=== PATIENT | female | born 1960 | race Caucasian/White ===

== ENCOUNTER 2018-02-01 13:56 | Inpatient (IN) ==
--- OUTSIDE RECORDS SUMMARY | 2018-02-01 16:37 | External Medical Summary ---
:1960 Author Name FUAD BRICE MD Address [address] Unavailable [place], [place] [id number] Care Team Providers Name Role Phone LEV SEAMAN Unavailable Unavailable FUAD BRICE MD Unavailable Unavailable LOWELL EVERETT Unavailable Unavailable DR. KATHY LOWE Unavailable Unavailable KYLE QUINN APRN Unavailable Unavailable LY RODRIGUEZ Unavailable Unavailable DR. ROVERTO LINK Unavailable Unavailable AUSTEN TORRES Unavailable Unavailable Huma HELTON Unavailable Unavailable Allergies and Adverse Reactions Date Identified Substance Type Reaction Severity codeine Medication Unknown Headache CODIENE Medication Unknown Headache Assessments Fuad Brice MD made the following assessments 1. [1444S] Pelvic and perineal pain 2. [8112S] Localized swelling, mass and lump, right lower limb 3. [54905X] Hypo-osmolality and hyponatremia 4. [33259Z] Urge incontinence 5. [ 667858K] Other retention of urine Chief Complaint Appt: Pain in right groin Encounters Encounter Reason Provider(s) Location(s) Diagnosis Date OFFICE/OUTPATIENT FUAD BRICE MD [facility] OTHER RETENTION OF URINE 09/24/2017 VISIT, [facility] LOCALIZED SWELLING, MASS AND LUMP, RIGHT LOWER LIMB 9:46 AM PELVIC AND PERINEAL PAIN HYPO-OSMOLALITY AND HYPONATREMIA URGE INCONTINENCE History of Present Illness Constanza Gomez is a 57 year old female. [2062S] Source of patient information was patient.[[id number]] Pt c.o cyst on groin getting bigger and more painful, hurts to walk and could barely walk out of work . Pt notes steroid injections for back helped once she was on the otezla and is done with those at this time. Pt is getting otezla through Dr Everett Pt with no bowel sx no dysuria but some urinary urgency and then doesnt go a lot that has been happening for a while. [[id number]] LMP not documented: Hysterectomy. Immunizations Vaccine Date Status Fluvirin Private 07/30/2015 Completed Medications Medication Strength Directions Start End Status Fill Date Date Instructions multivitamin 12/18/2014 Active 1 tab per day folic acid 1 mg Active 1 Tablet 1 [address] Everett Qvar 80 04/21/2017 Active ug/actuatio inhale 1 puff n (80 mcg) by inhalation route 2 times per day methotrexate 25 mg/mL 06/03/20 Active sodium inject 0.4 17 milliliter (10 mg) by intramuscular route once weekly atorvastatin 80 mg 06/30/20 Active Medication take 1 tablet 17 updated from by Oral route 1 ERx info from time per day pharmacy. cyanocobalamin 2,500 mcg Active (vitamin B-12) 1 Tablet 1 7 time per day Otezla 09/24/2017 Active 1 Tablet 2 times per day diclofenac sodium 75 mg Active Medication TAKE 1 TABLET 8 updated from BY ORAL ROUTE 2 ERx info from TIMES PER DAY pharmacy. WITH FOOD metoprolol 100 mg Active Medication tartrate TAKE 1 TABLET 8 updated from BY ORAL ROUTE 2 ERx info from TIMES PER DAY pharmacy. gabapentin 100 mg Active 2-3 Tablet 1 8 time per day 2 tabs am, 3 tabs hs amLODIPine 5 mg Active Replaces take 1 tablet 8 Losartan due (5 mg) by oral to sodium route once daily level diclofenac sodium 75 mg Active Medication TAKE 1 TABLET 8 updated from BY ORAL ROUTE 2 ERx info from TIMES PER DAY pharmacy. WITH FOOD traMADol 50 mg Active 1 Tablet 3 8 times per day PRN diclofenac sodium 75 mg 11/19/2017 Active Medication TAKE 1 TABLET updated from BY ORAL ROUTE 2 ERx info from TIMES PER DAY pharmacy. WITH FOOD calcium plus 1200 mg/500 12/18/2014 03/26/20 Completed vitamin D 1u 1 tab per 17 day atorvastatin 40 mg 05/21/20 Completed take 1 tablet 5 15 (40 mg) by oral route once daily at bedtime metoprolol 100 mg 01/16/2015 05/21/20 Completed tartrate take 1 Tablet 15 by Oral route 2 times per day atorvastatin 40 mg Completed Medication TAKE 1 TABLET 5 015 updated from (40 MG) BY ORAL ERx info from ROUTE ONCE DAILY pharmacy. AT BEDTIME metoprolol 100 mg Completed Medication tartrate TAKE 1 TABLET 5 015 updated from BY ORAL ROUTE 2 ERx info from TIMES PER DAY pharmacy. metoprolol 100 mg Completed Medication tartrate TAKE 1 TABLET 5 015 updated from BY ORAL ROUTE 2 ERx info from TIMES PER DAY pharmacy. atorvastatin 40 mg Completed Medication TAKE 1 TABLET 5 015 updated from (40 MG) BY ORAL ERx info from ROUTE ONCE DAILY pharmacy. AT BEDTIME metoprolol 100 mg 08/21/2015 10/14/19 Completed tartrate take 1 Tablet 17 by Oral route 2 times per day Medrol (Gabriele) 4 mg 02/21/2016 03/02/20 Completed take as 16 directed by Oral route 1 time per day azithromycin 250 mg 02/21/2016 03/01/20 Completed take 2 16 tablets by Oral route 1 time per day then 1 tablet (250 mg) once daily for 4 days enalapril maleate 20 mg 02/22/2016 03/02/20 Completed take 2 17 tablets (40 mg) by oral route once daily enalapril maleate 20 mg 03/21/2016 04/30/20 Completed take 1 17 tablets by Oral route 1 time per day metoprolol 100 mg 03/24/2016 Completed Medication tartrate TAKE 1 TABLET 7 updated from BY ORAL ROUTE 2 ERx info from TIMES PER DAY pharmacy. atorvastatin 80 mg 04/02/20 Completed take 1 tablet 7 17 by Oral route at bedtime 1 time per day azithromycin 250 mg Completed take 2 7 7 tablets by Oral route 1 time per day then 1 tablet (250 mg) once daily for 4 days meloxicam 15 mg 03/26/20 Completed take 1 tablet 7 17 (15 mg) by oral route once daily predniSONE 10 mg 12/25/19 Completed take 1 tablet 7 17 (10 mg) by oral route 2 times per day methotrexate 2.5 mg 04/30/20 Completed sodium 6 Tablet 1 7 [address] Everett acetaminophen 650 mg 04/30/20 Completed 2 tabs am 7 17 and 3 tabs noon metoprolol 100 mg 10/05/19 Completed Medication tartrate take 1 Tablet 7 18 updated from by Oral route 2 ERx info from times per day pharmacy. enalapril maleate 20 mg Completed Medication take 1 7 017 updated from tablets by Oral ERx info from route 2 times pharmacy. 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 17 18 next week by Oral route 3 times per day Medrol (Gabriele) 4 mg 08/13/20 Completed as directed 17 8 diclofenac sodium 75 mg 08/13/20 Completed will piclk up take 1 tablet 17 8 next week when by Oral route 2 out of current times per day with food enalapril maleate 20 mg 10/13/19 Suspended take 1 tablet 5 15 (20 mg) by oral route once daily enalapril maleate 20 mg 10/13/19 Suspended take 1 tablet 5 15 (20 mg) by oral route once daily enalapril maleate 20 mg 10/13/19 Suspended take 2 tablet 5 15 by Oral route 1 time per day enalapril maleate 20 mg Suspended take 2 tablet 5 5 by Oral route 1 time per day metoprolol 100 mg 11/15/2014 Suspended tartrate take 1 tablet 5 (100 mg) by oral route 2 times per day enalapril maleate 20 mg 11/15/2014 Suspended take 2 tablet 5 by Oral route 1 time per day metoprolol 100 mg 11/15/2014 Suspended tartrate take 1 tablet 5 (100 mg) by oral route 2 times per day enalapril maleate 20 mg 11/15/2014 01/11/20 Suspended take 2 tablet 15 by Oral route 1 time per day metoprolol 100 mg 11/15/2014 Suspended tartrate take 1 Tablet 5 by Oral route 2 times per day enalapril maleate 20 mg Suspended take 2 tablet 5 6 by Oral route 1 time per day metoprolol 100 mg Suspended tartrate take 1 Tablet 5 6 by Oral route 2 times per day atorvastatin 40 mg Suspended take 1 tablet 5 015 (40 mg) by oral route once daily at bedtime acetaminophen 650 mg 07/30/20 03/27/20 Suspended 3 tabs am 15 17 and 2 tabs pm atorvastatin 80 mg 08/06/20 02/11/20 Suspended take 1 tablet 15 16 by Oral route at bedtime 1 time per day enalapril maleate 20 mg 01/22/2016 Suspended take 2 tablet 6 by Oral route 1 time per day enalapril maleate 20 mg 01/23/2016 Suspended take 2 tablet 6 by Oral route 1 time per day atorvastatin 80 mg 10/13/19 Suspended take 1 tablet 6 17 by Oral route at bedtime 1 time per day Qvar 80 03/21/2016 10/06/19 Suspended ug/actuatio inhale 1 puff 17 n (80 mcg) by inhalation route 2 times per day Qvar 80 Suspended ug/actuatio inhale 1 puff 7 7 n (80 mcg) by inhalation route 2 times per day metoprolol 100 mg 04/03/20 Suspended Medication tartrate TAKE 1 TABLET 7 17 updated from BY ORAL ROUTE 2 ERx info from TIMES PER DAY pharmacy. gabapentin 100 mg 03/27/20 Suspended take 1-3 7 17 capsules by Oral route 1 time per day in hte pm predniSONE 10 mg 12/27/19 Suspended take 3 tablet 7 17 by Oral route 1 time per day for 3 days 2 tabs QD x5 days then 1 QD x 5 days enalapril maleate 20 mg 05/06/20 Suspended Medication TAKE 2 7 17 updated from TABLETS (40 MG) ERx info from BY ORAL ROUTE pharmacy. ONCE DAILY celecoxib 200 mg 05/06/20 Suspended take 1 7 17 capsule by Oral route 1 time per day as needed gabapentin 100 mg 05/12/20 Suspended take 3 Tablet 7 17 by Oral route 1 time per day in pm atorvastatin 80 mg Suspended Medication TAKE 1 TABLET 7 017 updated from BY ORAL ROUTE AT ERx info from BEDTIME 1 TIME pharmacy. PER DAY gabapentin 100 mg 05/12/20 Suspended take 3 Tablet 7 17 by Oral route 1 time per day in pm gabapentin 100 mg 07/17/20 Suspended take 1-3 7 17 Tablet by Oral route 1 time per day in pm gabapentin 100 mg 07/20/20 Suspended take 3 Tablet 7 17 by Oral route 1 time per day in pm gabapentin 100 mg 10/09/19 Suspended take 3 Tablet 7 18 by Oral route 1 time per day in pm Otezla Suspended 12-8-17 Pt. 7 8 states on titration per Dr. Everett amLODIPine 5 mg 08/13/20 10/27/19 Suspended Replaces take 1 tablet 17 18 Losartan due (5 mg) by oral to sodium route once daily level diclofenac sodium 75 mg 08/13/20 Suspended take 1 tablet 17 017 by Oral route 2 times per day with food cyclobenzaprine 10 mg 08/13/20 Suspended take 1 tablet 17 017 by Oral route 3 times per day Bactrim DS 800-160 mg 09/24/2017 09/30/19 Suspended take 1 tablet 18 by oral route every 12 hours for 7 days traMADol 50 mg 10/30/19 Suspended 1 Tablet 3 8 18 times per day PRN Payers Plan Name [facility] Physical Examination Vital Signs:Vital Signs/Measurements Date[00477J] Tympanic membrane temperature - 90 to 107 09/24/2017 09: 46AM 96.9 F[6021S] RR 16 bpm 8 to 140 09/24/2017 09:46AM[6034S] MD 82 bpm 30 to 18009/24/2017 09:46AM[6046S] Blood pressure 143/81 mmHg 50-400/10-300 09/24/2017 09:48AM[6063S] Weight 155.8 lbs 1 to 600 09/24/2017 09:46AM[9300S] Body mass index - 09/24/2017 09:46AM 26.7 kg/m2 BMI Percentile : Off Chart[6071S] Height 64in 10 to 96 09/24/2017 09:46AMGeneral Appearance: [98954T] Alert, [05965N] well developed, and [ 77683K] in no acute distress.Eyes: Extraocular Movements: [6527S] Theextraocular movements were normal. Pupils: [6498S] The pupils were normal. External: [6461S] The conjunctiva exhibited no abnormalities.Lungs: [7010S] Lungs: normal, [6026P] respiration rhythmand depth was normal, [7041P ] the lungs were clear to auscultation, [7047P] no wheezing was heard, and [ 7049P] no rhonchi were heard.Cardiovascular: Heart Rate And Rhythm: [073409G ] Heart rate and rhythm normal. Heart Sounds: [7144S] Heart sounds normal, [ 7165P] no S3 was heard, and [7168P] no S4 was heard. Murmurs: [7180S] No murmurs were heard. Arterial Pulses: [7293S] Arterial pulses were equal bilaterally and normal. Edema: [7268S] Edema not present. Veins: [7277S] Veins unremarkable.Back: [7405S] No costovertebral angle tenderness.Abdomen: Auscultation: [82488Z] Abdominal auscultation revealed abnormalities no right femoral bruit. [7377S] The bowel sounds were normal and [7384P] a bruit was not heard in the abdomen. Palpation: [7406S] Direct suprapubic tendernessher bladder perc above the eustachion no oter mass there. [9253S] No abdominal guarding and [7407S] no rebound tenderness in the abdomen. Liver : [7427S] The liver was normal to palpation. Spleen: [7433S] The spleen was normal to palpation. Hernia: [7436S] No hernia was discovered.Urinary System : Bladder: [302078Z] The bladder was full and [973785U] was tender.Genitalia : External: [7524S] The external genitalia showed no abnormalities.Pelvic: [8791054K] Bimanual Exam. Vagina:[7552S] The vagina was normal. Cervix: [7583S] Cervix abnormal absent. [246196W] Pap smear sample not taken. Uterine Adnexae: [7603S] The uterine adnexae were abnormal tender with palp on the right fullness there no firm mass notedvery tender with palp over the bladder and [7604P] [30276O] the uterine adnexa was tender [91555V] on the right.Musculoskeletal System: General/bilateral: [7716S]Heberden's nodes were seen.Neurological: [06855M] No disorientation was observed.Skin: [ 12067Y] No cyanosis. [6142S] Skin: below right inguinal line there is a pa sized freely mobile subcutaneous mass no cystic opening to it and it is firmer than a lipomano LAD is noted. [83283R] The skin general appearance was normal.Nails: [6346S] No clubbing of the fingernails.Orthopedic Disorder: [625379Y] No synovitis.Standard Measurements:Standard Measurements:[19337R] Body surface area 1.8 09/24/2017 09:46AMLaboratory Studies :Pulmonary Function Tests:[230569I] 96% percent oxygen - 93 to 100 09/24/2017 09:46AM saturation Treatment plan Planned Care Start Date 1. HTn improved control cpm~2. Hyponatremia off losartan 09/24/2017 check today ctn water restriction~3. Suprapubic pain check UA and it with nitrates only her pain is out of proportion and she has some urge issure will get post void residual ? urinary retention and pelvic sono eval right adnexa culture urine and start bactrim ds bid 4. Right inguinal lump no growth noted refer to Dr Torres pt notes pain in her back when this is palpated 1.Urine culture~2. US of bladder ~3. 09/24/2017 Labs, Tests, or Studies Reviewed In house. 09/24/2017 8 wk 12/21/2017 Problems Name Type Status Onset Resolution Priority Author HYPO-OSMOLALITY Diagnosis Active 05/06/2017 Normal AND HYPONATREMIA PELVIC AND Diagnosis Active 09/24/2017 Normal PERINEAL PAIN LOCALIZED Diagnosis Active 09/24/2017 Normal SWELLING, MASS AND LUMP, RIGHT LOWER LIMB URGE INCONTINENCE Diagnosis Active 09/24/2017 Normal OTHER RETENTION Diagnosis Active 09/24/2017 Normal OF URINE Procedures Procedure Date US EXAM BLADDER POST-VOID 09/24/2017 TRANSVAGINAL US, NON-OB 09/24/2017 Results CMP (IN HOUSE) Result Type Result Value Relevant Interpretation Date Reference Range Chloride 93 mmol/L 98-108 L 09/24/2017 Sodium 135 128-145 N 09/24/2017 mmol/24hours Potassium 3.7 mmol/L 3.6-5.1 N 09/24/2017 Carbon dioxide 26 mmol/L 18-33 N 09/24/2017 Glucose 98 mg/dL 73-118 N 09/24/2017 Calcium 9.7 mg/dL 8-10.3 N 09/24/2017 Urea nitrogen 10 mg/dL 7-22 N 09/24/2017 Creatinine .6 mg/dL .6-1.2 N 09/24/2017 Alkaline phosphatase 95 IU/L 42-141 N 09/24/2017 Alanine aminotransferase 26 IU/L 10-47 N 09/24/2017 B 12 Result Type Result Value Relevant Interpretation Date Performing Lab Reference Range call pt her 09/24/2017 (0) virmain B12 was normla on her currnet supplemetn renetta (0) [facility]; ; ; tel:+1-(( ) ) - - URINALYSIS DIP STICK (IN HOUSE) Result Type Result Value Relevant Reference Interpretation Date Range positive nitrates 09/24/2017 disc at appt renetta URINE CULTURE/COLONY COUNT Result Type Result Value Relevant Interpretation Date Performing Lab Reference Range call pt how is 09/24/2017 (0) she doing her urine infected rec she finish her abx abd then start a probiotic daily for 1 month, She should call if ctn uriniary urgency after that there are meds for that renetta (0) [facility]; ; ; tel:+1-(( ) ) - - US EXAM BLADDER POST-VOID Result Type Result Value Relevant Reference Interpretation Date Range Per [facility] 09/24/2017 radiology pre-void 474mL Post void 24.3mLnormal see u/s renetta TRANSVAGINAL US, NON-OB Result Type Result Value Relevant Reference Interpretation Date Range call pt ehr u/s 09/24/2017 noraml and her bladder empties How is her pain? Review of Systems Systemic: [1878S] No systemic symptoms, [5S] no fever, and [7S] no chills.Gastrointestinal: [475S] Abdominal pain. [453S] No melena. [435S] No diarrhea, [911P] no fecal incontinence, and [444P] no constipation.Genitourinary : [539S] No hematuria and [546P] no changes in urinary habits. [548S] Increased urinary frequency [647397Q] frequent, small amounts. [528S] No polyuria. [897833P] Sudden urinary urgency, [547P] incomplete emptying of bladder, and [908P] [544723O] urinary loss of control [697425Z] preceded by a sudden urge. [526S] No dysuria, [581S] no vaginal itching or burning, and [ 041660M] normal menses. [610S] No vaginal discharge.Musculoskeletal: [917S] Back pain and [980P] back stiffness. [954S] No arthralgias.Psychological: [ 1891S] No psychological symptoms. Social History History Item Description Date Sex Female Unknown Unknown Unknown Unknown Current Smoking Status Unknown Since 11/19/2017 Tobacco Use Unknown Since 10/27/2017 Tobacco Use Current every day smoker 10/26/2017 - 10/27/2017 Tobacco Use Unknown 10/02/2017 - 10/26/2017 Tobacco Use Current every day smoker 08/13/2017 - 10/02/2017 Tobacco Use Unknown 07/20/2017 - 08/13/2017 Tobacco Use Current every day smoker 07/17/2017 - 07/20/2017 Tobacco Use Unknown 06/12/2017 - 07/17/2017 Tobacco Use Current every day smoker 06/03/2017 - 06/12/2017 Tobacco Use Unknown 05/11/2017 - 06/03/2017 Tobacco Use Current every day smoker 05/06/2017 - 05/11/2017 Tobacco Use Unknown 04/02/2017 - 05/06/2017 Tobacco Use Current every day smoker 03/27/2017 - 04/02/2017 Tobacco Use Unknown 01/02/2017 - 03/27/2017 Tobacco Use Current every day smoker 12/24/2016 - 01/02/2017 Tobacco Use Unknown 10/14/2016 - 12/24/2016 Tobacco Use Current Smoker 10/13/2016 - 10/14/2016 Tobacco Use Unknown 03/24/2016 - 10/13/2016 Tobacco Use Current every day smoker 03/06/2016 - 03/24/2016 Tobacco Use Unknown 02/22/2016 - 03/06/2016 Tobacco Use Current every day smoker 02/21/2016 - 02/22/2016 Tobacco Use Unknown 08/06/2015 - 02/21/2016 Tobacco Use Current every day smoker 07/30/2015 - 08/06/2015 Tobacco Use Unknown 12/25/2014 - 07/30/2015 Tobacco Use Current every day smoker 12/18/2014 - 12/25/2014 Tobacco Use Unknown 10/12/2014 - 12/18/2014 Vital Signs Date / Time: 09/24/2017 3:55 PM Body temperature 96.9 F Heart rate 82 /min Respiratory rate 16 /min Pulse oximetry site 96 % Systolic blood pressure 143 mm[Hg] Diastolic blood pressure 81 mm[Hg] Body height 64 [in_i] Body weight 70.7 kg \ 155.8 [lb_av] Body mass index (BMI) [Ratio] 26.7 kg/m2
--- OUTSIDE RECORDS SUMMARY | 2018-02-01 16:38 | External Medical Summary ---
:1960 Author Name EMILY MATOS MD Address [address] Unavailable [place], [place] [id number] Care Team Providers Name Role Phone LEV SEAMAN Unavailable Unavailable EMILY MATOS MD Unavailable Unavailable LOWELL EVERETT Unavailable Unavailable DR. KATHY LOWE Unavailable Unavailable KYLE QUINN APRN Unavailable Unavailable LY RODRIGUEZ Unavailable Unavailable DR. ROVERTO LINK Unavailable Unavailable AUSTEN TORRES Unavailable Unavailable Huma HELTON Unavailable Unavailable Allergies and Adverse Reactions Date Identified Substance Type Reaction Severity codeine Medication Unknown Headache CODIENE Medication Unknown Headache Chief Complaint Medications Encounters Provider(s) Location(s) Date EMILY MATOS MD [facility] 12/18/2017 1:58 PM CARE Immunizations Vaccine Date Status Fluvirin Private 07/30/2015 [...] from TIMES PER DAY pharmacy. WITH FOOD diclofenac sodium 75 mg 12/18/2017 Active Medication TAKE 1 TABLET updated from [...] by Oral route 2 times per day metoprolol 100 mg Completed Medication tartrate TAKE 1 TABLET 5 015 updated from BY ORAL ROUTE 2 ERx info from TIMES PER DAY pharmacy. atorvastatin 40 mg Completed Medication TAKE 1 TABLET 5 015 updated from (40 MG) BY ORAL ERx info from ROUTE ONCE DAILY pharmacy. AT BEDTIME atorvastatin 40 mg Completed Medication TAKE 1 TABLET 5 015 updated from (40 MG) BY ORAL ERx info from ROUTE ONCE DAILY pharmacy. AT BEDTIME metoprolol 100 mg Completed Medication tartrate TAKE 1 TABLET 5 015 updated from BY ORAL ROUTE 2 ERx info from TIMES PER DAY pharmacy. metoprolol 100 mg 08/21/2015 10/14/19 Completed tartrate take 1 Tablet 17 by Oral route 2 times per day azithromycin 250 mg 02/21/2016 03/01/20 Completed take 2 16 tablets by Oral route 1 time per day then 1 tablet (250 mg) once daily for 4 days Medrol (Gabriele) 4 mg 02/21/2016 03/02/20 Completed take as 16 directed by Oral route 1 time per day enalapril maleate 20 mg 02/22/2016 03/02/20 Completed [...] by oral route 2 times per day acetaminophen 650 mg 04/30/20 Completed 2 tabs am 7 17 and 3 tabs noon methotrexate 2.5 mg 04/30/20 Completed sodium 6 Tablet 1 7 [address] 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 week by Oral route 3 times per day enalapril maleate 20 mg 10/13/19 Suspended take 1 tablet 5 15 (20 mg) by oral route once daily enalapril maleate 20 mg Suspended take 2 tablet 5 5 by Oral route 1 time per day enalapril maleate 20 mg 10/13/19 Suspended take 2 tablet 5 15 by Oral route 1 time per day enalapril maleate 20 mg 10/13/19 Suspended take 1 tablet 5 15 (20 mg) by oral route once daily metoprolol 100 mg 11/15/2014 Suspended tartrate take 1 tablet 5 (100 mg) by oral route 2 times per day enalapril maleate 20 mg 11/15/2014 01/11/20 Suspended take 2 tablet 15 by Oral route 1 time per day metoprolol 100 mg 11/15/2014 Suspended tartrate take 1 tablet 5 (100 mg) by oral route 2 times per day metoprolol 100 mg 11/15/2014 Suspended tartrate take 1 Tablet 5 by Oral route 2 times per day enalapril maleate 20 mg 11/15/2014 Suspended take 2 tablet 5 by Oral route 1 time per day enalapril maleate 20 mg Suspended take 2 tablet 5 6 by Oral route 1 time per day atorvastatin 40 mg Suspended take 1 tablet 5 015 (40 mg) by oral route once daily at bedtime metoprolol 100 mg Suspended tartrate take 1 Tablet 5 6 by Oral route 2 times per day acetaminophen 650 mg 07/30/20 03/27/20 Suspended 3 [...] time per day in pm Otezla Suspended 07-24-17 Pt. 7 8 states on titration per Dr. Everett amLODIPine 5 mg 08/13/20 10/27/19 Suspended Replaces take 1 tablet 17 18 Losartan due (5 mg) by oral to sodium route once daily level cyclobenzaprine 10 mg 08/13/20 Suspended take 1 tablet 17 017 by Oral route 3 times per day diclofenac sodium 75 mg 08/13/20 Suspended take 1 tablet 17 017 by Oral route 2 times per day with food Bactrim DS 800-160 mg 09/24/2017 09/30/19 Suspended take 1 tablet 18 by oral route every 12 hours for 7 days traMADol 50 mg 10/30/19 Suspended 1 Tablet 3 8 18 times per day PRN Payers Plan Name [facility] Treatment plan Planned Care Start Date 8 wk 12/21/2017 Social History History Item Description Date Sex Female Current Smoking Status Unknown Since 12/18/2017 Tobacco Use Unknown Since 10/27/2017 Tobacco Use [...]
--- OUTSIDE RECORDS SUMMARY | 2018-02-01 16:38 | External Medical Summary | Continuity of Care Document ---
:1960 Author Organization [facility] Care Team Providers Name Role Phone EMILY MATOS Admitting Physician EMILY MATOS Attending Physician Hospital Admission Diagnosis Code Admission Diagnosis Date [id number] Low back pain Social History Element Code Description Smoking Start Date End Date Description Status Code System Smoking Status [id number] Current some day SNOMED-CT smoker Problems Code Code System Problem Name Start Date End Date Status [id number] SNOMED-CT Diffuse myofascial unknown Active pain syndrome 65357364 SNOMED-CT Hypertensive unknown Active disorder Medications RxNorm Medication Dose Route Instructions Indications Start End Status Date Date 19831119 Acetaminophen 650 oral orally every fever or Active 650 MG Oral milligram 4 to 6 hours pain Tablet as needed. 599715 atorvastatin 80 80 oral orally HS Active MG Oral Tablet milligram 1347 Beclomethasone 1 puff Inhalation inhaled 2 Active times per day 315166 Enalapril 20 oral orally 2 Active Maleate 20 MG milligram times per day Oral Tablet 867532 Folic Acid 1 MG 1 oral orally every Active Oral Tablet milligram day 27825 gabapentin 300 oral orally every Active milligram day at bedtime 337145 Methotrexate 10 10 oral orally every Active MG Oral Tablet milligram week 292279 Metoprolol 100 oral orally 2 Active Tartrate 100 MG milligram times per day Oral Tablet Multivitamins 1 tablet oral orally every Active day 7350809 Acetaminophen 1to 2 oral orally every pain No 325 MG / tablets 4 hours as Longer Oxycodone needed. Active Hydrochloride 10 MG Oral Tablet 21191018 Aspirin 325 MG 325 oral orally every No Oral Tablet milligram day Longer Active Allergies Code Code Allergy Type Reaction Severity Start End Status System Substance Date Date 2669 RXNorm Codeine Drug Unknown 06/25/20 Active allergy 17 Results Laboratory Results Order: Creatinine PhosphokinaseLegend: D= Delta, H=High, L=Low, HH=Critical High, LL=Critical Low, AA=Critical Alpha- Numeric, C=Corrected, A=Abnormal LOINC Test Result Flag Range Units Date 2157-6 180 30-223 IU/L 07/13/2017 1CK 08:00 [facility]forming [id number] [address] [place] [address], [place] [address] - [facility] Radiology Results Order: NBNJNWB NM Bone And/Or Joint Whole BodyExam Completion Date:07/13/2017 11:00ORIGINAL INDICATION: M54.5-low back pain; L40.52-Psoriatic arthritis COMPARISON: MRI 06/29/2017NM Bone And/Or Joint Whole Body: Evidence of arthritis in shoulders, wrists,right foot. Minor degenerative findings in the L-spine. SI joints appearnormal. The suspected cyst coccyx fracture is obscured by the bladder. Nofindings to suggest a tumor.IMPRESSION: Arthritis.Released By JAYLON AGUIRRE, PATate: 07/13/2017 13:34 ADDENDUMReason for Addendum: Wording CorrectionThe suspected coccyx fracture is obscured by the bladder.Released By JAYLON AGUIRRE, MDDate: 07/16/2017 09:31 Vital Signs No data in the system Plan of Care No data in the system Procedures No data in the system Encounters Date Code Diagnosis Status (ICD10) - M545 LOW BACK PAIN Active Immunizations No data in the system Functional Status No data in the system Hospital Discharge Instructions No data in the system
--- OUTSIDE RECORDS SUMMARY | 2018-02-01 16:38 | External Medical Summary | Continuity of Care Document ---
:1960 Author Organization [facility] Care Team Providers Name Role Phone ROVERTO CHAPPELL Admitting Physician ROVERTO CHAPPELL Attending Physician EMILY MATOS Primary Care Physician Hospital Admission Diagnosis Code Admission Diagnosis Date [id number] Low back pain Social History Element Code Description Smoking Start Date End Date Description Status Code System Smoking Status [id number] Unknown if ever SNOMED-CT smoked Problems Code Code System Problem Name Start Date End Date Status 05603087 SNOMED-CT Diffuse myofascial unknown Active pain syndrome 21806934 SNOMED-CT Hypertensive unknown Active disorder Medications RxNorm Medication Dose Route Instructions Indications Start End Status Date Date 19831119 Acetaminophen 650 oral orally every fever or Active 650 MG Oral milligram 4 to 6 hours pain Tablet as needed. 152159 atorvastatin 80 80 oral orally HS Active MG Oral Tablet milligram 1347 Beclomethasone 1 puff Inhalation inhaled 2 Active times per day 549028 Enalapril 20 oral orally 2 Active Maleate 20 MG milligram times per day Oral Tablet 824098 Folic Acid 1 MG 1 oral orally every Active Oral Tablet milligram day 14485 gabapentin 300 oral orally every Active milligram day at bedtime 936019 Methotrexate 10 10 oral orally every Active MG Oral Tablet milligram week 429981 Metoprolol 100 oral orally 2 Active Tartrate 100 MG milligram times per day Oral Tablet Multivitamins 1 tablet oral orally every Active day 9511619 Acetaminophen 1to 2 oral orally every pain No 325 MG / tablets 4 hours as Longer Oxycodone needed. Active Hydrochloride 10 MG Oral Tablet 21191018 Aspirin 325 MG 325 oral orally every No Oral Tablet milligram day Longer Active Allergies Code Code Allergy Type Reaction Severity Start End Status System Substance Date Date 2669 RXNorm Codeine Drug Unknown 06/25/20 Active allergy 17 Results No data in the system Vital Signs Vitals Value Date Respiratory Rate 16 06/22/2017 O2% BldC Oximetry 99 06/22/2017 BP Systolic 176 mmHg 06/22/2017 BP Diastolic 99 mmHg 06/22/2017 Plan of Care No data in the system Procedures No data in the system Encounters Date Code Diagnosis Status (ICD10) - M545 LOW BACK PAIN Active Immunizations No data in the system Functional Status No data in the system Hospital Discharge Instructions No data in the system
--- OUTSIDE RECORDS SUMMARY | 2018-02-01 16:38 | External Medical Summary | Continuity of Care Document ---
:1960 Author Organization [facility] Care Team Providers Name Role Phone ROVERTO CHAPPELL Admitting Physician ROVERTO CHAPPELL Attending Physician EMILY MATOS Primary Care Physician Hospital Admission Diagnosis No data in the System Social History Element Code Description Smoking Start Date End Date Description Status Code System Smoking Status [id number] Unknown if ever SNOMED-CT smoked Problems Code Code System Problem Name Start Date End Date Status 89025110 SNOMED-CT Diffuse myofascial unknown Active pain syndrome 76826509 SNOMED-CT Hypertensive unknown Active disorder Medications RxNorm Medication Dose Route Instructions Indications Start End Status Date Date 19831119 Acetaminophen 650 oral orally every fever or Active 650 MG Oral milligram 4 to 6 hours pain Tablet as needed. 001591 atorvastatin 80 80 oral orally HS Active MG Oral Tablet milligram 1347 Beclomethasone 1 puff Inhalation inhaled 2 Active times per day 686491 Enalapril 20 oral orally 2 Active Maleate 20 MG milligram times per day Oral Tablet 999352 Folic Acid 1 MG 1 oral orally every Active Oral Tablet milligram day 25058 gabapentin 300 oral orally every Active milligram day at bedtime 216492 Methotrexate 10 10 oral orally every Active MG Oral Tablet milligram week 643185 Metoprolol 100 oral orally 2 Active Tartrate 100 MG milligram times per day Oral Tablet Multivitamins 1 tablet oral orally every Active day 7943075 Acetaminophen 1to 2 oral orally every pain [...] Signs Vitals Value Date Respiratory Rate 16 06/29/2017 O2% BldC Oximetry 99 06/29/2017 BP Systolic 131 mmHg 06/29/2017 BP Diastolic 85 mmHg 06/29/2017 Plan of Care No data in the system Procedures No data in the system Encounters No data in the system Immunizations No data in the system Functional Status No data in the system Hospital Discharge Instructions No data in the system
--- OUTSIDE RECORDS SUMMARY | 2018-02-01 16:38 | External Medical Summary ---
:1960 Author Name FUAD BRICE MD Address [address] Unavailable [place], [place] [id number] Care Team Providers Name Role Phone LEV SEAMAN Unavailable Unavailable FUAD BRICE MD Unavailable Unavailable LOWELL EVERETT Unavailable Unavailable DR. KATHY LOWE Unavailable Unavailable KYLE QUINN APRN Unavailable Unavailable LY RODRIGUEZ Unavailable Unavailable DR. ROVERTO LINK Unavailable Unavailable Allergies and Adverse Reactions Date Identified Substance Type Reaction Severity codeine Medication Unknown Headache CODIENE Medication Unknown Headache Assessments Fuad Brice MD made the following assessments 1. [928S] Lower back pain 2. [118215F] Psoriatic arthritis mutilans Chief Complaint order for WBBS Encounters Provider(s) Location(s) Diagnosis Date FUAD BRICE MD [facility] PSORIATIC ARTHRITIS MUTILANS 07/03/2017 1:28 [facility]ARE LOW BACK PAIN PM Immunizations Vaccine Date Status Fluvirin Private 07/30/2015 Completed Medications Medication Strength Directions Start End Status Fill Date Date Instructions multivitamin 12/18/2014 Active 1 tab per day folic acid 1 mg Active 1 Tablet 1 [address] Everett metoprolol 100 mg Active Medication tartrate take 1 Tablet 7 updated from by Oral route 2 ERx info from times per day pharmacy. Qvar 80 04/21/2017 Active ug/actuatio inhale 1 puff n (80 mcg) by inhalation route 2 times per day celecoxib 200 mg Active take 1 7 capsule by Oral route 1 time per day as needed gabapentin 100 mg Active take 1-3 7 Tablet by Oral route 1 time per day in pm methotrexate 25 mg/mL 06/03/20 Active sodium inject 0.4 17 milliliter (10 mg) by intramuscular route once weekly losartan 100 mg 06/03/20 Active REPLACES take 1 tablet 17 ENALAPRIL (100 mg) by oral route once daily atorvastatin 80 mg 06/30/20 Active Medication take 1 tablet 17 updated from by Oral route 1 ERx info from time per day pharmacy. calcium plus 1200 mg/500 12/18/2014 03/26/20 Completed vitamin D 1u 1 tab per day atorvastatin 40 mg 05/21/20 Completed take [...] Oral route 1 time per day enalapril 20 mg 02/22/2016 03/02/20 Completed maleate take 2 17 tablets (40 mg) by oral route once daily enalapril 20 mg 03/21/2016 04/30/20 Completed maleate take 1 17 tablets by Oral route [...] (250 mg) once daily for 4 days predniSONE 10 mg 12/25/19 Completed take 1 tablet 7 17 (10 mg) by oral route 2 times per day meloxicam 15 mg 03/26/20 Completed take 1 tablet 7 17 (15 mg) by oral route once daily acetaminophen 650 mg 04/30/20 Completed 2 tabs am 7 17 and 3 tabs noon methotrexate 2.5 mg 04/30/20 Completed sodium 6 Tablet 1 7 [address] Everett enalapril 20 mg Completed Medication maleate take 1 7 017 updated from tablets by Oral ERx info from route 2 times pharmacy. per day enalapril 20 mg 10/13/19 Suspended maleate take 1 tablet 5 15 (20 mg) by oral route once daily enalapril 20 mg Suspended maleate take 2 tablet 5 5 by Oral route 1 time per day enalapril 20 mg 10/13/19 Suspended maleate take 2 tablet 5 15 by Oral route 1 time per day enalapril 20 mg 10/13/19 Suspended maleate take 1 tablet 5 15 (20 mg) by oral route once daily metoprolol 100 mg 11/15/2014 Suspended tartrate take 1 tablet 5 (100 mg) by oral route 2 times per day enalapril 20 mg 11/15/2014 01/11/20 Suspended maleate take 2 tablet 15 by Oral route 1 time per day metoprolol 100 mg 11/15/2014 Suspended tartrate take 1 tablet 5 (100 mg) by oral route 2 times per day enalapril 20 mg 11/15/2014 Suspended maleate take 2 tablet 5 by Oral route 1 time per day metoprolol 100 mg 11/15/2014 Suspended tartrate take 1 Tablet 5 by Oral route 2 times per day enalapril 20 mg Suspended maleate take 2 tablet 5 6 by Oral route 1 time per day metoprolol 100 mg 10/5/201 1/5/201 Suspended tartrate take 1 Tablet 5 6 [...] at bedtime 1 time per day enalapril 20 mg 01/22/2016 Suspended maleate take 2 tablet 6 by Oral route 1 time per day enalapril 20 mg 01/23/2016 Suspended maleate take 2 tablet 6 by Oral route [...] then 1 QD x 5 days enalapril 20 mg 05/06/20 Suspended Medication maleate TAKE 2 7 17 updated from TABLETS [...] route 1 time per day in pm Payers Plan Name [facility] Treatment plan Planned Care Start Date f/u bone scan-start new med- draw MMA 07/17/2017 Problems Name Type Status Onset Resolution Priority Author Diagnosis Active 12/24/2016 Normal Diagnosis Active 03/27/2017 Normal Procedures Procedure Date BONE IMAGING, WHOLE BODY 07/03/2017 Results BONE IMAGING, WHOLE BODY Result Type Result Value Relevant Reference Interpretation Date Range call pt her bone 07/03/2017 scan shows arhtritis no evidence for a tumor I rec we start the otezla and she fup ford Everett on that med within 6-8 weeks renetta CPK Result Type Result Value Relevant Reference Interpretation Date Range Results within 07/03/2017 Expected Range renetta Social History History Item Description Date Sex Female Current Smoking Status Unknown Since 07/03/2017 Tobacco Use Unknown Since 06/12/2017 Tobacco Use Current every day smoker 06/03/2017 [...]
--- OUTSIDE RECORDS SUMMARY | 2018-02-01 16:38 | External Medical Summary ---
:1960 Author Name FUAD BRICE MD Address [address] Unavailable [place], [place] [id number] Care Team Providers Name Role Phone LEV SEAMAN Unavailable Unavailable FUAD RBICE MD Unavailable Unavailable LOWELL EVERETT Unavailable Unavailable DR. KATHY LOWE Unavailable Unavailable KYLE QUINN APRN Unavailable Unavailable LY RODRIGUEZ Unavailable Unavailable DR. ROVERTO LINK Unavailable Unavailable AUSTEN TORRES Unavailable Unavailable Huma HELTON Unavailable Unavailable Allergies and Adverse Reactions Date Identified Substance Type Reaction Severity codeine Medication Unknown Headache CODIENE Medication Unknown Headache Assessments Fuad Brice MD made the following assessments 1. [72234F] Sciatic neuritis 2. [135305M] Abnormal blood chemistry 3. [06188U] Pseudohyponatremia 4. [928S] Lower back pain 5. [05515G] Essential hypertension Chief Complaint Appt: ER follow up 08/12/17 Encounters Encounter Reason Provider(s) Location(s) Diagnosis Date OFFICE/OUTPATIENT FUAD BRICE MD [facility] OTHER SPECIFIED ABNORMAL FINDINGS OF BLOOD CHEMISTRY 08/13/2017 VISIT, [facility], RIGHT SIDE 10: 44 AM HYPO-OSMOLALITY AND HYPONATREMIA LOW BACK PAIN ESSENTIAL (PRIMARY) HYPERTENSION History of Present Illness Constanza Gomez is a 57 year old female. [2062S] Source of patient information was patient.[343548P] Pt having worse pain in right side starting at buttock going down leg. started thursday night,come thursday pain worse, pt states could barely walk, stand. 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 drank 2 glasses of wine with [place] dinner. drinkscoffee usually 6-8 oz at a time. Tea about 3- 8oz , when ran out of gatorade. Pt drinking about 2- 44oz glasses of water. pt informed to cut back on water to 20oz in the morning and night instead of 44oz due to sodium being lowDr, [place]-for an HANNY for nerve root impingementLabs done in ER- cbc normal, sodium to low, drinking to much water. Discussed PHT after seeing [facility] for HANNY. Do low back exercises given in ERPt needs to utilize stool at work to help with pain. pt given cyclobenzaprine 10mg tid # 30 and diclofenac 75mg bid #30 and a medrol pack by ER doc. [2903S] No neck symptoms. [2344S] Neck pain on right. [3064281G] LMP not documented: Hysterectomy. [546S] No changes in urinary habits and [548S] no increase in urinary frequency. [908S] No urinary loss of controland [908P] no urinary loss of control. [586S] No reproductive system abnormalities. [928P] [714930Y] Lower back pain [429202I] [990965Z] radiating [382733T] to the buttocks, [ 293589K] to the [572364J] right knee, [361306B] to [787026W] the right foot, [ 1060P] with muscle spasm, [980P] back stiffness, and [2295P] pain in the pelvic girdle. [1053S] No calf muscle cramps and [363S] no soft tissue swelling. [ 1155S] Sleep disturbances. [5S] No fever and [7S] no chills. [279S] No chest pain ordiscomfort. [353S] No dyspnea and [247S] no cough. [399S] No dysphagia, [475S] no abdominal pain, [453S] no melena, [454P] no hematochezia, [ 435P] no diarrhea, [911P] no fecal incontinence, and [444P] no constipation. [ 1061S] No excessive sweating. Immunizations Vaccine Date Status Fluvirin Private 07/30/2015 [...] time per day in pm Otezla Suspended 07-24- Pt. 7 8 states on titration per [...] times per day PRN Payers Plan Name [facility] Physical Examination Vital Signs:Vital Signs/Measurements Date[97910Q] Tympanic membrane temperature - 90 to 107 08/13/2017 10: 45AM 96.8 F[6021S] RR 16 bpm 8 to 140 08/13/2017 10:44AM[6034S] NH 84 bpm 30 to 180 08/13/2017 10:45AM[6046S] Blood pressure 130/80 mmHg 50-400/10-300 08/13/2017 10:47AM[6063S] Weight 156.4 lbs 1 to 600 08/13/2017 10:44AM[9300S] Body mass index - 08/13/2017 10:44AM 26.8 kg/ m2 BMI Percentile: Off Chart[6071S] Height 64 in 10 to 96 08/13/2017 10:44AMGeneral Appearance: [24953Z] Alert, [48791T] well developed, and [40374L] in no acute distress.Eyes: External: [6461S] The conjunctiva exhibited no abnormalities.Lymph Nodes: [6963S] Lymph nodes: normal no cervical no supraclavicular lad.Lungs: [7010S] Lungs: normal, [ 6026P] respiration rhythm and depth was normal, and [7041P] the lungs were clear to auscultation.Cardiovascular: Heart Rate And Rhythm: [975102N] Heart rate and rhythm normal. Heart Sounds: [7144S] Heart sounds normal, [7165P] no S3 was heard, and [7168P] no S4 was heard. Arterial Pulses: [7293S] Arterial pulses were equal bilaterally and normal. Veins: [7277S] Veins unremarkable.Back: [823565U] Tenderness on palpation of the back lumbar tosacral and [297926M] muscle spasm of the back. [7405S] No costovertebral angle tenderness.Abdomen: [7358S] Abdomen: freely mobile subcutanious dime size cyst vs. node beneath the right ingunail canal not in tyropiucal area of a lymph nodenone on the left. Palpation: [43199I] Abdominal palpationrevealed no abnormalities and [9253P] no abdominal guarding. Liver: [7427S] The liver was normal to palpation and [7428P] was not enlarged. Spleen: [7433S] The spleen was normal to palpation. Hernia: [7436S] No hernia was discovered.Musculoskeletal System: General/bilateral: [7964S] The cervical spine [7976P] showed tenderness on palpation. General/bilateral: [119401O] Palpation of thelumbosacral spine revealed [973999J] tenderness on palpation and [660150P] muscle spasms. [179746B]The lumbosacral spine exhibited no step deformity. [093294Q] Lumbosacral spine pain was elicited byflexion, [867104P] by extension, and [8014P] a straight-leg raising test was positive.Neurological : [16060M] No disorientation was observed. [8202S] Neurological system: Lumbar right very tender. point spinal tenderness. Sensation: [8615S] No sensory exam abnormalities were noted. Gait And Stance: [9035S] Gait and stance were abnormal.Skin: [18652P] No cyanosis. [6142S] Skin: livido reticularis. [79186S] The skin general appearance was normal.Nails: [6355S] Koilonychia was noted.Standard Measurements:Standard Measurements:[10346L] Body surface area 1.8110/14/2016 10:44AMLaboratory Studies:Pulmonary Function Tests:[ 090536Z] 94% percent oxygen - 93 to 100 08/13/2017 10:45AM saturation Treatment plan Planned Care Start Date Labs, Tests, or Studies Reviewed 08/13/2017 1. Hyponatremia dec water stop losartan start amlodipine 08/13/2017 fup 2- 3 weeks~2. Right sciatica refer for hanny cnt diclofenac and cyclobenzaprine no other otc nsaids or celexicob with that med finish medrol pack note to be off work will thursday~3. Low back pain pt with Si tenderness iwht palp as well but no better with Si injection or meds for psoriatic arthritis so far not yet on otezla~4. HTN fup on amlodipine of losartan ~5. irght inguinal subcutaneus lump i think a cyst out of noraml area for a lymph node her cbc in ER normal rec heat and recheck in 2-3 weeks note no other LAd noted and no abdminal , GI or pelvic pain education provided regarding all new 08/13/2017 medications.~Amlodipine 5mg daily. stop Losartan 8 wk 12/21/2017 Problems Name Type Status Onset Resolution Priority Author ESSENTIAL Diagnosis Active 12/18/2014 Normal (PRIMARY) HYPERTENSION LOW BACK PAIN Diagnosis Active 12/24/2016 Normal HYPO-OSMOLALITY Diagnosis Active 05/06/2017 Normal AND HYPONATREMIA SCIATICA, RIGHT Diagnosis Active Normal SIDE 7 OTHER SPECIFIED Diagnosis Active Normal ABNORMAL FINDINGS 7 OF BLOOD CHEMISTRY Procedures Procedure Date PT EVALUATION 08/13/2017 Results PT EVALUATION Result Type Result Value Relevant Interpretation Date Reference Range 09/17/17 Patient 08/13/2017 rescheduled to 09/07/17 and cancelled that appointment. She has not rescheduled [place] URINALYSIS DIP STICK (IN HOUSE) Result Type Result Value Relevant Reference Interpretation Date Range no uti sx disc 08/13/2017 abnormla very small sample prob vag contam note no blood Disc at appt renetta Review of Systems Psychological: [1891S] No psychological symptoms. Social History History Item [...] - 12/18/2014 Vital Signs Date / Time: 08/13/2017 4:56 PM Body temperature 96.8 F Heart rate 84 /min Respiratory rate 16 /min Pulse oximetry site 94 % Systolic blood pressure 130 mm[Hg] Diastolic blood pressure 80 mm[Hg] Body height 64 [in_i] Body weight 70.9 kg \ 156.4 [lb_av] Body mass index (BMI) [Ratio] 26.8 kg/m2
--- OUTSIDE RECORDS SUMMARY | 2018-02-01 16:39 | External Medical Summary | Continuity of Care Document ---
:1960 Author Organization [facility] Care Team Providers Name Role Phone ROVERTO CHAPPELL Admitting Physician ROVERTO CHAPPELL Attending Physician EMILY MATOS Primary Care Physician Hospital Admission Diagnosis No data in the System Social History Element Code Description Smoking Start Date End Date Description Status Code System Smoking Status [id number] Current some day SNOMED-CT smoker Problems Code Code System Problem Name Start Date End Date Status 66126362 SNOMED-CT Diffuse myofascial unknown Active pain syndrome 76377336 SNOMED-CT Hypertensive unknown Active disorder 5045276 SNOMED-CT Arthritis Unknown Active Medications RxNorm Medication Dose Route Instructions Indications Start End Status Date Date 19831119 Acetaminophen 650 oral orally every fever or Active 650 MG Oral milligram 4 to 6 hours pain Tablet as needed. 837269 atorvastatin 80 80 oral orally HS Active MG Oral Tablet milligram 1347 Beclomethasone 1 puff Inhalation inhaled 2 Active times per day 051674 Enalapril 20 oral orally 2 Active Maleate 20 MG milligram times per day Oral Tablet 245576 Folic Acid 1 MG 1 oral orally every Active Oral Tablet milligram day 73587 gabapentin 300 oral orally every Active milligram day at bedtime 915636 Methotrexate 10 10 oral orally every Active MG Oral Tablet milligram week 327897 Metoprolol 100 oral orally 2 Active Tartrate 100 MG milligram times per day Oral Tablet Multivitamins 1 tablet oral orally every Active day 5342650 Acetaminophen 1to 2 oral orally every pain [...] Signs Vitals Value Date Respiratory Rate 16 08/19/2017 O2% BldC Oximetry 99 08/19/2017 BP Systolic 145 mmHg 08/19/2017 BP Diastolic 96 mmHg 08/19/2017 Plan of Care No data in the system Procedures No data in the system Encounters No data in the system Immunizations No data in the system Functional Status No data in the system Hospital Discharge Instructions No data in the system
--- OUTSIDE RECORDS SUMMARY | 2018-02-01 16:39 | External Medical Summary | Summary of Care ---
:1960 Author Name Divina Donis Address [address] [place] [address] Care Team Providers Name Role Phone Divina Donis Unavailable Unavailable Ren Jara M.D. Unavailable Unavailable Fuad Brice Unavailable Unavailable Unavailable Unavailable Unavailable Functional Status Functional Status Health Issues Name Dates Details Functional status health issues are not documented Status: Cognitive Status Health Issues Name Dates Details Cognitive status health issues are not documented Status: Problems Name Dates Details Hypertension (401.9, I10) Status: Active Obstructive sleep apnea (327.23, G47.33) Status: Active Claustrophobia (300.29, F40.240) Status: Active Medications Name Dates Details Metoprolol Tartrate 100 MG Oral Tablet TAKE 1 TABLET DAILY. Refills: 0 Start 28-Apr-2016 Active Qvar 80 MCG/ACT Inhalation Aerosol Solution INHALE 1 PUFF TWICE DAILY. Refills: 0 Start 28-Apr-2016 Active Enalapril Maleate 20 MG Oral Tablet TAKE 1 TABLET DAILY. Refills: 0 Start 28-Apr-2016 Active Atorvastatin Calcium 80 MG Oral Tablet TAKE 1 TABLET DAILY. Refills: 0 Start 28-Apr-2016 Active Acetaminophen ER 650 MG Oral Tablet Extended Release TAKE 3 TABLETS IN THE MORNING AND 2 TABLETS AT NIGHT Refills: 0 Start 28-Apr-2016 Active Calcium 500 + D 500-125 MG-UNIT Oral Tablet TAKE 1 TABLET DAILY. Refills: 0 Start 28-Apr-2016 Active Multi Vitamin Daily Oral Tablet TAKE 1 TABLET DAILY. Refills: 0 Start 28-Apr-2016 Active Supplies AutoCPAP 8-12 cm H2O, Permanent use, G47.33, Heated humidity, [id number], mask , headgear, filters, heated tubing, water chamber, chinstrap Quantity: 1 Refills: 0 Divina Donis Start 30-Apr-2016 Active Allergies and Adverse Reactions Name Dates Details codeine (Allergy) Reaction: Headache Status: Active Procedures Procedure Dates Details History of Colonoscopy History of Appendectomy History of Cholecystectomy History of Hysterectomy Procedures not documented Immunization Name Dates Details Immunizations not documented Family History Mother Name Dates Details Family history of cardiac disorder (V17.49, Z82.49) Status: Active Family history of hypertension (V17.49, Z82.49) Status: Active Family history of myocardial infarction (V17.3, Z82.49) Status: Active Family history of diabetes mellitus (V18.0, Z83.3) Status: Active Family history of malignant neoplasm of cervix (V16.49, Z80.49) Status: Active Father Name Dates Details Family history of CAD (coronary artery disease) (414.00, I25.10) Status: Active Family history of alcoholism (V17.0, Z81.1) Status: Active Family history of cardiac disorder (V17.49, Z82.49) Status: Active Family history of hypertension (V17.49, Z82.49) Status: Active Sister Name Dates Details Family history of arthritis (V17.7, Z82.61) Status: Active Family history of congestive heart failure (V17.49, Z82.49) Status: Active Social History Name Dates Details - Status: Smoking Status Name Dates Details Smoker. current status unknown Vital Signs Date Test Result Details 30-Apr-2016 12:48 BP Systolic 124 mm[Hg] Status: Comments: Location: ; Position: BP Diastolic 80 mm[Hg] Status: Comments: Location: ; Position: Heart Rate 76 /min Status: Comments: Location: ; Height 65 in Status: Weight 162 lb Status: Physical Findings 96 Status: Comments: O2 Saturation Body Mass Index Calculated 26.96 kg/m2 Status: Body Surface Area Calculated 1.81 m2 Status: Results Date Description Value Details Results not documented Plan of Care Name Dates Details Planned Observations Planned Goals not documented Planned Encounters Appointment; Provider: Ren Jara M.D. On 03-Jun-2016 10:00 Interventions Provided Medication ChangesSupplies - Start Instructions Name Dates Details Instructions not documented Encounters Appointment; Ren Jara M.D. On 30-Apr-2016 Encounter Diagnosis: Problem not documented 13:00
--- OUTSIDE RECORDS SUMMARY | 2018-02-01 16:39 | External Medical Summary ---
:1960 Author Name EMILY MATOS MD Address [address] Unavailable [place], [place] [id number] Care Team Providers Name Role Phone LEV SEAMAN Unavailable Unavailable EMILY MATOS MD Unavailable Unavailable LOWELL EVERETT Unavailable Unavailable DR. KATHY LOWE Unavailable Unavailable KYLE QUINN APRN Unavailable Unavailable LY RODRIGUEZ Unavailable Unavailable DR. ROVERTO LINK Unavailable Unavailable AUSTEN TORRES Unavailable Unavailable Huma CARUSO Unavailable Unavailable Allergies and Adverse Reactions Date Identified Substance Type Reaction Severity codeine Medication Unknown Headache CODIENE Medication Unknown Headache Chief Complaint consult Dr. Caruso Encounters Provider(s) Location(s) Date EMILY MATOS MD [facility] 10/09/2017 12:19 PM CARE Immunizations Vaccine Date Status Fluvirin Private 07/30/2015 Completed Medications Medication Strength Directions Start End Status Fill Date Date Instructions multivitamin 12/18/2014 Active 1 tab per day folic acid 1 mg Active 1 Tablet 1 [address] Everett Qvar 80 04/21/2017 Active ug/actuatio inhale 1 puff n (80 mcg) by inhalation route 2 times per day atorvastatin 80 mg 06/30/20 Active Medication take 1 tablet 17 updated from by Oral route 1 ERx info from time per day pharmacy. cyanocobalamin 2,500 mcg Active (vitamin B-12) 1 Tablet 1 7 time per day Otezla 09/24/2017 Active 1 Tablet 2 times per day metoprolol 100 mg Active Medication tartrate TAKE 1 TABLET 8 updated from BY ORAL ROUTE 2 ERx info from TIMES PER DAY pharmacy. gabapentin 100 mg Active 2-3 Tablet 1 8 time per day 2 tabs am, 3 tabs hs amLODIPine 5 mg Active Replaces take 0.5 8 Losartan due tablet by Oral to sodium route 1 time per level day for a week starting 12/21/17 if less then 120 then go ahead and stop diclofenac sodium 75 mg 12/18/2017 Active Medication TAKE 1 TABLET updated from BY ORAL ROUTE 2 ERx info from TIMES PER DAY pharmacy. WITH FOOD oxyCODONE 10 mg 12/21/2017 Active 1/2 tablet every 3 to 4 hours magnesium oxide 400 mg 12/21/2017 Active 1 Tablet 2 times per day dexamethasone 4 mg 12/21/2017 Active take 1 tablet by Oral route 3 times per day potassium chloride 10 mEq 12/21/2017 Active 1 Capsule 2 times per day memantine 5 mg 12/21/2017 Active take 1 tablets by Oral route 2 times per day Miralax 17 12/21/2017 Active gram/dose take 17 g mixed with 8 oz. water, juice, soda, coffee or tea by Oral route 2 times per day for constipation calcium plus 1200 mg/500 12/18/2014 03/26/20 Completed [...] ERx info from TIMES PER DAY pharmacy. 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 WITH FOOD diclofenac sodium 75 mg Completed Medication TAKE 1 TABLET 8 8 updated from BY ORAL ROUTE 2 ERx info from TIMES PER DAY pharmacy. WITH FOOD traMADol 50 mg Completed 1 Tablet 3 8 8 times per day PRN diclofenac sodium 75 mg 11/19/2017 Completed Medication TAKE 1 TABLET 8 updated from BY ORAL ROUTE 2 ERx info from TIMES PER DAY pharmacy. WITH FOOD enalapril maleate 20 mg 10/13/19 Suspended take [...] time per day enalapril maleate 20 mg 11/15/2014 [...] ERx info from TIMES PER DAY pharmacy. predniSONE 10 mg 12/27/19 Suspended take 3 tablet 7 17 by Oral route 1 time per day for 3 days 2 tabs QD x5 days then 1 QD x 5 days gabapentin 100 mg 03/27/20 Suspended take 1-3 7 17 capsules by Oral route 1 time per day in hte pm enalapril maleate 20 mg 05/06/20 Suspended Medication TAKE 2 7 17 updated from TABLETS (40 MG) ERx info from BY ORAL ROUTE pharmacy. ONCE DAILY gabapentin 100 mg 05/12/20 Suspended take 3 Tablet 7 17 by Oral route 1 time per day in pm celecoxib 200 mg 05/06/20 Suspended take 1 7 17 capsule by Oral route 1 time per day as needed atorvastatin 80 mg Suspended Medication TAKE 1 [...] 8 states on titration per Dr. Everett diclofenac sodium 75 mg 08/13/20 Suspended take 1 tablet 17 017 by Oral route 2 times per day with food cyclobenzaprine 10 mg 08/13/20 Suspended take 1 tablet 17 017 by Oral route 3 times per day amLODIPine 5 mg 08/13/20 10/27/19 Suspended Replaces take 1 tablet 17 18 Losartan due (5 mg) by oral to sodium route once daily level Bactrim DS 800-160 mg 09/24/2017 09/30/19 Suspended take 1 tablet 18 by oral route every 12 hours for 7 days traMADol 50 mg 10/30/19 Suspended 1 Tablet 3 8 18 times per day PRN Payers Plan Name [facility] Treatment plan Planned Care Start Date 2 months. 02/19/2018 Social History History Item Description Date Sex Female Current Smoking Status Current Every Day Since 12/21/2017 Tobacco Use Unknown Since 10/27/2017 Tobacco Use [...]
--- OUTSIDE RECORDS SUMMARY | 2018-02-01 16:39 | External Medical Summary | Continuity of Care Document ---
:1960 Author Organization [facility] Care Team Providers Name Role Phone ROVERTO CHAPPELL Admitting Physician ROVERTO CHAPPELL Attending Physician EMILY MATOS Primary Care Physician Hospital Admission Diagnosis No data in the System Social History Element Code Description Smoking Start Date End Date Description Status Code System Smoking Status [id number] Unknown if ever SNOMED-CT smoked Problems Code Code System Problem Name Start Date End Date Status 37145967 SNOMED-CT Diffuse myofascial unknown Active pain syndrome 29384639 SNOMED-CT Hypertensive unknown Active disorder Medications RxNorm Medication Dose Route Instructions Indications Start End Status Date Date 19831119 Acetaminophen 650 oral orally every fever or Active 650 MG Oral milligram 4 to 6 hours pain Tablet as needed. 403228 atorvastatin 80 80 oral orally HS Active MG Oral Tablet milligram 1347 Beclomethasone 1 puff Inhalation inhaled 2 Active times per day 3829 Enalaprilat 40 oral orally daily Active milligram 851935 Folic Acid 1 MG 1 oral orally every Active Oral Tablet milligram day 38909 gabapentin 300 oral orally every Active milligram day at bedtime 710120 Methotrexate 15 15 oral orally every Active MG Oral Tablet milligram week 592944 Metoprolol 100 oral orally 2 Active Tartrate 100 MG milligram times per day Oral Tablet Multivitamins 1 tablet oral orally every Active day 0367958 Acetaminophen 1to 2 oral orally every pain No 325 MG / tablets 4 hours as Longer Oxycodone needed. Active Hydrochloride 10 MG Oral Tablet 408355 Aspirin 325 MG 325 oral orally every No Oral Tablet milligram day Longer Active Allergies No Known Allergies Results No data in the system Vital [...]
--- OUTSIDE RECORDS SUMMARY | 2018-02-01 16:39 | External Medical Summary | Continuity of Care Document ---
:[address] [facility] Care Team Providers Name Role Phone ROVERTO CHAPPELL Admitting Physician ROVERTO CHAPPELL Attending Physician EMILY MATOS Primary Care Physician Hospital Admission Diagnosis No data in the System Social History Element Code Description Smoking Start Date End Date Description Status Code System Smoking Status [id number] Unknown if ever SNOMED-CT smoked Problems Code Code System Problem Name Start Date End Date Status 45772222 SNOMED-CT Diffuse myofascial unknown Active pain syndrome 95561738 SNOMED-CT Hypertensive unknown Active disorder 4476012 SNOMED-CT Arthritis Unknown Active Medications RxNorm Medication Dose Route Instructions Indications Start End Status Date Date 19831119 Acetaminophen 650 oral orally every fever or Active 650 MG Oral milligram 4 to 6 hours pain Tablet as needed. 431892 atorvastatin 80 80 oral orally HS Active MG Oral Tablet milligram 1347 Beclomethasone 1 puff Inhalation inhaled 2 Active times per day 638993 Enalapril 20 oral orally 2 Active Maleate 20 MG milligram times per day Oral Tablet 136397 Folic Acid 1 MG 1 oral orally every Active Oral Tablet milligram day 94626 gabapentin 300 oral orally every Active milligram day at bedtime 974959 Methotrexate 10 10 oral orally every Active MG Oral Tablet milligram week 633086 Metoprolol 100 oral orally 2 Active Tartrate 100 MG milligram times per day Oral Tablet Multivitamins 1 tablet oral orally every Active day 5770857 Acetaminophen 1to 2 oral orally every pain [...] Signs Vitals Value Date Respiratory Rate 16 09/02/2017 O2% BldC Oximetry 98 09/02/2017 BP Systolic 128 mmHg 09/02/2017 BP Diastolic 78 mmHg 09/02/2017 Plan of Care No data in the system Procedures No data in the system Encounters No data in the system Immunizations No data in the system Functional Status No data in the system Hospital Discharge Instructions No data in the system
--- OUTSIDE RECORDS SUMMARY | 2018-02-01 16:39 | External Medical Summary | Continuity of Care Document ---
:1960 Author Name SHAWNA EMILY Address [address] [place] [address] Care Team Providers Name Role Phone KATIE LIM Unavailable KYLE QUINN Unavailable TENUM, LOCUM Unavailable EMILY MATOS Unavailable EMILY MATOS Primary Careprovider Unavailable Problems Problems not documented for patient. Medications Medication Sig Dispense Refill Date Started Provider gabapentin 100 mg take 1-3 Tablet 90 Tablet 0 05/12/2017 EMILY capsule by Oral route 1 SHAWNA time per day in pm celecoxib 200 mg take 1 capsule 90 CAP 1 05/06/2017 EMILY capsule by Oral route 1 SHAWNA time per day as needed enalapril maleate take 1 tablets 180 Tablet 2 05/06/2017 EMILY 20 mg tablet by Oral route 2 SHAWNA times per day Qvar 80 inhale 1 puff 1 Inhaler 3 04/21/2017 EMILY mcg/actuation (80 mcg) by SHAWNA aerosol inhalation route 2 times per day metoprolol take 1 Tablet by 180 tablet 1 04/03/2017 EMILY tartrate 100 mg Oral route 2 SHAWNA tablet times per day atorvastatin 80 mg TAKE 1 TABLET BY 90 Tablet 0 04/02/2017 EMILY tablet ORAL ROUTE AT SHAWNA BEDTIME 1 TIME PER DAY multivitamin 1 tab per day Unknown Outside tablet Provider folic acid 1 mg 1 Tablet 1 time Unknown Outside tablet per day Dr. Lavelle Ramos Allergies Substance Event Type Date Identified Reaction(s) Severity codeine Drug allergy Unknown Headache CODIENE Drug allergy Unknown Headache Severe Encounters Date Diagnosis Provider Location Telephone 05/12/2017 3:27 EMILY MATOS [facility], [address] [place] [address] Procedures Procedures not documented for patient. Medications Administered Medications Administered not documented for patient. Immunizations Immunizations not documented for patient. Chief Complaint and Reason for Visit Date Reason for Visit Chief Complaint 05/12/2017 Medications Results Results not documented for patient. Vital Signs Vital Signs not documented for patient. Functional Status Functional Status not documented for patient. Social History Social History not documented for patient. Instructions Instructions not documented for patient. Plan of Care Goals and Instructions Goals and Instructions not documented for patient. Future Appointments and Referrals: Name Type Date EMILY MATOS MD: [facility] Future Appointment 06/03/2017 8:00 AM [facility]; [address] [place] [address]; ; Reason for Visit: Follow-up LY NIÑO Referral to Other Provider Unknown CLINIC; [address] [place] [address] Future Tests and Procedures: Name Type Date LIPID PANEL (IN HOUSE) Scheduled Lab 06/03/2017 CMP (IN HOUSE) Scheduled Lab 06/03/2017 EKG Scheduled Procedure 06/03/2017
--- OUTSIDE RECORDS SUMMARY | 2018-02-01 16:39 | External Medical Summary | Continuity of Care Document ---
:1960 Author Organization [facility] Care Team Providers Name Role Phone EMILY MATOS Admitting Physician EMILY MATOS Attending Physician Hospital Admission Diagnosis Code Admission Diagnosis Date [id number] Inconclusive evaluation finding Social History Element Code Description Smoking Start Date End Date Description Status Code System Smoking Status [id number] Never smoker SNOMED-CT Problems Code Code System Problem Name Start Date End Date Status 06420485 SNOMED-CT Diffuse myofascial unknown Active pain syndrome 54929676 SNOMED-CT Hypertensive unknown Active disorder Medications RxNorm Medication Dose Route Instructions Indications Start End Status Date Date 4077362 Acetaminophen 1to 2 Oral orally every pain Active 325 MG / tablets 4 hours as Oxycodone needed. Hydrochloride 10 MG Oral Tablet 039141 Aspirin 325 MG 325 Oral orally every Active Oral Tablet milligram day 515713 Enalapril 20 Oral orally 2 Active Maleate 20 MG milligram times per day Oral Tablet 277548 Metoprolol 100 Oral orally 2 Active Tartrate 100 MG milligram times per day Oral Tablet Allergies No Known Allergies Results Radiology Results Order: MMDXUC Mammogram Uni Dx Digital w/ CADExam Completion Date:07/04/2015 08:00INDICATION: Left breast, other abnormal and inconclusive findings on diagimaging of breastMammogram Uni Dx Digital w/CAD : INDICATION: Left breast, other abnormal andinconclusive findings on diag imaging of breastComparison: Mammogram 12/22/2014 and additional views 01/03/2015 Technique: Three views of the left breast were obtained.Findings: Moderate to dense fibrocystic changes and benign calcifications inthe left breast. The left breast is otherwise negative. The asymmetry in theouter portion of the left breast seen on 12/22/2014 is no longer present. Nomammographic evidence of malignancy in the left breast today. Mammographicaccuracy is decreased in breasts of this density however.A screening exam in December 2015 is recommended.The findings on the mammogram are also evaluated with Computer Aided Detectionsoftware version 5.3. BI-RADS 1 - NegativeReleased By PAT SUAREZate: 07/04/2015 09:30 Vital Signs No data in the system Plan of Care No data in the system Procedures No data in the system Encounters Date Code Diagnosis Status (ICD10) - R928 OTH ABN INCONCL FIND DX IMAG Active BREAST Immunizations No data in the system Functional Status No data in the system Hospital Discharge Instructions No data in the system
--- OUTSIDE RECORDS SUMMARY | 2018-02-01 16:39 | External Medical Summary ---
:1960 Author Name EMILY MATOS MD Address [address] Unavailable [place], [place] [id number] Care Team Providers Name Role Phone LEV [...] Encounters Provider(s) Location(s) Date EMILY MATOS MD [facility] 06/30/2017 4:47 PM CARE Immunizations Vaccine Date Status Fluvirin [...] oral route once daily enalapril 20 mg 11/15/2014 01/11/20 Suspended maleate [...] 1 time per day enalapril 20 mg Suspended maleate take 2 tablet 5 6 by Oral route 1 time per day metoprolol 100 mg Suspended tartrate take 1 Tablet 5 6 by Oral route 2 times per day atorvastatin 40 mg 10/5/201 12/21/2 Suspended take 1 tablet 5 015 (40 [...] time per day in hte pm enalapril 20 mg 05/06/20 Suspended Medication maleate [...] per day in pm Payers Plan Name [facility] Treatment plan Planned Care Start Date FOLLOW UP.AB 07/06/2017 Social History History Item Description Date Sex [...]
--- OUTSIDE RECORDS SUMMARY | 2018-02-01 16:39 | External Medical Summary ---
:1960 Author Name FUAD BRICE MD Address [address] Unavailable [place], [place] [id number] Care Team Providers Name Role Phone LEV [...] assessments 1. 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 gabapentin 100 mg Active take 3 Tablet 7 by Oral route 1 time per day in pm calcium plus 1200 mg/500 12/18/2014 03/26/20 Completed [...] mg) once daily for 4 days enalapril 20 mg 02/22/2016 03/02/20 Completed maleate [...] (15 mg) by oral route once daily methotrexate 2.5 mg 04/30/20 Completed sodium 6 Tablet 1 7 [address] Everett acetaminophen 650 mg 04/30/20 Completed 2 tabs am 7 17 and 3 tabs noon enalapril 20 mg Completed Medication maleate take [...] 1 time per day enalapril 20 mg 11/15/2014 Suspended [...] per day in pm Payers Plan Name [facility] Problems Name Type Status Onset Resolution Priority [...] Current Smoking Status Current Every Day Since 07/17/2017 Tobacco Use Unknown Since 06/12/2017 Tobacco Use [...]
--- OUTSIDE RECORDS SUMMARY | 2018-02-01 16:40 | External Medical Summary ---
:1960 Author Name FUAD BRICE MD Address [address] Unavailable [place], [place] [id number] Care Team Providers Name Role Phone LEV [...] MD made the following assessments 1. [928S] Low back pain 2. [826074K] Psoriatic arthritis mutilans Chief Complaint order for WBBS Encounters Provider(s) Location(s) Diagnosis Date FUAD BRICE MD [facility] PS[facility] ARTHRITIS MUTILANS 07/03/2017 1:28 HEALTH CARE [...] time per day enalapril 20 mg 11/15/2014 01/11/20 [...] per day in pm Payers Plan Name [facility] Problems Name Type Status Onset Resolution Priority Author Diagnosis Active 12/24/2016 Normal Diagnosis Active 03/27/2017 Normal Procedures Procedure Date BONE IMAGING, WHOLE BODY 07/03/2017 Results BONE IMAGING, WHOLE BODY Result Type Result Value Relevant Reference Interpretation Date Range call pt her bone 07/03/2017 scan shows arhtritis no evidence for a tumor I rec we start the otezla and she fup wiht Dr Everett on that med within 6-8 weeks renetta Social History History Item Description Date [...]
--- OUTSIDE RECORDS SUMMARY | 2018-02-01 16:40 | External Medical Summary | Continuity of Care Document ---
:1960 Author Organization [facility] Care Team Providers Name Role Phone SAPNA JAQUEZ Admitting Physician Unavailable SAPNA JAQUEZ Attending Physician Unavailable EMILY MATOS Primary Care Physician Hospital Admission Diagnosis No data in the System Social History Element Code Description Smoking Start Date End Date Description Status Code System Smoking Status [id number] Unknown if ever SNOMED-CT smoked Problems Code Code System Problem Name Start Date End Date Status 833134730 SNOMED-CT Backache 11/2017 Active 01602913 SNOMED-CT Diffuse myofascial unknown Active pain syndrome 46675272 SNOMED-CT Hypertensive unknown Active disorder 156303280 SNOMED-CT Malignant tumor of Unknown Active lung 9547159 SNOMED-CT Arthritis Unknown Active Medications RxNorm Medication Dose Route Instructions Indications Start End Status Date Date 174078 72 HR Fentanyl 1 patch Transderm transdermally Active 0.012 MG/HR al every 72 hours Transdermal System 876702 Acetaminophen 650 oral orally every 4 fever or pain Active 650 MG Oral milligra to 6 hours [place] needed. 34820 Amlodipine 2.5 oral orally every Active milligra day m 8865161 apremilast 30 30 oral orally 2 times Active MG Oral Tablet milligra per day m (swallow whole; do not chew/break/diss olve/open;) 343570 atorvastatin 80 oral orally every Active 80 MG Oral milligra day at bedtime Tablet m 1347 Beclomethasone 1 puff Inhalatio inhaled 2 times Active n per day 19750318 Dexamethasone 4 oral orally every 8 Active 4 MG Oral milligra hours (12/26/17 Tablet m last dose) 3355 Diclofenac 75 oral orally every 12 Active milligra hours m (administer with food or milk;) 865617 Folic Acid 1 1 oral orally every Active MG Oral Tablet millig[place] day m [address]117 gabapentin 200 oral orally 2 times Active milligra per day (200 mg m in am, 200 mg at noon) 72364 gabapentin 300 oral orally every Active milligra day at bedtime m 6582 Magnesium 400 oral orally 2 times Active Oxide milligra per day m (administer with meals; ; Ordered Dose: of magnesium oxide) 921570 Memantine 5 oral orally 2 times Active hydrochloride milligra per day 5 MG Oral m Tablet 930308 Metoprolol 100 oral orally 2 times Active Tartrate 100 milligra per day MG Oral Tablet m Multivitamins 1 tablet oral orally every Active day 7804 Oxycodone 5-10 oral orally every 3 pain Active milligra hours as ms needed. 556822 pantoprazole 40 oral orally every Active 40 MG Delayed milligra morning Release Oral m Tablet 318396 POLYETHYLENE 17 gram oral orally every Active GLYCOL 3350 day (mix in 4-8 30711 MG oz of any Powder for hot/cold/room Oral Solution temp beverage;use immediately;) 46597 Vitamin B 12 2500 oral orally every Active microgra day m 9866679 Acetaminophen 1to 2 oral orally every 4 pain No 325 MG / tablets hours as Longer Oxycodone needed. Active Hydrochloride 10 MG Oral Tablet 21191018 Aspirin 325 MG 325 oral orally every No Oral Tablet milligra day Longer m Active 83642 Docusate 100 oral orally 2 times constipation No milligra per day as Longer m needed. Active 142755 Enalapril 20 oral orally 2 times No Maleate 20 MG milligra per day Longer Oral Tablet m Active 6851 Methotrexate 10 Intramusc intramuscularly No milligra ular every week Longer m Active 371938 Methotrexate 10 oral orally every No 10 MG Oral milligra week Longer Tablet m Active 668089 tramadol 50 oral orally every 6 pain No hydrochloride milligra hours as Longer 50 MG Oral m needed. Active Tablet Allergies Code Code Allergy Type Reaction Severity Start End Status System Substance Date Date 2669 RXNorm Codeine Drug Unknown 06/25/20 Active allergy 17 Results No data in the system Vital Signs Vitals Value Date Body Temperature 36.2 C 01/29/2018 Respiratory Rate 18 01/29/2018 O2% BldC Oximetry 98 01/29/2018 BP Systolic 134 mmHg 01/29/2018 BP Diastolic 89 mmHg 01/29/2018 Height 66 in 01/29/2018 Weight Measured 114 lbs 01/29/2018 BSA (Body Surface Area) 1.65062 01/29/2018 BMI (Body Mass Index) 18.5 01/29/2018 Plan of Care No data in the system Procedures No data in the system Encounters No data in the system Immunizations No data in the system Functional Status No data in the system Hospital Discharge Instructions No data in the system
--- OUTSIDE RECORDS SUMMARY | 2018-02-01 16:40 | External Medical Summary | Continuity of Care Document ---
:1960 Author Organization [facility] Care Team Providers Name Role Phone EMILY MATOS Admitting Physician EMILY MATOS Attending Physician LY RODRIGUEZ Consulting Physician Hospital Admission Diagnosis Code Admission Diagnosis Date Arthritis mutilans Social History Element Code Description Smoking Start Date End Date Description Status Code System Smoking Status [id number] Current some day SNOMED-CT smoker Problems Code Code System Problem Name Start Date End Date Status 19133704 SNOMED-CT Diffuse myofascial unknown Active pain syndrome 31169793 SNOMED-CT Hypertensive unknown Active disorder Medications RxNorm Medication Dose Route Instructions Indications Start End Status Date Date 19831119 Acetaminophen 650 oral orally every fever or Active 650 MG Oral milligram 4 to 6 hours pain Tablet as needed. 071264 atorvastatin 80 80 oral orally HS Active MG Oral Tablet milligram 1347 Beclomethasone 1 puff Inhalation inhaled 2 Active times per day 3829 Enalaprilat 40 oral orally daily Active milligram 203166 Folic Acid 1 MG 1 oral orally every Active Oral Tablet milligram day 57728 gabapentin 300 oral orally every Active milligram day at bedtime 252696 Methotrexate 15 15 oral orally every Active MG Oral Tablet milligram week 065303 Metoprolol 100 oral orally 2 Active Tartrate 100 MG milligram times per day Oral Tablet Multivitamins 1 tablet oral orally every Active day 9373134 Acetaminophen 1to 2 oral orally every pain No 325 MG / tablets 4 hours as Longer Oxycodone needed. Active Hydrochloride 10 MG Oral Tablet 373513 Aspirin 325 MG 325 oral orally every No Oral Tablet milligram day Longer Active Allergies No Known Allergies Results Radiology Results Order: RADPROC Radiologist ProcedureExam Completion Date:05/19/2017 11:27INDICATION: right SI joint injection, psoriatic arthritis, sacroilitisRadiologist Procedure: A rightsacroiliac joint injection was performed underfluoroscopic guidance. 160 mg Depo-Medrol and 5 cc lidocaine were injectedinto the sacroiliac joint.IMPRESSION: Successful right sacroiliac joint injection.Released By LY RODRIGUEZ, MDDate: 05/19/2017 15:00 Vital Signs No data in the system Plan of Care No data in the system Procedures No data in the system Encounters Date Code Diagnosis Status (ICD10) - L4052 PSORIATIC ARTHRITIS MUTILANS Active Immunizations No data in the system Functional Status No data in the system Hospital Discharge Instructions No data in the system
--- OUTSIDE RECORDS SUMMARY | 2018-02-01 16:40 | External Medical Summary | Continuity of Care Document ---
:1960 Author Organization [facility] Care Team Providers Name Role Phone EMILY MATOS Admitting Physician EMILY MATOS Attending Physician Hospital Admission Diagnosis No data in the System Social History Element Code Description Smoking Start Date End Date Description Status Code System Smoking Status [id number] Never smoker SNOMED-CT Problems Code Code System Problem Name Start Date End Date Status 91539684 SNOMED-CT Diffuse myofascial unknown Active pain syndrome 31560863 SNOMED-CT Hypertensive unknown Active disorder Medications RxNorm Medication Dose Route Instructions Indications Start End Status Date Date 1405744 Acetaminophen 1to 2 Oral orally every pain Active 325 MG / tablets 4 hours as Oxycodone needed. Hydrochloride 10 MG Oral Tablet 635208 Aspirin 325 MG 325 Oral orally every Active Oral Tablet milligram day 163822 Enalapril 20 Oral orally 2 Active Maleate 20 MG milligram times per day Oral Tablet 559478 Metoprolol 100 Oral orally 2 Active Tartrate [...]
--- OUTSIDE RECORDS SUMMARY | 2018-02-01 16:40 | External Medical Summary | Continuity of Care Document ---
:1960 Author Organization [facility] Care Team Providers Name Role Phone Marv QUINTEROS Admitting Physician Marv QUINTEROS Attending Physician Hospital Admission Diagnosis No data in the System Social History Element Code Description Smoking Start Date End Date Description Status Code System Smoking Status [id number] Heavy tobacco SNOMED-CT smoker Problems Code Code System Problem Name Start Date End Date Status 66386950 SNOMED-CT Diffuse myofascial unknown Active pain syndrome 84967262 SNOMED-CT Hypertensive unknown Active disorder Medications RxNorm Medication Dose Route Instructions Indications Start End Status Date Date 19831119 Acetaminophen 650 Oral orally every fever or Active 650 MG Oral milligram 4 to 6 hours pain Tablet as needed. 057820 atorvastatin 80 80 Oral orally HS Active MG Oral Tablet milligram 1347 Beclomethasone 1 puff Inhalation inhaled 2 Active times per day 3829 Enalaprilat 40 Oral orally daily Active milligram 440736 Folic Acid 1 MG 1 Oral orally every Active Oral Tablet milligram day 62968 gabapentin 300 Oral orally every Active milligram day at bedtime 731193 Methotrexate 15 15 Oral orally every Active MG Oral Tablet milligram week 666474 Metoprolol 100 Oral orally 2 Active Tartrate 100 MG milligram times per day Oral Tablet Multivitamins 1 tablet Oral orally every Active day 2204238 Acetaminophen 1to 2 Oral orally every pain No 325 MG / tablets 4 hours as Longer Oxycodone needed. Active Hydrochloride 10 MG Oral Tablet 21191018 Aspirin 325 MG 325 Oral orally every No Oral Tablet milligram day Longer Active Allergies No Known Allergies Results Laboratory Results Order: Drug Screen Urine-12(IN HOUSE)Legend : D=Delta, H=High, L=Low, HH=Critical High, LL=Critical Low, AA=Critical Alpha- Numeric, C=Corrected, A=Abnormal LOINC Test Result Flag Range Units Date 46546-9 Negative * <300 ng/mL 04/22/2017 1Tricyclics 14:52 SerPl-mCnc 25373-8 Negative * <200 ng/mL 04/22/2017 1Barbiturate 14:52 s SerPl Scn-mCnc 92638-9 Negative * <300 ng/mL 04/22/2017 1Methadone 14:52 Ur Ql Scn>300 ng/mL 28808-4 Negative * <300 ng/mL 04/22/2017 1Benzodiaz 14:52 Ur Ql Scn>200 ng/mL 84194-7 Negative * <50 ng/mL 04/22/2017 1Cannabinoid 14:52 s Ur Ql Scn>20 ng/mL 92931-2 Negative * <300 ng/mL 04/22/2017 1Opiates Ur 14:52 Ql Scn>2000 ng/mL 30861-8 Negative * <1000 ng/mL 04/22/2017 1Amphetamine 14:52 s Ur Ql Cfm>200 ng/mL 69470-7 Negative * <300 ng/mL 04/22/2017 1BZE Ur Ql 14:52 Scn>150 ng/mL 93002-8 Negative * <25 ng/mL 04/22/2017 1PCP Ur Ql 14:52 Cfm>20 ng/mL 3543-6 Negative * <300 ng/mL 04/22/2017 1Propoxyph 14:52 SerPl-mCnc 3779-6 Negative * <1000 04/22/2017 1Methamphet 14:52 Ur Ql 3893-5 Negative * <100 ng/mL 04/22/2017 1Oxycodone 14:52 SerPl-mCnc Performing Lab Footnotes:[id number] [address] [place] [address] - [facility] KRANTHI Order: Urinalysis Jensen InsertionLegend: D=Delta, H=High, L=Low, HH=Critical High, LL=Critical Low, AA=Critical Alpha-Numeric, C=Corrected, A=Abnormal LOINC Test Result Flag Range Units Date 5778-6 Light Yellow 04/22/2017 1Color Ur 14:52 98119-5 Clear 04/22/2017 1Clarity Ur 14:52 2966-0 1Sp 1.015 1.005-1.030 04/22/2017 Gr 24h Ur 14:52 2756-5 1pH 5.5 5.0-7.0 04/22/2017 Ur 14:52 64165-2 Negative NEGATIVE 04/22/2017 1Leukocyte 14:52 esterase Ur-aCnc 56473-2 Negative NEGATIVE 04/22/2017 1Nitrite Ur Ql 14:52 Strip.auto 09934-9 100 mg/dL * NEGATIVE 04/22/2017 1Prot 14:52 Tiss-mCnt 2349-9 250 mg/dL * NEGATIVE 04/22/2017 1Glucose Ur Ql 14:52 81499-7 1MEK 40 mg/dL * NEGATIVE 04/22/2017 Ur-mCnc 14:52 1977-8 Negative NEGATIVE 04/22/2017 1Bilirub Ur Ql 14:52 933-2 1Bld Moderate * NEGATIVE 04/22/2017 Prod Typ BPU 14:52 41216-7 0.2 <=1.0 04/22/2017 1Urobilinogen 14:52 Ur Ql 0 * 0-5 /HPF 04/22/2017 1WBC_UM 14:52 5808-1 1RBC 2-5 * 0-5 /HPF 04/22/2017 # UrnS HPF 14:52 5787-7 1Epi 2-5 * 0-2 /HPF 04/22/2017 Cells #/area 14:52 UrnS HPF 16886-8 Few /HPF 04/22/2017 1Bacteria UrnS 14:52 Ql Micro 25648-8 Few amorphous /HPF 04/22/2017 1Crystals crystals 14:52 #/area UrnS present HPF 59341-4 1C N 04/22/2017 trach UrnS Ql 14:52 Cult Performing Lab Footnotes:[facility] [id number] - [address] [facility] [place] [address] - [facility] [place] Order: CBC With Manual DifferentialLegend: D=Delta, H=High, L=Low, HH=Critical High, LL=Critical Low, AA=Critical Alpha-Numeric, C=Corrected, A=Abnormal LOINC Test Result Flag Range Units Date 90 1WBC # 11.7 H 4.5-11.0 10^3/mm3 04/22/2017 Bld Auto 14:13 07594-2 3.92 L 4.00-5.20 10^6/mm3 04/22/2017 1Retics # Auto 14:13 71605-7 1Hgb 13.9 12.0-16.0 g/dl 04/22/2017 BldV-mCnc 14:13 4544-3 1Hct 37.4 36.0-46.0 % 04/22/2017 VFr Bld Auto 14:13 787-2 1MCV 95.4 82.0-100.0 10^6/mm3 04/22/2017 RBC Auto 14:13 785-6 1MCH 35.5 H 27.0-34.0 pg 04/22/2017 RBC Qn Auto 14:13 786-4 1MCHC 37.2 H 32.0-36.0 g/dl 04/22/2017 RBC Auto-mCnc 14:13 788-0 1RDW 11.0 L 11.7-15.0 % 04/22/2017 RBC Auto-Rto 14:13 777-3 204 150-450 10^3/mm3 04/22/2017 1Platelet # Bld 14:13 Auto 86473-6 1PMV 9.7 7.4-10.4 04/22/2017 Bld 14:13 02441-1 86 H 40-74 04/22/2017 1Neutrophils # 14:13 CSF 1LYMPH 7 L 14-46 04/22/2017 14:13 43287-7 7 4-13 04/22/2017 1Monocytes # CSF 14:13 702-1 Slight 04/22/2017 1Anisocytosis 14:13 Bld Ql Smear Increased 04/22/2017 1WBCCOM 14:13 22784-3 Adequate 04/22/2017 1Bizarre 14:13 platelets Bld Ql Smear Performing Lab Footnotes:[facility] [id number] - [address] [place] [address], [place] [address] - [facility] [place] Order: Comprehensive Metabolic PanelLegend: D=Delta, H=High, L=Low, HH= Critical High, LL=Critical Low, AA=Critical Alpha-Numeric, C=Corrected, A= Abnormal LOINC Test Result Flag Range Units Date 2345-7 149 H 70-105 mg/dl 04/22/2017 1Glucose 14:13 SerPl-mCnc 3094-0 5 L 7-25 mg/dl 04/22/2017 1BUN 14:13 SerPl-mCnc 2160-0 0.6 0.6-1.3 mg/dl 04/22/2017 1Creat 14:13 SerPl-mCnc 07230-9 8 L 13-39 04/22/2017 1Creat/Urea 14:13 nit SerPl 2951-2 110 CL 135-145 mmol/L 04/22/2017 1Sodium 14:13 SerPl-sCnc Test Comment: 1Called to ER to [place] @ 3236 87228-3 4.4 3.5-5.1 mmol/L 04/22/2017 14:13 1Potassium SerPl-mCnc 2075-0 72 L 98-107 mmol/l 04/22/2017 14:13 1Chloride SerPl-sCnc 2028-9 1CO2 22 21-31 mmol/l 04/22/2017 14:13 SerPl-sCnc 38294-4 1Anion 20 H 9-16 mmol/L 04/22/2017 14:13 Gap SerPl-sCnc 2692-2 230 L 277-298 mOsm/kg 04/22/2017 14:13 1Osmolality SerPl 47256-8 9.3 8.2-10.0 mg/dl 04/22/2017 14:13 1Calcium SerPl-mCnc 1742-6 1ALT 42 7-52 IU/L 04/22/2017 14:13 SerPl-cCnc 1920-8 1AST 1 L 13-39 IU/L 04/22/2017 14:13 SerPl-cCnc 1715-2 1ACP 105 H 34-104 U/L 04/22/2017 14:13 SerPl-cCnc 1975-2 1.4 H 0.3-1.0 mg/dl 04/22/2017 14:13 1Bilirub SerPl-mCnc 2885-2 1Prot 8.4 H 6.0-8.3 g/dL 04/22/2017 14:13 SerPl-mCnc 1751-7 4.6 3.5-5.7 g/dl 04/22/2017 14:13 1Albumin SerPl-mCnc 2336-6 3.8 H 2.3-3.2 g/dL 04/22/2017 14:13 1Globulin Ser-mCnc 1759-0 1.2 1.2-2.0 04/22/2017 14:13 1Albumin/Glob SerPl 1GFR 105 60-116 GFRunits 04/22/2017 14:13 Performing Lab Footnotes:[facility] - [id number] - [address] [place] [address] - [facility] Order: MagnesiumLegend: D=Delta, H=High, L=Low, HH=Critical High, LL=Critical Low, AA=Critical Alpha-Numeric, C=Corrected, A=Abnormal LOINC Test Result Flag Range Units Date 1.1 L 1.9-2.7 mg/dL 04/22/2017 1Magnesium 14:13 Performing Lab Footnotes:[address] [place] [address] [id number] - [address] [place] [address] KRANTHIB Order: Troponin ILegend: D=Delta, H=High, L=Low, HH=Critical High, LL=Critical Low, AA=Critical Alpha-Numeric, C=Corrected, A=Abnormal LOINC Test Result Flag Range Units Date 20113-1 <0.06 0.00-0.06 ng/ml 04/22/2017 1Troponin I ng/ml 14:13 SerPl DL<=0.01 ng/mL-nc 1Troponin Interpretive Ranges:(96% sensitivity and 94% specificity)<=0.06 ng/mL=no detectable cardiac injury0.06 - 0.49 ng/mL=cardiac muscle injury>=0.5 ng'mL=myocardial infarction Performing Lab Footnotes:[facility] [id number] - [address] [place] [address] KEN Radiology Results Order: CXR1VW Chest x-ray 1 viewExam Completion Date:04/22/2017 15:44INDICATION: Post intubation filmChest x-ray 1 view: Comparison: 07/06/2012There has been placement of an endotracheal tube. This is positioned in themid trachea. If indicated advancement could be considered. Both lungs aresymmetrically inflated. Heart size is normal. No venous engorgement or obviouspleural effusion.Released By JOSE LOPEZ, MDDate: 04/22/2017 16:51 Vital Signs Vitals Value Date Body Temperature 96.8 F 04/22/2017 Respiratory Rate 17 04/22/2017 O2% BldC Oximetry 97 04/22/2017 BP Systolic 159 mmHg 04/22/2017 BP Diastolic 121 mmHg 04/22/2017 Height 67 in 04/22/2017 Weight Measured 145 lbs 04/22/2017 BSA (Body Surface Area) 1.56918 04/22/2017 BMI (Body Mass Index) 22.7 04/22/2017 Plan of Care No data in the system Procedures No data in the system Encounters No data in the system Immunizations No data in the system Functional Status No data in the system Hospital Discharge Instructions No data in the system
--- OUTSIDE RECORDS SUMMARY | 2018-02-01 16:40 | External Medical Summary | Continuity of Care Document ---
:1960 Author Organization [facility] Care Team Providers Name Role Phone ROVERTO CHAPPELL Admitting Physician ROVERTO CHAPPELL Attending Physician EMILY MATOS Primary Care Physician Hospital Admission Diagnosis Code Admission Diagnosis Date [id number] Low back pain Social History Element Code Description Smoking Start Date End Date Description Status Code System Smoking Status 845071405 Unknown if ever SNOMED-CT smoked Problems Code Code System Problem Name Start Date End Date Status 11170622 SNOMED-CT Diffuse myofascial unknown Active pain syndrome 79352349 SNOMED-CT Hypertensive unknown Active disorder 2389907 SNOMED-CT Arthritis Unknown Active Medications RxNorm Medication Dose Route Instructions Indications Start End Status Date Date 19831119 Acetaminophen 650 oral orally every fever or Active 650 MG Oral milligram 4 to 6 hours pain Tablet as needed. 842733 atorvastatin 80 80 oral orally HS Active MG Oral Tablet milligram 1347 Beclomethasone 1 puff Inhalation inhaled 2 Active times per day 673645 Enalapril 20 oral orally 2 Active Maleate 20 MG milligram times per day Oral Tablet 711343 Folic Acid 1 MG 1 oral orally every Active Oral Tablet milligram day 16830 gabapentin 300 oral orally every Active milligram day at bedtime 385307 Methotrexate 10 10 oral orally every Active MG Oral Tablet milligram week 534176 Metoprolol 100 oral orally 2 Active Tartrate 100 MG milligram times per day Oral Tablet Multivitamins 1 tablet oral orally every Active day 1730403 Acetaminophen 1to 2 oral orally every pain [...] Signs Vitals Value Date Respiratory Rate 16 09/16/2017 O2% BldC Oximetry 98 09/16/2017 BP Systolic 143 mmHg 09/16/2017 BP Diastolic 95 mmHg 09/16/2017 Plan of Care No data in the system Procedures No data in the system Encounters Date Code Diagnosis Status (ICD10) - M545 LOW BACK PAIN Active Immunizations No data in the system Functional Status No data in the system Hospital Discharge Instructions No data in the system
--- OUTSIDE RECORDS SUMMARY | 2018-02-01 16:40 | External Medical Summary ---
:1960 Author Name FUAD BRICE MD Address [address] Unavailable [place], [place] [id number] Care Team Providers Name Role Phone LEV [...] mass and lump, right lower limb 3. [59641P] Hypo-osmolality and hyponatremia 4. [12735E] Urge incontinence 5. [ 950444M] Other retention of urine Chief Complaint Appt: Pain in right groin Encounters Encounter Reason Provider(s) Location(s) Diagnosis Date OFFICE/OUTPATIENT FUAD BRICE MD [facility] OTHER RETENTION OF URINE 09/24/2017 VISIT, [facility] LOCALIZED SWELLING, MASS AND LUMP, RIGHT LOWER LIMB 9:46 AM PELVIC AND PERINEAL PAIN HYPO-OSMOLALITY AND HYPONATREMIA URGE INCONTINENCE History of Present Illness Constanza Gomez is a 57 year old female. [2062S] Source of patient information was patient.[381675M] Pt c.o cyst on groin getting bigger [...] that has been happening for a while. [6804561R] LMP not documented: Hysterectomy. Immunizations Vaccine Date [...] day 2 tabs am, 3 tabs hs diclofenac sodium 75 mg Active Medication TAKE 1 TABLET 8 updated from BY ORAL ROUTE 2 ERx info from TIMES PER DAY pharmacy. WITH FOOD amLODIPine 5 mg Active Replaces take 1 tablet 8 Losartan due (5 mg) by oral to sodium route once daily level traMADol 50 mg Active 1 Tablet 3 [...] cyclobenzaprine 10 mg 08/13/20 10/27/19 Completed will bulk picker take 1 tablet 17 18 next week [...] times per day PRN Payers Plan Name [facility] Physical Examination Vital Signs:Vital Signs/Measurements Date[91671X] Tympanic membrane temperature - 90 to 107 09/24/2017 09: 46AM 96.9 F[6021S] RR 16 bpm 8 to 140 09/24/2017 09:46AM[6034S] IN 82 bpm 30 to 18009/24/2017 09:46AM[6046S] Blood pressure 143/81 mmHg 50-400/10-300 09/24/2017 09:48AM[6063S] Weight 155.8 lbs 1 to 600 09/24/2017 09:46AM[9300S] Body mass index - 09/24/2017 09:46AM 26.7 kg/m2 BMI Percentile : Off Chart[6071S] Height 64in 10 to 96 09/24/2017 09:46AMGeneral Appearance: [30246M] Alert, [91060L] well developed, and [ 80784J] in no acute distress.Eyes: Extraocular Movements: [6527S] Theextraocular movements were normal. Pupils: [6498S] The pupils were normal. External: [6461S] The conjunctiva exhibited no abnormalities.Lungs: [7010S] Lungs: normal, [6026P] respiration rhythmand depth was normal, [7041P ] the lungs were clear to auscultation, [7047P] no wheezing was heard, and [ 7049P] no rhonchi were heard.Cardiovascular: Heart Rate And Rhythm: [852319V ] Heart rate and rhythm normal. Heart Sounds: [7144S] Heart sounds normal, [ 7165P] no S3 was heard, and [7168P] no S4 was heard. Murmurs: [7180S] No murmurs were heard. Arterial Pulses: [7293S] Arterial pulses were equal bilaterally and normal. Edema: [7268S] Edema not present. Veins: [7277S] Veins unremarkable.Back: [7405S] No costovertebral angle tenderness.Abdomen: Auscultation: [26631U] Abdominal auscultation revealed abnormalities no right femoral [...] No hernia was discovered.Urinary System : Bladder: [911257B] The bladder was full and [769501Q] was tender.Genitalia : External: [7524S] The external genitalia showed no abnormalities.Pelvic: [3310161G] Bimanual Exam. Vagina:[7552S] The vagina was normal. Cervix: [7583S] Cervix abnormal absent. [679571P] Pap smear sample not taken. Uterine Adnexae: [7603S] The uterine adnexae were abnormal tender with palp on the right fullness there no firm mass notedvery tender with palp over the bladder and [7604P] [16198V] the uterine adnexa was tender [42276Z] on the right.Musculoskeletal System: General/bilateral: [7716S]Heberden's nodes were seen.Neurological: [22999E] No disorientation was observed.Skin: [ 42384Z] No cyanosis. [6142S] Skin: below right inguinal line there is a pa sized freely mobile subcutaneous mass no cystic opening to it and it is firmer than a lipomano LAD is noted. [49274T] The skin general appearance was normal.Nails: [6346S] No clubbing of the fingernails.Orthopedic Disorder: [725427N] No synovitis.Standard Measurements:Standard Measurements:[75560V] Body surface area 1.8 09/24/2017 09:46AMLaboratory Studies :Pulmonary Function Tests:[022352Z] 96% percent oxygen - 93 to 100 [...] in urinary habits. [548S] Increased urinary frequency [257010D] frequent, small amounts. [528S] No polyuria. [983718I] Sudden urinary urgency, [547P] incomplete emptying of bladder, and [908P] [106487M] urinary loss of control [869898V] preceded by a sudden urge. [526S] No dysuria, [581S] no vaginal itching or burning, and [ 904176Y] normal menses. [610S] No vaginal discharge.Musculoskeletal: [917S] [...]
--- OUTSIDE RECORDS SUMMARY | 2018-02-01 16:40 | External Medical Summary | Continuity of Care Document ---
:1960 Author Organization [facility] Care Team Providers Name Role Phone ROVERTO CHAPPELL Admitting Physician ROVERTO CHAPPELL Attending Physician EMILY MATOS Primary Care Physician Hospital Admission Diagnosis Code Admission Diagnosis Date [id number] Low back pain Social History Element Code Description Smoking Start Date End Date Description Status Code System Smoking Status [id number] Unknown if ever SNOMED-CT smoked Problems Code Code System Problem Name Start Date End Date Status 41922259 SNOMED-CT Diffuse myofascial unknown Active pain syndrome 38879573 SNOMED-CT Hypertensive unknown Active disorder 8771725 SNOMED-CT Arthritis Unknown Active Medications RxNorm Medication Dose Route Instructions Indications Start End Status Date Date 19831119 Acetaminophen 650 oral orally every fever or Active 650 MG Oral milligram 4 to 6 hours pain Tablet as needed. 644680 atorvastatin 80 80 oral orally HS Active MG Oral Tablet milligram 1347 Beclomethasone 1 puff Inhalation inhaled 2 Active times per day 154601 Enalapril 20 oral orally 2 Active Maleate 20 MG milligram times per day Oral Tablet 923551 Folic Acid 1 MG 1 oral orally every Active Oral Tablet milligram day 57709 gabapentin 300 oral orally every Active milligram day at bedtime 659132 Methotrexate 10 10 oral orally every Active MG Oral Tablet milligram week 252492 Metoprolol 100 oral orally 2 Active Tartrate 100 MG milligram times per day Oral Tablet Multivitamins 1 tablet oral orally every Active day 0029973 Acetaminophen 1to 2 oral orally every pain [...]
--- OUTSIDE RECORDS SUMMARY | 2018-02-01 16:40 | External Medical Summary | Continuity of Care Document ---
:1960 Author Organization [facility] Care Team Providers Name Role Phone RENNY SORIANO Admitting Physician RENNY SORIANO Attending Physician EMILY MATOS Primary Care Physician Hospital Admission Diagnosis No data in the System Social History Element Code Description Smoking Start Date End Date Description Status Code System Smoking Status [id number] Never smoker SNOMED-CT Problems Code Code System Problem Name Start Date End Date Status 592149504 SNOMED-CT Backache 11/2017 Active 47782737 SNOMED-CT Diffuse myofascial unknown Active pain syndrome 90542443 SNOMED-CT Hypertensive unknown Active disorder 1306003 SNOMED-CT Arthritis Unknown Active Medications RxNorm Medication Dose Route Instructions Indications Start End Status Date Date 19831119 Acetaminophen 650 oral orally every 4 fever or pain Active 650 MG Oral milligra to 6 hours as Tablet m needed. 19730115 Amlodipine 5 5 oral orally every Active MG Oral Tablet milligra day m 7213270 apremilast 30 30 oral orally 2 times Active MG Oral Tablet milligra per day m (swallow whole; do not chew/break/diss olve/open;) 928170 atorvastatin 80 oral orally every Active 80 MG Oral milligra day at bedtime Tablet m 1347 Beclomethasone 1 puff Inhalatio inhaled 2 times Active n per day 3355 Diclofenac 75 oral orally every 12 Active milligra hours m (administer with food or milk;) 30372 Docusate 100 oral orally 2 times constipation Active milligra per day as m needed. 310854 Folic Acid 1 1 oral orally every Active MG Oral Table[place] [address] gabapentin 200 oral orally every [place] 95429 gabapentin 300 oral orally every Active milligra day at bedtime m 3151 Methotrexate 10 Intramusc intramuscularly Active milligra ular every week m 957148 Metoprolol 100 oral orally 2 times Active Tartrate 100 milligra per day MG Oral Tablet m Multivitamins 1 tablet oral orally every Active day 247074 POLYETHYLENE 17 gram oral orally every Active GLYCOL 3350 day (mix in 4-8 61452 MG oz of any Powder for hot/cold/room Oral Solution temp beverage;use immediately;) 239255 tramadol 50 oral orally every 6 pain Active hydrochloride milligra hours as 50 MG Oral m needed. Tablet 28898 Vitamin B 12 2500 oral orally every Active microgra day m 7764436 Acetaminophen 1to 2 oral orally every 4 pain No 325 MG / tablets hours as Longer Oxycodone needed. Active Hydrochloride 10 MG Oral Tablet 21191018 Aspirin 325 MG 325 oral orally every No Oral Tablet milligra day Longer m Active 649390 Enalapril 20 oral orally 2 times No Maleate 20 MG milligra per day Longer Oral Tablet m Active 034431 Methotrexate 10 oral orally every No 10 MG Oral milligra week Longer Tablet m Active Allergies Code Code Allergy Type Reaction Severity Start End Status System Substance Date Date 2669 RXNorm Codeine Drug Unknown 06/25/20 Active allergy 17 Results No data in the system Vital Signs Vitals Value Date BP Systolic 176 mmHg 12/01/2017 BP Diastolic 113 mmHg 12/01/2017 Height 66 in 12/01/2017 Weight Measured 136 lbs 12/01/2017 BSA (Body Surface Area) 1.27121 12/01/2017 BMI (Body Mass Index) 22.1 12/01/2017 Body Temperature 97.1 F 12/01/2017 Respiratory Rate 18 12/01/2017 O2% BldC Oximetry 97 12/01/2017 Plan of Care No data in the system Procedures No data in the system Encounters No data in the system Immunizations No data in the system Functional Status No data in the system Hospital Discharge Instructions No data in the system
--- OUTSIDE RECORDS SUMMARY | 2018-02-01 16:41 | External Medical Summary | Continuity of Care Document ---
:1960 Author Name FUAD MATOS Address [address] [place] [address] Care Team Providers Name Role Phone FUAD MATOS Unavailable KATIE LIM Unavailable KYLE QUINN Unavailable TENUM, LOCUM Unavailable FUAD MATOS Primary Careprovider Unavailable Problems Problem Name Type ICD Code ICD Version Date Status Provider SCIATICA, RIGHT SIDE Diagnosis M54.31 10 06/03/20 Active Yuniel, 17 Fuad OTHER LONG-TERM Diagnosis Z79.899 10 06/03/20 Active Yuniel, (CURRENT) DRUG THERAPY 17 Fuad ABNORMAL Diagnosis R94.31 10 06/03/20 Active Yuniel, ELECTROCARDIOGRAM 17 Fuad [ECG] [EKG] HYPO-OSMOLALITY AND Diagnosis E87.1 10 Active Yuniel, HYPONATREMIA 7 Fuad ESSENTIAL (PRIMARY) Diagnosis I10 10 12/18/2014 Active Yuniel HYPERTENSION Fuad ENCOUNTER FOR Diagnosis Z13.220 10 12/18/2014 Active Yuniel, SCREENING FOR LIPOID Fuad DISORDERS Medications Medication Sig Dispense Refill Date Started Provider losartan 100 mg take 1 tablet (100 90 Tablet 1 06/03/2017 FUAD tablet mg) by oral route YUNIEL once daily gabapentin 100 mg take 1-3 Tablet by 90 Tablet 0 05/12/2017 FUAD capsule Oral route 1 time YUNIEL per day in pm celecoxib 200 mg take 1 capsule by 90 CAP 1 05/06/2017 FUAD capsule Oral route 1 time YUNIEL per day as needed Qvar 80 inhale 1 puff (80 1 Inhaler 3 04/21/2017 FUAD mcg/actuation mcg) by inhalation YUNIEL aerosol route 2 times per day metoprolol take 1 Tablet by 180 tablet 1 04/03/2017 FUAD tartrate 100 mg Oral route 2 times YUNIEL tablet per day atorvastatin 80 mg TAKE 1 TABLET BY 90 Tablet 0 04/02/2017 FUAD tablet ORAL ROUTE AT YUNIEL BEDTIME 1 TIME PER DAY multivitamin 1 tab per day Unknown Outside tablet Provider folic acid 1 mg 1 Tablet 1 time Unknown Outside tablet per day Dr. Lavelle Ramos methotrexate inject 0.4 Unknown Outside sodium 25 mg/mL milliliter (10 mg) Provider solution by intramuscular route once weekly Allergies Substance Event Type Date Identified Reaction(s) Severity codeine Drug allergy Unknown Headache CODIENE Drug allergy Unknown Headache Severe Encounters Date Diagnosis Provider Location Telephone 06/03/2017 ESSENTIAL (PRIMARY) HYPERTENSION FUAD MATOS [facility] 7:56 AM CDT ENCOUNTER FOR SCREENING FOR LIPOID DISORDERS [facility] HYPO-OSMOLALITY AND HYPONATREMIA [facility], [address], [place], OTHER LONG-TERM (CURRENT) [place] [address] ABNORMAL ELECTROCARDIOGRAM [ECG] [EKG] Procedures Procedure Date EKG 06/03/2017 Medications Administered Medications Administered not documented for patient. Immunizations Immunizations not documented for patient. Chief Complaint and Reason for Visit Date Reason for Visit Chief Complaint 06/03/2017 Appt: f/u EKG Results Order Result Date Test Result Range LIPID 06/04/2017 Result Comments: SL your lipids panel PANEL-SEND OUT is much better on your currnet meds Your ldl now 90 an your triglycerides 194 renetta Cholesterol, Total 204 MG/DL 100-199 Triglycerides 194 MG/DL 0-149 HDL Cholesterol 75 MG/DL >39 VLDL Cholesterol Matthew 39 MG/DL 5-40 LDL Cholesterol Calc 90 MG/DL 0-99 CBC W/AUTO 06/04/2017 Result Comments: call pt her cbc DIFF WBC abnoraml wiht inc mcv this can be due to b12 or folate def or alcohol I rec check folate and b12 renetta MCV 106 FL 79-97 MCH 34.9 PG 26.6-33.0 RBC 3.55 X10E6/UL 3.77-5.28 WBC 8.8 X10E3/UL 3.4-10.8 Hemoglobin 12.4 G/DL 11.1-15.9 Hematocrit 37.5 % 34.0-46.6 MCHC 33.1 G/DL 31.5-35.7 RDW 13.4 % 12.3-15.4 Platelets 344 X10E3/UL 150-379 Neutrophils 57 % NOT ESTAB. Lymphs 28 % NOT ESTAB. Monocytes 11 % NOT ESTAB. Eos 3 % NOT ESTAB. Basos 1 % NOT ESTAB. Neutrophils (Absolute) 5.1 X10E3/UL 1.4-7.0 Lymphs (Absolute) 2.4 X10E3/UL 0.7-3.1 Monocytes(Absolute) 0.9 X10E3/UL 0.1-0.9 Eos (Absolute) 0.2 X10E3/UL 0.0-0.4 Baso (Absolute) 0.0 X10E3/UL 0.0-0.2 Immature Granulocytes 0 % NOT ESTAB. Immature Grans (Abs) 0.0 X10E3/UL 0.0-0.1 Vital Signs Vital Sign Date Value BP Systolic 06/03/2017 158 mm[Hg] BP Diastolic 06/03/2017 90 mm[Hg] BP Systolic 06/03/2017 166 mm[Hg] BP Diastolic 06/03/2017 106 mm[Hg] BMI (Body Mass Index) 06/03/2017 26.5 kg/m2 Heart Rate 06/03/2017 64 /min Height 06/03/2017 64 in Weight 06/03/2017 154.4 pounds Body Temperature 06/03/2017 98.6 F Respiratory Rate 06/03/2017 16 bpm Functional Status Functional Status not documented for patient. Social History Social History Element Description Date Smoking Current every day smoker 06/03/2017 Instructions Instructions not documented for patient. Plan of Care Goals and Instructions Goals and Instructions not documented for patient. Future Appointments and Referrals: Name Type Date FUAD MATOS MD: [facility] [place] Appointment 07/06/2017 8:00 AM [facility]; [address] [place] [address]; ; Reason for Visit: Follow-up DR. ROVERTO LINK: [facility] Referral to Other Provider [facility]; [address] [place] [phone]; Future Tests and Procedures Future Scheduled Tests not documented for patient.
--- OUTSIDE RECORDS SUMMARY | 2018-02-01 16:41 | External Medical Summary | Continuity of Care Document ---
:1960 Author Organization [facility] Care Team Providers Name Role Phone ROVERTO CHAPPELL Admitting Physician ROVERTO CHAPPELL Attending Physician Hospital Admission Diagnosis No data in the System Social History Element Code Description Smoking Start Date End Date Description Status Code System Smoking Status [id number] Current some day SNOMED-CT smoker Problems Code Code System Problem Name Start Date End Date Status 69310092 SNOMED-CT Diffuse myofascial unknown Active pain syndrome 11060217 SNOMED-CT Hypertensive unknown Active disorder Medications RxNorm Medication Dose Route Instructions Indications Start End Status Date Date 19831119 Acetaminophen 650 oral orally every fever or Active 650 MG Oral milligram 4 to 6 hours pain Tablet as needed. 683338 atorvastatin 80 80 oral orally HS Active MG Oral Tablet milligram 1347 Beclomethasone 1 puff Inhalation inhaled 2 Active times per day 379833 Enalapril 20 oral orally 2 Active Maleate 20 MG milligram times per day Oral Tablet 417356 Folic Acid 1 MG 1 oral orally every Active Oral Tablet milligram day 20325 gabapentin 300 oral orally every Active milligram day at bedtime 157158 Methotrexate 10 10 oral orally every Active MG Oral Tablet milligram week 576683 Metoprolol 100 oral orally 2 Active Tartrate 100 MG milligram times per day Oral Tablet Multivitamins 1 tablet oral orally every Active day 5055469 Acetaminophen 1to 2 oral orally every pain No 325 MG / tablets 4 hours as Longer Oxycodone needed. Active Hydrochloride 10 MG Oral Tablet 21191018 Aspirin 325 MG 325 oral orally every No Oral Tablet milligram day Longer Active Allergies Code Code Allergy Type Reaction Severity Start End Status System Substance Date Date 267 RXNorm Codeine Drug Unknown 06/25/20 Active allergy 17 Results Laboratory Results Order: C Reactive ProteinLegend: D=Delta, H =High, L=Low, HH=Critical High, LL=Critical Low, AA=Critical Alpha-Numeric, C= Corrected, A=Abnormal LOINC Test Result Flag Range Units Date 1987- <0.50 <=0.50 mg/dl 06/29/2017 1CRP mg/dl 09:10 [facility] Performing Lab Footnotes:[address] [place] [address] - [id number] - [address] [place] [address], [place] [address] - [facility] [place] Order: CBC With Automated DifferentialLegend: D=Delta, H=High, L=Low, HH= Critical High, LL=Critical Low, AA=Critical Alpha-Numeric, C=Corrected, A= Abnormal LOINC Test Result Flag Range Units Date 6690-2 9.1 4.5-11.0 10^3/mm3 06/29/2017 1WBC # Bld 09:10 Auto 71455-5 3.79 L 4.00-5.20 10^6/mm3 06/29/2017 1Retics # 09:10 Auto 51153-1 13.1 12.0-16.0 g/dl 06/29/2017 1Hgb 09:10 [facility] 4544-3 38.6 36.0-46.0 % 06/29/2017 1Hct VFr Bld 09:10 Auto 787-2 101.8 H 82.0-100.0 10^6/mm3 06/29/2017 1MCV RBC Auto 09:10 785-6 34.6 H 27.0-34.0 pg 06/29/2017 1MCH RBC Qn 09:10 Auto 786-4 33.9 32.0-36.0 g/dl 06/29/2017 1MCHC RBC 09:10 Auto-mCnc 788-0 12.7 11.7-15.0 % 06/29/2017 1RDW RBC 09:10 Auto-Rto 777-3 314 150-450 10^3/mm3 06/29/2017 1Platelet # 09:10 Bld Auto 73157-8 10.0 7.4-10.4 06/29/2017 1PMV Bld 09:10 17957-2 61.8 40.0-74.0 % 06/29/2017 1Neutrophils 09:10 # CSF 23.7 14.0-46.0 % 06/29/2017 1LYMPH% 09:10 93643-0 12.0 4.0-13.0 % 06/29/2017 1CD43 Ag Tiss 09:10 Ql ImStn 711-2 2.1 0.0-4.0 % 06/29/2017 1Eosinophil # 09:10 Bld Auto 704-7 0.4 <=3.0 % 06/29/2017 1Basophils # 09:10 Bld Auto 751-8 5.6 1.8-7.8 06/29/2017 1Neutrophils 09:10 # Bld Auto 21316-3 2.2 0.7-4.5 06/29/2017 1Lymphocytes 09:10 # Bld 24607-8 1.1 H 0.1-1.0 06/29/2017 1CD43 Ag Tiss 09:10 Ql ImStn 711-2 0.19 <=4.00 06/29/2017 1Eosinophil # 09:10 Bld Auto 704-7 0.04 <=0.20 06/29/2017 1Basophils # 09:10 Bld Auto N 06/29/2017 1MANDIFF 09:10 28045-0 N 06/29/2017 1RBC Bld Auto 09:10 Performing Lab Footnotes:1[facility] - [id number] - [address] [place] [address] KRANTHI Order: Comprehensive Metabolic PanelLegend: D=Delta, H=High, L=Low, HH= Critical High, LL=Critical Low, AA=Critical Alpha-Numeric, C=Corrected, A= Abnormal LOINC Test Result Flag Range Units Date 2345-7 113 H 70-105 mg/dl 06/29/2017 1Glucose 09:10 SerPl-mCnc 3094-0 12 7-25 mg/dl 06/29/2017 1BUN 09:10 SerPl-mCnc 2160-0 0.6 0.6-1.3 mg/dl 06/29/2017 1Creat 09:10 SerPl-mCnc 32237-6 20 13-39 06/29/2017 1Creat/Urea 09:10 nit SerPl 2951-2 135 135-145 mmol/L 06/29/2017 1Sodium 09:10 SerPl-sCnc 35268-4 4.2 3.5-5.1 mmol/L 06/29/2017 1Potassium 09:10 SerPl-mCnc 2075-0 100 98-107 mmol/l 06/29/2017 1Chloride 09:10 SerPl-sCnc 2028-9 25 21-31 mmol/l 06/29/2017 1CO2 09:10 SerPl-sCnc 07153-9 14 9-16 mmol/L 06/29/2017 1Anion Gap 09:10 SerPl-sCnc 2692-2 281 277-298 mOsm/kg 06/29/2017 1Osmolality 09:10 SerPl 45095-8 9.6 8.2-10.0 mg/dl 06/29/2017 1Calcium 09:10 SerPl-mCnc 1742-6 17 7-52 IU/L 06/29/2017 1ALT 09:10 SerPl-cCnc 1920-8 20 13-39 IU/L 06/29/2017 1AST 09:10 SerPl-cCnc 1715-2 87 34-104 U/L 06/29/2017 1ACP 09:10 SerPl-cCnc 1975-2 0.8 0.3-1.0 mg/dl 06/29/2017 1Bilirub 09:10 SerPl-mCnc 2885-2 7.5 6.0-8.3 g/dL 06/29/2017 1Prot 09:10 [facility] 1751-7 4.3 3.5-5.7 g/dl 06/29/2017 1Albumin 09:10 [facility] 2336-6 3.2 2.3-3.2 g/dL 06/29/2017 1Globulin 09:10 Ser-[facility] 1759-0 1.3 1.2-2.0 06/29/2017 1Albumin/Davina 09:10 b SerPl 114 60-116 GFRunits 06/29/2017 1GFR 09:10 Performing Lab Footnotes:[address] [place] [address] - [id number] - [address] KRAN[place]I Order: FolateLegend: D=Delta, H=High, L=Low, HH=Critical High, LL=Critical Low , AA=Critical Alpha-Numeric, C=Corrected, A=Abnormal LOINC Test Result Flag Range Units Date 2284-8 >23.9 H 2.7-17.0 ng/ml 06/29/2017 1Folate ng/ml 09:10 [facility] Performing Lab Footnotes:[address] [place] [address] - [id number] - [address] KRANTHI Order: Vitamin M21Iyaokm: D=Delta, H=High, L=Low, HH=Critical High, LL= Critical Low, AA=Critical Alpha-Numeric, C=Corrected, A=Abnormal LOINC Test Result Flag Range Units Date 411 180-914 pg/ml 06/29/2017 1B12 09:10 Performing Lab Footnotes:1[facility] - [id number] - [address] [place] [address] - [facility] [place] Radiology Results Order: MRPELWO MR Pelvis W/O ContrastExam Completion Date:06/29/2017 08:00INDICATION: LBP with right hip and buttox pain COMPARISON: none.MR Pelvis W/O Contrast: There is a separate L-spine dictation. Coccyxfracture and abnormalities at L4, L5, S1 are described in that report.There are signal changes along the posterior left acetabulum. This could be abone contusion. No evidence of a femoral neck fracture or displaced pelvisfracture. SI joints are grossly normal. Minor hip narrowing. No evidence offemoral head osteonecrosis. No significant soft tissue abnormalitiesarevisible in the pelvis.IMPRESSION: There is a separate dictation for the L-spine. Finding on theposterior left acetabulum is potentially a bone contusion.Released By JAYLON AGUIRRE, MDDate: 06/29/2017 11:11Order: MRLUMWO MR Lumbar W/O ContrastExam Completion Date:06/29/2017 08:00INDICATION: LBP with right hip and buttox pain COMPARISON: none.MR Lumbar W/O Contrast: There is a separate dictation for pelvis MRI.Evidence of a nondisplaced coccyx fracture that is probably acute. Noevidence of a lumbar fracture. There are signal changes in the posteriorelements of the right vertebrae at 4, L5, S1. There is also signal changein right paraspinous muscles at L4 and L5. Exact etiology of these findingsis difficult to determine. Most likely etiology is probably trauma. Tumorand infection cannot be ruled out, but seem less likely. Distal cord appearsnormal. Lumbar discs have dehydration. There is moderate narrowing at L1-2. No significant narrowing at the other levels. Minor disc bulges at multiplelevels. No evidence of a focal disc herniation. Evidence of grade 1 L4-5subluxation. Borderline L4-5 spinal stenosis.IMPRESSION: Coccyx fracture. Signal changes in the bones and soft tissues onthe right at at L4, L5 , S1 as described. The appearance could be from trauma.Released By JAYLON AGUIRRE, MDDate: 06/29/2017 11:08 Vital Signs No data in the system Plan of Care No data in the system Procedures No data in the system Encounters No data in the system Immunizations No data in the system Functional Status No data in the system Hospital Discharge Instructions No data in the system
--- OUTSIDE RECORDS SUMMARY | 2018-02-01 16:41 | External Medical Summary ---
:1960 Author Name FUAD BRICE MD Address [address] Unavailable [place], [place] [address] Care Team Providers Name Role Phone LEV [...] mass and lump, right lower limb 3. [94503S] Hypo-osmolality and hyponatremia 4. [61279E] Urge incontinence 5. [ 766141V] Other retention of urine Chief Complaint Appt: Pain in right groin Encounters Encounter Reason Provider(s) Location(s) Diagnosis Date OFFICE/OUTPATIENT FUAD BRICE MD [facility] OTHER RETENTION OF URINE 09/24/2017 VISIT, [facility] LOCALIZED SWELLING, MASS AND LUMP, RIGHT LOWER LIMB 9:46 AM PELVIC AND PERINEAL PAIN HYPO-OSMOLALITY AND HYPONATREMIA URGE INCONTINENCE History of Present Illness Constanza Gomez is a 57 year old female. [2062S] Source of patient information was patient.[584278G] Pt c.o cyst on groin getting bigger [...] that has been happening for a while. [3781736H] LMP not documented: Hysterectomy. 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 17 18 next [...] times per day PRN Payers Plan Name [facility] Physical Examination Vital Signs:Vital Signs/Measurements Date[10980X] Tympanic membrane temperature - 90 to 107 09/24/2017 09: 46AM 96.9 F[6021S] RR 16 bpm 8 to 140 09/24/2017 09:46AM[6034S] DE 82 bpm 30 to 18009/24/2017 09:46AM[6046S] Blood pressure 143/81 mmHg 50-400/10-300 09/24/2017 09:48AM[6063S] Weight 155.8 lbs 1 to 600 09/24/2017 09:46AM[9300S] Body mass index - 09/24/2017 09:46AM 26.7 kg/m2 BMI Percentile : Off Chart[6071S] Height 64in 10 to 96 09/24/2017 09:46AMGeneral Appearance: [46796Y] Alert, [25631C] well developed, and [ 94723M] in no acute distress.Eyes: Extraocular Movements: [6527S] Theextraocular movements were normal. Pupils: [6498S] The pupils were normal. External: [6461S] The conjunctiva exhibited no abnormalities.Lungs: [7010S] Lungs: normal, [6026P] respiration rhythmand depth was normal, [7041P ] the lungs were clear to auscultation, [7047P] no wheezing was heard, and [ 7049P] no rhonchi were heard.Cardiovascular: Heart Rate And Rhythm: [333871K ] Heart rate and rhythm normal. Heart Sounds: [7144S] Heart sounds normal, [ 7165P] no S3 was heard, and [7168P] no S4 was heard. Murmurs: [7180S] No murmurs were heard. Arterial Pulses: [7293S] Arterial pulses were equal bilaterally and normal. Edema: [7268S] Edema not present. Veins: [7277S] Veins unremarkable.Back: [7405S] No costovertebral angle tenderness.Abdomen: Auscultation: [06192F] Abdominal auscultation revealed abnormalities no right femoral [...] No hernia was discovered.Urinary System : Bladder: [910535A] The bladder was full and [195904L] was tender.Genitalia : External: [7524S] The external genitalia showed no abnormalities.Pelvic: [3180502N] Bimanual Exam. Vagina:[7552S] The vagina was normal. Cervix: [7583S] Cervix abnormal absent. [686768M] Pap smear sample not taken. Uterine Adnexae: [7603S] The uterine adnexae were abnormal tender with palp on the right fullness there no firm mass notedvery tender with palp over the bladder and [7604P] [64075H] the uterine adnexa was tender [12621D] on the right.Musculoskeletal System: General/bilateral: [7716S]Heberden's nodes were seen.Neurological: [87975Q] No disorientation was observed.Skin: [ 19870J] No cyanosis. [6142S] Skin: below right inguinal line there is a pa sized freely mobile subcutaneous mass no cystic opening to it and it is firmer than a lipomano LAD is noted. [17536F] The skin general appearance was normal.Nails: [6346S] No clubbing of the fingernails.Orthopedic Disorder: [323737U] No synovitis.Standard Measurements:Standard Measurements:[16930E] Body surface area 1.8 09/24/2017 09:46AMLaboratory Studies :Pulmonary Function Tests:[788049Q] 96% percent oxygen - 93 to 100 [...] in urinary habits. [548S] Increased urinary frequency [564923P] frequent, small amounts. [528S] No polyuria. [659126D] Sudden urinary urgency, [547P] incomplete emptying of bladder, and [908P] [266446N] urinary loss of control [791244P] preceded by a sudden urge. [526S] No dysuria, [581S] no vaginal itching or burning, and [ 154876Y] normal menses. [610S] No vaginal discharge.Musculoskeletal: [917S] [...]
--- OUTSIDE RECORDS SUMMARY | 2018-02-01 16:41 | External Medical Summary ---
:1960 Author Name FUAD BRICE MD Address [address] Unavailable [place], [place] [id number] Care Team Providers Name Role Phone LEV [...] Brice MD made the following assessments 1. [19641S] Essential ( primary) hypertension 2.[46279A] Personal history of other malignant neoplasm of bronchus and lung Chief Complaint Appt: 8 week follow up Encounters Encounter Reason Provider(s) Location(s) Diagnosis Date OFFICE/OUTPATIENT FUAD BRICE MD [facility] PERSONAL HISTORY OF MALIGNANT NEOPLASM OF BRONCHUS AND LUNG 12/21/2017 VISIT, [facility] ESSENTIAL (PRIMARY) HYPERTENSION 7:53 AM History of Present Illness Constanza Gomez is a 57 year old female. [2062S] Source of patient information was patient.[417494E] Pt notes that she is still on the otezla. She states she still has pain in her back but the radiation helped. Pt stoppped radiation 2 weeks ago and started chemo last thursday. Pt states that she is taking Miralax to help with her bowels Pt notes that she has to get up in the night due to excessive sweating which got a lot worse after radiation and has to change the sheets at 2 am because they are soaked. Pt is putting bag balm on her ear. pt states it is from the radiation. Pt states on mondays the ear is the worse but by the end of the week it is a lot better. Pt state that every night her right ear is sticking to the pillow she thinks it is due to the cut on it draining. Pt is advisedif anything appearance with drainage of her ear to give the cancer center or the clinic here a call to get it checked. Pt notes that she see's Dora at the cancer center on Thursday. [5166995M] LMP not documented: Hysterectomy. Immunizations Vaccine Date [...] 1/2 tablet every 3 to 4 hours Miralax 17 12/21/2017 Active gram/dose take 17 g mixed with 8 oz. water, juice, soda, coffee or tea by Oral route 2 times per day for constipation magnesium oxide 400 mg 12/21/2017 Active 1 Tablet 2 times per day dexamethasone 4 mg 12/21/2017 Active take 1 tablet by Oral route 3 times per day potassium chloride 10 mEq 12/21/2017 Active 1 Capsule 2 times per day memantine 5 mg 12/21/2017 Active take 1 tablets by Oral route 2 times per day calcium plus 1200 mg/500 12/18/2014 03/26/20 Completed [...] Oral route 2 times per day Medrol (Gabirele) 4 mg 02/21/2016 03/02/20 Completed take as [...] day as needed methotrexate 25 mg/mL 06/03/20 Completed sodium inject 0.4 17 8 milliliter (10 mg) by intramuscular route once weekly losartan 100 mg 06/03/20 Completed REPLACES take 1 tablet 17 017 ENALAPRIL (100 mg) by oral route once daily Medrol (Gabriele) 4 mg 08/13/20 Completed as directed 17 8 diclofenac sodium 75 mg 08/13/20 Completed will piclk up take 1 tablet 17 8 next week when by Oral route 2 out of current times per day with food cyclobenzaprine 10 mg 08/13/20 10/27/19 Completed will order picker take 1 tablet 17 18 next week by Oral route 3 times per day Zofran (as 08/13/20 Completed hydrochloride) by oral [...] route 2 times per day with food amLODIPine 5 mg 08/13/20 10/27/19 Suspended Replaces [...] times per day PRN Payers Plan Name [facility] Physical Examination Vital Signs:Vital Signs/Measurements Date[37666D] Tympanic membrane temperature - 90 to 107 12/21/2017 07: 53AM 97.9 F[6021S] RR 16 bpm 8 to 140 12/21/2017 07:53AM[6034S] UT 79 bpm 30 to 18012/21/2017 07:53AM[6046S] Blood pressure 100/72 mmHg 50-400/10-300 12/21/2017 07:55AM[6063S] Weight 127.2 lbs 1 to 600 12/21/2017 07:53AM[9300S] Body mass index - 12/21/2017 07:53AM 21.8 kg/m2 BMI Percentile : Off Chart[6071S] Height 64in 10 to 96 12/21/2017 07:53AMGeneral Appearance: [07633E] Alert, [83584Z] well developed, and [ 79808U] in no acute distress.Eyes: Pupils: [6498S] The pupils were normal. External: [6461S] The conjunctiva exhibited no abnormalities pink, sclera anicteric.Ears:[6675S] Ears: right ear burned due to Radiation. Pt is putting bag balm on it.Pharynx: Mucosal: [862425J] The pharynx was not moist.Lungs: [6026S] Respiration rhythm and depth was normal, [7041P]the lungs were clear to auscultation, and [7047P] no wheezing was heard.Cardiovascular: Heart Rate And Rhythm: [147983L] Heart rate and rhythm normal. Heart Sounds: [7144S ] Heart sounds normal, [7165P] no S3 was heard, and [7168P] no S4 was heard. Murmurs: [7180S] No murmurs were heard. Arterial Pulses: [7293S] Arterial pulses were equal bilaterally and normal. Edema: [7268S] Edema notpresent. Veins: [7277S] Veins unremarkable.Neurological: [90373D] No disorientation was observed.Skin: [12995C] No cyanosis.Nails: [6346S] No clubbing of the fingernails.Orthopedic Disorder: [287046V] No synovitis.Standard Measurements :Standard Measurements:[02394N] Body surface area 1.6 12/21/2017 07:53AMLaboratory Studies:Pulmonary Function Tests:[560608Z]93% percent oxygen - 93 to 100 12/21/2017 07:53AM saturation Treatment plan Planned Care Start Date 1. Metastatic adenocarcinoma on chemo pt with post 12/21/2017 radiation burn on right earlobe that weeps not infected disc close fup sees onc on thu ~2. HTN dec amlodipine to 1.2 daily for a week if sbp ,120 then stop ~3. Psoriatic arthritis pt still on otezla she says onc aware and rec she ctn for now 2 months. 02/19/2018 Problems Name Type Status Onset Resolution Priority Author ESSENTIAL Diagnosis Active 12/18/2014 Normal (PRIMARY) HYPERTENSION PERSONAL HISTORY Diagnosis Active 12/21/2017 Normal OF MALIGNANT NEOPLASM OF BRONCHUS AND LUNG Social History History Item Description Date Sex Female Unknown Unknown Unknown Unknown Current Smoking Status Current Every Day Since [...] - 12/18/2014 Vital Signs Date / Time: 12/21/2017 2:19 PM Body temperature 97.9 F Heart rate 79 /min Respiratory rate 16 /min Pulse oximetry site 93 % Systolic blood pressure 100 mm[Hg] Diastolic blood pressure 72 mm[Hg] Body height 64 [in_i] Body weight 57.7 kg \ 127.2 [lb_av] Body mass index (BMI) [Ratio] 21.8 kg/m2
--- OUTSIDE RECORDS SUMMARY | 2018-02-01 16:41 | External Medical Summary | Summary of Care ---
:1960 Author Name Ren Jara M.D. Address [address], [place] [phone] Care Team Providers Name Role Phone Divina [...] cm H2O, Permanent use, G47.33, Heated humidity, [id number], mask , headgear, filters, heated tubing, water chamber, chinstrap Quantity: 1 Refills: 0 Jonh Parsons.Divina Lewis Start 30-Apr-2016 Active Allergies and Adverse Reactions [...] unknown Vital Signs Date Test Result Details 03-Jun-2016 10:01 BP Systolic 140 mm[Hg] Status: Comments: Location: ; Position: BP Diastolic 92 mm[Hg] Status: Comments: Location: ; Position: Heart Rate 67 /min Status: Comments: Location: ; Height 65 in Status: Weight 160 lb Status: Physical Findings 97 Status: Comments: O2 Saturation Body Mass Index Calculated 26.63 kg/m2 Status: Body Surface Area Calculated 1.8 m2 Status: Results Date Description Value Details Results not documented Plan of Care Name Dates Details Planned Observations Planned Goals not documented Planned Encounters Appointment; Provider: Pallavi Gallardo On 10:00 Instructions Name Dates Details Instructions not documented Encounters Appointment; Ren Jara M.D. On 30-Apr-2016 Encounter Diagnosis: Problem not documented 13:00
--- OUTSIDE RECORDS SUMMARY | 2018-02-01 16:42 | External Medical Summary ---
:1960 Author Name FUAD BRICE MD Address [address] Unavailable [place], [place] [phone] Care Team Providers Name Role Phone LEV [...] Brice MD made the following assessments 1. [397898W] Abnormal blood chemistry Chief Complaint order for B12 & folate Encounters Provider(s) Location(s) Diagnosis Date FUAD BRICE MD [facility] 06/12/2017 9:35 HEALTH CARE OTHER SPECIFIED AM ABNORMAL FINDINGS OF BLOOD CHEMISTRY Immunizations Vaccine Date Status Fluvirin Private 07/30/2015 [...] per day in pm Payers Plan Name [facility] Treatment plan Planned Care Start Date f/u bone scan-start new med- draw MMA 07/17/2017 Problems Name Type Status Onset Resolution Priority Author Diagnosis Active 06/12/2017 Normal Results B 12 Result Type Result Value Relevant Interpretation Date Reference Range call pt her labs 06/12/2017 her folic acid is c.w her taking hte supplement he B!2 is low She needs a mma level at her next appt jul 06 . renetta ASSAY OF FOLIC ACID SERUM Result Type Result Value Relevant Interpretation Date Reference Range Results within 06/12/2017 Expected Range on supplement renetta Social History History Item Description Date [...]
--- OUTSIDE RECORDS SUMMARY | 2018-02-01 16:42 | External Medical Summary | Continuity of Care Document ---
:1960 Author Organization [facility] Care Team Providers Name Role Phone ROVERTO CHAPPELL Admitting Physician ROVERTO CHAPPELL Attending Physician EMILY MATOS Primary Care Physician Hospital Admission Diagnosis Code Admission Diagnosis Date [id number] Low back pain Social History Element Code Description Smoking Start Date End Date Description Status Code System Smoking Status [id number] Unknown if ever SNOMED-CT smoked Problems Code Code System Problem Name Start Date End Date Status 70673552 SNOMED-CT Diffuse myofascial unknown Active pain syndrome 74566571 SNOMED-CT Hypertensive unknown Active disorder Medications RxNorm Medication Dose Route Instructions Indications Start End Status Date Date 19831119 Acetaminophen 650 oral orally every fever or Active 650 MG Oral milligram 4 to 6 hours pain Tablet as needed. 933265 atorvastatin 80 80 oral orally HS Active MG Oral Tablet milligram 1347 Beclomethasone 1 puff Inhalation inhaled 2 Active times per day 406980 Enalapril 20 oral orally 2 Active Maleate 20 MG milligram times per day Oral Tablet 470241 Folic Acid 1 MG 1 oral orally every Active Oral Tablet milligram day 98960 gabapentin 300 oral orally every Active milligram day at bedtime 054332 Methotrexate 10 10 oral orally every Active MG Oral Tablet milligram week 437889 Metoprolol 100 oral orally 2 Active Tartrate 100 MG milligram times per day Oral Tablet Multivitamins 1 tablet oral orally every Active day 8598433 Acetaminophen 1to 2 oral orally every pain [...]
--- OUTSIDE RECORDS SUMMARY | 2018-02-01 16:42 | External Medical Summary ---
:1960 Author Name FUAD BRICE MD Address [address] Unavailable [place], [place] [phone] Care Team Providers Name Role Phone LEV [...] made the following assessments 1. [1444S] Pelvic pain on the right 2. [8112S] Mass in the leg 3. [49914Y] Pseudohyponatremia 4. [95420N] Urge incontinence of urine 5. [985359S] Urinary retention Chief Complaint Appt: Pain in right groin Encounters Encounter Reason Provider(s) Location(s) Diagnosis Date OFFICE/OUTPATIENT FUAD BRICE MD [facility] OTHER RETENTION OF URINE 09/24/2017 VISIT, [facility] LOCALIZED SWELLING, MASS AND LUMP, RIGHT LOWER LIMB 9:46 AM PELVIC AND PERINEAL PAIN HYPO-OSMOLALITY AND HYPONATREMIA URGE INCONTINENCE History of Present Illness Constanza Gomez is a 57 year old female. [2062S] Source of patient information was patient.[226530O] Pt c.o cyst on groin getting bigger [...] that has been happening for a while. [3760760N] LMP not documented: Hysterectomy. Immunizations Vaccine Date [...] ERx info from TIMES PER DAY pharmacy. traMADol 50 mg Active 1 Tablet 3 8 times per day PRN gabapentin 100 mg Active 2-3 Tablet 1 [...] ERx info from times per day pharmacy. celecoxib 200 mg 10/27/19 Completed take 1 7 18 capsule by Oral route 1 time per day as needed enalapril maleate 20 mg Completed Medication take 1 7 017 updated from tablets by Oral ERx info from route 2 times pharmacy. per day losartan 100 mg 06/03/20 Completed REPLACES take 1 tablet 17 017 ENALAPRIL (100 mg) by oral route once daily Zofran (as 08/13/20 Completed hydrochloride) by oral 17 8 route as needed for nausea Medrol (Gabriele) 4 mg 08/13/20 Completed as directed 17 8 diclofenac sodium 75 mg 08/13/20 10/27/19 Completed will piclk up take 1 tablet 17 18 next week when by Oral route 2 out of current times per day with food cyclobenzaprine 10 mg 08/13/20 10/27/19 Completed will medicinal plant picker take 1 tablet 17 18 next [...] route every 12 hours for 7 days Payers Plan Name [facility] Physical Examination Vital Signs:Vital Signs/Measurements Date[83547O] Tympanic membrane temperature - 90 to 107 09/24/2017 09: 46AM 96.9 F[6021S] RR 16 bpm 8 to 140 09/24/2017 09:46AM[6034S] AK 82 bpm 30 to 18009/24/2017 09:46AM[6046S] Blood pressure 143/81 mmHg 50-400/10-300 09/24/2017 09:48AM[6063S] Weight 155.8 lbs 1 to 600 09/24/2017 09:46AM[9300S] Body mass index - 09/24/2017 09:46AM 26.7 kg/m2 BMI Percentile : Off Chart[6071S] Height 64in 10 to 96 09/24/2017 09:46AMGeneral Appearance: [67758C] Alert, [52648X] well developed, and [ 31292V] in no acute distress.Eyes: Extraocular Movements: [6527S] Theextraocular movements were normal. Pupils: [6498S] The pupils were normal. External: [6461S] The conjunctiva exhibited no abnormalities.Lungs: [7010S] Lungs: normal, [6026P] respiration rhythmand depth was normal, [7041P ] the lungs were clear to auscultation, [7047P] no wheezing was heard, and [ 7049P] no rhonchi were heard.Cardiovascular: Heart Rate And Rhythm: [946792G ] Heart rate and rhythm normal. Heart Sounds: [7144S] Heart sounds normal, [ 7165P] no S3 was heard, and [7168P] no S4 was heard. Murmurs: [7180S] No murmurs were heard. Arterial Pulses: [7293S] Arterial pulses were equal bilaterally and normal. Edema: [7268S] Edema not present. Veins: [7277S] Veins unremarkable.Back: [7405S] No costovertebral angle tenderness.Abdomen: Auscultation: [68406A] Abdominal auscultation revealed abnormalities no right femoral [...] No hernia was discovered.Urinary System : Bladder: [866202G] The bladder was full and [384659B] was tender.Genitalia : External: [7524S] The external genitalia showed no abnormalities.Pelvic: [2242779C] Bimanual Exam. Vagina:[7552S] The vagina was normal. Cervix: [7583S] Cervix abnormal absent. [624724Y] Pap smear sample not taken. Uterine Adnexae: [7603S] The uterine adnexae were abnormal tender with palp on the right fullness there no firm mass notedvery tender with palp over the bladder and [7604P] [69544X] the uterine adnexa was tender [91647M] on the right.Musculoskeletal System: General/bilateral: [7716S]Heberden's nodes were seen.Neurological: [16341G] No disorientation was observed.Skin: [ 81553V] No cyanosis. [6142S] Skin: below right inguinal line there is a pa sized freely mobile subcutaneous mass no cystic opening to it and it is firmer than a lipomano LAD is noted. [50392V] The skin general appearance was normal.Nails: [6346S] No clubbing of the fingernails.Orthopedic Disorder: [970373M] No synovitis.Standard Measurements:Standard Measurements:[25783P] Body surface area 1.8 09/24/2017 09:46AMLaboratory Studies :Pulmonary Function Tests:[695770K] 96% percent oxygen - 93 to 100 [...] in urinary habits. [548S] Increased urinary frequency [138424R] frequent, small amounts. [528S] No polyuria. [455024P] Sudden urinary urgency, [547P] incomplete emptying of bladder, and [908P] [778377A] urinary loss of control [250256K] preceded by a sudden urge. [526S] No dysuria, [581S] no vaginal itching or burning, and [ 947344N] normal menses. [610S] No vaginal discharge.Musculoskeletal: [917S] Back pain and [980P] back stiffness. [954S] No arthralgias.Psychological: [ 1891S] No psychological symptoms. Social History History Item Description Date Sex Female Unknown Unknown Unknown Unknown Current Smoking Status Unknown Since 10/27/2017 Tobacco Use Current every day smoker Since 10/26/2017 Tobacco Use Unknown 10/02/2017 - 10/26/2017 Tobacco [...]
--- OUTSIDE RECORDS SUMMARY | 2018-02-01 16:42 | External Medical Summary | Continuity of Care Document ---
:1960 Author Organization [facility] Care Team Providers Name Role Phone EMILY MATOS Admitting Physician EMILY MATOS Attending Physician Hospital Admission Diagnosis No data in the System Social History Element Code Description Smoking Start Date End Date Description Status Code System Smoking Status [id number] Current some day SNOMED-CT smoker Problems Code Code System Problem Name Start Date End Date Status 77999167 SNOMED-CT Diffuse myofascial unknown Active pain syndrome 57685952 SNOMED-CT Hypertensive unknown Active disorder Medications RxNorm Medication Dose Route Instructions Indications Start End Status Date Date 10480930 Acetaminophen 1to 2 Oral orally every pain Active 325 MG / tablets 4 hours as Oxycodone needed. Hydrochloride 10 MG Oral Tablet 21191018 Aspirin 325 MG 325 Oral orally every Active Oral Tablet milligram day 438492 Enalapril 20 Oral orally 2 Active Maleate 20 MG milligram times per day Oral Tablet 125748 Metoprolol 100 Oral orally 2 Active Tartrate 100 MG milligram times per day Oral Tablet Allergies No Known Allergies Results Laboratory Results Order: C Reactive ProteinLegend: D=Delta, H =High, L=Low, HH=Critical High, LL=Critical Low, AA=Critical Alpha-Numeric, C= Corrected, A=Abnormal LOINC Test Result Flag Range Units Date 1987-12 0.63 H <=0.50 mg/dl 12/24/2016 1CRP 12:15 SerPl-mCnc Corrected: 1Results Previously Reported As: (CRP ) 0.5 Released: 12/24/2016 12:15 By: CLOTILDE MOLINA [facility]forming [id number] [address] [place] [address] - [facility] Order: Erythrocyte Sedimentation RateLegend: D=Delta, H=High, L=Low, HH= Critical High, LL=Critical Low, AA=Critical Alpha-Numeric, C=Corrected, A= Abnormal LOINC Test Result Flag Range Units Date 4537-7 1ESR 13 <=30 mm/hr 12/24/2016 Bld Qn West[place]grn 12:15 Performing Lab Footnotes:[id number] [address] [facility] [place] [address] - FINE M KEN Radiology Results Order: [id number] Lumbar spine 2 or 3 viewsExam Completion Date:12/24/2016 11:45INDICATION: M54.5 LOW BACK PAINLUMBAR SPINE 2-VIEWS UPRIGHT (AP & LAT): COMPARISON: NoneFINDINGS: Slight left thoracolumbar curve. Facet arthropathy. Grade 1spondylolisthesis of L4 on L5. There are no focal osseous lesions. Nocompression fractures. Released By PEG TUBBS, MDDate: 12/24/2016 15:46 Vital Signs No data in the system Plan of Care No data in the system Procedures No data in the system Encounters No data in the system Immunizations No data in the system Functional Status No data in the system Hospital Discharge Instructions No data in the system
--- OUTSIDE RECORDS SUMMARY | 2018-02-01 16:42 | External Medical Summary | Continuity of Care Document ---
:1960 Author Organization [facility] Care Team Providers Name Role Phone EMILY MATOS Admitting Physician EMILY MATOS Attending Physician Hospital Admission Diagnosis No data in the System Social History Element Code Description Smoking Start Date End Date Description Status Code System Smoking Status [id number] Current every day SNOMED-CT smoker Problems Code Code System Problem Name Start Date End Date Status 39083418 SNOMED-CT Diffuse myofascial unknown Active pain syndrome 50811427 SNOMED-CT Hypertensive unknown Active disorder Medications RxNorm Medication Dose Route Instructions Indications Start End Status Date Date 1016605 Acetaminophen 1to 2 Oral orally every pain Active 325 MG / tablets 4 hours as Oxycodone needed. Hydrochloride 10 MG Oral Tablet 956565 Aspirin 325 MG 325 Oral orally every Active Oral Tablet milligram day 262679 Enalapril 20 Oral orally 2 Active Maleate 20 MG milligram times per day Oral Tablet 321079 Metoprolol 100 Oral orally 2 Active Tartrate 100 MG milligram times per day Oral Tablet Allergies No Known Allergies Results Radiology Results Order: [id number] Hand RT 3 viewsExam Completion Date:08/06/2015 11:30INDICATION: M79.641 PAIN IN RIGHT HAND / PIP PAIN AND SWELLING R/O CPPD GOUTRIGHT HAND 3-VIEWS (PA, OBLIQUE & LAT): COMPARISON: NoneFINDINGS: There are advanced changes of degenerative arthritis in the firstcarpometacarpal joint. Moderate to advanced changes of degenerative arthritisin the STT joints of the left wrist and in multiple IP joints of the righthand. No erosions are seen. There is nochondrocalcinosis. Again no plainradiographic evidence of calcium pyrophosphate deposition disease or gout. Noevidence of a fracture.Released By PEG TUBBS MDDate: 08/06/2015 12:05 Vital Signs No data in the system Plan of Care No data in the system Procedures No data in the system Encounters No data in the system Immunizations No data in the system Functional Status No data in the system Hospital Discharge Instructions No data in the system
--- OUTSIDE RECORDS SUMMARY | 2018-02-01 16:42 | External Medical Summary | Continuity of Care Document ---
:1960 Author Name SHAWNA EMILY Address [address] [place] [address] Care Team Providers Name Role Phone KATIE [...] take 1 capsule 90 CAP 1 05/06/2017 EIMLY capsule by Oral route 1 SHAWNA time [...] Severe Encounters Date Diagnosis Provider Location Telephone 05/11/2017 2:39 EMILY MATOS [facility] PM [facility], [address] [place] [address] Procedures Procedures not documented for patient. Medications Administered Medications Administered not documented for patient. Immunizations Immunizations not documented for patient. Chief Complaint and Reason for Visit Date Reason for Visit Chief Complaint 05/11/2017 order for EKG Results Results not documented for patient. Vital [...] HEART OF Future Appointment 06/03/2017 8:00 AM [facility]; [address] [place] [address]; ; Reason for Visit: Follow-up LY NIÑO Referral to Other Provider Unknown CLINIC; [address] [place] [address] Future Tests and Procedures: Name Type Date LIPID PANEL (IN HOUSE) Scheduled Lab 06/03/2017 CMP (IN HOUSE) Scheduled Lab 06/03/2017 EKG Scheduled Procedure 06/03/2017
--- OUTSIDE RECORDS SUMMARY | 2018-02-01 16:42 | External Medical Summary | Continuity of Care Document ---
:1960 Author Organization [facility] Care Team Providers Name Role Phone ROVERTO CHAPPELL Admitting Physician ROVERTO CHAPPELL Attending Physician EMILY MATOS Primary Care Physician Hospital Admission Diagnosis Code Admission Diagnosis Date [id number] Low back pain Social History Element Code Description Smoking Start Date End Date Description Status Code System Smoking Status [id number] Current some day SNOMED-CT smoker Problems Code Code System Problem Name Start Date End Date Status 27892116 SNOMED-CT Diffuse myofascial unknown Active pain syndrome 40237359 SNOMED-CT Hypertensive unknown Active disorder 2005612 SNOMED-CT Arthritis Unknown Active Medications RxNorm Medication Dose Route Instructions Indications Start End Status Date Date 19831119 Acetaminophen 650 oral orally every fever or Active 650 MG Oral milligram 4 to 6 hours pain Tablet as needed. 378403 atorvastatin 80 80 oral orally HS Active MG Oral Tablet milligram 1347 Beclomethasone 1 puff Inhalation inhaled 2 Active times per day 315511 Enalapril 20 oral orally 2 Active Maleate 20 MG milligram times per day Oral Tablet 462495 Folic Acid 1 MG 1 oral orally every Active Oral Tablet milligram day 20868 gabapentin 300 oral orally every Active milligram day at bedtime 515899 Methotrexate 10 10 oral orally every Active MG Oral Tablet milligram week 524112 Metoprolol 100 oral orally 2 Active Tartrate 100 MG milligram times per day Oral Tablet Multivitamins 1 tablet oral orally every Active day 6673266 Acetaminophen 1to 2 oral orally every pain [...]
--- OUTSIDE RECORDS SUMMARY | 2018-02-01 16:42 | External Medical Summary ---
:1960 Author Name FUAD BRICE MD Address [address] Unavailable [place], [place] [address] Care Team Providers Name Role Phone LEV SEAMAN Unavailable Unavailable FUAD BRICE MD Unavailable Unavailable LOWELL EEVRETT Unavailable Unavailable DR. KATHY LOWE Unavailable Unavailable [...] mass and lump, right lower limb 3. [44230D] Hypo-osmolality and hyponatremia 4. [19136R] Urge incontinence 5. [ 316207W] Other retention of urine Chief Complaint Appt: Pain in right groin Encounters Encounter Reason Provider(s) Location(s) Diagnosis Date OFFICE/OUTPATIENT FUAD BRICE MD [facility] OTHER RETENTION OF URINE 09/24/2017 VISIT, [facility] LOCALIZED SWELLING, MASS AND LUMP, RIGHT LOWER LIMB 9:46 AM PELVIC AND PERINEAL PAIN HYPO-OSMOLALITY AND HYPONATREMIA URGE INCONTINENCE History of Present Illness Constanza Gomez is a 57 year old female. [2062S] Source of patient information was patient.[805047L] Pt c.o cyst on groin getting bigger [...] that has been happening for a while. [1641242M] LMP not documented: Hysterectomy. 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 PER DAY gabapentin 100 mg 07/17/20 Suspended take 1-3 7 17 Tablet by Oral route 1 time per day in pm gabapentin 100 mg 05/12/20 Suspended take 3 Tablet 7 17 by Oral route 1 time per day in pm gabapentin 100 mg 07/20/20 Suspended take 3 Tablet 7 17 by Oral route 1 time per day in pm gabapentin 100 mg 10/09/19 Suspended take 3 Tablet 7 18 by Oral route 1 time per day in pm Otezla Suspended 12- Pt. 7 8 states on titration per [...] hours for 7 days Payers Plan Name [facility] Physical Examination Vital Signs:Vital Signs/Measurements Date[15677V] Tympanic membrane temperature - 90 to 107 09/24/2017 09: 46AM 96.9 F[6021S] RR 16 bpm 8 to 140 09/24/2017 09:46AM[6034S] MS 82 bpm 30 to 18009/24/2017 09:46AM[6046S] Blood pressure 143/81 mmHg 50-400/10-300 09/24/2017 09:48AM[6063S] Weight 155.8 lbs 1 to 600 09/24/2017 09:46AM[9300S] Body mass index - 09/24/2017 09:46AM 26.7 kg/m2 BMI Percentile : Off Chart[6071S] Height 64in 10 to 96 09/24/2017 09:46AMGeneral Appearance: [74121L] Alert, [51383Y] well developed, and [ 32264E] in no acute distress.Eyes: Extraocular Movements: [6527S] Theextraocular movements were normal. Pupils: [6498S] The pupils were normal. External: [6461S] The conjunctiva exhibited no abnormalities.Lungs: [7010S] Lungs: normal, [6026P] respiration rhythmand depth was normal, [7041P ] the lungs were clear to auscultation, [7047P] no wheezing was heard, and [ 7049P] no rhonchi were heard.Cardiovascular: Heart Rate And Rhythm: [950324Y ] Heart rate and rhythm normal. Heart Sounds: [7144S] Heart sounds normal, [ 7165P] no S3 was heard, and [7168P] no S4 was heard. Murmurs: [7180S] No murmurs were heard. Arterial Pulses: [7293S] Arterial pulses were equal bilaterally and normal. Edema: [7268S] Edema not present. Veins: [7277S] Veins unremarkable.Back: [7405S] No costovertebral angle tenderness.Abdomen: Auscultation: [75382M] Abdominal auscultation revealed abnormalities no right femoral [...] No hernia was discovered.Urinary System : Bladder: [828039B] The bladder was full and [767141N] was tender.Genitalia : External: [7524S] The external genitalia showed no abnormalities.Pelvic: [8430008K] Bimanual Exam. Vagina:[7552S] The vagina was normal. Cervix: [7583S] Cervix abnormal absent. [982963Y] Pap smear sample not taken. Uterine Adnexae: [7603S] The uterine adnexae were abnormal tender with palp on the right fullness there no firm mass notedvery tender with palp over the bladder and [7604P] [61980Y] the uterine adnexa was tender [75393J] on the right.Musculoskeletal System: General/bilateral: [7716S]Heberden's nodes were seen.Neurological: [68200L] No disorientation was observed.Skin: [ 08295Y] No cyanosis. [6142S] Skin: below right inguinal line there is a pa sized freely mobile subcutaneous mass no cystic opening to it and it is firmer than a lipomano LAD is noted. [87697K] The skin general appearance was normal.Nails: [6346S] No clubbing of the fingernails.Orthopedic Disorder: [051749S] No synovitis.Standard Measurements:Standard Measurements:[53861C] Body surface area 1.8 09/24/2017 09:46AMLaboratory Studies :Pulmonary Function Tests:[043206H] 96% percent oxygen - 93 to 100 [...] in urinary habits. [548S] Increased urinary frequency [510184X] frequent, small amounts. [528S] No polyuria. [853022Z] Sudden urinary urgency, [547P] incomplete emptying of bladder, and [908P] [815669L] urinary loss of control [054420N] preceded by a sudden urge. [526S] No dysuria, [581S] no vaginal itching or burning, and [ 086079S] normal menses. [610S] No vaginal discharge.Musculoskeletal: [917S] [...]
--- OUTSIDE RECORDS SUMMARY | 2018-02-01 16:42 | External Medical Summary | Continuity of Care Document ---
:1960 Author Organization [facility] Care Team Providers Name Role Phone EMILY MATOS Admitting Physician EMILY MATOS Attending Physician LY RODRIGUEZ Consulting Physician Hospital Admission Diagnosis No data in the System Social History Element Code Description Smoking Start Date End Date Description Status Code System Smoking Status [id number] Current some day SNOMED-CT smoker Problems Code Code System Problem Name Start Date End Date Status 09691503 SNOMED-CT Diffuse myofascial unknown Active pain syndrome 12672200 SNOMED-CT Hypertensive unknown Active disorder Medications RxNorm Medication Dose Route Instructions Indications Start End Status Date Date 19831119 Acetaminophen 650 oral orally every fever or Active 650 MG Oral milligram 4 to 6 hours pain Tablet as needed. 986007 atorvastatin 80 80 oral orally HS Active MG Oral Tablet milligram 1347 Beclomethasone 1 puff Inhalation inhaled 2 Active times per day 3829 Enalaprilat 40 oral orally daily Active milligram 292135 Folic Acid 1 MG 1 oral orally every Active Oral Tablet milligram day 00991 gabapentin 300 oral orally every Active milligram day at bedtime 682508 Methotrexate 15 15 oral orally every Active MG Oral Tablet milligram week 995841 Metoprolol 100 oral orally 2 Active Tartrate 100 MG milligram times per day Oral Tablet Multivitamins 1 tablet oral orally every Active day 9614014 Acetaminophen 1to 2 oral orally every pain No 325 MG / tablets 4 hours as Longer Oxycodone needed. Active Hydrochloride 10 MG Oral Tablet 964979 Aspirin 325 MG 325 oral orally every [...]
--- OUTSIDE RECORDS SUMMARY | 2018-02-01 16:43 | External Medical Summary | Continuity of Care Document ---
:1960 Author Organization [facility] Care Team Providers Name Role Phone EMILY MATOS Admitting Physician EMILY MATOS Attending Physician Hospital Admission Diagnosis Code Admission Diagnosis Date 49321258 Hand pain Social History Element Code Description Smoking Start Date End Date Description Status Code System Smoking Status [id number] Current every day SNOMED-CT smoker Problems Code Code System Problem Name Start Date End Date Status 23538946 SNOMED-CT Diffuse myofascial unknown Active pain syndrome 49648557 SNOMED-CT Hypertensive unknown Active disorder Medications RxNorm Medication Dose Route Instructions Indications Start End Status Date Date 8324681 Acetaminophen 1to 2 Oral orally every pain Active 325 MG / tablets 4 hours as Oxycodone needed. Hydrochloride 10 MG Oral Tablet 21191018 Aspirin 325 MG 325 Oral orally every Active Oral Tablet milligram day 039583 Enalapril 20 Oral orally 2 Active Maleate 20 MG milligram times per day Oral Tablet 228631 Metoprolol 100 Oral orally 2 Active Tartrate 100 MG milligram times per day Oral Tablet Allergies No Known Allergies Results Radiology Results Order: [id number] Hand RT 3 viewsExam Completion Date:08/06/2015 11:30INDICATION: [...] or gout. Noevidence of a fracture.Released By PAT SUAREZate: 08/06/2015 12:05 Vital Signs No data in the system Plan of Care No data in the system Procedures No data in the system Encounters Date Code Diagnosis Status (ICD10) - X54257 PAIN IN LEFT HAND Active Immunizations No data in the system Functional Status No data in the system Hospital Discharge Instructions No data in the system
--- OUTSIDE RECORDS SUMMARY | 2018-02-01 16:43 | External Medical Summary | Continuity of Care Document ---
:1960 Author Organization [facility] Care Team Providers Name Role Phone EMILY MATOS Admitting Physician EMILY MATOS Attending Physician Hospital Admission Diagnosis Code Admission Diagnosis Date [id number] Low back pain Social History Element Code Description Smoking Start Date End Date Description Status Code System Smoking Status [id number] Current some day SNOMED-CT smoker Problems Code Code System Problem Name Start Date End Date Status 44015268 SNOMED-CT Diffuse myofascial unknown Active pain syndrome 55320817 SNOMED-CT Hypertensive unknown Active disorder Medications RxNorm Medication Dose Route Instructions Indications Start End Status Date Date 5820542 Acetaminophen 1to 2 Oral orally every pain Active 325 MG / tablets 4 hours as Oxycodone needed. Hydrochloride 10 MG Oral Tablet 21191018 Aspirin 325 MG 325 Oral orally every Active Oral Tablet milligram day Enalapril 20 Oral orally 2 Active Maleate 20 MG milligram times per day Oral Tablet 191199 Metoprolol 100 Oral orally 2 Active Tartrate [...] 12/24/2016 12:15 By: CLOTILDE MOLINA [id number] [address] [place] [address] - [place] Order: Erythrocyte Sedimentation RateLegend: D=Delta, H=High, L=Low, HH= Critical High, LL=Critical Low, AA=Critical Alpha-Numeric, C=Corrected, A= Abnormal LOINC Test Result Flag Range Units Date 4537-02 1ESR 13 <=30 mm/hr 12/24/2016 Bld Lindan [place] 12:15 Performing Lab Footnotes:[facility] [id number] - [address] [facility] [place] [address] - [place] Radiology Results Order: LSPINE2 Lumbar spine 2 [...]
--- OUTSIDE RECORDS SUMMARY | 2018-02-01 16:43 | External Medical Summary | Continuity of Care Document ---
:1960 Author Organization [facility] Care Team Providers Name Role Phone RENNY SORIANO Admitting Physician RENNY SORIANO Attending Physician EMILY MATOS Primary Care Physician Hospital Admission Diagnosis Code Admission Diagnosis Date 45274929 Chest pain Social History Element Code Description Smoking Start Date End Date Description Status Code System Smoking Status [id number] Current some day SNOMED-CT smoker Problems Code Code System Problem Name Start Date End Date Status 03863838 SNOMED-CT Diffuse myofascial unknown Active pain syndrome 35342797 SNOMED-CT Hypertensive unknown Active disorder 3670541 SNOMED-CT Arthritis Unknown Active Medications RxNorm Medication Dose Route Instructions Indications Start End Status Date Date 19831119 Acetaminophen 650 oral orally every 4 fever or pain Active 650 MG Oral milligra to 6 hours as Tablet m needed. 19730115 Amlodipine 5 5 oral orally every Active MG Oral Tablet milligra day m 8013911 apremilast 30 30 oral orally 2 times Active MG Oral Tablet milligra per day m (swallow whole; do not chew/break/diss olve/open;) 922928 atorvastatin 80 oral orally every Active 80 MG Oral milligra day at bedtime Tablet m 1347 Beclomethasone 1 puff Inhalatio inhaled 2 times Active n per day 3355 Diclofenac 75 oral orally every 12 Active milligra hours m (administer with food or milk;) 83403 Docusate 100 oral orally 2 times constipation Active milligra per day as m needed. 414379 Folic Acid 1 1 oral orally every Active MG Oral Table[place] [address] gabapentin 200 oral orally every [place] 63[address] gabapentin 300 oral orally every Active milligra day at bedtime m 6351 Methotrexate 10 Intramusc intramuscularly Active milligra ular every week m 702874 Metoprolol 100 oral orally 2 times Active Tartrate 100 milligra per day MG Oral Tablet m Multivitamins 1 tablet oral orally every Active day 467442 POLYETHYLENE 17 gram oral orally every Active GLYCOL 3350 day (mix in 4-8 02027 MG oz of any Powder for hot/cold/room Oral Solution temp beverage;use immediately;) 982497 tramadol 50 oral orally every 6 pain Active hydrochloride milligra hours as 50 MG Oral m needed. Tablet 49480 Vitamin B 12 2500 oral orally every Active microgra day m 2997300 Acetaminophen 1to 2 oral orally every 4 pain No 325 MG / tablets hours as Longer Oxycodone needed. Active Hydrochloride 10 MG Oral Tablet 386234 Aspirin 325 MG 325 oral orally every No Oral Tablet milligra day Longer m Active 651868 Enalapril 20 oral orally 2 times No Maleate 20 MG milligra per day Longer Oral Tablet m Active 514565 Methotrexate 10 oral orally every No 10 MG Oral milligra week Longer Tablet m Active Allergies Code Code Allergy Type Reaction Severity Start End Status System Substance Date Date 2669 RXNorm Codeine Drug Unknown 06/25/20 Active allergy 17 Results Laboratory Results Order: CBC With Automated DifferentialLegend: D=Delta, H=High, L=Low, HH=Critical High, LL=Critical Low, AA=Critical Alpha-Numeric, C=Corrected, A=Abnormal LOINC Test Result Flag Range Units Date 90 15.9 H 4.5-11.0 10^3/mm3 11/16/2017 1WBC # Bld 10:00 Auto 76414-6 3.77 L 4.00-5.20 10^6/mm3 11/16/2017 1Retics # 10:00 Auto 26569-5 12.9 12.0-16.0 g/dl 11/16/2017 1Hgb 10:00 BldV-mCnc 4544-3 37.7 36.0-46.0 % 11/16/2017 1Hct VFr Bld 10:00 Auto 787-2 100.0 82.0-100.0 10^6/mm3 11/16/2017 1MCV RBC Auto 10:00 785-6 34.2 H 27.0-34.0 pg 11/16/2017 1MCH RBC Qn 10:00 Auto 786-4 34.2 32.0-36.0 g/dl 11/16/2017 1MCHC RBC 10:00 Auto-mCnc 788-0 12.6 11.7-15.0 % 11/16/2017 1RDW RBC 10:00 Auto-Rto 777-3 438 150-450 10^3/mm3 11/16/2017 1Platelet # 10:00 Bld Auto 11746-8 9.6 7.4-10.4 11/16/2017 1PMV Bld 10:00 77442-8 77.8 H 40.0-74.0 % 11/16/2017 1Neutrophils 10:00 # CSF 10.5 L 14.0-46.0 % 11/16/2017 1LYMPH% 10:00 15892-1 9.3 4.0-13.0 % 11/16/2017 1CD43 Ag Tiss 10:00 Ql ImStn 711-2 2.1 0.0-4.0 % 11/16/2017 1Eosinophil # 10:00 Bld Auto 704-7 0.3 <=3.0 % 11/16/2017 1Basophils # 10:00 Bld Auto 751-8 12.4 H 1.8-7.8 11/16/2017 1Neutrophils 10:00 # Bld Auto 18280-6 1.7 0.7-4.5 11/16/2017 1Lymphocytes 10:00 # Bld 97687-9 1.5 H 0.1-1.0 11/16/2017 1CD43 Ag Tiss 10:00 Ql ImStn 711-2 0.34 <=4.00 11/16/2017 1Eosinophil # 10:00 Bld Auto 704-7 0.04 <=0.20 11/16/2017 1Basophils # 10:00 Bld Auto N 11/16/2017 1MANDIFF 10:00 69052-8 N 11/16/2017 1RBC Bld Auto 10:00 [facility]forming [id number] [address] [place], [place] [id number] [place] [address] KRANTHI Order: Comprehensive Metabolic PanelLegend: D=Delta, H=High, L=Low, HH= Critical High, LL=Critical Low, AA=Critical Alpha-Numeric, C=Corrected, A= Abnormal LOINC Test Result Flag Range Units Date 2345-7 94 70-105 mg/dl 11/16/2017 1Glucose 10:00 SerPl-mCnc 3094-0 11 7-25 mg/dl 11/16/2017 1BUN 10:00 SerPl-mCnc 2160-0 0.7 0.6-1.3 mg/dl 11/16/2017 1Creat 10:00 SerPl-nc 53336-4 16 13-39 11/16/2017 1Creat/Urea 10:00 nit SerPl 2951-2 133 L 135-145 mmol/L 11/16/2017 1Sodium 10:00 [facility]Pl[facility] 91319-6 3.8 3.5-5.1 mmol/L 11/16/2017 1Potassium 10:00 SerPl-nc 2075-0 98 98-107 mmol/l 11/16/2017 1Chloride 10:00 SerPl-sCnc 2028-9 25 21-31 mmol/l 11/16/2017 1CO2 10:00 SerPl-sCnc 10295-5 14 9-16 mmol/L 11/16/2017 1Anion Gap 10:00 SerPl-sCnc 2692-2 275 L 277-298 mOsm/kg 11/16/2017 1Osmolality 10:00 SerPl 05282-3 9.2 8.2-10.0 mg/dl 11/16/2017 1Calcium 10:00 SerPl-mCnc 1742-6 20 7-52 IU/L 11/16/2017 1ALT 10:00 SerPl-cCnc 1920-8 18 13-39 IU/L 11/16/2017 1AST 10:00 SerPl-cCnc 1715-2 93 34-104 U/L 11/16/2017 1ACP 10:00 SerPl-cCnc 1975-2 0.5 0.3-1.0 mg/dl 11/16/2017 1Bilirub 10:00 SerPl-mCnc 2885-2 7.2 6.0-8.3 g/dL 11/16/2017 1Prot 10:00 SerPl-mCnc 1751-7 3.8 3.5-5.7 g/dl 11/16/2017 1Albumin 10:00 SerPl-mCnc 2336-6 3.4 H 2.3-3.2 g/dL 11/16/2017 1Globulin 10:00 Ser-mCnc 1759-0 1.1 L 1.2-2.0 11/16/2017 1Albumin/Davina 10:00 b SerPl 92 60-116 GFRunits 11/16/2017 1GFR 10:00 Performing Lab Footnotes:[address] [place] [address] - [id number] - [address] [place], [place] [id number] [place] [address] [place] Radiology Results Order: CTTHOR CT Chest W/ContrastExam Completion Date:11/16/2017 10:49INDICATION: XR CHEST PAINCT Chest W/Contrast: Axial acquisitions were obtained through the chest withthe use of IV contrast.FINDINGS: Prior CT chest dated 10/27/2017. Again noted are 2-3 masses withinthe periphery of the right upper lobe. There is also right hilar lymph nodemetastases measuring 2.5 x1.8 cm. These surround and narrow right upper lobepulmonary arterial branches. Stable tiny subpleural nodule is noted in theright lung base. No consolidating infiltrates or pleural effusions. Againnoted is a lytic lesion in the sixth rib laterally. There may be subtlepathologic fracturing. No other definite left rib fractures are seen. Eighthrib appears intact. Left supraclavicular lymphadenopathy is noted measuring1.1 x 0.9 cm. Scanning through the upper abdomen is unremarkable. Probablelytic lesion in the left proximal humerus and left clavicle.IMPRESSION: Probable pathologic fracture into the lytic lesion in the leftsixth rib. Right upper lobe and hilar masses with narrowing of rightupperlobe pulmonary arterial branches.Released By JOSE LOPEZ, MDDate: 11/16/2017 12:14Order: [id number] Ribs - LT unilateral w CXR (1 view)Exam Completion Date:11/16/2017 09: 55INDICATION: pt fell onto left side, also has new hemoptysisRibs - LT unilateral w CXR (1 view): Heart size is normal. There are 2rounded masses within the right upper lobe suspicious for neoplasm. Nonewinfiltrates or pleural effusions are seen. The left rib series was alsoobtained. Subtle suggestion of a fracture through the posterior eighth leftrib. Probable lytic lesion involving the 6 rib with some displacedcalcification. No evidence for pneumothorax.Released By JOSE LOPEZ, MDDate:11/16/2017 10:34 Vital Signs Vitals Value Date Body Temperature 35.9 C 11/16/2017 Respiratory Rate 20 11/16/2017 O2% BldC Oximetry 98 11/16/2017 BP Systolic 127 mmHg 11/16/2017 BP Diastolic 86 mmHg 11/16/2017 Height 66 in 11/16/2017 Weight Measured 143.96 lbs 11/16/2017 BSA (Body Surface Area) 1.97621 11/16/2017 BMI (Body Mass Index) 23.4 11/16/2017 Plan of Care No data in the system Procedures No data in the system Encounters Date Code Diagnosis Status (ICD10) - R0789 OTHER CHEST PAIN Active Immunizations No data in the system Functional Status No data in the system Hospital Discharge Instructions No data in the system
--- OUTSIDE RECORDS SUMMARY | 2018-02-01 16:43 | External Medical Summary | Continuity of Care Document ---
:1960 Author Name YUNIELMOSESAN Address [address] [place] [address] Care Team Providers Name Role Phone KATIE LIM Unavailable KYLE QUINN Unavailable TENUM, LOCUM Unavailable FUAD MATOS Unavailable FUAD MATOS Primary Careprovider Unavailable Problems Problem Name Type ICD Code ICD Version Date Status Provider SCIATICA, RIGHT SIDE Diagnosis M54.31 10 06/03/20 Active Yuniel, 17 Fuad OTHER LONGTERM Diagnosis Z79.899 10 06/03/20 Active Yuniel, (CURRENT) [...] 06/03/2017 ESSENTIAL (PRIMARY) HYPERTENSION FUAD MATOS [facility] 7:56 AM CDT ENCOUNTER FOR SCREENING FOR LIPOID DISORDERS [facility] HYPO-OSMOLALITY AND HYPONATREMIA [facility], [address], [place], OTHER LONGTERM (CURRENT) [place] [address] ABNORMAL ELECTROCARDIOGRAM [ECG] [EKG] Procedures Procedure Date [...] Type Date FUAD MATOS MD: [facility] Appointment 07/06/2017 8:[address] [facility]; [address] [place] [address]; ; Reason for Visit: Follow-up DR. ROVERTO LINK: [facility] Referral to Other Provider [facility]; [address] [place] [id number]; Future Tests and Procedures Future Scheduled Tests not documented for patient.
--- OUTSIDE RECORDS SUMMARY | 2018-02-01 16:43 | External Medical Summary ---
:1960 Author Name FUAD BRICE MD Address [address] Unavailable [place], [place] [id number] Care Team Providers Name Role Phone LEV [...] assessments 1. 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 PSORIATIC ARTHRITIS MUTILANS 07/03/2017 1:28 [...] route 1 time per day in pm losartan 100 mg 06/03/20 Active REPLACES take 1 tablet 17 ENALAPRIL (100 mg) by oral route once daily methotrexate 25 mg/mL 06/03/20 Active sodium inject [...] per day in pm Payers Plan Name [facility] Problems Name Type Status Onset Resolution Priority Author Diagnosis Active 12/24/2016 Normal Diagnosis Active 03/27/2017 Normal Social History History Item Description Date Sex [...]
--- OUTSIDE RECORDS SUMMARY | 2018-02-01 16:43 | External Medical Summary | Continuity of Care Document ---
:1960 Author Organization [facility] Care Team Providers Name Role Phone HERNANDEZ GRAY Admitting Physician HERNANDEZ GRAY Attending Physician HERNANDEZ GRAY Consulting Physician EMILY MATOS Consulting Physician Hospital Admission Diagnosis Code Admission Diagnosis Date ENCOUNTER FOR SCREENING MAMMOGRAM FOR MALIGNANT NEOPLASM OF BREAST Social History Element Code Description Smoking Start Date End Date Description Status Code System Smoking Status 625699932 Current every day SNOMED-CT smoker Problems Code Code System Problem Name Start Date End Date Status 06329390 SNOMED-CT Diffuse myofascial unknown Active pain syndrome 42730267 SNOMED-CT Hypertensive unknown Active disorder Medications RxNorm Medication Dose Route Instructions Indications Start End Status Date Date 19831119 Acetaminophen 650 Oral orally every fever or Active 650 MG Oral milligram 4 to 6 hours pain Tablet as needed. 110842 atorvastatin 80 80 Oral orally HS Active MG Oral Tablet milligram 1347 Beclomethasone 1 puff Inhalation inhaled 2 Active times per day 3829 Enalaprilat 40 Oral orally daily Active milligram 237730 Folic Acid 1 MG 1 Oral orally every Active Oral Tablet milligram day 31601 gabapentin 300 Oral orally every Active milligram day at bedtime 003763 Methotrexate 15 15 Oral orally every Active MG Oral Tablet milligram week 857851 Metoprolol 100 Oral orally 2 Active Tartrate 100 MG milligram times per day Oral Tablet Multivitamins 1 tablet Oral orally every Active day 1340421 Acetaminophen 1to 2 Oral orally every pain No 325 MG / tablets 4 hours as Longer Oxycodone needed. Active Hydrochloride 10 MG Oral Tablet 21191018 Aspirin 325 MG 325 Oral orally every No Oral Tablet milligram day Longer Active Allergies No Known Allergies Results Laboratory Results Order: CBC With Automated DifferentialLegend: D=Delta, H=High, L=Low, HH=Critical High, LL=Critical Low, AA=Critical Alpha-Numeric, C=Corrected, A=Abnormal LOINC Test Result Flag Range Units Date 6690-2 7.1 4.5-11.0 10^3/mm3 04/01/2017 2WBC # Bld 13:59 Auto 85795-8 3.55 L 4.00-5.20 10^6/mm3 04/01/2017 2Retics # 13:59 Auto 69099-9 12.7 12.0-16.0 g/dl 04/01/2017 2Hgb 13:59 BldV-mCnc 4544-3 36.4 36.0-46.0 % 04/01/2017 2Hct VFr Bld 13:59 Auto 787-2 102.5 H 82.0-100.0 10^6/mm3 04/01/2017 2MCV RBC Auto 13:59 785-6 35.8 H 27.0-34.0 pg 04/01/2017 2MCH RBC Qn 13:59 Auto 786-4 34.9 32.0-36.0 g/dl 04/01/2017 2MCHC RBC 13:59 Auto-mCnc 788-0 12.4 11.7-15.0 % 04/01/2017 2RDW RBC 13:59 Auto-Rto 777-3 250 150-450 10^3/mm3 04/01/2017 2Platelet # 13:59 Bld Auto 85743-4 9.3 7.4-10.4 04/01/2017 2PMV Bld 13:59 73650-2 51.6 40.0-74.0 % 04/01/2017 2Neutrophils 13:59 # CSF 31.5 14.0-46.0 % 04/01/2017 2LYMPH% 13:59 34946-5 13.9 H 4.0-13.0 % 04/01/2017 2CD43 Ag Tiss 13:59 Ql ImStn 711-2 2.4 0.0-4.0 % 04/01/2017 2Eosinophil # 13:59 Bld Auto 704-7 0.6 <=3.0 % 04/01/2017 2Basophils # 13:59 Bld Auto 751-8 3.7 1.8-7.8 04/01/2017 2Neutrophils 13:59 # Bld Auto 13171-6 2.2 0.7-4.5 04/01/2017 2Lymphocytes 13:59 # Bld 00446-9 1.0 0.1-1.0 04/01/2017 2CD43 Ag Tiss 13:59 Ql ImStn 711-2 0.17 <=4.00 04/01/2017 2Eosinophil # 13:59 Bld Auto 704-7 0.04 <=0.20 04/01/2017 2Basophils # 13:59 Bld Auto N 04/01/2017 2MANDIFF 13:59 23777-4 N 04/01/2017 2RBC Bld Auto 13:59 Performing Lab Footnotes:[address] [place] [address] - [id number] - [address] [place] [id number] [place] [address] [place] Order: Comprehensive Metabolic PanelLegend: D=Delta, H=High, L=Low, HH= Critical High, LL=Critical Low, AA=Critical Alpha-Numeric, C=Corrected, A= Abnormal LOINC Test Result Flag Range Units Date 2345-7 110 H 70-105 mg/dl 04/01/2017 2Glucose 13:59 SerPl-mCnc 3094-0 17 7-25 mg/dl 04/01/2017 2BUN 13:59 SerPl-mCnc 2160-0 1.2 0.6-1.3 mg/dl 04/01/2017 2Creat 13:59 SerPl-mCnc 31209-2 14 13-39 04/01/2017 2Creat/Urea 13:59 nit SerPl 2951-2 132 L 135-145 mmol/L 04/01/2017 2Sodium 13:59 SerPl-sCnc 01433-2 4.4 3.5-5.1 mmol/L 04/01/2017 2Potassium 13:59 SerPl-mCnc 2075-0 100 98-107 mmol/l 04/01/2017 2Chloride 13:59 SerPl-sCnc 2028-9 26 21-31 mmol/l 04/01/2017 2CO2 13:59 SerPl-sCnc 25246-1 10 9-16 mmol/L 04/01/2017 2Anion Gap 13:59 SerPl-sCnc 2692-2 276 L 277-298 mOsm/kg 04/01/2017 2Osmolality 13:59 SerPl 10110-4 9.2 8.2-10.0 mg/dl 04/01/2017 2Calcium 13:59 SerPl-mCnc 1742-6 31 7-52 IU/L 04/01/2017 2ALT 13:59 SerPl-cCnc 1920-8 30 13-39 IU/L 04/01/2017 2AST 13:59 SerPl-cCnc 1715-2 83 34-104 U/L 04/01/2017 2ACP 13:59 SerPl-cCnc 1975-2 0.6 0.3-1.0 mg/dl 04/01/2017 2Bilirub 13:59 SerPl-mCnc 2885-2 7.5 6.0-8.3 g/dL 04/01/2017 2Prot 13:59 SerPl-mCnc 1751-7 4.3 3.5-5.7 g/dl 04/01/2017 2Albumin 13:59 SerPl-mCnc 2336-6 3.2 2.3-3.2 g/dL 04/01/2017 2Globulin 13:59 Ser-mCnc 1759-0 1.3 1.2-2.0 04/01/2017 2Albumin/Davina 13:59 b SerPl 46 L 60-116 GFRunits 04/01/2017 2GFR 13:59 [facility]forming [facility]notes[id number] [address] [place], [place] [id number] [place] [address] [place] Order: Quantiferon TBLegend: D=Delta, H=High, L=Low, HH=Critical High, LL= Critical Low, AA=Critical Alpha-Numeric, C=Corrected, A=Abnormal LOINC Test Result Flag Range Units Date 1Quantiferon TB 1TEST SENT TO REFERENCE LAB [id number] [phone] 04/01/2017 13:59 1Date ref lab test sent [phone] 04/01/2017 13:59 1DATE RECVD Performing Lab Footnotes:1[facility] - [id number] - [address] [address] [facility] Radiology Results Order: MMSCBIC Mammogram Chavo Screening Digital w/CADExam Completion Date:04/01/2017 07:32Comparison:07/04/2015 and 2014The breasts are extremely dense. This may lower sensitivity of mammography. No suspicious masses or clustered microcalcifications are identified. Thereare dystrophic calcifications. IMPRESSION:Bi Rads 2 (Benign) Normal Screening interval, repeat mammogram in 1year.The findings on the mammogram are also evaluated with Computer Aided Detectionsoftware version 5.3.Released By JOSE LOPEZ, MDDate: 04/03/2017 15:00 Vital Signs No data in the system Plan of Care No data in the system Procedures No data in the system Encounters Date Code Diagnosis Status (ICD10) - Z1231 ENC SCR MAMMO MALIG NEOPLASM Active BREAST Immunizations No data in the system Functional Status No data in the system Hospital Discharge Instructions No data in the system
--- OUTSIDE RECORDS SUMMARY | 2018-02-01 16:43 | External Medical Summary | Continuity of Care Document ---
:1960 Author Organization [facility] Care Team Providers Name Role Phone JASMINA ANNE Admitting Physician Unavailable JASMINA ANNE Attending Physician Unavailable EMILY MATOS Primary Care Physician Hospital Admission Diagnosis Code Admission Diagnosis Date [id number] Low back pain Social History Element Code Description Smoking Start Date End Date Description Status Code System Smoking Status 183720731 Unknown if ever SNOMED-CT smoked Problems Code Code System Problem Name Start Date End Date Status 912426664 SNOMED-CT Backache 11/2017 Active 92039010 SNOMED-CT Diffuse myofascial unknown Active pain syndrome 80388642 SNOMED-CT Hypertensive unknown Active disorder 900671300 SNOMED-CT Malignant tumor of Unknown Active lung 4280072 SNOMED-CT Arthritis Unknown Active Medications RxNorm Medication Dose Route Instructions Indications Start End Status Date Date 912905 72 HR Fentanyl 1 patch Transderm transdermally Active 0.012 MG/HR al every 72 hours Transdermal System 117991 Acetaminophen 650 oral orally every 4 fever or pain Active 650 MG Oral milligra to 6 hours [place] Table[place] needed. 75706 Amlodipine 2.5 oral orally every Active milligra day m 4744726 apremilast 30 30 oral orally 2 times Active MG Oral Tablet milligra per day m (swallow whole; do not chew/break/diss olve/open;) 828493 atorvastatin 80 oral orally every Active 80 MG Oral milligra day at bedtime Tablet m 1347 Beclomethasone 1 puff Inhalatio inhaled 2 times Active n per day 19750318 Dexamethasone 4 oral orally every 8 Active 4 MG Oral milligra hours (12/26/17 Tablet m last dose) 3355 Diclofenac 75 oral orally every 12 Active milligra hours m (administer with food or milk;) 373707 Folic Acid 1 1 oral orally every Active MG Oral Tablet [place] m [address] gabapentin 200 oral orally 2 times Active milligra per day (200 mg m in am, 200 mg at noon) 93788 gabapentin 300 oral orally every Active milligra day at bedtime m 6582 Magnesium 400 oral orally 2 times Active Oxide milligra per day m (administer with meals; ; Ordered Dose: of magnesium oxide) 816731 Memantine 5 oral orally 2 times Active hydrochloride milligra per day 5 MG Oral m Tablet 704482 Metoprolol 100 oral orally 2 times Active Tartrate 100 milligra per day MG Oral Tablet m Multivitamins 1 tablet oral orally every Active day 7804 Oxycodone 5-10 oral orally every 3 pain Active milligra hours as ms needed. 180254 pantoprazole 40 oral orally every Active 40 MG Delayed milligra morning Release Oral m Tablet 564300 POLYETHYLENE 17 gram oral orally every Active GLYCOL 3350 day (mix in 4-8 70494 MG oz of any Powder for hot/cold/room Oral Solution temp beverage;use immediately;) 73333 Vitamin B 12 2500 oral orally every Active microgra day m 0579739 Acetaminophen 1to 2 oral orally every 4 pain No 325 MG / tablets hours as Longer Oxycodone needed. Active Hydrochloride 10 MG Oral Tablet 693841 Aspirin 325 MG 325 oral orally every No Oral Tablet milligra day Longer m Active 49180 Docusate 100 oral orally 2 times constipation No milligra per day as Longer m needed. Active 150067 Enalapril 20 oral orally 2 times No Maleate 20 MG milligra per day Longer Oral Tablet m Active 6851 Methotrexate 10 Intramusc intramuscularly No milligra ular every week Longer m Active 324633 Methotrexate 10 oral orally every No 10 MG Oral milligra week Longer Tablet m Active 757557 tramadol 50 oral orally every 6 pain No hydrochloride milligra hours as Longer 50 MG Oral m needed. Active Tablet Allergies Code Code Allergy Type Reaction Severity Start End Status System Substance Date Date 2669 RXNorm Codeine Drug Unknown 06/25/20 Active allergy 17 Results Laboratory Results Order: UrinalysisLegend: D=Delta, H=High, L =Low, HH=Critical High, LL=Critical Low, AA=Critical Alpha-Numeric, C=Corrected , A=Abnormal LOINC Test Result Flag Range Units Date 5778-6 Yellow 12/27/2017 1Color Ur 01:05 61329-5 Clear 12/27/2017 1Clarity Ur 01:05 2966-0 1Sp 1.010 1.005-1.030 12/27/2017 Gr 24h Ur 01:05 2756-5 1pH 7.0 5.0-7.0 12/27/2017 Ur 01:05 28061-2 Negative NEGATIVE 12/27/2017 1Leukocyte 01:05 esterase Ur-aCnc 28968-0 Negative NEGATIVE 12/27/2017 1Nitrite Ur Ql 01:05 Strip.auto 47682-6 Negative NEGATIVE 12/27/2017 1Prot 01:05 Tiss-mCnt 2349-9 Negative NEGATIVE 12/27/2017 1Glucose Ur Ql 01:05 27446-4 1MEK Negative NEGATIVE 12/27/2017 Ur-mCnc 01:05 1976-8 Negative NEGATIVE 12/27/2017 1Bilirub Ur Ql 01:05 95435-8 0.2 <=1.0 12/27/2017 1Urobilinogen 01:05 Ur Ql 933-2 1Bld Negative NEGATIVE 12/27/2017 Prod Typ BPU 01:05 12178-9 N 12/27/2017 1Micro UrnS 01:05 [facility]forming [id number] [address] [place] [address] [place] Order: CBC With Manual DifferentialLegend: D=Delta, H=High, L=Low, HH=Critical High, LL=Critical Low, AA=Critical Alpha-Numeric, C=Corrected, A=Abnormal LOINC Test Result Flag Range Units Date 6690-2 1WBC # 5.3 4.5-11.0 10^3/mm3 12/26/2017 Bld Auto 21:45 68198-3 2.98 L 4.00-5.20 10^6/mm3 12/26/2017 1Retics # Auto 21:45 51383-5 1Hgb 10.2 L 12.0-16.0 g/dl 12/26/2017 BldV-mCnc 21:45 4544-3 1Hct 29.3 L 36.0-46.0 % 12/26/2017 VFr Bld Auto 21:45 787-2 1MCV 98.3 82.0-100.0 10^6/mm3 12/26/2017 RBC Auto 21:45 785-6 1MCH 34.2 H 27.0-34.0 pg 12/26/2017 RBC Qn Auto 21:45 786-4 1MCHC 34.8 32.0-36.0 g/dl 12/26/2017 RBC Auto-mCnc 21:45 788-0 1RDW 13.2 11.7-15.0 % 12/26/2017 RBC Auto-Rto 21:45 777-3 161 150-450 10^3/mm3 12/26/2017 1Platelet # Bld 21:45 Auto 89301-8 1PMV 10.0 7.4-10.4 12/26/2017 Bld 21:45 50812-3 53 40-74 12/26/2017 1Neutrophils # 21:45 CSF 1LYMPH 31 14-46 12/26/2017 21:45 71426-4 9 4-13 12/26/2017 1Monocytes # CSF 21:45 714-6 2 0-4 12/26/2017 1Eosinophil NFr 21:45 Bld Manual 44942-4 1 0-3 12/26/2017 1Basophils NFr 21:45 Bld 733-6 1 H <=0 % 12/26/2017 1Variant Lymphs 21:45 Bld Ql Smear 1BANDS 3 0-3 12/26/2017 21:45 23346-7 Slight 12/26/2017 1Hypochromia Bld 21:45 Ql Auto Adequate 12/26/2017 1WBCCOM 21:45 20083-0 Adequate 12/26/2017 1Bizarre 21:45 platelets Bld Ql Smear Performing [facility] Footnotes:[facility] [id number] [address] [place] [address] [place] Order: Comprehensive Metabolic PanelLegend: D=Delta, H=High, L=Low, HH= Critical High, LL=Critical Low, AA=Critical Alpha-Numeric, C=Corrected, A= Abnormal LOINC Test Result Flag Range Units Date 2345-7 118 H 70-105 mg/dl 12/26/2017 1Glucose 21:45 SerPl-mCnc 3094-0 7 7-25 mg/dl 12/26/2017 1BUN 21:45 SerPl-mCnc 2160-0 0.5 L 0.6-1.3 mg/dl 12/26/2017 1Creat 21:45 SerPl-mCnc 12844-6 14 13-39 12/26/2017 1Creat/Urea 21:45 nit SerPl 2951-2 130 L 135-145 mmol/L 12/26/2017 1Sodium 21:45 SerPl-sCnc 91880-4 3.7 3.5-5.1 mmol/L 12/26/2017 1Potassium 21:45 SerPl-mCnc 2075-0 99 98-107 mmol/l 12/26/2017 1Chloride 21:45 SerPl-sCnc 2028-9 25 21-31 mmol/l 12/26/2017 1CO2 21:45 SerPl-sCnc 29405-4 10 9-16 mmol/L 12/26/2017 1Anion Gap 21:45 SerPl-sCnc 2692-2 269 L 277-298 mOsm/kg 12/26/2017 1Osmolality 21:45 SerPl 41731-7 8.2 8.2-10.0 mg/dl 12/26/2017 1Calcium 21:45 SerPl-mCnc 1742-6 29 7-52 IU/L 12/26/2017 1ALT 21:45 SerPl-cCnc 1920-8 19 13-39 IU/L 12/26/2017 1AST 21:45 SerPl-cCnc 1715-2 90 34-104 U/L 12/26/2017 1ACP 21:45 SerPl-cCnc 1975-2 0.2 L 0.3-1.0 mg/dl 12/26/2017 1Bilirub 21:45 SerPl-mCnc 2885-2 5.6 L 6.0-8.3 g/dL 12/26/2017 1Prot 21:45 SerPl-mCnc 1751-7 2.5 L 3.5-5.7 g/dl 12/26/2017 1Albumin 21:45 SerPl-mCnc 2336-6 3.1 2.3-3.2 g/dL 12/26/2017 1Globulin 21:45 Ser-mCnc 1759-0 0.8 L 1.2-2.0 12/26/2017 1Albumin/Davina 21:45 b SerPl 136 H 60-116 GFRunits 12/26/2017 1GFR 21:45 [facility]forming [facility] Footnotes:[facility] [id number] [address] [place] [address] Fredis ROGERS Order: MagnesiumLegend: D=Delta, H=High, L=Low, HH=Critical High, LL=Critical Low, AA=Critical Alpha-Numeric, C=Corrected, A=Abnormal LOINC Test Result Flag Range Units Date 1.4 L 1.9-2.7 mg/dL 12/26/2017 1Magnesium 21:45 Performing Lab Footnotes:[address] [place] [address] - [id number] - [address] [place] [id number] [place] [address] Fredis ROGERS Vital Signs Vitals Value Date Respiratory Rate 12 12/26/2017 O2% BldC Oximetry 97 12/26/2017 BP Systolic 115 mmHg 12/26/2017 BP Diastolic 68 mmHg 12/26/2017 Height 66 in 12/26/2017 Weight Measured 115 lbs 12/26/2017 BSA (Body Surface Area) 1.41268 12/26/2017 BMI (Body Mass Index) 18.7 12/26/2017 Plan of Care No data in the system Procedures No data in the system Encounters Date Code Diagnosis Status (ICD10) - M545 LOW BACK PAIN Active Immunizations No data in the system Functional Status No data in the system Hospital Discharge Instructions No data in the system
--- OUTSIDE RECORDS SUMMARY | 2018-02-01 16:43 | External Medical Summary | Referral Summary ---
:1960 Author Organization [facility] Address [address] [place] [address] Encounter [facility] [id number] Date(s): 04/22/17 - 04/24/17 [facility] [address] [place] [address] Discharge Diagnosis: Seizure Discharge Diagnosis: Hyponatremia Discharge Diagnosis: Acute respiratory failure Discharge Diagnosis: Non-ST elevation IN (NSTEMI) Discharge Diagnosis: Leukocytosis Discharge Diagnosis: Arthritis Discharge Disposition: 01-Home or Self Care Attending Physician: Nacho Adame JR, MD Admitting Physician: Nacho Adame JR, MD Vital Signs Most recent to oldest [Reference Range]: 1 Temperature Temporal Artery [36.3-37.8 degC] 36.8 degC (04/24/17 4:15 AM) Peripheral Pulse Rate [60-100 bpm] 103 bpm *HI* (04/24/17 8:37 AM) Heart Rate Monitored [60-100 bpm] 105 bpm *HI* (04/24/17 3:29 PM) Respiratory Rate [14-20 br/min] 20 br/min (04/24/17 3:23 PM) Blood Pressure [90-140/60-90 mmHg] 147/99 mmHg *HI* (04/24/17 1:15 PM) Mean Arterial Pressure, Cuff 118 mmHg (04/24/17 1:15 PM) SpO2 96 % (04/24/17 1:00 PM) Problem List Condition Effective Dates Status Health Status Informant Acute pain(Confirmed) Active Arthritis(Confirmed) Active At risk for falls(Confirmed)1 Active At risk for injury(Confirmed)2 Active At risk of pressure sore(Confirmed) Active Impaired gas exchange(Confirmed)3 Active 1This problem was added by Discern Expert.2Problem added automatically by system based on initiation of Risk for Injury Plan of [email or web address] added automatically by system based on initiation of Impaired Gas Exchange Plan of Care Allergies, Adverse Reactions, Alerts Substance Reaction Severity Status codeine Migraines Active Medications atorvastatin 80 mg oral tablet 80 mg 1 tabs, Oral, Bedtime (once a day), # 30 tabs, 0 Refill(s) Start Date: 04/22/17 Status: Orderedcelecoxib 200 mg oral capsule 200 mg 1 caps, Oral, Daily, # 30 caps, 0 Refill(s) Start Date: 04/22/17 Status: Orderedenalapril 20 mg oral tablet 20 mg 1 tabs, Oral, BID Start Date: 04/22/17 Status: Orderedfolic acid 1 mg oral tablet 1 mg 1 tabs, Oral, Daily, # 30 tabs, 0 Refill(s) Start Date: 04/22/17 Status: Orderedgabapentin 100 mg oral capsule 300 mg 3 caps, Oral, Bedtime (once a day), 0 Refill(s) Start Date: 04/22/17 Status: OrderedMetoprolol Tartrate 100 mg oral tablet 100 mg 1 tabs, Oral, BID, 0 Refill(s) Start Date: 04/22/17 Status: OrderedQvar 80 mcg/inh inhalation aerosol 80 mcg, Inhalation, BID, 0 Refill(s) Start Date: 04/23/17 Status: Ordered Results Blood Gases Most recent to oldest [Reference Range]: 1 pH [7.35-7.45] 7.44 (04/22/17 7:45 PM) pCO2 Art [35-45 mmHg] 36 mmHg (04/22/17 7:45 PM) Bicarbonate [22-26 mEq/L] 24 mEq/L (04/22/17 7:45 PM) Base Excess Art [0-2] 0 (04/22/17 7:45 PM) O2 Sat Art [90.0-97.0 %] 96.4 % (04/22/17 7:45 PM) pO2 Art [80-100 mmHg] 82 mmHg (04/22/17 7:45 PM) LPM Art 0.0 L/min (04/22/17 7:45 PM) O2 Panel o2-50 (04/22/17 7:45 PM) Vent Mode psv (04/22/17 7:45 PM) PEEP 5.0 (04/22/17 7:45 PM) Spec Site A. radialis r. (04/22/17 7:45 PM) Hematology Most recent to oldest [Reference Range]: 1 WBC [4.8-10.8 10*3/uL] 8.4 10*3/uL (04/24/17 3:56 AM) RBC [4.00-5.20] 3.62 *LOW* (04/24/17 3:56 AM) Hgb [12.0-16.0 gm/dL] 13.1 gm/dL (04/24/17 3:56 AM) Hct [37.0-47.0 %] 37.1 % (04/24/17 3:56 AM) MCV [82.0-99.0 fL] 102.5 fL *HI* (04/24/17 3:56 AM) MCH [27.0-32.0 pg] 36.2 pg *HI* (04/24/17 3:56 AM) MCHC [32.0-36.0 gm/dL] 35.3 gm/dL (04/24/17 3:56 AM) RDW [11.5-14.5 %] 12.5 % (04/24/17 3:56 AM) Platelet [150-400 10*3/uL] 188 10*3/uL (04/24/17 3:56 AM) MPV [9.4-12.4 fL] 10.8 fL (04/24/17 3:56 AM) Chemistry Most recent to oldest [Reference Range]: 1 Sodium Lvl [136-144 mEq/L] 131 mEq/L *LOW* (04/24/17 11:48 AM) Potassium Lvl [3.6-5.1 mEq/L] 3.7 mEq/L (04/24/17 3:56 AM) Chloride [99-109 mEq/L] 97 mEq/L *LOW* (04/24/17 3:56 AM) CO2 [22-32 mEq/L] 28 mEq/L (04/24/17 3:56 AM) AGAP [3-20 mEq/L] 9 mEq/L (04/24/17 3:56 AM) BUN [4-20 mg/dL] 2 mg/dL *LOW* (04/24/17 3:56 AM) Glucose Lvl [70-100 mg/dL] 107 mg/dL *HI* (04/24/17 3:56 AM) Creatinine Lvl [0.44-1.03 mg/dL] 0.60 mg/dL (04/24/17 3:56 AM) eGFR [>60 mL/min] >60 mL/min 1 (04/24/17 3:56 AM) Calcium Lvl [8.6-10.0 mg/dL] 9.3 mg/dL (04/24/17 3:56 AM) Albumin Lvl [3.5-4.8 gm/dL] 3.7 gm/dL (04/24/17 3:56 AM) Total Protein [6.1-7.9 gm/dL] 7.2 gm/dL (04/23/17 3:31 AM) Globulin [1.9-4.3 gm/dL] 3.2 gm/dL (04/23/17 3:31 AM) ALT [14-54 U/L] 40 U/L (04/23/17 3:31 AM) AST [15-41 U/L] 63 U/L *HI* (04/23/17 3:31 AM) Alk Phos [26-104 U/L] 102 U/L (04/23/17 3:31 AM) Bili Total [0.2-1.2 mg/dL] 1.4 mg/dL 2 *HI* (04/23/17 3:31 AM) Magnesium Lvl [1.8-2.5 mg/dL] 2.1 mg/dL (04/24/17 3:56 AM) Phosphorus [2.4-4.7 mg/dL] 2.2 mg/dL 3 *LOW* (04/24/17 3:56 AM) Troponin [<0.06 ng/mL] 0.08 ng/mL 4 *HHI* (04/23/17 11:02 AM) Blood Glucose, Capillary [70-100 mg/dL] 112 mg/dL *HI* (04/23/17 12:50 AM) Chol [0-199 mg/dL] 230 mg/dL *HI* (04/22/17 6:02 PM) Trig [0-149 mg/dL] 113 mg/dL (04/22/17 6:02 PM) HDL [40-84 mg/dL] 104 mg/dL *HI* (04/22/17 6:02 PM) LDL [0-130 mg/dL] 103 mg/dL (04/22/17 6:02 PM) VLDL Cholesterol [0-28 mg/dL] 23 mg/dL (04/22/17 6:02 PM) Cardiac Risk [0.0-5.0] 2.2 (04/22/17 6:02 PM) TSH with Reflex Free T4 [0.35-4.94] 1.44 (04/23/17 3:31 AM) Hgb A1c [4.1-5.6 %] 5.7 % *HI* (04/23/17 3:31 AM) eAvg Glucose 116.9 mg/dL (04/23/17 3:31 AM) 1Result Comment: Multiply eGFR results by 1.21 for race.2Result Comment: Naproxen, specifically the metabolite O-desmethylnaproxen, may cause spurious elevation in Total Bilirubin levels.3Result Comment: High dosages of liposomal Amphotericin B (AmBisome) therapy or other drug preparations that use a liposomal envelope to facilitate drug delivery may cause falsely elevated results for phosphorus.4Result Comment: Critical value called, and read-back verified. Called to Rosana Omalley RN [id number] 04/23/2017 13:03Toxicology Most recent to oldest [Reference Range]: 1 Ethanol Lvl None Detected (04/22/17 6:23 PM) U Amphetamine Scrn Negative (04/23/17 11:35 AM) U Cocaine Scrn Negative (04/23/17 11:35 AM) U Cannab Scrn Negative (04/23/17 11:35 AM) U Opiate Scrn Negative (04/23/17 11:35 AM) U PCP Scrn Negative (04/23/17 11:35 AM) U Benzodiazepine Scrn Positive *ABN* (04/23/17 11:35 AM) U Barbiturate Scrn Negative (04/23/17 11:35 AM) Methadone Lvl Negative (04/23/17 11:35 AM) Tricyclics Not Detected 1 (04/23/17 11:35 AM) 1Result Comment: Cut-off concentrations: Amphetamines: 1000 ng/mL Cocaine: 300 ng/mL Cannabinoid: 50 ng/mL Opiate: 300 ng/mL Phencyclidine (PCP): 25 ng/mL Benzodiazepine: 200 ng/mL Barbiturate: 200 ng/mL Methadone: 300 ng/mL Tricyclic: 300 ng/mL The urine drug screen assays are qualitative screens. A more specific GC/MS method must be performed to obtain a confirmed analytical result. Unconfirmed screening results must not be used for non-medical purposes(e.g. employment or legal testing) Procedures Procedure Date Related Diagnosis Body Site Arterial puncture, withdrawal of blood for 04/22/17 diagnosis Appendectomy Cholecystectomy Hysterectomy Social History Social History Type Response Smoking Status Current every day smoker; Type: Cigarettes; Tobacco use per day : 1/2 pack or more entered on: 04/23/17
--- OUTSIDE RECORDS SUMMARY | 2018-02-01 16:43 | External Medical Summary | Continuity of Care Document ---
:1960 Author Organization [facility] Care Team Providers Name Role Phone JASMINA ANNE Admitting Physician Unavailable JASMINA ANNE Attending Physician Unavailable EMILY MATOS Primary Care Physician Hospital Admission Diagnosis No data in the System Social History Element Code Description Smoking Start Date End Date Description Status Code System Smoking Status [id number] Unknown if ever SNOMED-CT smoked Problems Code Code System Problem Name Start Date End Date Status 118632505 SNOMED-CT Backache 11/2017 Active 03892239 SNOMED-CT Diffuse myofascial unknown Active pain syndrome 33890037 SNOMED-CT Hypertensive unknown Active disorder 724439886 SNOMED-CT Malignant tumor of Unknown Active lung 0246724 SNOMED-CT Arthritis Unknown Active Medications RxNorm Medication Dose Route Instructions Indications Start End Status Date Date 188716 72 HR Fentanyl 1 patch Transderm transdermally Active 0.012 MG/HR al every 72 hours Transdermal System 859773 Acetaminophen 650 oral orally every 4 fever or pain Active 650 MG Oral milligra to 6 hours [place] needed. 40702 Amlodipine 2.5 oral orally every Active milligra day m 5167266 apremilast 30 30 oral orally 2 times Active MG Oral Tablet milligra per day m (swallow whole; do not chew/break/diss olve/open;) 054243 atorvastatin 80 oral orally every Active 80 MG Oral milligra day at bedtime Tablet m 1347 Beclomethasone 1 puff Inhalatio inhaled 2 times Active n per day 355453 Dexamethasone 4 oral orally every 8 Active 4 MG Oral milligra hours (12/26/17 Tablet m last dose) 3355 Diclofenac 75 oral orally every 12 Active milligra hours m (administer with food or milk;) 183121 Folic Acid 1 1 oral orally every Active MG Oral Table[place] m 7[address] gabapentin 200 oral orally 2 times Active milligra per day (200 mg m in am, 200 mg at noon) 95873 gabapentin 300 oral orally every Active milligra day at bedtime m 6582 Magnesium 400 oral orally 2 times Active Oxide milligra per day m (administer with meals; ; Ordered Dose: of magnesium oxide) 691839 Memantine 5 oral orally 2 times Active hydrochloride milligra per day 5 MG Oral m Tablet 635934 Metoprolol 100 oral orally 2 times Active Tartrate 100 milligra per day MG Oral Tablet m Multivitamins 1 tablet oral orally every Active day 7804 Oxycodone 5-10 oral orally every 3 pain Active milligra hours as ms needed. 693578 pantoprazole 40 oral orally every Active 40 MG Delayed milligra morning Release Oral m Tablet 713191 POLYETHYLENE 17 gram oral orally every Active GLYCOL 3350 day (mix in 4-8 38660 MG oz of any Powder for hot/cold/room Oral Solution temp beverage;use immediately;) 43886 Vitamin B 12 2500 oral orally every Active microgra day m 6803828 Acetaminophen 1to 2 oral orally every 4 pain No 325 MG / tablets hours as Longer Oxycodone needed. Active Hydrochloride 10 MG Oral Tablet 306108 Aspirin 325 MG 325 oral orally every No Oral Tablet milligra day Longer m Active 96380 Docusate 100 oral orally 2 times constipation No milligra per day as Longer m needed. Active 085543 Enalapril 20 oral orally 2 times No Maleate 20 MG milligra per day Longer Oral Tablet m Active 6851 Methotrexate 10 Intramusc intramuscularly No milligra ular every week Longer m Active 239431 Methotrexate 10 oral orally every No 10 MG Oral milligra week Longer Tablet m Active 262790 tramadol 50 oral orally every 6 pain [...] Date 5778-6 Yellow 12/27/2017 1Color Ur 01:05 80446-8 Clear 12/27/2017 1Clarity Ur 01:05 2966-0 1Sp 1.010 1.005-1.030 12/27/2017 Gr 24h Ur 01:05 2756-5 1pH 7.0 5.0-7.0 12/27/2017 Ur 01:05 01919-5 Negative NEGATIVE 12/27/2017 1Leukocyte 01:05 esterase Ur-aCnc 46142-4 Negative NEGATIVE 12/27/2017 1Nitrite Ur Ql 01:05 Strip.auto 49160-7 Negative NEGATIVE 12/27/2017 1Prot 01:05 Tiss-mCnt 2349-9 Negative NEGATIVE 12/27/2017 1Glucose Ur Ql 01:05 41748-6 1MEK Negative NEGATIVE 12/27/2017 Ur-mCnc 01:05 1976-8 Negative NEGATIVE 12/27/2017 1Bilirub Ur Ql 01:05 61637-0 0.2 <=1.0 12/27/2017 1Urobilinogen 01:05 Ur Ql 933-2 1Bld Negative NEGATIVE 12/27/2017 Prod Typ BPU 01:05 68704-0 N 12/27/2017 1Micro UrnS 01:05 Performing Lab Footnotes:[address] [place] [address] - [id number] - [address] [place] [address] [place] Order: CBC With Manual DifferentialLegend: D=Delta, H=High, L=Low, HH=Critical High, LL=Critical Low, AA=Critical Alpha-Numeric, C=Corrected, A=Abnormal LOINC Test Result Flag Range Units Date 6690-2 1WBC # 5.3 4.5-11.0 10^3/mm3 12/26/2017 Bld Auto 21:45 77606-6 2.98 L 4.00-5.20 10^6/mm3 12/26/2017 1Retics # Auto 21:45 86289-7 1Hgb 10.2 L 12.0-16.0 g/dl 12/26/2017 BldV-mCnc [...] 10^3/mm3 12/26/2017 1Platelet # Bld 21:45 Auto 03098-7 1PMV 10.0 7.4-10.4 12/26/2017 Bld 21:45 94017-1 53 40-74 12/26/2017 1Neutrophils # 21:45 CSF 1LYMPH 31 14-46 12/26/2017 21:45 71646-7 9 4-13 12/26/2017 1Monocytes # CSF 21:45 714-6 2 0-4 12/26/2017 1Eosinophil NFr 21:45 Bld Manual 54149-6 1 0-3 12/26/2017 1Basophils NFr 21:45 Bld 733-6 1 H <=0 % 12/26/2017 1Variant Lymphs 21:45 Bld Ql Smear 1BANDS 3 0-3 12/26/2017 21:45 64592-0 Slight 12/26/2017 1Hypochromia Bld 21:45 Ql Auto Adequate 12/26/2017 1WBCCOM 21:45 56890-6 Adequate 12/26/2017 1Bizarre 21:45 platelets Bld Ql Smear [facility]forming [facility] [id number] [address] [place] [address] [place] Order: Comprehensive Metabolic PanelLegend: D=Delta, H=High, L=Low, HH= Critical High, LL=Critical Low, AA=Critical Alpha-Numeric, C=Corrected, A= Abnormal LOINC Test Result Flag Range Units Date 2345-7 118 H 70-105 mg/dl 12/26/2017 1Glucose 21:45 SerPl-mCnc 3094-0 7 7-25 mg/dl 12/26/2017 1BUN 21:45 SerPl-mCnc 2160-0 0.5 L 0.6-1.3 mg/dl 12/26/2017 1Creat 21:45 SerPl-mCnc 78717-8 14 13-39 12/26/2017 1Creat/Urea 21:45 nit SerPl 2951-2 130 L 135-145 mmol/L 12/26/2017 1Sodium 21:45 SerPl-[facility] 87697-9 3.7 3.5-5.1 mmol/L 12/26/2017 1Potassium 21:45 SerPl-mCnc 2075-0 99 98-107 mmol/l 12/26/2017 1Chloride 21:45 SerPl-sCnc 2028-9 25 21-31 mmol/l 12/26/2017 1CO2 21:45 SerPl-sCnc 77487-5 10 9-16 mmol/L 12/26/2017 1Anion Gap 21:45 SerPl-sCnc 2692-2 269 L 277-298 mOsm/kg 12/26/2017 1Osmolality 21:45 SerPl 62611-3 8.2 8.2-10.0 mg/dl 12/26/2017 1Calcium 21:45 SerPl-mCnc [...] 60-116 GFRunits 12/26/2017 1GFR 21:45 Performing Lab Footnotes:[facility] [id number] [facility] [address] [place] [address] Fredis ROGERS Order: MagnesiumLegend: D=Delta, H=High, L=Low, HH=Critical High, LL=Critical Low, AA=Critical Alpha-Numeric, C=Corrected, A=Abnormal LOINC Test Result Flag Range Units Date 1.4 L 1.9-2.7 mg/dL 12/26/2017 1Magnesium 21:45 Performing Lab Footnotes:[address] [place] [address] - [id number] - [address] [place] [address] - [place] Fredis ROGERS Vital Signs Vitals Value Date Respiratory Rate 12 12/26/2017 O2% BldC Oximetry 97 12/26/2017 BP Systolic 115 mmHg 12/26/2017 BP Diastolic 68 mmHg 12/26/2017 Height 66 in 12/26/2017 Weight Measured 115 lbs 12/26/2017 BSA (Body Surface Area) 1.15368 12/26/2017 BMI (Body Mass Index) 18.7 12/26/2017 Plan of Care No data in the system Procedures No data in the system Encounters No data in the system Immunizations No data in the system Functional Status No data in the system Hospital Discharge Instructions No data in the system
--- OUTSIDE RECORDS SUMMARY | 2018-02-01 16:44 | External Medical Summary ---
:1960 Author Name FUAD BRICE MD Address [address] Unavailable [place], [place] [address] Care Team Providers Name Role Phone LEV [...] Brice MD made the following assessments 1. [[id number]] Abnormal blood chemistry Chief Complaint order for B12 & folate Encounters Provider(s) Location(s) Diagnosis Date FUAD BRICE MD [facility] 06/12/2017 9:35 HEALTH CARE OTHER SPECIFIED AM ABNORMAL FINDINGS OF BLOOD CHEMISTRY Immunizations Vaccine Date Status Fluvirin Private 07/30/2015 Completed Medications Medication Strength Directions Start End Status Fill Date Date Instructions multivitamin 12/18/2014 Active 1 tab per day folic acid 1 mg Active 1 Tablet [address] Everett atorvastatin 80 mg Active Medication TAKE 1 TABLET 7 updated from BY ORAL ROUTE AT ERx info from BEDTIME 1 TIME pharmacy. PER DAY metoprolol 100 mg Active Medication tartrate take [...] (100 mg) by oral route once daily calcium plus 1200 mg/500 12/18/2014 03/26/20 Completed [...] per day in pm gabapentin 100 mg 9/26/201 9/26/20 Suspended take 3 Tablet 7 17 by Oral route 1 time per day in pm Payers Plan Name [facility] Treatment plan Planned Care Start Date FOLLOW UP.AB 07/06/2017 Problems Name Type Status Onset Resolution Priority [...] Sex Female Current Smoking Status Unknown Since 06/12/2017 Tobacco Use Current every day smoker Since 06/03/2017 Tobacco Use Unknown 05/11/2017 - 06/03/2017 Tobacco [...]
--- OUTSIDE RECORDS SUMMARY | 2018-02-01 16:44 | External Medical Summary ---
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
--- OUTSIDE RECORDS SUMMARY | 2018-02-01 16:44 | External Medical Summary | Continuity of Care Document ---
:1960 Author Organization [facility] Care Team Providers Name Role Phone ESTEBAN THOMAS Admitting Physician Unavailable ESTEBAN THOMAS Attending Physician Unavailable EMILY MATOS Primary Care Physician Hospital Admission Diagnosis No data in the System Social History Element Code Description Smoking Start Date End Date Description Status Code System Smoking Status [id number] Heavy tobacco SNOMED-CT smoker Problems Code Code System Problem Name Start Date End Date Status 25077935 SNOMED-CT Diffuse myofascial unknown Active pain syndrome 86636811 SNOMED-CT Hypertensive unknown Active disorder 1258841 SNOMED-CT Arthritis Unknown Active Medications RxNorm Medication Dose Route Instructions Indications Start End Status Date Date 19831119 Acetaminophen 650 oral orally every fever or Active 650 MG Oral milligram 4 to 6 hours pain Tablet as needed. 595423 atorvastatin 80 80 oral orally HS Active MG Oral Tablet milligram 1347 Beclomethasone 1 puff Inhalation inhaled 2 Active times per day 886188 Enalapril 20 oral orally 2 Active Maleate 20 MG milligram times per day Oral Tablet 210236 Folic Acid 1 MG 1 oral orally every Active Oral Tablet milligram day 38078 gabapentin 300 oral orally every Active milligram day at bedtime 510627 Methotrexate 10 10 oral orally every Active MG Oral Tablet milligram week 850476 Metoprolol 100 oral orally 2 Active Tartrate 100 MG milligram times per day Oral Tablet Multivitamins 1 tablet oral orally every Active day 6492630 Acetaminophen 1to 2 oral orally every pain [...] 17 Results Laboratory Results Order: CBC With Manual DifferentialLegend: D=Delta, H=High, L=Low, HH=Critical High, LL=Critical Low, AA=Critical Alpha- Numeric, C=Corrected, A=Abnormal LOINC Test Result Flag Range Units Date 90 1WBC # 11.0 4.5-11.0 10^3/mm3 08/12/2017 Bld Auto 07:45 82185-5 4.17 4.00-5.20 10^6/mm3 08/12/2017 1Retics # Auto 07:45 67804-2 1Hgb 14.3 12.0-16.0 g/dl 08/12/2017 BldV-mCnc 07:45 4544-3 1Hct 41.6 36.0-46.0 % 08/12/2017 VFr Bld Auto 07:45 787-2 1MCV 99.8 82.0-100.0 10^6/mm3 08/12/2017 RBC Auto 07:45 785-6 1MCH 34.3 H 27.0-34.0 pg 08/12/2017 RBC Qn Auto 07:45 786-4 1MCHC 34.4 32.0-36.0 g/dl 08/12/2017 RBC Auto-mCnc 07:45 788-0 1RDW 13.0 11.7-15.0 % 08/12/2017 RBC Auto-Rto 07:45 777-3 396 150-450 10^3/mm3 08/12/2017 1Platelet # Bld 07:45 Auto 24933-5 1PMV 8.9 7.4-10.4 08/12/2017 Bld 07:45 70361-9 64 40-74 08/12/2017 1Neutrophils # 07:45 CSF 1LYMPH 22 14-46 08/12/2017 07:45 62835-1 11 4-13 08/12/2017 1Monocytes # CSF 07:45 714-6 3 0-4 08/12/2017 1Eosinophil NFr 07:45 Bld Manual Increased 08/12/2017 1WBCCOM 07:45 Normal 08/12/2017 1RBCCOM 07:45 60738-2 Adequate 08/12/2017 1Bizarre 07:45 platelets Bld Ql Smear Performing Lab Footnotes:[facility] [id number] [address] [facility] [place] [address] - FINE M [place] Order: Comprehensive Metabolic PanelLegend: D=Delta, H=High, L=Low, HH= Critical High, LL=Critical Low, AA=Critical Alpha-Numeric, C=Corrected, A= Abnormal LOINC Test Result Flag Range Units Date 2345-7 95 70-105 mg/dl 08/12/2017 1Glucose 07:45 SerPl-nc 3094-0 12 7-25 mg/dl 08/12/2017 1BUN 07:45 SerPl-nc 2160-0 1.1 0.6-1.3 mg/dl 08/12/2017 1Creat 07:45 SerPl-[facility] 19730-4 11 L 13-39 08/12/2017 1Creat/Urea 07:45 nit SerPl 2951-2 127 L 135-145 mmol/L 08/12/2017 1Sodium 07:45 SerPl-[facility] 44939-9 4.6 3.5-5.1 mmol/L 08/12/2017 1Potassium 07:45 SerPl-mCnc 2075-0 91 L 98-107 mmol/l 08/12/2017 1Chloride 07:[facility] 21-31 mmol/l 08/12/2017 1CO2 07:45 [facility] 97[facility]-3 17 H 9-16 mmol/L 08/12/2017 1Anion Gap 07:45 SerPl-sCnc 2692-2 264 L 277-298 mOsm/kg 08/12/2017 1Osmolality 07:45 SerPl 34165-2 9.7 8.2-10.0 mg/dl 08/12/2017 1Calcium 07:45 SerPl-nc 1742-6 20 7-52 IU/L 08/12/2017 1ALT 07:45 SerPl-cCnc 1920-8 27 13-39 IU/L 08/12/2017 1AST 07:45 SerPl-cCnc 1715-2 120 H 34-104 U/L 08/12/2017 1ACP 07:45 SerPl-cCnc 1975-2 0.7 0.3-1.0 mg/dl 08/12/2017 1Bilirub 07:45 SerPl-mCnc 2885-2 8.4 H 6.0-8.3 g/dL 08/12/2017 1Prot 07:45 SerPl-mCnc 1751-7 4.5 3.5-5.7 g/dl 08/12/2017 1Albumin 07:45 SerPl-mCnc 2336-6 3.9 H 2.3-3.2 g/dL 08/12/2017 1Globulin 07:45 Ser-mCnc 1759-0 1.2 1.2-2.0 08/12/2017 1Albumin/Davina 07:45 b SerPl 52 L 60-116 GFRunits 08/12/2017 1GFR 07:45 Performing Lab Footnotes:[facility] [id number] - [address] [place] [address] - [facility] [place] Order: D DimerLegend: D=Delta, H=High, L=Low, HH=Critical High, LL=Critical Low , AA=Critical Alpha-Numeric, C=Corrected, A=Abnormal LOINC Test Result Flag Range Units Date 20477-6 1D 0.51 H <=0.50 mg/L 08/12/2017 dimer FEU PPP 07:45 EIA-mCnc 1Values less than 0.5 mg/L FEU have a negative predictive value of at least 96% for DVT and/or PE inpatients with low or moderate clinical risk using the Well's clinical risk assessment criteria. Performing Lab Footnotes:[facility] - [id number] - [address] [place] [address] - FINE M [place] Radiology Results Order: HPRT2 Hip w/Pelvis RT 2 or 3 viewsExam Completion Date:08/12/2017 07:39INDICATION: right groin/ hip pain x 2 daysHip w/Pelvis RT 2 or 3 views: The pelvis and right hip are negative. Theright hip joint space is maintained. There are no focal osseous lesions. Nofractures are identified.Released By PEG TUBBS, MDDate: 08/12/2017 08:27 Vital Signs Vitals Value Date Body Temperature 96.3 F 08/12/2017 Respiratory Rate 20 08/12/2017 O2% BldC Oximetry 95 08/12/2017 BP Systolic 140 mmHg 08/12/2017 BP Diastolic 85 mmHg 08/12/2017 Height 66 in 08/12/2017 Weight Measured 149.98 lbs 08/12/2017 BSA (Body Surface Area) 1.07147 08/12/2017 BMI (Body Mass Index) 24.3 08/12/2017 Plan of Care No data in the system Procedures Code Code System Procedure Name Target Site Date of Procedure 77552885 SNOMED Cholecystectomy Unknown 883855584 SNOMED Hysterectomy Unknown Encounters No data in the system Immunizations No data in the system Functional Status No data in the system Hospital Discharge Instructions No data in the system
--- OUTSIDE RECORDS SUMMARY | 2018-02-01 16:44 | External Medical Summary | Continuity of Care Document ---
:1960 Author Organization [facility] Care Team Providers Name Role Phone EMILY MATOS Admitting Physician EMILY MATOS Attending Physician Hospital Admission Diagnosis No data in the System Social History Element Code Description Smoking Start Date End Date Description Status Code System Smoking Status [id number] Current some day SNOMED-CT smoker Problems Code Code System Problem Name Start Date End Date Status 10622853 SNOMED-CT Diffuse myofascial unknown Active pain syndrome 28282032 SNOMED-CT Hypertensive unknown Active disorder Medications RxNorm Medication Dose Route Instructions Indications Start End Status Date Date 19831119 Acetaminophen 650 oral orally every fever or Active 650 MG Oral milligram 4 to 6 hours pain Tablet as needed. 253873 atorvastatin 80 80 oral orally HS Active MG Oral Tablet milligram 1347 Beclomethasone 1 puff Inhalation inhaled 2 Active times per day 648394 Enalapril 20 oral orally 2 Active Maleate 20 MG milligram times per day Oral Tablet 200551 Folic Acid 1 MG 1 oral orally every Active Oral Tablet milligram day 16611 gabapentin 300 oral orally every Active milligram day at bedtime 417115 Methotrexate 10 10 oral orally every Active MG Oral Tablet milligram week 939080 Metoprolol 100 oral orally 2 Active Tartrate 100 MG milligram times per day Oral Tablet Multivitamins 1 tablet oral orally every Active day 4638865 Acetaminophen 1to 2 oral orally every pain [...] LOINC Test Result Flag Range Units Date 7-6 180 30-223 IU/L 07/13/2017 1CK 08:00 [facility] Performing Lab Footnotes[facility] [id number] [facility] [address] [facility] [place] [facility] [place] [address] - FINE M [place] Radiology Results Order: [id number] NM Bone And/Or Joint Whole BodyExam Completion Date:07/13/2017 11:00INDICATION: M54.5-low back pain; L40.52 -Psoriatic arthritis COMPARISON: MRI 06/29/2017NM Bone And/OrJoint Whole Body: Evidence of arthritis in shoulders, wrists,right foot. Minor degenerative findings in the L-spine. SI joints appearnormal. The suspected cyst coccyx fracture is obscured by the bladder. Nofindings to suggest a tumor.IMPRESSION: Arthritis.Released By JAYLON AGUIRRE, MDDate: 07/13/2017 13:34 Vital Signs No data in the system Plan of Care No data in the system Procedures No data in the system Encounters No data in the system Immunizations No data in the system Functional Status No data in the system Hospital Discharge Instructions No data in the system
--- OUTSIDE RECORDS SUMMARY | 2018-02-01 16:44 | External Medical Summary ---
:1960 Author Name EMILY MATOS MD Address [address] Unavailable [place], [place] [phone] Care Team Providers Name Role Phone LEV [...] Headache CODIENE Medication Unknown Headache Chief Complaint add on tests Encounters Provider(s) Location(s) Date EMILY MATOS MD [facility] 10/27/2017 8:55 AM CARE Immunizations Vaccine Date Status Fluvirin Private [...] Tablet 3 8 times per day PRN calcium plus 1200 mg/500 12/18/2014 03/26/20 Completed [...] needed for nausea diclofenac sodium 75 mg 08/13/20 10/27/19 Completed will piclk up take 1 tablet 17 18 next week when by Oral route 2 out of current times per day with food Medrol (Gabriele) 4 mg 08/13/20 Completed as directed 17 8 cyclobenzaprine 10 mg 08/13/20 10/27/19 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
--- OUTSIDE RECORDS SUMMARY | 2018-02-01 16:44 | External Medical Summary | Continuity of Care Document ---
:1960 Author Name SHAWNA FUAD Address [address] [place] [address] Care Team Providers Name Role Phone KATIE LIM Unavailable KYLE QUINN Unavailable TENUM, LOCUM Unavailable FUAD BRICE Unavailable FUAD BRICE Primary Careprovider Unavailable Problems Problem Name Type ICD Code ICD Version Date Status Provider HYPO-OSMOLALITY Diagnosis E87.1 10 05/06/2017 Active Fuad Brice AND HYPONATREMIA SACROILIITIS, NOT Diagnosis M46.1 10 03/27/2017 Active Fuad Brice ELSEWHERE CLASSIFIED PSORIATIC Diagnosis L40.52 10 03/27/2017 Active Fuad Brice ARTHRITIS MUTILANS Medications Medication Sig Dispense Refill Date Started Provider gabapentin 100 mg take 1-3 Tablet 90 Tablet 0 05/12/2017 FUAD capsule by Oral route 1 SHAWNA time per day in pm celecoxib 200 mg take 1 capsule 90 CAP 1 05/06/2017 FUAD capsule by Oral route 1 SHAWNA time per day as needed enalapril maleate take 1 tablets 180 Tablet 2 05/06/2017 FUAD 20 mg tablet by Oral route 2 SHAWNA times per day Qvar 80 inhale 1 puff 1 Inhaler 3 04/21/2017 FUAD mcg/actuation (80 mcg) by SHAWNA aerosol inhalation route 2 times per day metoprolol take 1 Tablet by 180 tablet 1 04/03/2017 FUAD tartrate 100 mg Oral route 2 SHAWNA tablet times per day atorvastatin 80 mg TAKE 1 TABLET BY 90 Tablet 0 04/02/2017 FUAD tablet ORAL ROUTE AT [facility] BEDTIME 1 TIME PER DAY multivitamin 1 tab per day Unknown Outside tablet Provider folic acid 1 mg 1 Tablet 1 time Unknown Outside tablet per day Dr. Lavelle Ramos Allergies Substance Event Type Date Identified Reaction(s) Severity codeine Drug allergy Unknown Headache CODIENE Drug allergy Unknown Headache Severe Encounters Date Diagnosis Provider Location Telephone 05/06/2017 SACROILIITIS, NOT ELSEWHERE CLASSIFIED FUAD [facility] 9:59 AM CDT PSORIATIC ARTHRITIS [facility] HYPO-OSMOLALITY AND HYPONATREMIA [facility], [address] [place] [address] Procedures Procedures not documented for patient. Medications Administered Medications Administered not documented for patient. Immunizations Immunizations not documented for patient. Chief Complaint and Reason for Visit Date Reason for Visit Chief Complaint 05/06/2017 Appt: Check up Results Order Result Date Test Result Range CMP (IN HOUSE) 05/06/2017 Result Comments: disc borderline NA and low K at appt inc K in diet dec h20 and tea recheck in 1-2 weeks renetta POTASSIUM 3.5 mmol/L 3.60 - 5.1 SODIUM 136 mmol/24hours 128 - 145 CARBON DIOXIDE 27 mmol/L 18 - 33 CHLORIDE 101 mmol/L 98 - 108 GLUCOSE BLOOD TEST 90 mg/dL 73 - 118 CALCIUM, TOTAL 9.3 mg/dL 8.0 - 10.30 BUN 7 mg/dL 7 - 22 CREATININE 0.6 mg/dL 0.6 - 1.2 BUN/Creatinine Ratio 11 mg/l 8 - 27 ALP ALKALINE 97 IU/L 42 - 141 PHOSPHATASE ALANINE AMINO (ALT) 25 IU/L 10 - 47 (SGPT) TRANSFERASE (AST) 25 IU/L 11 - 38 (SGOT) BILIRUBIN, TOTAL 0.5 mg/dL 0.2 - 1.6 PROTEIN 6.7 g/dL 6.4 - 8.1 ALBUMIN 3.5 mg/dL 3.3 - 5.5 eGFR 60 mL/min/1.73 59 - Vital Signs Vital Sign Date Value BP Systolic 05/06/2017 122 mm[Hg] BP Diastolic 05/06/2017 72 mm[Hg] BMI (Body Mass Index) 05/06/2017 26.4 kg/m2 Heart Rate 05/06/2017 86 /min Height 05/06/2017 64 in Weight 05/06/2017 153.9 pounds Body Temperature 05/06/2017 96.8 F Respiratory Rate 05/06/2017 16 bpm Functional Status Functional Status not documented for patient. Social History Social History Element Description Date Smoking Current every day smoker 05/06/2017 Instructions Instructions not documented for patient. Plan of Care Goals and Instructions Goals and Instructions not documented for patient. Future Appointments and Referrals: Name Type Date FUAD BRICE MD: [facility] Future Appointment 06/03/2017 8:00 AM [facility]; [address] [place] [address]; ; Reason for Visit: Follow-up Future Tests and Procedures: Name Type Date LIPID PANEL (IN HOUSE) Scheduled Lab 06/03/2017 CMP (IN HOUSE) Scheduled Lab 06/03/2017 EKG Scheduled Procedure 06/03/2017
--- OUTSIDE RECORDS SUMMARY | 2018-02-01 16:45 | External Medical Summary ---
:1960 Author Name FUAD BRICE MD Address [address] Unavailable [place], [place] [id number] Care Team Providers Name Role Phone LEV SEAMAN Unavailable Unavailable FUAD BRICE MD Unavailable Unavailable LOWELL EVERETT Unavailable Unavailable DR. KATHY LOWE Unavailable Unavailable KYLE QUINN APRN Unavailable Unavailable LY RODRIGUEZ Unavailable Unavailable DR. ROVERTO GALLOWAY Unavailable Unavailable Allergies and Adverse Reactions Date Identified Substance Type Reaction Severity codeine Medication Unknown Headache CODIENE Medication Unknown Headache Assessments Fuad Brice MD made the following assessments 1. [91438F] Sciatic neuritis 2. [38804I] Essential hypertension 3. [412692O] Taking long-term medication methotraxate 4. [27988P] Pseudohyponatremia5. [675285T] Abnormal electrocardiogram 6. 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 [2062S] Source of patient information was patient.[737407X] PT doing well she note no pain relief with the SI joint injection WE disc poss form her spine then HE pelvis no pain She rusty abd sx no constipation no bowel or bladder changes Pt EKG disc Ptis drinking less water a but now her BP up drinking Gatorade Pt feels good other than her pain Pt has an appt with Dr Everett and they inc her mtx dose we disc the labs needed for mtx fup. [7816014O] LMP not documented: Hysterectomy. [ 546S] No changes in urinary habits. [049570B] Finger symptoms, [932131L] hand symptoms, [096886P] wrist symptoms, [387338O] back symptoms, and [316884Y] lower leg symptoms. [1053S] No calf muscle cramps and [957S] no localized joint swelling. [5S] No fever and [7S] no chills. [1881S] No cardiovascular symptoms. [1880S] No pulmonary symptoms. [399S] No dysphagia, [475S] no abdominal pain, [453S] no melena, [435P] no diarrhea, and [444P] no constipation. [650S] No dizziness. Immunizations Vaccine Date Status Fluvirin Private 07/30/2015 [...] (10 mg) by intramuscular route once weekly calcium plus 1200 mg/500 12/18/2014 03/26/20 Completed [...] oral route once daily enalapril 20 mg 10/13/19 Suspended maleate take 2 tablet 5 15 by Oral route 1 time per day enalapril 20 mg Suspended maleate take 2 tablet 5 5 by Oral route 1 time per day enalapril 20 mg 10/13/19 Suspended maleate take 1 tablet 5 15 (20 mg) by oral route once daily enalapril 20 mg 11/15/2014 Suspended maleate take [...] per day in pm Payers Plan Name [facility] Physical Examination Vital Signs:Vital Signs/Measurements Date[23492S] Tympanic membrane temperature - 90 to 107 06/03/2017 07: 56AM 98.6[6021S] RR 16 per min 8 to 140 06/03/2017 07:56AM[6034S] NH 64 bpm 30 to 4793506/03/2017 07:56AM[6046S] Blood pressure 166/106 mmHg 50-400/10-300 06/03/2017 07:56AM[6046S] Blood pressure 158/90 mmHg 50-400/10-300 06/03/2017 07:57AM[6063S] Weight 154.4 lbs 1 to 600 06/03/2017 07:56AM[9300S] Body mass index 26.5 kg/m2 06/03/2017 07:56AM[6071S] Height 64 in 10 to 96 06/03/2017 07:56AMStandard Measurements:Standard Measurements:[60864N] Body surface area 1.8 06/03/2017 07:56AMLaboratory Studies:Pulmonary Function Tests:[179680I] 98% percent oxygen - 93 to 100 06/03/2017 07:56AM saturationGeneral Appearance: [84359D] Alert, [13183W] well developed, and [18621O] in no acute distress.Lungs: [6026S] Respiration rhythm and depth was normal and [7041P] the lungs were clear to auscultation.Cardiovascular: Heart Rate And Rhythm: [200652B] Heart rate and rhythm normal. Heart Sounds: [7144S] Heart sounds normal. Murmurs: [7180S ] No murmurs were heard. Arterial Pulses: [7293S] Arterial pulses were equal bilaterally andnormal. Edema: [7268S] Edema not present.Abdomen: Liver: [ 7428S] The liver was not enlarged.Musculoskeletal System: General/bilateral: [866153Y] Palpation of the lumbosacral spine revealed no abnormalities, [020849B ] no muscle spasms, and [153454F] no step deformity. [963574Z] Lumbosacral spine motion was abnormal and [387340N] showed pain elicited by motion. [8014S ] A straight-leg raisingtest was negative.Neurological: [62961Z] No disorientation was observed.Skin: [18246N] No cyanosis and [6273P] showed no ecchymosis.Nails: [6346S] No clubbing of the fingernails.Skin Disorder: [ 108397U] No petechiae. Treatment plan Planned Care Start Date Labs, Tests, or Studies Reviewed 06/03/2017 1. Hyponatremia improved not normal disc ctn fluid 06/03/2017 restriction PT again denies etoh~2. Psoriatic arthritis ctn fup Dr everett labs due for mtx she says she is taking her folate~3. Macrocytosis check again today rusty etoh ~4. BAck pain radiating to buttock no better with Si will refer to Dr galloway for eval ~5. HTN elevated change BP meds form enalapril to losartan ~6. Hyperlipidemia check labs on statin FOLLOW UP.AB 07/06/2017 Problems Name Type Status Onset Resolution Priority Author ESSENTIAL Diagnosis Active 12/18/2014 Normal (PRIMARY) HYPERTENSION Diagnosis Active 12/18/2014 Normal Diagnosis Active 05/06/2017 Normal Diagnosis Active Normal 7 Diagnosis Active Normal 7 Diagnosis Active Normal 7 Procedures Procedure Date EKG 06/03/2017 Results CBC W/AUTO DIFF WBC Result Type Result Value Relevant Interpretation Date Performing Lab Reference Range call pt her (0) cbc abnoraml 7 wiht inc mcv this can be due to b12 or folate def or alcohol I rec check folate and b12 renetta (0) [facility]; ; ; tel:+1-(( ) ) - - LIPID PANEL-SEND OUT Result Type Result Value Relevant Interpretation Date Performing Lab Reference Range SL your lipids (0) panel is much 7 better on your currnet meds Your ldl now 90 an your triglycerides 194 renetta (0) [facility]; ; ; tel:+1-(( ) ) - - EKG Result Type Result Value Relevant Reference Interpretation Date Range Results within 06/03/2017 Expected Range noraml QT disc at appt renetta Social History History Item Description Date Sex Female Unknown Unknown Unknown Unknown Unknown Unknown Current Smoking Status Unknown Since 06/12/2017 Tobacco [...] - 12/18/2014 Vital Signs Date / Time: 06/03/2017 1:54 PM 06/03/2017 1:17 PM Systolic blood pressure 158 mm[Hg] 166 mm[Hg] Diastolic blood pressure 90 mm[Hg] 106 mm[Hg] Body temperature 98.6 F Heart rate 64 /min Respiratory rate 16 /min Pulse oximetry site 98 % Body height 64 [in_i] Body weight 70 kg \ 154.4 [lb_av] Body mass index (BMI) [Ratio] 26.5 kg/m2
--- OUTSIDE RECORDS SUMMARY | 2018-02-01 16:45 | External Medical Summary | Continuity of Care Document ---
:1960 Author Organization [facility] Allergies Active Description Code Type Severity Reaction Onset Reported/ Identified Relationship Clinical to Patient Status Yes codeine ##NOM Drug N/A ##NOMEN## EN##, ,AL1,stri AL1,c ng,reacti eStru on,[id number] ct,al ,[id number] lergy ,1237 ,63 Yes No Known 44381 Unknown N/A 02/13/2013 Drug 0 Allergies Yes codeine NKMA N/A [id number] 04/23/2017 [id number] F45 Yes Codeine 1550 Unknown N/A 06/25/2017 Medications Medication Packaging Start Stop Route Dosage Sig Date Date Tablet 04/28/20 Tablet TAKE Atorvastatin 16 1 TABLET DAILY. Calcium 80 MG Oral Tablet Tablet 04/28/20 Tablet TAKE Enalapril Maleate 16 1 TABLET DAILY. 20 MG Oral Tablet Tablet 04/28/20 Tablet TAKE Metoprolol 16 1 TABLET DAILY. Tartrate 100 MG Oral Tablet Qvar GM 04/28/20 GM 80 MCG/ACT 16 INHALE 1 PUFF Inhalation TWICE DAILY. Aerosol Solution Multi Tablet 04/28/20 Tablet TAKE Vitamin Daily 16 1 TABLET DAILY. Oral Tablet Tablet 04/28/20 Tablet TAKE Calcium 500 + D 16 1 TABLET DAILY. 500-125 MG-UNIT Oral Tablet Tablet 04/28/20 Tablet Extended TAKE Acetaminophen ER Extended 16 Release 3 TABLETS IN THE 650 MG Oral Release MORNING AND 2 Tablet Extended TABLETS AT NIGHT Release 04/30/20 1 Supplies 16 AutoCPAP 8-12 cm H2O, Permanent use, G47.33, Heated humidity, [id number], mask, headgear, filters, heated tubing, water chamber, chinstrap 5 mL 04/22/20 IV Push 5 mg 5 metoprolol(metopr 17 017 mg=5 mL, IV olol tartrate 1 Push, Once mg/mL injectable solution) 1 tabs 04/22/20 Oral 20 mg 20 enalapril(enalapr 17 mg=1 tabs, Oral, il 20 mg oral BID tablet) 3 caps 04/22/20 Oral 300 mg 300 gabapentin(gabape 17 mg=3 caps, Oral, ntin 100 mg oral Bedtime (once a capsule) day), 0 Refill(s) folic 1 tabs 04/22/20 Oral 1 mg 1 acid(folic acid 1 17 mg=1 tabs, Oral, mg oral tablet) Daily, 30 tabs, 0 Refill(s) 1 tabs 04/22/20 Oral 80 mg 80 atorvastatin(ator 17 mg=1 tabs, Oral, vastatin 80 mg Bedtime (once a oral tablet) day), 30 tabs, 0 Refill(s) 1 caps 04/22/20 Oral 200 mg 200 celecoxib(celecox 17 mg=1 caps, Oral, ib 200 mg oral Daily, 30 caps, capsule) 0 Refill(s) 04/22/20 TK 6 methotrexate(meth 17 017 TS PO ONCE otrexate 2.5 mg WEEKLY oral tablet) 1 caps 04/22/20 Oral 100 mg 100 docusate(Colace) 17 017 mg=1 caps, Oral, BID 2 mL 04/22/20 IV Push 4 mg 4 ondansetron(Zofra 17 017 mg=2 mL, IV n) Push, q6hr, PRN: Nausea 1 mL 04/22/20 IV Push 2 mg 2 LORazepam(Ativan) 17 017 mg=1 mL, IV Push, q10min, PRN: Seizure 1 tabs 04/22/20 Oral 20 mg 20 famotidine(Pepcid 17 017 mg=1 tabs, Oral, ) BID 1,000 mL 04/22/20 IV 50 Sodium Chloride 17 017 mL/hr, IV 0.9%(Sodium Chloride 0.9% 1,000 mL) 2 tabs 04/22/20 Oral 650 mg 650 acetaminophen(arely 17 017 mg=2 tabs, Oral, taminophen) q4hr, PRN: Pain Mild (1-3) 1 drops 04/22/20 Eye-Both 1 ocular 17 017 drops, Eye-Both, lubricant(ocular q2hr lubricant ophthalmic solution) folic 0.2 mL 04/22/20 IV Push 1 mg 1 acid(folic acid) 17 017 mg=0.2 mL, IV Push, Daily 1 mL 04/22/20 IV Push 100 mg 100 thiamine(thiamine 17 017 mg=1 mL, IV ) Push, Daily 3 mL 04/23/20 NEB 3 ipratropium-albut 17 017 mL, NEB, q2hr anette(DuoNeb 0.5 (scheduled), mg-2.5 mg/3 mL PRN: inhalation Bronchospasms solution) 1 patches 04/23/20 TransDermal 1 nicotine(nicotine 17 017 patches, 14 mg/24 hr TransDermal, transdermal film, Daily extended release) 50 mL 04/23/20 IV Piggyback 2 g 2 magnesium 17 017 g=50 mL, 25 sulfate(magnesium mL/hr, IV sulfate) Piggyback, q2hr, PRN: Other (See Comment) 13.33 mL 04/23/20 IV Piggyback 40 mmol 40 sodium 17 017 mmol=13.33 mL, phosphate(sodium 43.89 mL/hr, IV phosphate) Piggyback, Daily, PRN: Other (See Comment) 13.33 mL 04/23/20 IV Piggyback 40 mmol 40 potassium 17 017 mmol=13.33 mL, phosphate(potassi 85.56 mL/hr, IV um phosphate) Piggyback, Daily, PRN: Other (See Comment) 2 packets 04/23/20 Oral 40 mEq 40 potassium 17 017 mEq=2 packets, chloride(potassiu Oral, q2hr, PRN: m chloride 20 mEq Other (See oral powder for Comment) reconstitution) 50 mL 04/23/20 IV Piggyback 10 mEq 10 potassium 17 017 mEq=50 mL, 50 chloride(potassiu mL/hr, IV m chloride 10 Piggyback, q1hr, mEq/50 mL PRN: Other (See intravenous Comment) solution) 2 tabs 04/23/20 Oral 40 mEq 40 potassium 17 017 mEq=2 tabs, chloride(potassiu Oral, q2hr, PRN: m chloride 20 mEq Other (See oral tablet, Comment) extended release) 2 tabs 04/23/20 Oral 2 potassium 17 017 tabs, Oral, TID, phosphate-sodium PRN: Other (See phosphate(K-Phos Comment) Neutral oral tablet) 2 tabs 04/23/20 Oral 1,300 mg acetaminophen(arely 17 017 1,300 mg=2 tabs, taminophen 650 mg Oral, qAM, 0 oral tablet, Refill(s) extended release) 3 tabs 04/23/20 Oral 1,950 mg acetaminophen(arely 17 017 1,950 mg=3 tabs, taminophen 650 mg Oral, With oral tablet, Lunch, 0 extended release) Refill(s) 1 tabs 04/23/20 Oral 80 mg 80 atorvastatin(ator 17 017 mg=1 tabs, Oral, vastatin) Bedtime (once a day) 1 caps 04/23/20 Oral 300 mg 300 gabapentin(gabape 17 017 mg=1 caps, Oral, ntin) Bedtime (once a day) 1 tabs 04/23/20 Oral 4 mg 4 ondansetron(Zofra 17 017 mg=1 tabs, Oral, n) q6hr, PRN: Nausea 2 mL 04/23/20 IntraMuscular 4 mg 4 LORazepam(Ativan) 17 017 mg=2 mL, IntraMuscular, q30min, PRN: Other (See Comment) 1 mL 04/23/20 IntraMuscular 25 mg 25 promethazine(Phen 17 017 mg=1 mL, ergan) IntraMuscular, q4hr, PRN: Nausea 0.1 mL 04/23/20 IV Push 0.5 mg 0.5 haloperidol(Haldo 17 017 mg=0.1 mL, IV l) Push, q2hr, PRN: Other (See Comment) 1 tabs 04/23/20 Oral 100 mg 100 metoprolol(metopr 17 017 mg=1 tabs, Oral, olol tartrate 25 BID mg oral tablet) 3 tabs 04/23/20 Oral 75 mg 75 metoprolol(metopr 17 017 mg=3 tabs, Oral, olol tartrate 25 Once mg oral tablet) 1 mL 04/23/20 IV Push 100 mg thiamine(thiamine 17 017 Canceled ) 2 mL 04/23/20 NEB 0.5 mg 0.5 budesonide(budeso 17 017 mg=2 mL, NEB, nide 0.5 mg/2 mL BID inhalation suspension) 5 mL 04/24/20 Oral 500,000 nystatin(nystatin 17 017 units 500,000 units=5 100,000 units/mL mL, Oral, QID oral suspension) 1 tabs 04/24/20 Oral 100 mg 100 thiamine(thiamine 17 017 mg=1 tabs, Oral, ) Daily Soln 10/22/19 <RXR.1.2>N 1000 Once Lactated Ringers 18 018 /A</RXR.1.2&g IV Isela 1000 mL t;<RXR.1.2&gt [CLAR] ;N/A</RXR.1.2 > Bag 10/22/19 <RXR.1.2>I 1 On ceFAZolin 1 g/50 18 018 V Call mL IV Isela [CLAR] Piggyback</RX R.1.2><RXR .1.2>IV Piggyback</RX R.1.2> Soln 10/22/19 <RXR.1.2>I 1000 Lactated Ringers 18 018 V</RXR.1.2&gt IV Isela 1000 mL ;<RXR.1.2> [CLAR] IV</RXR.1.2&g t; Soln 10/22/19 <RXR.1.2>I 10 As sodium chloride 18 018 V Directed 0.9% Inj Isela Push</RXR.1.2 10 mL [CLAR] ><RXR.1.2& gt;IV Push</RXR.1.2 > Bag 10/22/19 <RXR.1.2>N 1 Once ceFAZolin 1 g/50 18 018 /A</RXR.1.2&g mL IV Isela [CLAR] t;<RXR.1.2&gt ;N/A</RXR.1.2 > Soln 10/22/19 <RXR.1.2>N 25 Once meperidine 25 18 018 /A</RXR.1.2&g mg/mL 1mL syringe t;<RXR.1.2&gt Inj Isela [CLAR] ;N/A</RXR.1.2 > Soln 10/22/19 <RXR.1.2>I 25 Once meperidine 25 18 018 V</RXR.1.2&gt mg/mL 1mL syringe ;<RXR.1.2> Inj Isela [CLAR] IV</RXR.1.2&g t; Soln 10/22/19 <RXR.1.2>N 2 Once midazolam 1 mg/mL 18 018 /A</RXR.1.2&g preservative-free t;<RXR.1.2&gt 2 mL vial Inj Isela ;N/A</RXR.1.2 [CLAR] > Soln 10/22/19 <RXR.1.2>I 1 Once midazolam 1 mg/mL 18 018 V</RXR.1.2&gt preservative-free ;<RXR.1.2> 2 mL vial Inj Isela IV</RXR.1.2&g [CLAR] t; Soln 10/22/19 <RXR.1.2>N 50 Once EPINEPHrine-lidoc 18 018 /A</RXR.1.2&g winston t;<RXR.1.2&gt 1:100,000-1% ;N/A</RXR.1.2 Inj Isela [CLAR] > Soln 10/22/19 <RXR.1.2>I 1 Once midazolam 1 mg/mL 18 018 V</RXR.1.2&gt preservative-free ;<RXR.1.2> 2 mL vial Inj Isela IV</RXR.1.2&g [CLAR] t; Soln 10/22/19 <RXR.1.2>N 50 Once lidocaine 1% 18 018 /A</RXR.1.2&g preservative-free t;<RXR.1.2&gt Isela [CLAR] ;N/A</RXR.1.2 > Soln 10/22/19 <RXR.1.2>N 4 Once ondansetron 2 18 018 /A</RXR.1.2&g mg/mL Inj Isela 2mL t;<RXR.1.2&gt [CLAR] ;N/A</RXR.1.2 > Soln 10/22/19 <RXR.1.2>N 4 Once dexamethasone 4 18 018 /A</RXR.1.2&g mg/mL Inj Isela 1mL t;<RXR.1.2&gt [CLAR] ;N/A</RXR.1.2 > Soln 10/22/19 <RXR.1.2>N 0.1 Once fentaNYL 50 18 018 /A</RXR.1.2&g mcg/mL 2 mL Inj t;<RXR.1.2&gt Isela [CLAR] ;N/A</RXR.1.2 > Soln 10/22/19 <RXR.1.2>I 250 Sodium Chloride 18 018 V</RXR.1.2&gt 0.9% IV Isela ;<RXR.1.2> 250 mL [CLAR] IV</RXR.1.2&g t; Soln 10/22/19 <RXR.1.2>I 0.2 Once lidocaine-sodium 18 018 D</RXR.1.2&gt bicarbonate ;<RXR.1.2> 1%-8.4% ID</RXR.1.2&g Isela [CLAR] t; Tab 10/22/19 <RXR.1.2>P 2 q4hr acetaminophen-HYD 18 018 O</RXR.1.2&gt (int) ROcodone 325 mg-5 ;<RXR.1.2> mg Tab [CLAR] PO</RXR.1.2&g t; Soln 10/22/19 <RXR.1.2>I 4 q6hr ondansetron 2 18 018 V mg/mL Inj Isela 2mL Push</RXR.1.2 [CLAR] ><RXR.1.2& gt;IV Push</RXR.1.2 > Soln 10/22/19 <RXR.1.2>I 1 q1hr HYDROmorphone 2 18 018 V mg/mL 1 mL Inj Push</RXR.1.2 Isela [CLAR] ><RXR.1.2& gt;IV Push</RXR.1.2 > Soln 10/22/19 <RXR.1.2>I 10 As sodium chloride 18 018 V Directed 0.9% Inj Isela Flush</RXR.1. 10 mL [CLAR] 2><RXR.1.2 >IV Flush</RXR.1. 2> 10/22/19 <RXR.1.2>I 100 Sodium Chloride 18 018 V</RXR.1.2&gt 0.9% IV Isela ;<RXR.1.2> 100 mL bag [CLAR] IV</RXR.1.2&g t; Soln 10/22/19 <RXR.1.2>I 10 q6hr metoclopramide 5 18 018 V mg/mL 2 mL vial Push</RXR.1.2 Inj Isela [CLAR] ><RXR.1.2& gt;IV Push</RXR.1.2 > Soln 10/22/19 <RXR.1.2>N 60 Once ketorolac 30 18 018 /A</RXR.1.2&g mg/mL Inj Isela 2mL t;<RXR.1.2&gt [CLAR] ;N/A</RXR.1.2 > Soln 10/22/19 <RXR.1.2>N 0.1 Once fentaNYL 50 18 018 /A</RXR.1.2&g mcg/mL 2 mL Inj t;<RXR.1.2&gt Isela [CLAR] ;N/A</RXR.1.2 > Soln 10/22/19 <RXR.1.2>I 10 sodium chloride 18 018 V qshift-12 hr 0.9% Inj Isela Flush</RXR.1. 10 mL [CLAR] 2><RXR.1.2 >IV Flush</RXR.1. 2> 10/29/19 <RXR.1.2>N Once propofol 10 mg/mL 18 018 /A</RXR.1.2&g 20 mL [CLAR] t;<RXR.1.2&gt ;N/A</RXR.1.2 > 10/29/19 <RXR.1.2>N Once EPINEPHrine-lidoc 18 018 /A</RXR.1.2&g winston t;<RXR.1.2&gt 1:100,000-1% ;N/A</RXR.1.2 Inj Isela [CLAR] > Problems Date Dx Attending Type Code Diagnosis Diagnosed By Coded 12/18/2014 YUNIEL BAEZA, 401.9 HYPERTENSION ESSENTIAL EMILY UNSPECIFIED 12/18/2014 YUNIEL BAEZA, V72.31 ROUTINE GYNECOLOGICAL EMILY EXAMINATION 12/18/2014 YUNIEL BAEZA, V76.10 BREAST SCREENING EMILY UNSPECIFIED 12/18/2014 YUNIEL BAEZA, V77.91 SCREENING FOR LIPOID EMILY DISORDERS 07/18/2015 Jaqueline MATOS R92.8 OTHER ABNORMAL AND EMILY~mvannorden INCONCLUSIVE FINDINGS [place] ON DIAGNOSTIC IMAGING OF BREAST 07/30/2015 YUNIEL BAEZA, E78.2 MIXED HYPERLIPIDEMIA EMILY 07/30/2015 YUNIEL BAEZA, M79.641 PAIN IN RIGHT HAND EMILY 07/30/2015 YUNIEL BAEZA, M79.642 PAIN IN LEFT HAND EMILY 07/30/2015 YUNIEL BAEZA, R06.2 WHEEZING EMILY 08/19/2015 Pooja MATOS M18.11 UNILATERAL PRIMARY EMILY~mvannorden OSTEOARTHRITIS OF [place] FIRST CARPOMETACARPAL JOINT, RIGHT HAND 08/19/2015 YUNIEL S M79.641 PAIN IN RIGHT HAND EMILY~mvannorden [place] 08/19/2015 YUNIEL P M79.642 PAIN IN LEFT HAND EMILY~mvannorden [place] 02/21/2016 YUNIEL BAEZA, I10 ESSENTIAL (PRIMARY) EMILY HYPERTENSION 02/21/2016 YUNIEL BAEZA, J20.8 ACUTE BRONCHITIS DUE EMILY TO OTHER SPECIFIED ORGANISMS 02/21/2016 YUNIEL BAEZA, R06.83 SNORING EMILY 02/21/2016 YUNIEL BAEZA, R40.0 SOMNOLENCE EMILY 03/21/2016 YUNIEL BAEZA, E78.2 MIXED HYPERLIPIDEMIA EMILY 03/21/2016 YUNIEL BAEZA, J44.9 CHRONIC OBSTRUCTIVE EMILY PULMONARY DISEASE, UNSPECIFIED 04/03/2016 Working G47.33 Obstructive sleep sancho Jara (adult) Ren Hobbs (pediatric) 04/30/2016 Ren Jara Working F40.240 Claustrophobia Faby Borja 04/30/2016 Ren Jara Working G47.33 Obstructive sleep Jonh, O apnea Divina 04/30/2016 Ren Jara Working I10 Hypertension Mynor, O Ren O 04/30/2016 Ren Jara Working I10 Hypertension Mynor, O Ren O 06/03/2016 Ren Jara Working F40.240 Claustrophobia Mynor, O Ren O 06/03/2016 Ren Jara Working G47.33 Obstructive sleep Mynor, O apnea Ren O 10/13/2016 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, J20.8 ACUTE BRONCHITIS DUE KYLE C TO OTHER SPECIFIED ORGANISMS 12/24/2016 YUNIEL BAEZA, I10 ESSENTIAL (PRIMARY) EMILY HYPERTENSION 12/24/2016 YUNIEL BAEZA, L40.4 GUTTATE PSORIASIS EMILY 12/24/2016 YUNIEL BAEZA, M54.5 LOW BACK PAIN EMILY 12/24/2016 YUNIEL BAEZA, M72.2 PLANTAR FASCIAL EMILY FIBROMATOSIS 12/24/2016 YUNIEL BAEZA, M79.671 PAIN IN RIGHT FOOT EMILY 12/24/2016 YUNIEL BAEZA, Z01.419 ENCNTR FOR SUPERVISOR MIRROR FABRICATION EXAM EMILY (GENERAL) (ROUTINE) W/O ABN FINDINGS 12/24/2016 YUNIEL BAEZA, Z12.31 ENCNTR SCREEN EMILY MAMMOGRAM FOR MALIGNANT NEOPLASM OF BREAST 12/24/2016 YUNIEL BAEZA, Z12.39 ENCOUNTER FOR OT EMILY SCREENING FOR MALIGNANT NEOPLASM OF BREAST 12/30/2016 Pooja MATOS I10 ESSENTIAL (PRIMARY) EMILY~mvannorden HYPERTENSION [place] 12/30/2016 Pooja MATOS M12.88 OTHER SPECIFIC EMILY~mvannorden ARTHROPATHIES, NOT [place] ELSEWHERE CLASSIFIED, OTHER SPECIFIED SITE 12/30/2016 Pooja MATOS M43.16 SPONDYLOLISTHESIS, EMILY~mvannorden LUMBAR REGION [place] 12/30/2016 Jaqueline MATOS M54.5 LOW BACK PAIN EMILY~mvannorden [place] 12/30/2016 Pooja MATOS M72.2 PLANTAR FASCIAL EMILY~mvannorden FIBROMATOSIS [place] 12/30/2016 Pooja MATOS M79.671 PAIN IN RIGHT FOOT EMILY~mvannorden [place] 12/30/2016 Pooja MATOS R79.82 ELEVATED C-REACTIVE EMILY~mvannportia PROTEIN (CRP) [place] 03/27/2017 YUNIEL BAEZA, I10 ESSENTIAL (PRIMARY) EMILY HYPERTENSION 03/27/2017 YUNIEL BAEZA, L40.52 PSORIATIC ARTHRITIS EMILY MUTILANS 03/27/2017 YUNIEL BAEZA, M46.1 SACROILIITIS, NOT EMILY ELSEWHERE CLASSIFIED 04/07/2017 Pooja GRAY I10 ESSENTIAL (PRIMARY) KAYANNE ELVIN HYPERTENSION 04/07/2017 Pooja GRAY L40.4 GUTTATE PSORIASIS KAYANNE ELVIN 04/07/2017 Pooja GRAY Z11.59 ENCOUNTER FOR KAYANNE ELVIN SCREENING FOR OTHER VIRAL DISEASES 04/07/2017 Jaqueline GRAY Z12.31 ENCOUNTER FOR KAYANNE ELVIN SCREENING MAMMOGRAM FOR MALIGNANT NEOPLASM OF BREAST 05/04/2017 Lowell Adame Final D72.829 Elevated white blood cell count, unspecified 05/04/2017 Lowell Adame Final E83.42 Hypomagnesemia 05/04/2017 Lowell Adame Admitting E87.1 Hypo-osmolality and hyponatremia 05/04/2017 Lowell Adame Final E87.6 Hypokalemia 05/04/2017 Lowell Adame Final E87.8 Other disorders of electrolyte and fluid balance, not elsewhere classified 05/04/2017 Lowell Adame Final F10.10 Alcohol abuse, uncomplicated 05/04/2017 Lowell Adame Final F17.210 Nicotine dependence, cigarettes, uncomplicated 05/04/2017 Lowell Adame Final G47.33 Obstructive sleep apnea (adult) (pediatric) 05/04/2017 Lowell Adame Final I10 Essential (primary) hypertension 05/04/2017 Lowell Adame Final I21.4 Non-ST elevation (NSTEMI) myocardial infarction 05/04/2017 Lowell Adame Final I24.8 Other forms of acute ischemic heart disease 05/04/2017 Lowell Adame Final I45.81 Long QT syndrome 05/04/2017 Lowell Adame Final I49.9 Cardiac arrhythmia, unspecified 05/04/2017 Lowell Adame Final J43.9 Emphysema, unspecified 05/04/2017 Lowell Adame Final J96.00 Acute respiratory failure, unspecified whether with hypoxia or hypercapnia 05/04/2017 Lowell Adame Final M06.9 Rheumatoid arthritis, unspecified 05/04/2017 Lowell Adame Final M79.7 Fibromyalgia 05/04/2017 Deep Lowell Sybil Final R56.9 Unspecified convulsions 05/04/2017 Deep Lowell Devine Final W19.XXXA Unspecified fall, initial encounter 05/04/2017 Deep Lowell Sybil Final Y92.59 Other trade areas as the place of occurrence of the external cause 05/04/2017 Lowell Adame Final E87.1 Hypo-osmolality and hyponatremia 05/06/2017 YUNIEL BAEZA, E87.1 HYPO-OSMOLALITY AND EMILY HYPONATREMIA 05/06/2017 YUNIEL BAEZA, L40.52 PSORIATIC ARTHRITIS EMILY MUTILANS 05/06/2017 YUNIEL BAEZA, M46.1 SACROILIITIS, NOT EMILY ELSEWHERE CLASSIFIED 05/25/2017 Jaqueline MATOS L40.52 PSORIATIC ARTHRITIS EMILY~mvannorden MUTILANS [place] 05/25/2017 Pooja MATOS M46.1 SACROILIITIS, NOT EMILY~mvannorden ELSEWHERE CLASSIFIED [place] 06/03/2017 YUNIEL BAEZA, E87.1 HYPO-OSMOLALITY AND EMILY HYPONATREMIA 06/03/2017 YUNIEL BAEZA, I10 ESSENTIAL (PRIMARY) EMILY HYPERTENSION 06/03/2017 YUNIEL BAEZA, M54.31 SCIATICA, RIGHT SIDE EMILY 06/03/2017 YUNIEL BAEZA, R94.31 ABNORMAL EMILY ELECTROCARDIOGRAM [ECG] [EKG] 06/03/2017 YUNIEL BAEZA, Z13.220 ENCOUNTER FOR EMILY SCREENING FOR LIPOID DISORDERS 06/03/2017 YUNIEL BAEZA, Z79.899 OTHER JAIL EMILY (CURRENT) DRUG THERAPY 07/01/2017 ROVERTO CHAPPELL M54.5 LOW BACK PAIN B. 07/01/2017 ROVERTO CHAPPELL M79.1 MYALGIA B. 07/13/2017 ROVERTO CHAPPELL L40.9 PSORIASIS, UNSPECIFIED B. 07/13/2017 ROVERTO CHAPPELL M25.551 PAIN IN RIGHT HIP B. 07/13/2017 ROVERTO CHAPPELL M54.5 LOW BACK PAIN B. 07/13/2017 ROVERTO CHAPPELL M79.1 MYALGIA B. 07/13/2017 ROVERTO CHAPPELL M84.48XA PATHOLOGICAL FRACTURE, B. OTHER SITE, INITIAL ENCOUNTER FOR FRACTURE 07/13/2017 ROVERTO CHAPPELL R79.82 ELEVATED C-REACTIVE B. PROTEIN (CRP) 07/13/2017 ROVERTO CHAPPELL R79.89 OTHER SPECIFIED B. ABNORMAL FINDINGS OF BLOOD CHEMISTRY 07/13/2017 ROVERTO CHAPPELL Z11.59 ENCOUNTER FOR B. SCREENING FOR OTHER VIRAL DISEASES 07/14/2017 Marv QUINTEROS E87.1 HYPO-OSMOLALITY AND HYPONATREMIA 07/14/2017 Marv QUINTEROS E87.6 HYPOKALEMIA 07/14/2017 Marv QUINTEROS F10.21 ALCOHOL DEPENDENCE, IN REMISSION 07/14/2017 Marv QUINTEROS F17.210 NICOTINE DEPENDENCE, CIGARETTES, UNCOMPLICATED 07/14/2017 Marv QUINTEROS G40.409 OTHER GENERALIZED EPILEPSY AND EPILEPTIC SYNDROMES, NOT INTRACTABLE, WITHOUT STATUS EPILEPTICUS 07/14/2017 Marv QUINTEROS M13.88 OTHER SPECIFIED ARTHRITIS, OTHER SITE 07/16/2017 YUNIEL, S L40.52 PSORIATIC ARTHRITIS EMILY~mvannorden MUTILANS [place] 07/16/2017 YUNIEL, S M19.011 PRIMARY EMILY~mvannorden OSTEOARTHRITIS, RIGHT [place] SHOULDER 07/16/2017 YUNIEL, S M19.012 PRIMARY EMILY~mvannorden OSTEOARTHRITIS, LEFT [place] SHOULDER 07/16/2017 YUNIEL, S M19.031 PRIMARY EMILY~mvannorden OSTEOARTHRITIS, RIGHT [place] WRIST 07/16/2017 YUNIEL, S M19.032 PRIMARY EMILY~mvannorden OSTEOARTHRITIS, LEFT [place] WRIST 07/16/2017 YUNIEL, S M19.071 PRIMARY EMILY~mvannorden OSTEOARTHRITIS, RIGHT [place] ANKLE AND FOOT 07/16/2017 Jaqueline MATOS M54.5 LOW BACK PAIN EMILY~mvannorden [place] 07/17/2017 YUNIEL BAEZA, E87.1 HYPO-OSMOLALITY AND EMILY HYPONATREMIA 07/17/2017 YUNIEL BAEZA, I10 ESSENTIAL (PRIMARY) EMILY HYPERTENSION 07/17/2017 YUNIEL BAEZA, L40.52 PSORIATIC ARTHRITIS EMILY MUTILANS 07/17/2017 YUNIEL BAEZA, M46.1 SACROILIITIS, NOT EMILY ELSEWHERE CLASSIFIED 07/17/2017 YUNIEL BAEZA, Z79.899 OTHER JAIL EMILY (CURRENT) DRUG THERAPY 07/17/2017 YUNIEL BAEZA, E87.1 HYPO-OSMOLALITY AND EMILY HYPONATREMIA 07/17/2017 YUNIEL BAEZA, I10 ESSENTIAL (PRIMARY) EMILY HYPERTENSION 07/17/2017 YUNIEL BAEZA, L40.52 PSORIATIC ARTHRITIS EMILY MUTILANS 07/17/2017 YUNIEL BAEZA, M46.1 SACROILIITIS, NOT EMILY ELSEWHERE CLASSIFIED 07/17/2017 YUNIEL BAEZA, Z79.899 OTHER JAIL EMILY (CURRENT) DRUG THERAPY 08/25/2017 ROVERTO CHAPPELL M54.16 RADICULOPATHY, LUMBAR B. REGION 08/25/2017 ROVERTO CHAPPELL M54.5 LOW BACK PAIN B. 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 09/24/2017 YUNIEL BAEZA, E87.1 HYPO-OSMOLALITY AND EMILY HYPONATREMIA 09/24/2017 YUNIEL BAEZA, N39.41 URGE INCONTINENCE EMILY 09/24/2017 YUNIEL BAEZA, R10.2 PELVIC AND PERINEAL EMILY PAIN 09/24/2017 YUNIEL BAEZA, R22.41 LOCALIZED SWELLING, EMILY MASS AND LUMP, RIGHT LOWER LIMB 09/24/2017 YUNIEL BAEZA, R33.8 OTHER RETENTION OF EMILY URINE 09/26/2017 ROVERTO CHAPPELL M54.16 RADICULOPATHY, LUMBAR B. REGION 09/26/2017 ROVERTO CHAPPELL M54.5 LOW BACK PAIN B. 11/02/2017 BRE TORRES C79.89 SECONDARY MALIGNANT NEOPLASM OF OTHER SPECIFIED SITES 11/02/2017 BRE TORRES S J84.10 PULMONARY FIBROSIS, UNSPECIFIED 11/02/2017 STILES, BRE S K43.9 VENTRAL HERNIA WITHOUT OBSTRUCTION OR GANGRENE 11/02/2017 BRE TORRES S M48.8X6 OTHER SPECIFIED SPONDYLOPATHIES, LUMBAR REGION 11/02/2017 BRE TORRES M85.89 OTHER SPECIFIED DISORDERS OF BONE DENSITY AND STRUCTURE, MULTIPLE SITES 11/02/2017 BRE TORRES M89.9 DISORDER OF BONE, UNSPECIFIED 11/02/2017 BRE TORRES R59.0 LOCALIZED ENLARGED LYMPH NODES 11/02/2017 BRE TORRES R91.8 OTHER NONSPECIFIC ABNORMAL FINDING OF LUNG FIELD 11/27/2017 BEQUILLARD, S 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, RIGHT BRONCHUS OR LUNG 11/27/2017 BEQUILLARD, S 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 11/27/2017 BEQUILLARD, P R07.89 OTHER CHEST PAIN RENNY 12/30/2017 DAYANA, S 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 NEOPLASM OF JASMIN[place] UPPER LOBE, RIGHT BRONCHUS OR LUNG 12/30/2017 DAYANA, S E83.42 HYPOMAGNESEMIA JASMINA 12/30/2017 DAYANA, S F17.210 NICOTINE DEPENDENCE, JASMINA CIGARETTES, UNCOMPLICATED 12/30/2017 DAYANA, P M54.5 LOW BACK PAIN JASMINA Procedures Code Description [place] [address] MAMMOGRAM, 12/18/2014 SCREENING 75867 LDL 12/18/2014 CHOLESTEROL (DIRECT) 62622 URINALYSIS 12/18/2014 DIP STICK (IN HOUSE) 60774 CMP (IN 12/18/2014 [place]) 40391 X-RAY EXAM 07/30/2015 OF HAND 3 OR MORE VIEWS 80168 LDL 07/30/2015 Cholesterol (Direct) 32726 URIC ACID 07/30/2015 RHEUMATOL KARLOS, 07/30/2015 LOWELL 66420 SLEEP STUDY, 02/21/2016 ATTENDED 03668 LDL 03/21/2016 Cholesterol (Direct) PULMONARY MYNOR, 03/21/2016 REN 98247 Ren Jara 04/04/2016 Polysomnography; Sleep Staging W 4 RHEUMATOL KARLOS, 12/24/2016 LOWELL [id number] Respiratory 04/22/2017 Ventilation, Less than 24 Consecutive Hours 31433 CMP (IN 05/06/2017 HOUSE) UNKNOWN Pooja RODRIGUEZ, 05/07/2017 LY 90251 BONE 06/03/2017 IMAGING, WHOLE BODY 38294 CMP (IN 06/03/2017 HOUSE) 63327 CPK 06/03/2017 35262 B 12 06/03/2017 02346 ASSAY OF 06/03/2017 FOLIC ACID SERUM [place] LINK, 06/03/2017 ROVERTO 64774 EKG 06/03/2017 14546 CBC W/AUTO 06/04/2017 DIFF WBC 34678 LIPID 06/04/2017 PANEL-SEND OUT 814365 QuantiFERON 07/17/2017 TB Gold (In Tube) 71842 CMP (IN 07/17/2017 HOUSE) 13817 07/17/2017 methylmalonic Acid, Serum 97996 URINALYSIS 08/13/2017 DIP STICK (IN HOUSE) 82151 PT 08/13/2017 EVALUATION ANESTHESI NIKOLAY, 08/13/2017 ROVERTO 99565 URINALYSIS 09/24/2017 DIP STICK (IN HOUSE) 62395 CMP (IN 09/24/2017 [place]) 89849 TRANSVAGINAL 09/24/2017 US, NON-OB 82532 US EXAM 09/24/2017 BLADDER POST-VOID 25958 B 12 09/24/2017 68796 URINE 09/24/2017 CULTURE/COLONY COUNT GENERAL S BRIAN, PJ 09/24/2017 Results Test Result Range TSH - 12/24/16 13:52 TSH 1.330 uIU/mL 0.450-4.500 QuantiFERON TB Gold (In Tube) - 04/01/17 14:00 QuantiFERON Incubation Comment QuantiFERON In Tube - 04/01/17 14:00 QuantiFERON Criteria Comment QuantiFERON TB Ag Value 0.08 IU/mL QuantiFERON Nil Value 0.08 IU/mL QuantiFERON Mitogen Value >10.00 IU/mL QFT TB Ag minus Nil Value 0.00 IU/mL Interpretation: Comment QuantiFERON TB Gold Negative Negative Lipid Panel - 04/22/17 18:02 Cardiac Risk 2.2 0.0-5.0 Cholesterol 230 mg/dL 0-199 HDL Cholesterol 104 mg/dL 40-84 LDL Cholesterol 103 mg/dL 0-130 Triglycerides 113 mg/dL 0-149 VLDL Cholesterol 23 mg/dL 0-28 Alcohol, Blood - 04/22/17 18:23 Alcohol, Blood None Detected mg/dL Sodium - 04/22/17 18:23 Sodium 115 mEq/L 136-144 Troponin - 04/22/17 18:23 Troponin 0.09 ng/mL <0.06 Magnesium - 04/22/17 18:23 Magnesium 2.4 mg/dL 1.8-2.5 Blood Gases, Arterial (RT) - 04/22/17 19:45 Arterial Base Excess 0 NA 0-2 Arterial Bicarbonate 24 mEq/L 22-26 Arterial O2 Saturation 96.4 % 90.0-97.0 Arterial PCO2 36 mmHg 35-45 Arterial PH 7.44 NA 7.35-7.45 Arterial PO2 82 mmHg 80-100 Arterial LPM 0.0 L/min PEEP 5.0 cmH2O Vent Mode psv O2 Panel o2-50 Spec Site A. radialis r. Glucose NPT - 04/22/17 20:55 Glucose NPT 127 mg/dL 70-100 Sodium - 04/22/17 22:01 Sodium 116 mEq/L 136-144 Troponin - 04/22/17 23:30 Troponin 0.14 ng/mL <0.06 Glucose NPT - 04/23/17 00:50 Glucose NPT 112 mg/dL 70-100 CBC With Platelet No Differential - 04/23/17 03:31 HCT 37.3 % 37.0-47.0 HGB 13.7 g/dL 12.0-16.0 MCH 35.9 pg 27.0-32.0 MCHC 36.7 g/dL 32.0-36.0 MCV 97.6 fL 82.0-99.0 MPV 10.8 fL 9.4-12.4 Platelet Count 192 K/uL 150-400 RBC 3.82 10*6/uL 4.00-5.20 RDW 11.7 % 11.5-14.5 WBC 12.4 K/uL 4.8-10.8 Renal Function Panel - 04/23/17 03:31 Albumin 4.0 g/dL 3.5-4.8 Anion Gap 13 mEq/L 3-20 BUN <1 mg/dL 4-20 Calcium 9.1 mg/dL 8.6-10.0 Chloride 85 mEq/L 99-109 CO2 24 mEq/L 22-32 Creatinine 0.52 mg/dL 0.44-1.03 Glucose 99 mg/dL 70-100 Phosphorus 2.3 mg/dL 2.4-4.7 Potassium 3.3 mEq/L 3.6-5.1 Sodium 122 mEq/L 136-144 Magnesium - 04/23/17 03:31 Magnesium 2.0 mg/dL 1.8-2.5 Comprehensive Metabolic Panel (CMP) - 04/23/17 03:31 Alkaline Phosphatase 102 U/L 26-104 ALT (SGPT) 40 U/L 14-54 AST (SGOT) 63 U/L 15-41 Bilirubin Total 1.4 mg/dL 0.2-1.2 Globulin 3.2 g/dL 1.9-4.3 Protein 7.2 g/dL 6.1-7.9 eGFR - 04/23/17 03:31 eGFR >60 mL/min >60 TSH with Reflex Free T4 - 04/23/17 03:31 TSH with Reflex Free T4 1.44 uIU/mL 0.35-4.94 Hemoglobin A1C - 04/23/17 03:31 Hemoglobin A1C 5.7 % 4.1-5.6 Estimated Average Glucose - 04/23/17 03:31 Estimated Average Glucose 116.9 mg/dL Sodium - 04/23/17 06:05 Sodium 122 mEq/L 136-144 Troponin - 04/23/17 06:05 Troponin 0.11 ng/mL <0.06 Sodium - 04/23/17 10:54 Sodium 124 mEq/L 136-144 Troponin - 04/23/17 11:02 Troponin 0.08 ng/mL <0.06 Urine Drug Screen - 04/23/17 11:35 Tricyclics Not Detected NA Sodium - 04/23/17 18:47 Sodium 128 mEq/L 136-144 Sodium - 04/24/17 00:00 Sodium 132 mEq/L 136-144 Renal Function Panel - 04/24/17 03:56 Albumin 3.7 g/dL 3.5-4.8 Anion Gap 9 mEq/L 3-20 BUN 2 mg/dL 4-20 Calcium 9.3 mg/dL 8.6-10.0 Chloride 97 mEq/L 99-109 CO2 28 mEq/L 22-32 Creatinine 0.60 mg/dL 0.44-1.03 Glucose 107 mg/dL 70-100 Phosphorus 2.2 mg/dL 2.4-4.7 Potassium 3.7 mEq/L 3.6-5.1 Sodium 134 mEq/L 136-144 Magnesium - 04/24/17 03:56 Magnesium 2.1 mg/dL 1.8-2.5 eGFR - 04/24/17 03:56 eGFR >60 mL/min >60 CBC With Platelet No Differential - 04/24/17 03:56 HCT 37.1 % 37.0-47.0 HGB 13.1 g/dL 12.0-16.0 MCH 36.2 pg 27.0-32.0 MCHC 35.3 g/dL 32.0-36.0 MCV 102.5 fL 82.0-99.0 MPV 10.8 fL 9.4-12.4 Platelet Count 188 K/uL 150-400 RBC 3.62 10*6/uL 4.00-5.20 RDW 12.5 % 11.5-14.5 WBC 8.4 K/uL 4.8-10.8 Sodium - 04/24/17 11:48 Sodium 131 mEq/L 136-144 CBC With Differential/Platelet - 06/03/17 10:57 WBC 8.8 x10E3/uL 3.4-10.8 RBC 3.55 x10E6/uL 3.77-5.28 Hemoglobin 12.4 g/dL 11.1-15.9 Hematocrit 37.5 % 34.0-46.6 MCV 106 fL 79-97 MCH 34.9 pg 26.6-33.0 MCHC 33.1 g/dL 31.5-35.7 RDW 13.4 % 12.3-15.4 Platelets 344 x10E3/uL 150-379 Neutrophils 57 % Not Estab. Lymphs 28 % Not Estab. Monocytes 11 % Not Estab. Eos 3 % Not Estab. Basos 1 % Not Estab. Neutrophils (Absolute) 5.1 x10E3/uL 1.4-7.0 Lymphs (Absolute) 2.4 x10E3/uL 0.7-3.1 Monocytes(Absolute) 0.9 x10E3/uL 0.1-0.9 Eos (Absolute) 0.2 x10E3/uL 0.0-0.4 Baso (Absolute) 0.0 x10E3/uL 0.0-0.2 Immature Granulocytes 0 % Not Estab. Immature Grans (Abs) 0.0 x10E3/uL 0.0-0.1 Lipid Panel - 06/03/17 10:57 Cholesterol, Total 204 mg/dL 100-199 Triglycerides 194 mg/dL 0-149 HDL Cholesterol 75 mg/dL >39 VLDL Cholesterol Matthew 39 mg/dL 5-40 LDL Cholesterol Calc 90 mg/dL 0-99 Methylmalonic Acid, Serum - 07/17/17 08:57 Methylmalonic Acid, Serum 179 nmol/L 0-378 QuantiFERON TB Gold (In Tube) - 07/17/17 09:00 QuantiFERON Incubation Comment QuantiFERON In Tube - 07/17/17 09:00 QuantiFERON Criteria Comment QuantiFERON TB Ag Value 0.34 IU/mL QuantiFERON Nil Value 0.30 IU/mL QuantiFERON Mitogen Value 9.59 IU/mL QFT TB Ag minus Nil Value 0.04 IU/mL Interpretation: Comment QuantiFERON TB Gold Negative Negative Urine Culture, Routine - 09/24/17 10:48 Urine Culture, Routine Note CBC With Differential/Platelet - 10/26/17 11:43 WBC 12.8 x10E3/uL 3.4-10.8 RBC 3.45 x10E6/uL 3.77-5.28 Hemoglobin 12.0 g/dL 11.1-15.9 Hematocrit 36.3 % 34.0-46.6 MCV 105 fL 79-97 MCH 34.8 pg 26.6-33.0 MCHC 33.1 g/dL 31.5-35.7 RDW 13.8 % 12.3-15.4 Platelets 482 x10E3/uL 150-379 Neutrophils 71 % Not Estab. Lymphs 14 % Not Estab. Monocytes 11 % Not Estab. Eos 3 % Not Estab. Basos 1 % Not Estab. Neutrophils (Absolute) 9.2 x10E3/uL 1.4-7.0 Lymphs (Absolute) 1.7 x10E3/uL 0.7-3.1 Monocytes(Absolute) 1.4 x10E3/uL 0.1-0.9 Eos (Absolute) 0.3 x10E3/uL 0.0-0.4 Baso (Absolute) 0.1 x10E3/uL 0.0-0.2 Immature Granulocytes 0 % Not Estab. Immature Grans (Abs) 0.0 x10E3/uL 0.0-0.1 TSH - 10/26/17 11:43 TSH 0.482 uIU/mL 0.450-4.500 Folate (Folic Acid), Serum - 10/26/17 11:43 Folate (Folic Acid), Serum >20.0 ng/mL >3.0 Iron, Serum - 10/26/17 11:43 Iron, Serum 55 ug/dL 27-159 Written Authorization - 10/26/17 11:43 Written Authorization Comment TgAb+Thyroglobulin,REAGAN or AMARJIT - 11/04/17 14:14 Thyroglobulin Antibody <1.0 IU/mL 0.0-0.9 Thyroglobulin by REAGAN - 11/04/17 14:14 Thyroglobulin by REAGAN 7.6 ng/mL 1.5-38.5 Cortisol - 11/23/17 10:43 Cortisol 1.4 ug/dL ACTH, Plasma - 11/23/17 10:43 ACTH, Plasma <1.1 pg/mL 7.2-63.3 Cortisol - 12/28/17 09:34 Cortisol 17.3 ug/dL ACTH, Plasma - 12/28/17 09:34 ACTH, Plasma 9.7 pg/mL 7.2-63.3 Rheumatoid Arthritis Factor - 01/05/18 17:48 RA Latex Turbid. 35.6 IU/mL 0.0-13.9 Antinuclear Antibodies Direct - 01/05/18 17:48 LUIS Direct Negative Negative Aldolase - 01/05/18 17:48 Aldolase 4.0 U/L 3.3-10.3 Cortisol - 01/13/18 08:59 Cortisol 15.2 ug/dL ACTH, Plasma - 01/13/18 08:59 ACTH, Plasma 11.3 pg/mL 7.2-63.3 Cortisol - 01/19/18 08:45 Cortisol 2.5 ug/dL ACTH, Plasma - 01/19/18 08:45 ACTH, Plasma <1.1 pg/mL 7.2-63.3 Encounters ACCT No. Visit Discharge Status Pt. Type Provider Facility Loc./Unit Complaint Date/Time [id number] 09/24/2017 09/24/2017 CLS Outpatie YUNIEL 09:46:00 23:59:59 nt , EMILY [id number] 08/13/2017 08/13/2017 CLS Outpatie YUNIEL 10:44:00 23:59:59 nt EMILY BAEZA 16907 07/17/2017 07/17/2017 CLS Outpatie YUNIEL 07:49:00 23:59:59 nt , EMILY 30617 06/03/2017 06/03/2017 CLS Outpatie YUNIEL 07:56:00 23:59:59 nt , EMILY 45363 05/06/2017 05/06/2017 CLS Outpatie YUNIEL 09:59:00 23:59:59 nt EMILY BAEZA 49923 03/27/2017 03/27/2017 CLS Outpatie YUNIEL 10:40:00 23:59:59 nt EMILY BAEZA 35840 12/24/2016 12/24/2016 CLS Outpatie YUNIEL 09:45:00 23:59:59 nt EMILY BAEZA 52942 10/13/2016 10/13/2016 CLS Outpatie FANSHIER 10:24:00 23:59:59 nt NADER KYLE Boris 67699 03/21/2016 03/21/2016 CLS Outpatie YUNIEL 10:09:00 23:59:59 nt EMILY BAEZA 10939 02/21/2016 02/21/2016 CLS Outpatie YUNIEL 10:49:00 23:59:59 nt EMILY BAEZA 30105 07/30/2015 07/30/2015 CLS Outpatie YUNIEL 07:57:00 23:59:59 nt EMILY BAEZA 18029 12/18/2014 12/18/2014 CLS Outpatie YUNIEL 08:14:00 23:59:59 nt EMILY BAEZA [id number] 10/27/2017 Document 0906 09:06:00 Registra julio [id number] 11/05/2017 11/05/2017 DIS Outpatie Teresa Rosen Rad MRI 14:23:38 23:59:59 nt Neel Childs [facility] w/ & w/o [id number] 10/27/2017 10/27/2017 DIS Outpatie Teresa Torres CBSS - 07:57:29 23:59:59 nt [facility] [id number] 10/21/2017 10/21/2017 DIS Outpatie BlancaTeresa cook CLAR Junie Excision of 05:08:46 10:07:00 nt [facility] mass [id number] 10/20/2017 10/20/2017 DIS Outpatie Teresa Torres CBSS - 08:00:00 23:59:59 nt [facility] [id number] 09/23/2017 09/23/2017 CLS Outpatijeffy Moore [facility] - 17:03:33 23:59:59 nt [facility] [id number] 06/12/2016 ACT Outpatie Rashmi Jara 1 GB 17:18:12 [facility] [id number] 05/07/2016 ACT Outpatie Rashmi Jara 1 03:44:49 [facility] [id number] 05/01/2016 Document 03:08:01 Registra tion [id number] 04/05/2016 Document 7 16:26:11 Registra tion [id number] 07/22/2017 Document 1706 17:06:00 Registra tion [id number] 06/04/2017 Document 0906 09:06:00 Registra tion [id number] 12/25/2016 Document 0812 08:12:00 Registra tion [id number] 01/14/2018 Document 1306 13:06:00 Registra tion [id number] 10/29/2017 Document 1506 15:06:00 Registra tion [id number] 03/31/2016 03/31/2016 DIS Outpatie Yuniel Collier [facility].SLEEP EXCESSIVE 8088 21:12:00 23:59:00 nt MD [facility] [id number] 11/24/2017 Document 1206 12:06:00 Registra tion [id number] 07/22/2017 Document 1006 10:06:00 Registra tion [id number] 12/26/2017 ACT Unknown DAYANAConcepcion NSER GENERAL 20:22:00 [facility] [id number] 12/01/2017 ACT Unknown BEQUILLARD [place] NSER BACK PAIN 06:57:00 , [facility] [id number] 11/16/2017 ACT Unknown BEQUILLARD [place] NSER RIB PAIN 09:20:00 , [facility] [id number] 10/27/2017 ACT Unknown STILES, 13:50:00 BRE [id number] 09/16/2017 ACT Unknown MISTI, 08:16:00 ROVERTO Artem [id number] 09/02/2017 ACT Unknown MISTI, 09:22:00 ROVERTO PizanoAlec [id number] 08/19/2017 ACT Unknown MISTI, 13:07:00 ROVERTO Mcgill [id number] 08/12/2017 ACT Unknown VIPUL [place] NSER HIP PAIN 07:24:00 [facility] [id number] 07/13/2017 ACT Unknown YUNIEL, 07:36:00 Diamond MAY [id number] 06/29/2017 ACT Unknown MISTI, 11:20:00 ROVERTO Mcgill [id number] 06/29/2017 ACT Unknown MISTI, 08:02:00 ROVERTO Artem [id number] 06/22/2017 ACT Unknown MISTI, 10:20:00 ROVERTO Mcgill [id number] 05/19/2017 ACT Unknown YUNIEL, 10:12:00 EMILY~scotnn orden VANNORDEN [id number] 04/22/2017 ACT Unknown MOLSTAD, J [place] NSER SEIZURE 13:40:00 [facility] [id number] 04/01/2017 ACT Unknown MEITLER, lab / mammo 07:23:00 HERNANDEZ OCONNOR [id number] 12/24/2016 ACT Unknown UYNIEL, XRAY-LAB 11:47:00 EMILY~scotnn orden VANNORDEN [id number] 08/06/2015 ACT Unknown YUNIEL, 11:31:00 EMILY~delia orden VANNORDEN [id number] 07/04/2015 ACT Unknown YUNIEL, 07:48:00 Aidennn orden VANNORDEN [id number] Document 00:09:24 Registra tigeorge KSWebIZ 12/28/2017 ACT Document 18:33:27 Registra tion [id number] 04/25/2017 Document [id number] 05:18:34 Registra tion [id number] 04/24/2017 Document 180248 05:20:05 Registra tion [id number] 04/23/2017 Document [id number] 05:18:41 Registra tion [id number] 04/22/2017 ACT Ingustavo Adame, [address] [facility] 5277 17:50:00 t [facility] on [address] [facility] [id number] 12/29/2017 Document 1206 12:06:00 Registra tion [id number] 09/26/2017 Document 1806 18:06:00 Registra tion [id number] 04/05/2017 Document 2105 21:05:00 Registra tion [id number] 01/20/2018 Document 1306 13:06:00 Registra tion [id number] 03/04/2016 03/04/2016 CLS Outpatijeffy REHMAN MD, 09:26:00 23:59:59 nt SON [id number] 11/05/2017 Document 1506 15:06:00 Registra tion [id number] 01/08/2018 Document 1306 13:06:00 Registra tion [id number] 11/02/2017 11/02/2017 CLS Outpatijeffy EVERETT, 16:46:05 23:59:59 nevin Villela [id number] 07/22/2017 07/22/2017 DIS Outpatie KARLOS, 10:21:00 10:21:00 nevin Villela [id number] 01/14/2017 01/14/2017 DIS Serina EVERETT, 10:21:00 10:21:00 nevin Villela
--- OUTSIDE RECORDS SUMMARY | 2018-02-01 16:45 | External Medical Summary | Continuity of Care Document ---
:1960 Author Organization [facility] Care Team Providers Name Role Phone JASMINA ANNE Admitting Physician Unavailable JASMINA ANNE Attending Physician Unavailable EMILY MATOS Primary Care Physician Hospital Admission Diagnosis No data in the System Social History Element Code Description Smoking Start Date End Date Description Status Code System Smoking Status 163728120 Unknown if ever SNOMED-CT smoked Problems Code Code System Problem Name Start Date End Date Status 954636267 SNOMED-CT Backache 11/2017 Active 60451570 SNOMED-CT Diffuse myofascial unknown Active pain syndrome 93755597 SNOMED-CT Hypertensive unknown Active disorder 062579192 SNOMED-CT Malignant tumor of Unknown Active lung 1831170 SNOMED-CT Arthritis Unknown Active Medications RxNorm Medication Dose Route Instructions Indications Start End Status Date Date 366327 72 HR Fentanyl 1 patch Transderm transdermally Active 0.012 MG/HR al every 72 hours Transdermal System 940988 Acetaminophen 650 oral orally every 4 fever or pain Active 650 MG Oral milligra to 6 hours as Tablet m needed. 58761 Amlodipine 2.5 oral orally every Active milligra day m 4168889 apremilast 30 30 oral orally 2 times Active MG Oral Tablet milligra per day m (swallow whole; do not chew/break/diss olve/open;) 523567 atorvastatin 80 oral orally every Active 80 MG Oral milligra day at bedtime Tablet m 1347 Beclomethasone 1 puff Inhalatio inhaled 2 times Active n per day 803554 Dexamethasone 4 oral orally every 8 Active 4 MG Oral milligra hours (12/26/17 Tablet m last dose) 3355 Diclofenac 75 oral orally every 12 Active milligra hours m (administer with food or milk;) 770682 Folic Acid 1 1 oral orally every Active MG [place] Table[place] m [address] gabapentin 200 oral orally 2 times Active milligra per day (200 mg m in am, 200 mg at noon) 08002 gabapentin 300 oral orally every Active milligra day at bedtime m 6582 Magnesium 400 oral orally 2 times Active Oxide milligra per day m (administer with meals; ; Ordered Dose: of magnesium oxide) 428272 Memantine 5 oral orally 2 times Active hydrochloride milligra per day 5 MG Oral m Tablet 302211 Metoprolol 100 oral orally 2 times Active Tartrate 100 milligra per day MG Oral Tablet m Multivitamins 1 tablet oral orally every Active day 7804 Oxycodone 5-10 oral orally every 3 pain Active milligra hours as ms needed. 061809 pantoprazole 40 oral orally every Active 40 MG Delayed milligra morning Release Oral m Tablet 612989 POLYETHYLENE 17 gram oral orally every Active GLYCOL 3350 day (mix in 4-8 58894 MG oz of any Powder for hot/cold/room Oral Solution temp beverage;use immediately;) 11744 Vitamin B 12 2500 oral orally every Active microgra day m 6505907 Acetaminophen 1to 2 oral orally every 4 pain No 325 MG / tablets hours as Longer Oxycodone needed. Active Hydrochloride 10 MG Oral Tablet 134183 Aspirin 325 MG 325 oral orally every No Oral Tablet milligra day Longer m Active 64376 Docusate 100 oral orally 2 times constipation No milligra per day as Longer m needed. Active 409965 Enalapril 20 oral orally 2 times No Maleate 20 MG milligra per day Longer Oral Tablet m Active 6851 Methotrexate 10 Intramusc intramuscularly No milligra ular every week Longer m Active 371313 Methotrexate 10 oral orally every No 10 MG Oral milligra week Longer Tablet m Active 910499 tramadol 50 oral orally every 6 pain [...] Date 5778-6 Yellow 12/27/2017 1Color Ur 01:05 87426-0 Clear 12/27/2017 1Clarity Ur 01:05 2966-0 1Sp 1.010 1.005-1.030 12/27/2017 Gr 24h Ur 01:05 2756-5 1pH 7.0 5.0-7.0 12/27/2017 Ur 01:05 11844-3 Negative NEGATIVE 12/27/2017 1Leukocyte 01:05 esterase Ur-aCnc 25183-4 Negative NEGATIVE 12/27/2017 1Nitrite Ur Ql 01:05 Strip.auto 81540-8 Negative NEGATIVE 12/27/2017 1Prot 01:05 Tiss-mCnt 2349-9 Negative NEGATIVE 12/27/2017 1Glucose Ur Ql 01:05 72134-1 1MEK Negative NEGATIVE 12/27/2017 Ur-mCnc 01:05 1976-8 Negative NEGATIVE 12/27/2017 1Bilirub Ur Ql 01:05 74549-1 0.2 <=1.0 12/27/2017 1Urobilinogen 01:05 Ur Ql 933-2 1Bld Negative NEGATIVE 12/27/2017 Prod Typ BPU 01:05 83411-1 N 12/27/2017 1Micro UrnS 01:05 Performing Lab Footnotes:[address] [place] [address] - [id number] - [address] [place] [address] [place] Order: CBC With Manual DifferentialLegend: D=Delta, H=High, L=Low, HH=Critical High, LL=Critical Low, AA=Critical Alpha-Numeric, C=Corrected, A=Abnormal LOINC Test Result Flag Range Units Date 6690-2 1WBC # 5.3 4.5-11.0 10^3/mm3 12/26/2017 Bld Auto 21:45 85687-4 2.98 L 4.00-5.20 10^6/mm3 12/26/2017 1Retics # Auto 21:45 02354-8 1Hgb 10.2 L 12.0-16.0 g/dl 12/26/2017 BldV-mCnc [...] 10^3/mm3 12/26/2017 1Platelet # Bld 21:45 Auto 58678-5 1PMV 10.0 7.4-10.4 12/26/2017 Bld 21:45 73338-5 53 40-74 12/26/2017 1Neutrophils # 21:45 CSF 1LYMPH 31 14-46 12/26/2017 21:45 42968-2 9 4-13 12/26/2017 1Monocytes # CSF 21:45 714-6 2 0-4 12/26/2017 1Eosinophil NFr 21:45 Bld Manual 51054-1 1 0-3 12/26/2017 1Basophils NFr 21:45 Bld 733-6 1 H <=0 % 12/26/2017 1Variant Lymphs 21:45 Bld Ql Smear 1BANDS 3 0-3 12/26/2017 21:45 43281-1 Slight 12/26/2017 1Hypochromia Bld 21:45 Ql Auto Adequate 12/26/2017 1WBCCOM 21:45 11284-7 Adequate 12/26/2017 1Bizarre 21:45 platelets Bld Ql Smear [facility]forming [facility] Footnotes[facility] [id number] [facility] [address] [place] [address] [place] Order: Comprehensive Metabolic PanelLegend: D=Delta, H=High, L=Low, HH= Critical High, LL=Critical Low, AA=Critical Alpha-Numeric, C=Corrected, A= Abnormal LOINC Test Result Flag Range Units Date 2345-7 118 H 70-105 mg/dl 12/26/2017 1Glucose 21:45 SerPl-mCnc 3094-0 7 7-25 mg/dl 12/26/2017 1BUN 21:45 SerPl-mCnc 2160-0 0.5 L 0.6-1.3 mg/dl 12/26/2017 1Creat 21:45 SerPl-mCnc 28564-5 14 13-39 12/26/2017 1Creat/Urea 21:45 nit SerPl 2951-2 130 L 135-145 mmol/L 12/26/2017 1Sodium 21:45 [facility] 39819-1 3.7 3.5-5.1 mmol/L 12/26/2017 1Potassium 21:45 SerPl-mCnc 2075-0 99 98-107 mmol/l 12/26/2017 1Chloride 21:45 SerPl-sCnc 2028-9 25 21-31 mmol/l 12/26/2017 1CO2 21:45 SerPl-sCnc 68758-5 10 9-16 mmol/L 12/26/2017 1Anion Gap 21:45 SerPl-sCnc 2692-2 269 L 277-298 mOsm/kg 12/26/2017 1Osmolality 21:45 SerPl 61894-6 8.2 8.2-10.0 mg/dl 12/26/2017 1Calcium 21:45 SerPl-mCnc [...] 60-116 GFRunits 12/26/2017 1GFR 21:45 Performing [facility] Footnotes[facility] [id number] - [address] [place] [address] Fredis ROGERS Order: MagnesiumLegend: D=Delta, H=High, L=Low, HH=Critical High, LL=Critical Low, AA=Critical Alpha-Numeric, C=Corrected, A=Abnormal LOINC Test Result Flag Range Units Date 1.4 L 1.9-2.7 mg/dL 12/26/2017 1Magnesium 21:45 Performing Lab Footnotes:[address] [place] [address] - [id number] - [address] [place] [address] - [place] Fredis ROGERS Vital Signs Vitals Value Date Respiratory Rate 12 12/26/2017 O2% BldC Oximetry 97 12/26/2017 BP Systolic 115 mmHg 12/26/2017 BP Diastolic 68 mmHg 12/26/2017 Height 66 in 12/26/2017 Weight Measured 115 lbs 12/26/2017 BSA (Body Surface Area) 1.55147 12/26/2017 BMI (Body Mass Index) 18.7 12/26/2017 Plan of Care No data in the system Procedures No data in the system Encounters No data in the system Immunizations No data in the system Functional Status No data in the system Hospital Discharge Instructions No data in the system
[2018-02-01] MEDS ORDERED: HYDROMORPHONE 2 MG/ML INJECTION IVP ONE (16:51)
[2018-02-01 17:08] VITALS: BMI 18.6
--- NOTE | 2018-02-01 17:48 | History & Physical Report ---
History of Present Illness Date: 02/01/18 Chief complaint: SOA HPI: Constanza Hutchins is a 57 y/o woman with a hx of metastatic non-small cell lung cancer, diagnosed in November 2017 and started dexamethasone taper for brain metastasis and on Keytruda in December. She began having SOA even with light exertion on 01/31/18. She quit smoking on 01/29/18. She's had a mildly productive cough with pale yellow sputum. She has chest and back tightness associated with SOA. She feels anxious when she's short of breath. She has felt weak and dizzy. She's on medication for thrush which is improving. She has chronic abdominal pain/tenderness. She denies fever/chills, sinus drainage, sore throat, dysphagia , mental status changes, n/v/d/c, urinary changes. She has petechial/purpuric lesions on her arms secondary to steroids but denies other abnormal rashes/ bleeding. She denies paresthesias, unilateral weakness, vision changes. She presented to the [place] ED on 02/01/18, and was hypoxic saturating 82% on RA and 88% on 2L. D-dimer was elevated and CT chest was done -- this showed marked worsening since last imaging on 11/16/17 with large tumor load in the right chest , large mass adjacent to the right hilum which obstructs the right bronchus and causes large right atelectasis in the chest. There was no PE. Trop was neg. Dr. Rosen was notified and arrangements were made for transfer to [facility] [place]. En route she required IV fentanyl for pain control. Review of Systems All systems PM: 10-point ROS was reviewed, no additional remarkable complaints except Past Medical History Medical History Updates: metastatic non-small cell lung cancer. RA. Fibromyalgia. MVP Surgical History: Hysterectomy. cholecystectomy. ORIF left tibia Family History Updates: Both parents in their 80s. Father had heard disease and her mother of a massive heart attack. She has 2 sisters - one with CHF and COPD; unsure diagnoses for the other sister. 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 Medications Home Medications Medication Instructions Recorded Confirmed Type APAP/Diphenhydramine 500/25 2 tab PO HS 02/01/18 02/01/18 History [Tylenol Pm] Acetaminophen 650 mg PO Q4-6HPRN PRN 02/01/18 02/01/18 History Amlodipine [Norvasc] 5 mg PO DAILY 02/01/18 02/01/18 History Apremilast [Otezla] 30 mg PO BID 02/01/18 02/01/18 History Atorvastatin Calcium 80 mg PO DAILY 02/01/18 02/01/18 History Beclomethasone Dipropionate [Qvar 1 puff INH BID 02/01/18 02/01/18 History 80] Cyanocobalamin (Vitamin B-12) 2,500 mcg PO DAILY 02/01/18 02/01/18 History [Vitamin B12] Diclofenac Sodium 75 mg PO BID 02/01/18 02/01/18 History Folic Acid [Folate] 1 tab PO DAILY 02/01/18 02/01/18 History Gabapentin [Neurontin] 200 mg PO QID 02/01/18 02/01/18 History Hydrocortisone 2.5% Cream 1 applicatio RECTALLY BID 02/01/18 02/01/18 History [Anusol-Hc 2.5% Cream] MULTI-VIT + MINERAL (Opti-gen) 1 tab PO DAILY 02/01/18 02/01/18 History [Vision] Magnesium Oxide [Magox 400] 400 mg PO TID 02/01/18 02/01/18 History Memantine [Namenda] 10 mg PO BID 02/01/18 02/01/18 History Metoprolol Tartrate 100 mg PO BID 02/01/18 02/01/18 History Multivitamin [One Daily] 1 tab PO DAILY 02/01/18 02/01/18 History Neomycin/Polymyxin B/Hydrocort 4 drops RIGHT EAR QID 02/01/18 02/01/18 History [Txrtycrx-Nsggjkoty-Qv Ear Susp] Nystatin Oral Liq. [Mycostatin] 5 ml PO TID 02/01/18 02/01/18 History [place]-3 Fatty Acids [[place]-3] 1 cap PO DAILY 02/01/18 02/01/18 History Ondansetron HCl 8 mg PO Q8H PRN 02/01/18 02/01/18 History Oxycodone HCl 10 mg PO Q3-4HR PRN 02/01/18 02/01/18 History PEG 3350 17gm PACKET [Miralax] 17 gm PO DAILY 02/01/18 02/01/18 History Pantoprazole Sodium [Protonix] 40 mg PO DAILY 02/01/18 02/01/18 History Potassium Chloride [MICRO-K 10 mEq 10 meq PO BIDWM 02/01/18 02/01/18 History Capsule] Sucralfate [Carafate] 1 gm PO QID 02/01/18 02/01/18 History fentaNYL [Fentanyl] 12 mcg TD UNK 02/01/18 02/01/18 History Allergies Allergy/AdvReac Type Severity Reaction Status Date / Time codeine Allergy Verified 02/01/18 19:46 Exam Vital Signs: Temperature 95.7 F L 02/01/18 16:35 Pulse Rate 113 H 02/01/18 16:35 Respiratory Rate 30 H 02/01/18 16:56 Blood Pressure 151/95 H 02/01/18 16:35 Pulse Oximetry 93 02/01/18 16:35 Height/Weight/BMI: Height 1.68 m Weight 52.5 kg Body Mass Index 18.6 - Constitutional Present: mild distress, well nourished, well developed, thin - Routine HEENT Exam Head: Present: normocephalic Eye: Present: PERRL. Absent: conjunctival icterus, scleral injection ENT: Present: mucous membranes dry. Absent: oropharynx clear (slight thrush) - Routine Neck Exam Present: supple, lymphadenopathy - Routine Respiratory Exam Present: decreased breath sounds (RIGHT), rhonchi (RIGHT) - Routine Cardiovascular Exam Present: RRR, S1, S2, tachycardia (115) - Routine Abdominal Exam Present: normoactive bowel sounds, tenderness (DIFFUSE), non distended - Routine Extremities Exam Present: no edema, pulses intact. Absent: calf tenderness - Routine Skin Exam Present: intact, dry, warm, rash (ECCHYMOSIS TO ARMS) - Routine Neurological Exam Present: alert, oriented X3, CN II-XII intact, moving all extremities, vision grossly intact, hearing grossly intact, normal speech. Absent: sensory deficit , motor deficit, altered mental status, facial asymmetry - Routine Psychiatric Exam Present: normal affect, normal thought process, cooperative Results - Labs Labs: Labs from [place]: WBC 22, CEA 307, hgb 11.6, plt 298, BUN 13, cr 0.6, Na 129 , K 4.5, CO2 26, AP 120, ESR/CRP both elevated, TSH 1.25, T4 free 0.98 Assessment and Plan (1) Acute respiratory failure with hypoxia Current visit: Yes Status: Acute Assessment and Plan: ASSESSMENT Acute hypoxic respiratory failure secondary to postobstructive cause metastatic non-small cell lung cancer - large mass adjacent to the right hilum which obstructs the right bronchus and causes large right atelectasis in the chest Thrush, POA Leukocytosis - steroid effect RA MVP Fibromyalgia PLAN Admit, inpatient status O2 to maintain sats - currently on 15L. Routine DuoNebs, IV steroids. Consult Dr. Rosen. Ativan PRN anxiety/air hunger. IV Dilaudid for breakthrough pain and air hunger. Labs from [place]: WBC 22, CEA 307, hgb 11.6, plt 298, BUN 13, cr 0.6, Na 129 , K 4.5, CO2 26, AP 120, ESR/CRP both elevated, TSH 1.25, T4 free 0.98 Outside records reviewed. Home meds not reconciled at time of H&P. Lovenox for VTE PPX. Advanced Directives: +DNR, +Living Will. Full code at this time. D/W Dr. Hines; to discuss with Dr. Rosen. DVT Prophylaxis: Lovenox Resuscitation Status: Full Code - Physician Narrative Physician: Susi Hines MD Narrative: Date: 02/01/18 Time: 2049 I have independently evaluated and examined this patient. I reviewed the chart, the patient's history, and the AERIAL CROP DUSTER/PA's documented findings as above. We discussed and formulated the assessment and plan as above with additions as below: Mrs. Hutchins transferred from [place] ER after presenting with abrupt onset dyspnea yesterday. She denies cough or sputum production but has been wheezing ( new yesterday). She's had no fever or chills. She was hypoxic when initially evaluated and when I was contacted I was advised that she was on 4 L supplemental oxygen with saturation of 95%. The patient's DPOA reports that oxygen saturation never exceeded 92% and that with ambulation to the bathroom the patient rapidly desaturated into the 70s with oxygen on. During transportation oxygenation deteriorated requiring increasing O2 flow and converting to a nonrebreather mask. Since arrival she is titrated back to 10 L but remains short of breath with movements in the bed. Neck veins are not distended Regular rhythm with low-grade tachycardia No wheezing or stridor present when I examined the patient, anterior breath sounds clear, breath sounds decreased posteriorly on the right without crackles or rhonchi present. 1 cm firm nodule overlying posterior right ribs, smaller nodule over the lower thoracic spine. Lower extremities unremarkable. CTA from earlier today reviewed with Dr. Rosen and compared to prior CT-large right hilar mass with postobstructive atelectasis; mass previously described in the right upper lobe adjacent to the scapula has increased in size significantly compared to CT in October 2017. Small pleural effusion present. Non-small cell lung cancer-original biopsy was of inguinal lymph node; no primary pulmonary pathology available. Rapid expansion and widely metastatic cancer including brain metastases, bone ( L5, T 6 and 12, S5, S1, and rib), lymph nodes, possible soft tissue metastases- behaving more like small cell then non-small cell. Treated with K treated originally and carboplatinum on 02/01. Discussed with Dr. Rosen-cultures being obtained, pulmonary consultation, supportive care, breathing treatments, and increased steroids. If increased sputum production or fever will initiate antibiotics. Hospital Course Summary Disclaimer: The visit summary below is not to be considered part of the above Progress Note. Hospital Course: 02/01 Admit, inpatient status O2 to maintain sats - currently on 15L. Routine DuoNebs, IV steroids. Consult Dr. Rosen. Ativan PRN anxiety/air hunger. IV Dilaudid for breakthrough pain and air hunger. Labs from [place]: WBC 22, CEA 307, hgb 11.6, plt 298, BUN 13, cr 0.6, Na 129 , K 4.5, CO2 26, AP 120, ESR/CRP both elevated, TSH 1.25, T4 free 0.98 Outside records reviewed. Home meds not reconciled at time of H&P. Lovenox for VTE PPX.
[2018-02-01] MEDS ORDERED: SENNA + DOCUSATE TABLET PO PRN (18:00)
[2018-02-01] MEDS ORDERED: ONDANSETRON 4 MG/2 ML INJECTION IVP PRN (18:00)
[2018-02-01] MEDS ORDERED: ALBUTEROL/IPRATROPIUM 2.5mg-0.5mg/3ml NEB AEROSOL PRN (18:07)
[2018-02-01] MEDS: POLYETHYL GLYCOL 3350 17gm PACKET PO SCH (19:28)
[2018-02-01] MEDS: HYDROMORPHONE 2 MG/ML INJECTION IVP PRN ×2 (19:31→23:35)
[2018-02-01] MEDS: ALBUTEROL/IPRATROPIUM 2.5mg-0.5mg/3ml NEB AEROSOL SCH (19:43)
[2018-02-01] MEDS ORDERED: DEXAMETHASONE 4 MG TABLET PO SCH (19:43)
[2018-02-01] MEDS: Oxycodone *IR* 5 MG TABLET PO PRN (20:41)
[2018-02-01] MEDS ORDERED: ACETAMINOPHEN 650 MG PO PRN (20:49)
[2018-02-01] MEDS ORDERED: DICLOFENAC SODIUM 75 MG PO SCH (21:00)
[2018-02-01] MEDS: APAP/DIPHENHYDRAMINE 500 MG/25 MG TABLET PO SCH (21:34)
[2018-02-01] MEDS: NYSTATIN 500,000 units/5 ml ORAL LIQUID PO SCH (21:34)
[2018-02-01] MEDS: MAGNESIUM OXIDE 400 MG TABLET PO SCH (21:35)
[2018-02-01] MEDS: GABAPENTIN 100 MG CAPSULE PO SCH (21:35)
[2018-02-01] MEDS: SUCRALFATE 1 GM TABLET PO SCH (21:35)
[2018-02-01] MEDS: MEMANTINE 10 MG TABLET PO SCH (21:35)
[2018-02-01] MEDS: HYDROCORTISONE 2.5% CREAM 30gm RECTALLY SCH (21:39)
[2018-02-02] MEDS: Oxycodone *IR* 5 MG TABLET PO PRN ×6 (00:45→21:32)
[2018-02-02] MEDS: HYDROMORPHONE 2 MG/ML INJECTION IVP PRN ×3 (01:40→05:44)
[2018-02-02] MEDS ORDERED: ACETAMINOPHEN 325 MG TABLET PO PRN (06:36)
[2018-02-02] MEDS: PANTOPRAZOLE 40 MG TABLET PO SCH (06:45)
[2018-02-02] MEDS: BUDESONIDE INH.SOLN 0.5mg/2ml NEB AEROSOL SCH ×2 (06:59→19:51)
[2018-02-02] MEDS: ALBUTEROL/IPRATROPIUM 2.5mg-0.5mg/3ml NEB AEROSOL SCH ×4 (06:59→19:51)
[2018-02-02] MEDS: GABAPENTIN 100 MG CAPSULE PO SCH ×4 (08:23→20:52)
[2018-02-02] MEDS: MAGNESIUM OXIDE 400 MG TABLET PO SCH ×3 (08:24→20:52)
[2018-02-02] MEDS: AMLODIPINE 5 MG TABLET PO SCH (08:24)
[2018-02-02] MEDS: POLYETHYL GLYCOL 3350 17gm PACKET PO SCH ×2 (08:24→08:30)
[2018-02-02] MEDS: NYSTATIN 500,000 units/5 ml ORAL LIQUID PO SCH ×3 (08:24→20:52)
[2018-02-02] MEDS: ENOXAPARIN 40 MG/0.4 ML INJECTION SQ SCH (08:25)
[2018-02-02] MEDS: DICLOFENAC SODIUM DR 25 MG TABLET PO SCH ×2 (08:26→17:22)
[2018-02-02] MEDS: HYDROCORTISONE 2.5% CREAM 30gm RECTALLY SCH ×2 (08:27→20:53)
[2018-02-02] MEDS: DEXAMETHASONE 4 MG TABLET PO SCH (08:35)
[2018-02-02] MEDS: MULTI-VIT + MINERAL (Opti-gen) TABLET PO SCH (08:36)
[2018-02-02] MEDS: MEMANTINE 10 MG TABLET PO SCH ×2 (08:36→20:53)
[2018-02-02] MEDS: FOLIC ACID 1 MG TABLET PO SCH (08:36)
[2018-02-02] MEDS: SUCRALFATE 1 GM TABLET PO SCH ×4 (08:37→20:53)
--- NOTE | 2018-02-02 08:38 | XRay Report ---
Indication: lung cancer, acute hypoxic respiratory failure PROCEDURE: XR chest 1V: Encounter: Initial Comparison: None Findings: Volume loss in the right lung with rightward mediastinal shift. This likely relates to the patient's reported history of lung cancer and possibly prior surgery. There is right pleural fluid and apical pleural thickening or scarring. Underlying airspace disease, mass or masses cannot be excluded in the right lung. Left lung appears mildly hyperexpanded but otherwise grossly clear. No pneumothorax. Cardiac silhouette is partially obscured. Left-sided pulmonary vascularity appears normal. Impression: Probable malignancy related changes in the right lung. Superimposed pneumonia or aspiration cannot be excluded on the right side. Left lung is clear. .
[2018-02-02] MEDS ORDERED: NON-FORMULARY MEDICATION 1 EACH EACH (Atorvastatin Calcium [Atorvastatin Calcium] 80 MG) PO SCH (09:00)
--- NOTE | 2018-02-02 09:22 | Progress Note ---
- Date 02/02/18 Subjective: Constanza is feeling better; her breathing is better and she's down to 5L per nasal cannula. She ambulated to the bathroom earlier this am and felt that went well. She c/o her typical back pain. She rested on and off last night. She denies having a productive cough (DPOA reported an intermittent productive cough yesterday). She has mild dizziness if she moves or sits up too quickly. She also feels bloated and notes that her meds aren't being given at the same time she takes them at home. Objective Vital signs: Temperature 96.0 F L 02/02/18 07:39 Pulse Rate 94 02/02/18 07:39 Respiratory Rate 22 02/02/18 08:45 Blood Pressure 114/79 02/02/18 07:39 Pulse Oximetry 94 02/02/18 07:39 Height/Weight/BMI: Height 1.68 m Weight 52.3 kg Body Mass Index 18.6 - Constitutional Present: no acute distress, well nourished, well developed, thin - Routine HEENT Exam Head: Present: normocephalic Eye: Present: PERRL. Absent: conjunctival icterus, scleral injection - Routine Respiratory Exam Present: decreased breath sounds (right lung - though better air movement compared to yesterday) - Routine Cardiovascular Exam Present: RRR, S1, S2 - Routine Abdominal Exam Present: soft, normoactive bowel sounds, non tender, distended (mild) - Routine Extremities Exam Present: no edema, pulses intact - Routine Back/Spine/Pelvis Exam Back/Spine: Present: full ROM - Routine Musculoskeletal Exam Musculoskeletal: Present: moving extremities well - Routine Skin Exam Present: intact, dry, warm, ecchymosis (b/l forearms) - Routine Neurological Exam Present: alert, oriented X3, CN II-XII intact, moving all extremities, vision grossly intact, hearing grossly intact, normal speech. Absent: sensory deficit , motor deficit, altered mental status, facial asymmetry - Routine Psychiatric Exam Present: normal affect, normal thought process, cooperative Results - Labs CBC & Chem 7: 02/02/18 05:54 02/02/18 05:54 Microbiology Results: Microbiology 02/01/18 20:22 Peripheral/Iv Start Blood Culture - Preliminary Culture Initiated - Results Pending 02/01/18 20:28 Peripheral/Iv Start Blood Culture - Preliminary Culture Initiated - Results Pending Assessment and Plan (1) Acute respiratory failure with hypoxia Current visit: Yes Status: Acute Assessment and Plan: ASSESSMENT Acute hypoxic respiratory failure secondary to postobstructive cause metastatic non-small cell lung cancer - large mass adjacent to the right hilum which obstructs the right bronchus and causes large right atelectasis in the chest Thrush, POA Leukocytosis - steroid effect Hyponatremia - POA (129) RA MVP Fibromyalgia PLAN O2 requirements decreasing; currently on 5L per NC. Continue oral dexamethasone , Nebs. Dr. Henderson consulted ?bronch. WBC 20.5 (yesterday 22), most likely from dexamethasone initiated in outpatient setting. Trend LDH, CRP. LDH 701 and CRP 48 this am. Na 137. RN to review medication timing and adjust accordingly. Continue bowel regimen - abd distention noted this am. D/W Dr. Hines and RN. DVT Prophylaxis: Lovenox GI Prophylaxis: Protonix Resuscitation Status: Full Code - Physician Narrative Physician: Susi Hines MD Narrative: Date: 02/02/18 Time: 1600 I have independently evaluated and examined this patient. I reviewed the chart, the patient's history, and the MACHINE STONECUTTER/PA's documented findings as above. We discussed and formulated the assessment and plan as above with additions as below: Constanza is much more comfortable today both with respect to pain and breathing. She reports that higher dose Fentanyl patch is providing smoother pain control and that she's back on her usual oral narcotics. She denies sensation of chest congestion or sputum production. NAD, alert, speaking in full sentences Respirations nonlabored with diminished airflow in the lower half of the right lung, no wheezing appreciated Abdomen soft LDH 701, CRP 48.1; elevated white count noted-consistent with steroids. Today's chest x-ray reviewed by myself demonstrating partial opacification of the right lung with volume loss and shift to the mediastinum to the right right pleural effusion. Radiology reviewed outside CT and reports near complete collapse of the right upper lobe, debris/soft tissue in the right mainstem bronchus with occlusion of the right upper lobe bronchus and significant debris in the bronchus intermedius. Partial consolidation of the right middle lobe with atelectasis. Poorly defined right paratracheal adenopathy and 20% compression of T8. Discussed with Dr. Henderson and with Nikki Hightower APRN. May require bronchoscopy/lung biopsy to determine if lung is 2nd primarily. Hospital Course Summary Disclaimer: The visit summary below is not to be considered part of the above Progress Note. Hospital Course: 02/01 Admit, inpatient status O2 to maintain sats - currently on 15L. Routine DuoNebs, steroids. Consult Dr. Rosen. Ativan PRN anxiety/air hunger. Labs from [facility] [place]: WBC 22, CEA 307, hgb 11.6, plt 298, BUN 13, cr 0.6, Na 129 , K 4.5, CO2 26, AP 120, ESR/CRP both elevated, TSH 1.25, T4 free 0.98 Outside records reviewed. Home meds not reconciled at time of H&P. Lovenox for VTE PPX. 02/02 O2 requirements decreasing; currently on 5L per NC. Continue oral dexamethasone , Nebs. Dr. Henderson consulted ?bronch. WBC 20.5 (yesterday 22), most likely from dexamethasone initiated in outpatient setting. Trend LDH, CRP. LDH 701 and CRP 48 this am. Na 137. RN to review medication timing and adjust accordingly. Continue bowel regimen - abd distention noted this am.
--- NOTE | 2018-02-02 09:46 | Pulmonology Consult Note ---
History of Present Illness Consult date: 02/02/18 Requesting physician: Susi Hines Reason for consult: lung mass Chief complaint: shortness of breath History of present illness: HPI: Constanza Hutchins is a 57 y/o woman with a hx of metastatic non-small cell lung cancer, diagnosed in November 2017 and started dexamethasone taper for brain metastasis and on Keytruda in December. She is under the care of Dr Rosen for that. She began having SOA even with light exertion on 01/31/18. She quit smoking on 01/29/18. She's had a mildly productive cough with pale yellow sputum. She has chest and back tightness associated with SOA. She feels anxious when she's short of breath. She has felt weak and dizzy. She's on medication for thrush which is improving. She has chronic abdominal pain/tenderness. She denies fever/ chills, sinus drainage, sore throat, dysphagia, mental status changes, n/v/d/c, urinary changes. She has petechial/purpuric lesions on her arms secondary to steroids but denies other abnormal rashes/bleeding. She denies paresthesias, unilateral weakness, vision changes. She presented to the [place] ED on , and was hypoxic saturating 82% on RA and 88% on 2L. D-dimer was elevated and CT chest was done -- this showed marked worsening since last imaging on with large tumor load in the right chest, large mass adjacent to the right hilum which obstructs the right bronchus and causes large right atelectasis in the chest. There was no PE. Trop was neg. Dr. Rosen was notified and arrangements were made for transfer to [facility] [place]. En route she required IV fentanyl for pain control. Review of Systems All systems PM: 10-point ROS was reviewed, no additional remarkable complaints except Past Medical History Medical History Updates: metastatic non-small cell lung cancer. RA. Fibromyalgia. MVP Surgical History: Hysterectomy. cholecystectomy. ORIF left tibia Family History Updates: Both parents in their 80s. Father had heard disease and her mother of a massive heart attack. She has 2 sisters - one with CHF and COPD; unsure diagnoses for the other sister. 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 RA. Fibromyalgia. MVP Surgical History: Hysterectomy. cholecystectomy. ORIF left tibia Family History Updates: Both parents in their 80s. Father had heard disease and her mother of a massive heart attack. She has 2 sisters - one with CHF and COPD; unsure diagnoses for the other sister. 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 Medications Home Medications Medication Instructions Recorded Confirmed Type APAP/Diphenhydramine 500/25 2 tab PO HS 02/01/18 02/01/18 History [Tylenol Pm] Acetaminophen 650 mg PO Q4-6HPRN PRN 02/01/18 02/01/18 History Amlodipine [Norvasc] 5 mg PO DAILY 02/01/18 02/01/18 History Apremilast [Otezla] 30 mg PO BID 02/01/18 02/01/18 History Atorvastatin Calcium 80 mg PO DAILY 02/01/18 02/01/18 History Beclomethasone Dipropionate [Qvar 1 puff INH BID 02/01/18 02/01/18 History 80] Cyanocobalamin (Vitamin B-12) 2,500 mcg PO DAILY 02/01/18 02/01/18 History [Vitamin B12] Diclofenac Sodium 75 mg PO BID 02/01/18 02/01/18 History Folic Acid [Folate] 1 tab PO DAILY 02/01/18 02/01/18 History Gabapentin [Neurontin] 200 mg PO QID 02/01/18 02/01/18 History Hydrocortisone 2.5% Cream 1 applicatio RECTALLY BID 02/01/18 02/01/18 History [Anusol-Hc 2.5% Cream] MULTI-VIT + MINERAL (Opti-gen) 1 tab PO DAILY 02/01/18 02/01/18 History [Vision] Magnesium Oxide [Magox 400] 400 mg PO TID 02/01/18 02/01/18 History Memantine [Namenda] 10 mg PO BID 02/01/18 02/01/18 History Metoprolol Tartrate 100 mg PO BID 02/01/18 02/01/18 History Multivitamin [One Daily] 1 tab PO DAILY 02/01/18 02/01/18 History Neomycin/Polymyxin B/Hydrocort 4 drops RIGHT EAR QID 02/01/18 02/01/18 History [Ifejbxge-Fowbbihbf-Ts Ear Susp] Nystatin Oral Liq. [Mycostatin] 5 ml PO TID 02/01/18 02/01/18 History [place]-3 Fatty Acids [[place]-3] 1 cap PO DAILY 02/01/18 02/01/18 History Ondansetron HCl 8 mg PO Q8H PRN 02/01/18 02/01/18 History Oxycodone HCl 10 mg PO Q3-4HR PRN 02/01/18 02/01/18 History PEG 3350 17gm PACKET [Miralax] 17 gm PO DAILY 02/01/18 02/01/18 History Pantoprazole Sodium [Protonix] 40 mg PO DAILY 02/01/18 02/01/18 History Potassium Chloride [MICRO-K 10 mEq 10 meq PO BIDWM 02/01/18 02/01/18 History Capsule] Sucralfate [Carafate] 1 gm PO QID 02/01/18 02/01/18 History fentaNYL [Fentanyl] 12 mcg TD UNK 02/01/18 02/01/18 History Allergies Allergy/AdvReac Type Severity Reaction Status Date / Time codeine Allergy Verified 02/01/18 19:46 Exam Vital signs: Temperature 96.0 F L 02/02/18 07:39 Pulse Rate 94 02/02/18 07:39 Respiratory Rate 22 02/02/18 08:45 Blood Pressure 114/79 02/02/18 07:39 Pulse Oximetry 94 02/02/18 07:39 - Constitutional no acute distress, thin - Routine HEENT Exam Head: Present: normocephalic, atraumatic Eye: Absent: conjunctival icterus - Routine Neck Exam Present: supple, full ROM - Routine Respiratory Exam Present: decreased breath sounds Comments: decreased on right side - Routine Cardiovascular Exam Present: RRR. Absent: murmur - Routine Abdominal Exam Present: soft - Routine Extremities Exam Absent: cyanosis, clubbing, edema - Routine Skin Exam Present: intact. Absent: cyanosis, rash - Routine Neurological Exam Present: alert. Absent: motor deficit Results - Laboratory Findings CBC and BMP: 02/02/18 05:54 02/02/18 05:54 Abnormal lab findings: Abnormal Labs 02/02/18 02/02/18 05:54 05:54 WBC 20.5 H RBC 3.61 L Hgb 11.9 L Hct 35.9 L RDW Std Deviation 53.0 H MPV 9.3 L Neutrophils % (Manual) 94.0 H Lymphocytes % (Manual) 2.0 L Neutrophils # (Manual) 19.3 H Lymphocytes # (Manual) 0.4 L Creatinine 0.5 L Glucose 136 H Alkaline Phosphatase 129 H Lactate Dehydrogenase 701 H C-Reactive Protein 48.1 H - Diagnostic Findings Chest x-ray: report reviewed, image reviewed CT scan - chest: report reviewed, image reviewed Assessment and Plan (1) Non-small cell carcinoma of lung Status: Acute Assessment and plan: significant central airway obstruction on the right causing post obstructive atelectasis and pneumonitis on the right lung. Discussed with Dr Rosen who has a concern for drug toxicity or opportunistic infection. Bronchoscopy may be helpful to determine the underlying cause and remove secretions if possible. This would need to be done under anesthesia which carries some risk. Current Visit: Yes (2) Acute respiratory failure with hypoxia Status: Acute Assessment and plan: currently tolerating nasal cannula at 3 lpm. Her O2 requirements are decreased substantially from admission and this is a positive development. continue to monitor O2sats and adjust FiO2 accordingly. Current Visit: Yes - Time Spent With Patient Total time spent is greater than 50% in coordination of care (as documented) at patient's floor/unit and/or counseling patient: 25 - 35 minutes
--- NOTE | 2018-02-02 11:12 | Consult Note ---
<Meredith Munroe - Last Filed: 02/02/18 16:37> Oncology HPI - Data of Consult Patient: known to practice within the last 3 years Consult date: 02/02/18 Requesting Physician: Susi Hines MD Primary Care Provider: Fuad Brice MD - Consult Narrative Reason for consult: acute hypoxia, lung CA History of present illness: 57-year-old female, well-known to Dr. oRsen diagnosed with metastatic non- small cell lung cancer October 2017 with extensive bone metastasis and brain metastasis. She is status post brain and spine radiation, completed November 2017. Received one dose Keytruda, given 12/16/17. Following first cycle Keytruda, presented with significant muscle weakness and increased muscle pain. Repeat MRI of the brain showed a 1 cm infarct in the left cerebellar hemisphere, site of prior brain metastasis. Repeat MRI of brain done, showed is probably a brain metastasis that is healed. Rheumatoid factor slightly positive. LUIS negative, aldolase normal. CRP elevated at 5.45 Was started on steroids, patient improved dramatically on follow-up 01/20/18. She then received carboplatin, cycle 1, administered 01/27/18. Development mild thrush, treated with nystatin and improved. States went to the emergency room 01/29/18 with severe back pain. No new findings per patient report, she was given narcotic pain management and symptoms improved; was discharged home. States felt weak and increasing shortness of air with minimal exertion that began on 01/31/18. Symptoms persisted/worsened and presented to the [place] ED on 02/01/18. Noted to be hypoxic, saturating 82% on RA and 88% on 2L. D-dimer was elevated and CT chest was done -- this showed marked worsening since last imaging on 11/16/17 with large tumor load in the right chest, large mass adjacent to the right hilum which obstructs the right bronchus and causes large right atelectasis in the chest. There was no PE. Trop was neg. At time of intake, alert, oriented. States breathing has improved slightly, but shortness of air persists with minimal exertion. Has chronic, drenching night sweats, started approximately October. Night sweats have persisted since then, occurring daily. Denies fever or chills. States eating and drinking fair. Denies diarrhea or constipation. No nausea or vomiting currently. Denies pain at time of intake. History of Present Illness. --June 2017 lower back pain with radicular type symptoms. MRI was negative at that time treated with epidural steroid injection with no relief --Enlarged inguinal lymph node with biopsy by Dr. Ag showing adenocarcinoma with focal squamous differentiation --PET scan showing bone lesions, MRI shows brain metastasis, C2 bone lesion, --11/24/17: Began radiation therapy to brain and lumbar spine. --12/14/17: Radiation therapy complete. --12/16/17: Initiation of Keytruda. --01/20/18: Keytruda held --01/27/18: Carboplatinum added weekly Pathology 10/21/17: Subcutaneous tissue, right groin, excision --Metastatic adenocarcinoma with squamous differentiation, consistent with lung primary. B. Lymph node, right groin, excision --Metastatic adenocarcinoma with squamous differentiation, consistent with lung primary. Immunohistochemical staining: Cytokeratin (AE1-AE3)-positive Cytokeratin 20 (CK20)-negative Cytokeratin 7 (CK7)-positive Jhfzd-L-zeyuyvdy ZXF-9-fxymimml WKRQ-1-Gkogwglv I61-Ilqkbaawa positive cells Uroplakin II-Negative CDX2-negative [id number]-dtkj positive cells ADDENDUM Report: PD-L1 (Clone SP263) IHC Reactivity: Tumor cells: 50%. Immune cells: 50%. Positive under KEYNOTE-024 trial citeria (first-line) with positive cut out off 50% or greater. Positive under KEYNOTE-010 trial criteria (second-line) with positive cut off 1% or greater. ALK: Negative for ALK rearrangement. ROS1: Negative for ROS 1 rearrangement. EGFR: Due to suboptimal DNA quality for mutation testing, a conclusive PCR result could not be obtained using this assay. BRAF: A result cannot be reported on this specimen because there was DNA of insufficient quantity or quality for analysis. Review of Systems - Constitutional Constitutional: Present: fatigue, night sweats - EENT Eyes: Absent: diplopia Mouth/Throat: Present: other (history 3. States symptoms have improved greatly with use of Nystatin) - Cardiovascular Cardiovascular: Present: dyspnea on exertion - Respiratory Respiratory: Present: cough, dyspnea, dyspnea on exertion - Gastrointestinal Gastrointestinal: Present: other (history GERD.). Absent: diarrhea, nausea, vomiting - Genitourinary Genitourinary: Absent: dysuria, hematuria - Musculoskeletal Musculoskeletal: Present: back pain (chronic, intermittent. Denies currently) - Neurological Neurological: Present: as per HPI. Absent: dizziness, focal weakness PFS Patient Stated Medical History Hearing Loss Yes: rt side ear drum burst w radiation Hypertension Yes Other Cardiology Yes: mirtal valve prolaps Sleep Apnea Yes: no c-pap Gastroesophageal Reflux Yes: R/T CA Disease Osteoarthritis Yes Other Musculoskeletal Yes: fibermyalgia, RA Chemotherapy Yes Medical History Updates: metastatic non-small cell lung cancer. RA. Fibromyalgia. MVP Surgical History: Hysterectomy. cholecystectomy. ORIF left tibia Family History: mother with "cervical cancer years ago. I think that is what she had-they put a tube put in her." Lived many years after cancer diagnosis, mother of coronary artery disease Family History Updates: Both parents in their 80s. Father had heard disease and her mother of a massive heart attack. She has 2 sisters - one with CHF and COPD; unsure diagnoses for the other sister. 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 Medications Home Medications Medication Instructions Recorded Confirmed Type APAP/Diphenhydramine 500/25 2 tab PO HS 02/01/18 02/01/18 History [Tylenol Pm] Acetaminophen 650 mg PO Q4-6HPRN PRN 02/01/18 02/01/18 History Amlodipine [Norvasc] 5 mg PO DAILY 02/01/18 02/01/18 History Apremilast [Otezla] 30 mg PO BID 02/01/18 02/01/18 History Atorvastatin Calcium 80 mg PO DAILY 02/01/18 02/01/18 History Beclomethasone Dipropionate [Qvar 1 puff INH BID 02/01/18 02/01/18 History 80] Cyanocobalamin (Vitamin B-12) 2,500 mcg PO DAILY 02/01/18 02/01/18 History [Vitamin B12] Diclofenac Sodium 75 mg PO BID 02/01/18 02/01/18 History Folic Acid [Folate] 1 tab PO DAILY 02/01/18 02/01/18 History Gabapentin [Neurontin] 200 mg PO QID 02/01/18 02/01/18 History Hydrocortisone 2.5% Cream 1 applicatio RECTALLY BID 02/01/18 02/01/18 History [Anusol-Hc 2.5% Cream] MULTI-VIT + MINERAL (Opti-gen) 1 tab PO DAILY 02/01/18 02/01/18 History [Vision] Magnesium Oxide [Magox 400] 400 mg PO TID 02/01/18 02/01/18 History Memantine [Namenda] 10 mg PO BID 02/01/18 02/01/18 History Metoprolol Tartrate 100 mg PO BID 02/01/18 02/01/18 History Multivitamin [One Daily] 1 tab PO DAILY 02/01/18 02/01/18 History Neomycin/Polymyxin B/Hydrocort 4 drops RIGHT EAR QID 02/01/18 02/01/18 History [Ttqryibv-Dordvksxg-Jv Ear Susp] Nystatin Oral Liq. [Mycostatin] 5 ml PO TID 02/01/18 02/01/18 History Overton-3 Fatty Acids [Overton-3] 1 cap PO DAILY 02/01/18 02/01/18 History Ondansetron HCl 8 mg PO Q8H PRN 02/01/18 02/01/18 History Oxycodone HCl 10 mg PO Q3-4HR PRN 02/01/18 02/01/18 History PEG 3350 17gm PACKET [Miralax] 17 gm PO DAILY 02/01/18 02/01/18 History Pantoprazole Sodium [Protonix] 40 mg PO DAILY 02/01/18 02/01/18 History Potassium Chloride [MICRO-K 10 mEq 10 meq PO BIDWM 02/01/18 02/01/18 History Capsule] Sucralfate [Carafate] 1 gm PO QID 02/01/18 02/01/18 History fentaNYL [Fentanyl] 12 mcg TD UNK 02/01/18 02/01/18 History Allergies Allergy/AdvReac Type Severity Reaction Status Date / Time codeine Allergy Verified 02/01/18 19:46 Exam Vital signs: Temperature 96.0 F L 02/02/18 07:39 Pulse Rate 106 H 02/02/18 08:00 Respiratory Rate 22 02/02/18 10:46 Blood Pressure 114/79 02/02/18 07:39 Pulse Oximetry 94 02/02/18 07:39 - Constitutional no acute distress, well nourished, well developed - Routine HEENT Exam Head: Present: normocephalic Eye: Present: EOMI ENT: Present: mucous membranes dry (Tongue with mild yellow coating. No discrete sores/lesions) - Routine Neck Exam Present: supple. Absent: lymphadenopathy - Routine Respiratory Exam Present: decreased breath sounds (right posterior middle/lower lobes significantly decreased.). Absent: wheezes, crackles - Routine Cardiovascular Exam Present: RRR, no murmur - Routine Abdominal Exam Present: soft, normoactive bowel sounds, non tender - Routine Extremities Exam Present: no edema, full ROM - Routine Skin Exam Present: intact, dry, warm - Routine Neurological Exam Present: alert, oriented X3 - Routine Psychiatric Exam Present: normal affect, cooperative Oncology Results - Labs CBC & Chem 7: 02/02/18 05:54 02/02/18 05:54 Labs: Short CBC 02/02/18 Range/Units 05:54 WBC 20.5 H (4.5-11.0) T/MM3 Hgb 11.9 L (12-16) GM/DL Hct 35.9 L (36-46) % Plt Count 259 (130-400) T/MM3 BMP 02/02/18 05:54 Sodium 137 Potassium 4.8 Chloride 98 Carbon Dioxide 29 BUN 11.0 Creatinine 0.5 L Glucose 136 H Calcium 9.6 Liver Function 02/02/18 Range/Units 05:54 Total Bilirubin 0.40 (0.20-1.30) MG/DL AST 18 (14-36) U/L ALT 34 (1-35) U/L Alkaline Phosphatase 129 H (38-126) U/L Albumin 3.6 (3.5-5.0) g/dL - Impressions Date of Exam: 02/02/18 Ordering Provider: Oscar Rosen MD Type of Exam(s): CT chest wo con Reason for Exam(s): Lung cancer respiratory failure Indication: Lung cancer respiratory failure PROCEDURE: CT chest wo con: Encounter: Initial Comparison: Chest x-ray from today and outside chest CTs from yesterday and November 2017 Technique: Axial CT images were performed through the chest without intravenous contrast. Coronal and sagittal two-dimensional reformats. Automated Exposure Control and Iterative Reconstruction dose reducing techniques were utilized. Findings: There is near complete collapse of the right upper lobe with a few scattered air bronchograms present. There is irregular debris or soft tissue in the distal right mainstem bronchus with occlusion of the right upper lobe bronchus. There is significant debris seen in the bronchus intermedius extending into the right lower lobe segmental and subsegmental bronchi. Partial consolidation of the right middle lobe with areas of pleural thickening and nodularity. Right lower lobe shows areas of partial atelectasis with pleural thickening, interlobular septal thickening and groundglass opacities. The previously seen necrotic subpleural nodules in the right upper lobe are not discretely seen on this study and may be obscured by the atelectatic lung. No pneumothorax. The left lung shows a few small areas of groundglass opacity in the lingula and lower lobe. Left-sided bronchi are patent. Mild respiratory motion artifact. No axillary adenopathy. Poor definition of the known necrotic right paratracheal node due to the noncontrast technique. This is visible with an area of central calcification measuring 2.4 cm in short axis dimension on axial image #44 causing impression upon the right distal mainstem bronchus and bronchus intermedius area. Heart size is stable. No pericardial effusion. The upper abdomen shows scattered low-attenuation hepatic foci which are difficult to characterize and incompletely evaluated. There is residual high attenuation material seen within the renal collecting systems bilaterally probably representing residual contrast. Bone windows show moderate compression fracture of T8 with 20% height loss. Impression: Near complete collapse of the right upper lobe with significant endobronchial debris, fluid and possibly soft tissue in the bronchus intermedius and right lower lobe bronchi. Somewhat poorly defined right paratracheal adenopathy. . Assessment and Plan Assessment and Plan: 1. Metastatic non-small cell lung cancer, with extensive bone metastasis, brain metastasis, status post radiation therapy to brain/spine. Received one cycle Keytruda, given 12/16/17, status post 1 cycle carboplatin, given 01/27/18. Now with acute hypoxia, dyspnea, air hunger and near complete collapse of the right upper lobe with significant endobronchial debris, fluid and possibly soft tissue in the bronchus intermedius and right lower lobe bronchi on recent CT. Questionable pseudo-progression, questionable second primary, questionable infection. Blood cultures pending. 2. Leukocytosis; likely steroid effect. Plan Pulmonology consulted. Dr. Shandra Chavez, radiation oncologist consulted. Dr. Rosen to see patient later today. Continue supportive care, respiratory care, obtain sputum culture, continue close follow up. <Oscar Rosen - Last Filed: 02/02/18 22:13> Oncology HPI - Data of Consult Requesting Physician: Susi Hines MD Primary Care Provider: Fuad Brice MD Review of Systems - Hematologic/Lymphatic Hematologic/Lymphatic: Present: easy bruising, lymphadenopathy PFSH Patient Stated Medical History Hearing Loss Yes: rt side ear drum burst w radiation Hypertension Yes Other Cardiology Yes: mirtal valve prolaps Sleep Apnea Yes: no c-pap Gastroesophageal Reflux Yes: R/T CA Disease Osteoarthritis Yes Other Musculoskeletal Yes: fibermyalgia, RA Chemotherapy Yes Exam Vital signs: Temperature 97.4 F 02/02/18 15:00 Pulse Rate 84 02/02/18 16:00 Respiratory Rate 20 02/02/18 19:52 Blood Pressure 121/78 02/02/18 15:00 Pulse Oximetry 98 02/02/18 19:52 Oncology Results - Labs CBC & Chem 7: 02/02/18 05:54 02/02/18 05:54 Labs: Short CBC 02/02/18 Range/Units 05:54 WBC 20.5 H (4.5-11.0) T/MM3 Hgb 11.9 L (12-16) GM/DL Hct 35.9 L (36-46) % Plt Count 259 (130-400) T/MM3 BMP 02/02/18 05:54 Sodium 137 Potassium 4.8 Chloride 98 Carbon Dioxide 29 BUN 11.0 Creatinine 0.5 L Glucose 136 H Calcium 9.6 Liver Function 02/02/18 Range/Units 05:54 Total Bilirubin 0.40 (0.20-1.30) MG/DL AST 18 (14-36) U/L ALT 34 (1-35) U/L Alkaline Phosphatase 129 H (38-126) U/L Albumin 3.6 (3.5-5.0) g/dL Assessment and Plan Assessment and Plan: Patient examined, chart reviewed. Discusses last PM with Dr. Hines, Today with Dr. Rafy Lima and Dr. Henderson. CT shows dramatic change in right lung from 11/18/17. Peripheral mass has increased in size and central lesion enlarged and pressing on right mainstem bronchus. Also has endobronchial material that is obstructing airway. Will start XRT and consider Bronch. Breathing better today as compared to yesterday. Unsure if effects are pseudoprogression with swelling of tumor in response to keytruda and most recent chemotherapy or progressive disease. CEA and LDH not increasing dramatically as you would expect with progressive disease. Will follow closely.
[2018-02-02] MEDS: CYANOCOBALAMIN (B-12) 500mcg TABLET PO SCH (12:24)
--- NOTE | 2018-02-02 12:43 | CT Scan Report ---
Indication: Lung cancer respiratory failure PROCEDURE: CT chest wo con: Encounter: Initial Comparison: Chest x-ray from today and outside chest CTs from yesterday and November 2017 Technique: Axial CT images were performed through the chest without intravenous contrast. Coronal and sagittal two-dimensional reformats. Automated Exposure Control and Iterative Reconstruction dose reducing techniques were utilized. Findings: There is near complete collapse of the right upper lobe with a few scattered air bronchograms present. There is irregular debris or soft tissue in the distal right mainstem bronchus with occlusion of the right upper lobe bronchus. There is significant debris seen in the bronchus intermedius extending into the right lower lobe segmental and subsegmental bronchi. Partial consolidation of the right middle lobe with areas of pleural thickening and nodularity. Right lower lobe shows areas of partial atelectasis with pleural thickening, interlobular septal thickening and groundglass opacities. The previously seen necrotic subpleural nodules in the right upper lobe are not discretely seen on this study and may be obscured by the atelectatic lung. No pneumothorax. The left lung shows a few small areas of groundglass opacity in the lingula and lower lobe. Left-sided bronchi are patent. Mild respiratory motion artifact. No axillary adenopathy. Poor definition of the known necrotic right paratracheal node due to the noncontrast technique. This is visible with an area of central calcification measuring 2.4 cm in short axis dimension on axial image #44 causing impression upon the right distal mainstem bronchus and bronchus intermedius area. Heart size is stable. No pericardial effusion. The upper abdomen shows scattered low-attenuation hepatic foci which are difficult to characterize and incompletely evaluated. There is residual high attenuation material seen within the renal collecting systems bilaterally probably representing residual contrast. Bone windows show moderate compression fracture of T8 with 20% height loss. Impression: Near complete collapse of the right upper lobe with significant endobronchial debris, fluid and possibly soft tissue in the bronchus intermedius and right lower lobe bronchi. Somewhat poorly defined right paratracheal adenopathy. .
[2018-02-02] MEDS: ATORVASTATIN 40 MG TABLET PO SCH (20:52)
[2018-02-02] MEDS: APAP/DIPHENHYDRAMINE 500 MG/25 MG TABLET PO SCH (20:52)
[2018-02-03] MEDS: Oxycodone *IR* 5 MG TABLET PO PRN ×5 (06:18→20:09)
[2018-02-03] MEDS: PANTOPRAZOLE 40 MG TABLET PO SCH (06:18)
[2018-02-03] MEDS: BUDESONIDE INH.SOLN 0.5mg/2ml NEB AEROSOL SCH ×2 (07:44→19:40)
[2018-02-03] MEDS: ALBUTEROL/IPRATROPIUM 2.5mg-0.5mg/3ml NEB AEROSOL SCH ×4 (07:44→19:40)
[2018-02-03] MEDS: ENOXAPARIN 40 MG/0.4 ML INJECTION SQ SCH (08:10)
[2018-02-03] MEDS: NYSTATIN 500,000 units/5 ml ORAL LIQUID PO SCH ×3 (08:10→20:11)
[2018-02-03] MEDS: POLYETHYL GLYCOL 3350 17gm PACKET PO SCH ×2 (08:10→08:16)
[2018-02-03] MEDS: GABAPENTIN 100 MG CAPSULE PO SCH ×4 (08:11→20:10)
[2018-02-03] MEDS: AMLODIPINE 5 MG TABLET PO SCH (08:12)
[2018-02-03] MEDS: MAGNESIUM OXIDE 400 MG TABLET PO SCH ×3 (08:12→20:10)
[2018-02-03] MEDS: CYANOCOBALAMIN (B-12) 500mcg TABLET PO SCH (08:13)
[2018-02-03] MEDS: DICLOFENAC SODIUM DR 25 MG TABLET PO SCH ×2 (08:13→18:01)
[2018-02-03] MEDS: MULTI-VIT + MINERAL (Opti-gen) TABLET PO SCH (08:14)
[2018-02-03] MEDS: DEXAMETHASONE 4 MG TABLET PO SCH (08:14)
[2018-02-03] MEDS: FOLIC ACID 1 MG TABLET PO SCH (08:15)
[2018-02-03] MEDS: MEMANTINE 10 MG TABLET PO SCH ×2 (08:15→20:11)
[2018-02-03] MEDS: HYDROCORTISONE 2.5% CREAM 30gm RECTALLY SCH ×2 (08:16→20:13)
[2018-02-03] MEDS: SUCRALFATE 1 GM TABLET PO SCH ×4 (08:16→20:11)
[2018-02-03] MEDS: OTEZLA 30 MG PO SCH ×2 (08:41→20:13)
--- NOTE | 2018-02-03 09:08 | Pulmonology Progress Note ---
Subjective Interval history: complains of back pain. breathing slightly better. discussed the possibility of bronchoscopy under anesthesia. questions answered Exam Vital signs: Temperature 98.6 F 02/03/18 07:00 Pulse Rate 96 02/03/18 07:00 Respiratory Rate 22 02/03/18 08:40 Blood Pressure 148/88 H 02/03/18 07:00 Pulse Oximetry 98 02/03/18 07:45 Inpatient Medications: Generic Name Dose Route Start Last Admin Trade Name Freq PRN Reason Stop Dose Admin Acetaminophen 325 mg 02/02/18 06:36 Tylenol PO Q4-6HR PRN Pain Acetaminophen/Diphenhydramine HCl 2 tab 02/01/18 21:00 02/02/18 20:52 Tylenol Pm PO 2 tab HS [facility] Administration Albuterol/Ipratropium 3 ml 02/01/18 19:00 02/03/18 07:44 Duoneb AEROSOL 3 ml RTQID [facility] Administration Albuterol/Ipratropium 3 ml 02/01/18 18:07 Duoneb AEROSOL RTQID PRN Amlodipine Besylate 5 mg 02/02/18 09:00 02/03/18 08:12 Norvasc PO 5 mg DAILY [facility] Administration Atorvastatin Calcium 40 mg 02/02/18 21:00 02/02/18 20:52 Lipitor PO 40 mg HS [facility] Administration Budesonide 0.5 mg 02/02/18 07:00 02/03/18 07:44 Pulmicort Inhalation AEROSOL 0.5 mg RTBID [facility] Administration Cyanocobalamin 2,500 mcg 02/02/18 09:00 02/03/18 08:13 Vit. B-12 PO 2,500 mcg DAILY [facility] Administration Dexamethasone 12 mg 02/02/18 09:00 02/03/18 08:14 Decadron PO 12 mg DAILY [facility] Administration Diclofenac Sodium 25 mg 02/02/18 08:00 02/03/18 08:13 Voltaren PO 25 mg BIDWM [facility] Administration Enoxaparin Sodium 40 mg 02/02/18 09:00 02/03/18 08:10 Lovenox SQ 40 mg DAILY [facility] Administration Fentanyl 25 mcg 02/01/18 19:45 02/01/18 20:51 Duragesic Patch TD 25 mcg Q3D [facility] Administration Fentanyl Citrate 1 removal 02/04/18 19:45 Duragesic Patch Removal TD Q3D@1945 [facility] Folic Acid 1 mg 02/02/18 09:00 02/03/18 08:15 Folate PO 1 mg DAILY [facility] Administration Gabapentin 200 mg 02/01/18 21:00 02/03/18 08:11 Neurontin PO 200 mg QID [facility] Administration Hydrocortisone 1 applic 02/01/18 21:00 02/03/18 08:16 Anusol-Hc 2.5% Cream RECTALLY Not Given BID [facility] Lorazepam 0.5 mg 02/01/18 18:05 Ativan Inj IVP Q6H PRN Magnesium Oxide 400 mg 02/01/18 21:00 02/03/18 08:12 Magox PO 400 mg TID [facility] Administration Memantine 10 mg 02/01/18 21:00 02/03/18 08:15 Namenda PO 10 mg BID [facility] Administration Metoprolol Tartrate 100 mg 02/01/18 21:00 02/03/18 08:15 Lopressor PO 100 mg BID [facility] Administration Multivitamins/Minerals 1 tab 02/02/18 09:00 02/03/18 08:14 Vision PO 1 tab DAILY [facility] Administration --Pom--Otezla Tablet 30 mg 02/03/18 09:00 02/03/18 08:41 30 Mg PO 30 mg BID [facility] Administration Nystatin 5 ml 02/01/18 21:00 02/03/18 08:10 Mycostatin PO 5 ml TID [facility] Administration Ondansetron HCl 4 mg 02/01/18 18:00 Zofran IVP Q6H PRN Nausea &/or vomiting Oxycodone HCl 5 - 10 mg 02/01/18 19:38 02/03/18 07:30 Roxicodone *Ir* PO 5 mg Q4H PRN Administration Pain Pantoprazole Sodium 40 mg 02/02/18 06:30 02/03/18 06:18 Protonix Tab PO 40 mg ACB [facility] Administration Polyethylene Glycol 17 gm 02/02/18 09:00 02/03/18 08:10 Miralax PO 17 gm DAILY [facility] Administration Polyethylene Glycol 17 gm 02/02/18 09:00 02/03/18 08:16 Miralax PO Not Given DAILY [facility] Potassium Chloride 10 meq 02/02/18 08:00 02/03/18 08:10 Micro-K 10 Meq Capsule PO 10 meq BIDWM [facility] Administration Senna/Docusate Sodium 1 tab 02/01/18 18:00 Senna Plus Tablet PO BID PRN Constipation Sucralfate 1 gm 02/01/18 21:00 02/03/18 08:16 Carafate PO 1 gm QID [facility] Administration Discontinued Medications Generic Name Dose Route Start Last Admin Trade Name Freq PRN Reason Stop Dose Admin Dexamethasone 12 mg 02/01/18 19:43 02/01/18 20:53 Decadron PO 12 mg DAILY [facility] Administration Hydromorphone HCl 1 mg 02/01/18 16:51 02/01/18 16:56 Dilaudid IVP 02/01/18 16:52 1 mg O ONE Administration Hydromorphone HCl 0.5 mg 02/01/18 18:00 02/02/18 05:44 Dilaudid IVP 0.5 mg Q2H PRN Administration Pain Non-Formulary Medication 650 mg 02/01/18 20:49 Acetaminophen [Acetaminophen] PO Q4-6HPRN PRN Pain --Pom--(Apremilast [ 30 mg 02/01/18 21:00 Otezla] 30 Mg) PO BID [facility] Non-Formulary Medication 75 mg 02/01/18 21:00 Diclofenac Sodium [Diclofenac Sodium] PO BID [facility] Non-Formulary Medication 80 mg 02/02/18 09:00 Atorvastatin Calcium [Atorvastatin Calcium] PO DAILY [facility] Oxycodone HCl 10 mg 02/01/18 16:52 02/01/18 16:55 Oxycontin PO 02/01/18 16:53 10 mg O ONE Administration - Constitutional no acute distress Comments: chronically ill appearing - Routine HEENT Exam Head: Present: normocephalic, atraumatic - Routine Neck Exam Present: supple - Routine Respiratory Exam Present: decreased breath sounds. Absent: wheezes - Routine Cardiovascular Exam Present: RRR - Routine Abdominal Exam Present: soft. Absent: guarding - Routine Neurological Exam Present: alert. Absent: motor deficit Results - Laboratory Findings Laboratory: Laboratory Results - last 48 hr 02/02/18 02/02/18 02/03/18 05:54 05:54 04:10 WBC 20.5 H 20.0 H RBC 3.61 L 3.42 L Hgb 11.9 L 11.2 L Hct 35.9 L 34.0 L MCV 99.4 99.4 MCH 33.0 32.7 MCHC 33.1 32.9 RDW Std Deviation 53.0 H 53.3 H Plt Count 259 275 MPV 9.3 L 9.9 Immature Gran % (Auto) Not performed Not performed Neut % (Auto) Not performed Not performed Lymph % (Auto) Not performed Not performed [place] % (Auto) Not performed Not performed Eos % (Auto) Not performed Not performed Baso % (Auto) Not performed Not performed Neut # (Auto) Not performed Not performed Lymph # (Auto) Not performed Not performed [place] # (Auto) Not performed Not performed Eos # (Auto) Not performed Not performed Baso # (Auto) Not performed Not performed Abs Immat Gran (auto) Not performed Not performed Neutrophils % (Manual) 94.0 H 90.0 H Band Neutrophils % 4.0 2.0 Lymphocytes % (Manual) 2.0 L 3.0 L Monocytes % (Manual) 5.0 Neutrophils # (Manual) 19.3 H 18.0 H Band Neutrophils # 0.8 0.4 Lymphocytes # (Manual) 0.4 L 0.6 L Monocytes # (Manual) 1.0 H Anisocytosis 1+ RBC Morph Comment Normal Abnormal Turbidity < 20 Sodium 137 Potassium 4.8 Chloride 98 Carbon Dioxide 29 Anion Gap 10 BUN 11.0 Creatinine 0.5 L GFR Calculation 127 BUN/Creatinine Ratio 22 Glucose 136 H Calculated Osmolality 265 Calcium 9.6 Magnesium 2.1 Total Bilirubin 0.40 Icterus Index < 2 AST 18 ALT 34 Alkaline Phosphatase 129 H Lactate Dehydrogenase 701 H C-Reactive Protein 48.1 H Total Protein 6.6 Albumin 3.6 Globulin 3.0 Albumin/Globulin Ratio 1.2 Specimen Hemolysis < 15 06/20/18 04:10 WBC RBC Hgb Hct MCV MCH MCHC RDW Std Deviation Plt Count MPV Immature Gran % (Auto) Neut % (Auto) Lymph % (Auto) [place] % (Auto) Eos % (Auto) Baso % (Auto) Neut # (Auto) Lymph # (Auto) [place] # (Auto) Eos # (Auto) Baso # (Auto) Abs Immat Gran (auto) Neutrophils % (Manual) Band Neutrophils % Lymphocytes % (Manual) Monocytes % (Manual) Neutrophils # (Manual) Band Neutrophils # Lymphocytes # (Manual) Monocytes # (Manual) Anisocytosis RBC Morph Comment Turbidity < 20 Sodium 140 Potassium 4.9 Chloride 100 Carbon Dioxide 31 H Anion Gap 9 BUN 18.0 H D Creatinine 0.5 L GFR Calculation 127 BUN/Creatinine Ratio 36 H Glucose 112 H Calculated Osmolality 272 Calcium 9.7 Magnesium Total Bilirubin Icterus Index < 2 AST ALT Alkaline Phosphatase Lactate Dehydrogenase C-Reactive Protein Total Protein Albumin Globulin Albumin/Globulin Ratio Specimen Hemolysis < 15 Assessment and Plan (1) Non-small cell carcinoma of lung Status: Acute Assessment and plan: significant central airway obstruction on the right causing post obstructive atelectasis and pneumonitis on the right lung. I reviewed her Ct and CXRs. Discussed with Dr Rosen who has a concern for drug toxicity or opportunistic infection. Bronchoscopy may be helpful to determine the underlying cause and remove secretions if possible. This would need to be done under anesthesia which carries some risk. We will tentatively set that up for AM 02/04 at 0900. Hold Lovenox, NPO after MN. Current Visit: Yes (2) Acute respiratory failure with hypoxia Status: Acute Assessment and plan: currently tolerating nasal cannula at 2 lpm. Her O2 requirements are decreased substantially from admission and this is a positive development. continue to monitor O2sats and adjust FiO2 accordingly. Current Visit: Yes - Time Spent With Patient Total time spent is greater than 50% in coordination of care (as documented) at patient's floor/unit and/or counseling patient: 25 - 35 minutes
--- NOTE | 2018-02-03 12:11 | Progress Note ---
- Date 02/03/18 Subjective: Constanza is in a lot of pain today. It's her typical pain, just much worse than it has been. She states that she just doesn't feel right today but has difficulty explaining what it is exactly. She does admit that her breathing is better and she's down to 1.5L. Objective Vital signs: Temperature 98.6 F 02/03/18 07:00 Pulse Rate 96 02/03/18 07:00 Respiratory Rate 22 02/03/18 08:40 Blood Pressure 148/88 H 02/03/18 07:00 Pulse Oximetry 98 02/03/18 07:45 Height/Weight/BMI: Height 1.68 m Weight 56.6 kg Body Mass Index 18.6 - Constitutional Present: well nourished, well developed, thin - Routine HEENT Exam Head: Present: normocephalic Eye: Absent: conjunctival icterus, scleral injection - Routine Respiratory Exam Comments: slightly decreased breath sounds throughout but overall clear - Routine Cardiovascular Exam Present: RRR, S1, S2 - Routine Abdominal Exam Present: soft, non tender - Routine Extremities Exam Present: no edema - Routine Skin Exam Present: intact, dry, warm, ecchymosis (b/l forearms) - Routine Neurological Exam Present: alert, oriented X3, normal speech. Absent: facial asymmetry - Routine Psychiatric Exam Present: normal thought process, cooperative. Absent: normal affect (reserved, quiet, not very talkative) Results - Labs CBC & Chem 7: 02/03/18 04:10 02/03/18 04:10 Microbiology Results: Microbiology 02/01/18 20:28 Peripheral/Iv Start Blood Culture - Preliminary No Growth After 1 Day 02/01/18 20:22 Peripheral/Iv Start Blood Culture - Preliminary No Growth After 1 Day Assessment and Plan (1) Acute respiratory failure with hypoxia Current visit: Yes Status: Acute Assessment and Plan: ASSESSMENT Acute hypoxic respiratory failure secondary to postobstructive cause metastatic non-small cell lung cancer - large mass adjacent to the right hilum which obstructs the right bronchus and causes large right atelectasis in the chest Thrush, POA Leukocytosis - steroid effect Hyponatremia - POA (129) RA MVP Fibromyalgia PLAN Hypoxia continues to improve, down to 1.5L of oxygen. Continue oral dexamethasone, Nebs. Dr. Henderson planning bronch tomorrow am. Lovenox on hold; NPO at midnight. Pain continues to be an issue - increase oxycodone to 15 mg; consider increasing fentanyl patch to 37.5 mcg. Could also utilize PRN ativan. Repeat CBC, BMP, LDH, CRP tomorrow am. Abd distention improved; pt had BM yesterday. DVT Prophylaxis: Lovenox GI Prophylaxis: Protonix Resuscitation Status: Full Code - Physician Narrative Physician: Susi Hines MD Narrative: Date: 02/03/18 Time: 163 I have independently evaluated and examined this patient. I reviewed the chart, the patient's history, and the [employer]/PA's documented findings as above. We discussed and formulated the assessment and plan as above with additions as below: Constanza reports her breathing is definitely improved, she hopes to ambulate more and reports she will probably have a bronchoscopy tomorrow. Overall she is bored. NAD, alert; on low-flow oxygen when seen earlier today but notes indicate she is now on room air with sat of 94% Respirations nonlabored, improved air flow was lower lobe, no extra sounds appreciated Continue steroid/supportive care. Anticipate bronchoscopy. Hospital Course Summary Disclaimer: The visit summary below is not to be considered part of the above Progress Note. Hospital Course: 02/01 Admit, inpatient status O2 to maintain sats - currently on 15L. Routine DuoNebs, steroids. Consult Dr. Rosen. Ativan PRN anxiety/air hunger. Labs from [place]: WBC 22, CEA 307, hgb 11.6, plt 298, BUN 13, cr 0.6, Na 129 , K 4.5, CO2 26, AP 120, ESR/CRP both elevated, TSH 1.25, T4 free 0.98 Outside records reviewed. Home meds not reconciled at time of H&P. Lovenox for VTE PPX. 02/02 O2 requirements decreasing; currently on 5L per NC. Continue oral dexamethasone , Nebs. Dr. Henderson consulted ?bronch. WBC 20.5 (yesterday 22), most likely from dexamethasone initiated in outpatient setting. Trend LDH, CRP. LDH 701 and CRP 48 this am. Na 137. 02/03 Hypoxia continues to improve, down to 1.5L of oxygen. Continue oral dexamethasone, Nebs. Dr. Beatriz planning bronch tomorrow am. Lovenox on hold; NPO at midnight. Pain continues to be an issue - increase oxycodone to 15 mg; consider increasing fentanyl patch to 37.5 mcg.
[2018-02-03] MEDS: ATORVASTATIN 40 MG TABLET PO SCH (20:10)
[2018-02-03] MEDS: APAP/DIPHENHYDRAMINE 500 MG/25 MG TABLET PO SCH (20:10)
[2018-02-04] MEDS: Oxycodone *IR* 5 MG TABLET PO PRN ×4 (00:11→20:20)
[2018-02-04] MEDS: PANTOPRAZOLE 40 MG TABLET PO SCH (05:34)
[2018-02-04] MEDS ORDERED: LIDOCAINE 4% Laryng-O-Jet (160mg/4mL) KIT MM ONE ×2 (06:46→09:58)
[2018-02-04] MEDS ORDERED: EPINEPHrine 1mg/ml PRESERVATIVE-FREE INJ AMP ONE (06:47)
[2018-02-04] MEDS ORDERED: SALINE FLUSH 10ml SYRINGE ONE (06:48)
[2018-02-04] MEDS ORDERED: HYDROMORPHONE 2 MG/ML INJECTION IVP ONE (07:46)
[2018-02-04] MEDS: BUDESONIDE INH.SOLN 0.5mg/2ml NEB AEROSOL SCH ×2 (08:02→21:12)
[2018-02-04] MEDS: ALBUTEROL/IPRATROPIUM 2.5mg-0.5mg/3ml NEB AEROSOL SCH ×4 (08:02→21:12)
[2018-02-04] MEDS: OTEZLA 30 MG PO SCH ×2 (08:05→20:26)
[2018-02-04] MEDS: DICLOFENAC SODIUM DR 25 MG TABLET PO SCH ×3 (08:05→18:17)
[2018-02-04] MEDS: AMLODIPINE 5 MG TABLET PO SCH ×2 (08:05→12:08)
[2018-02-04] MEDS: DEXAMETHASONE 4 MG TABLET PO SCH ×2 (08:06→12:07)
[2018-02-04] MEDS: CYANOCOBALAMIN (B-12) 500mcg TABLET PO SCH (08:06)
[2018-02-04] MEDS: HYDROCORTISONE 2.5% CREAM 30gm RECTALLY SCH ×3 (08:06→20:27)
[2018-02-04] MEDS: GABAPENTIN 100 MG CAPSULE PO SCH ×4 (08:06→20:20)
[2018-02-04] MEDS: FOLIC ACID 1 MG TABLET PO SCH ×2 (08:06→12:08)
[2018-02-04] MEDS: MEMANTINE 10 MG TABLET PO SCH ×3 (08:07→20:19)
[2018-02-04] MEDS: MAGNESIUM OXIDE 400 MG TABLET PO SCH ×4 (08:07→20:19)
[2018-02-04] MEDS: NYSTATIN 500,000 units/5 ml ORAL LIQUID PO SCH ×4 (08:08→20:19)
[2018-02-04] MEDS: MULTI-VIT + MINERAL (Opti-gen) TABLET PO SCH ×2 (08:08→12:06)
[2018-02-04] MEDS: POLYETHYL GLYCOL 3350 17gm PACKET PO SCH ×3 (08:08→12:09)
[2018-02-04] MEDS: SUCRALFATE 1 GM TABLET PO SCH ×4 (08:09→20:19)
[2018-02-04] MEDS: LR 1,000 ML IV SCH ×3 (08:30→16:31)
[2018-02-04] MEDS ORDERED: LIDOCAINE 1%/EPI 1:100,000 20ml INJ MDV ONE (08:34)
[2018-02-04] MEDS ORDERED: LIDOCAINE VISCOUS 2% ORAL LIQUID 15ml ONE (08:47)
[2018-02-04] MEDS ORDERED: FentaNYL 100 MCG/2 ML INJECTION IVP PRN (08:56)
--- NOTE | 2018-02-04 09:08 | Anesthesia Preoperative Report ---
Anesthesia Preoperative Record - Date and Time Date: 02/04/18 Preoperative Diagnosis: Acute Hypoxia, Resp failure Proposed Procedure: Bronchoscopy NPO Since Date: 02/04/18 NPO Since Time: 00:00 Allergies/Adverse Reactions: Allergies Allergy/AdvReac Type Severity Reaction Status Date / Time codeine Allergy Verified 02/01/18 19:46 - Vital Signs Vital Signs: Temperature 98.4 F 02/04/18 08:25 Pulse Rate 113 H 02/04/18 08:25 Respiratory Rate 20 02/04/18 08:59 Blood Pressure 140/88 H 02/04/18 08:25 Pulse Oximetry 92 02/04/18 08:25 Height and Weight: Height 5 ft 6 in Weight 54.4 kg Body Mass Index 18.6 - Medications Inpatient Medications: Current Medications Acetaminophen (Tylenol) 325 mg PO Q4-6HR PRN PRN Reason: Pain Acetaminophen/Diphenhydramine HCl (Tylenol Pm) 2 tab PO [facility] Last Admin: 02/03/18 20:10 Dose: 2 tab Albuterol/Ipratropium (Duoneb) 3 ml AEROSOL RTQID [facility] Last Admin: 02/04/18 08:02 Dose: 3 ml Albuterol/Ipratropium (Duoneb) 3 ml AEROSOL RTQID PRN Amlodipine Besylate (Norvasc) 5 mg PO DAILY [facility] Last Admin: 02/04/18 08:05 Dose: Not Given Atorvastatin Calcium (Lipitor) 40 mg PO HS [facility] Last Admin: 02/03/18 20:10 Dose: 40 mg Budesonide (Pulmicort Inhalation) 0.5 mg AEROSOL RTBID [facility] Last Admin: 02/04/18 08:02 Dose: 0.5 mg Cyanocobalamin (Vit. B-12) 2,500 mcg PO DAILY [facility] Last Admin: 02/04/18 08:06 Dose: Not Given Dexamethasone (Decadron) 12 mg PO DAILY [facility] Last Admin: 02/04/18 08:06 Dose: Not Given Diclofenac Sodium (Voltaren) 25 mg PO BIDWM [facility] Last Admin: 02/04/18 08:05 Dose: Not Given Fentanyl (Duragesic Patch) 25 mcg TD Q3D [facility] Last Admin: 02/01/18 20:51 Dose: 25 mcg Fentanyl (Fentanyl) 50 mcg IVP Q1HR PRN Last Admin: 02/04/18 08:59 Dose: 50 mcg Fentanyl Citrate (Duragesic Patch Removal) 1 removal TD Q3D@1945 [facility] Folic Acid (Folate) 1 mg PO DAILY [facility] Last Admin: 02/04/18 08:06 Dose: Not Given Gabapentin (Neurontin) 200 mg PO QID [facility] Last Admin: 02/04/18 08:06 Dose: Not Given Hydrocortisone (Anusol-Hc 2.5% Cream) 1 applic RECTALLY BID [facility] Last Admin: 02/04/18 08:06 Dose: Not Given Lactated Ringer's (Lactated Ringers) 1,000 mls @ 50 mls/hr IV .Q20H [facility] Last Admin: 02/04/18 08:34 Dose: 50 mls/hr Lorazepam (Ativan Inj) 0.5 mg IVP Q6H PRN Magnesium Oxide (Magox) 400 mg PO TID [facility] Last Admin: 02/04/18 08:07 Dose: Not Given Memantine (Namenda) 10 mg PO BID [facility] Last Admin: 02/04/18 08:07 Dose: Not Given Metoprolol Tartrate (Lopressor) 100 mg PO BID [facility] Last Admin: 02/04/18 08:08 Dose: Not Given Multivitamins/Minerals (Vision) 1 tab PO DAILY [facility] Last Admin: 02/04/18 08:08 Dose: Not Given --Pom--Otezla Tablet (30 Mg) 30 mg PO BID [facility] Last Admin: 02/04/18 08:05 Dose: Not Given Nystatin (Mycostatin) 5 ml PO TID [facility] Last Admin: 02/04/18 08:08 Dose: Not Given Ondansetron HCl (Zofran) 4 mg IVP Q6H PRN PRN Reason: Nausea &/or vomiting Oxycodone HCl (Roxicodone *Ir*) 5 - 15 mg PO Q4H PRN PRN Reason: Pain Last Admin: 02/04/18 00:11 Dose: 15 mg Pantoprazole Sodium (Protonix Tab) 40 mg PO ACB [facility] Last Admin: 02/04/18 05:34 Dose: Not Given Polyethylene Glycol (Miralax) 17 gm PO DAILY [facility] Last Admin: 02/04/18 08:08 Dose: Not Given Polyethylene Glycol (Miralax) 17 gm PO DAILY [facility] Last Admin: 02/04/18 08:09 Dose: Not Given Potassium Chloride (Micro-K 10 Meq Capsule) 10 meq PO BIDWM [facility] Last Admin: 02/04/18 08:05 Dose: Not Given Senna/Docusate Sodium (Senna Plus Tablet) 1 tab PO BID PRN PRN Reason: Constipation Sucralfate (Carafate) 1 gm PO QID [facility] Last Admin: 02/04/18 08:09 Dose: Not Given Home Medications: Home Medications Medication Instructions Recorded Confirmed Type APAP/Diphenhydramine 500/25 2 tab PO HS 02/01/18 02/01/18 History [Tylenol Pm] Acetaminophen 650 mg PO Q4-6HPRN PRN 02/01/18 02/01/18 History Amlodipine [Norvasc] 5 mg PO DAILY 02/01/18 02/01/18 History Apremilast [Otezla] 30 mg PO BID 02/01/18 02/01/18 History Atorvastatin Calcium 80 mg PO DAILY 02/01/18 02/01/18 History Beclomethasone Dipropionate [Qvar 1 puff INH BID 02/01/18 02/01/18 History 80] Cyanocobalamin (Vitamin B-12) 2,500 mcg PO DAILY 02/01/18 02/01/18 History [Vitamin B12] Diclofenac Sodium 75 mg PO BID 02/01/18 02/01/18 History Folic Acid [Folate] 1 tab PO DAILY 02/01/18 02/01/18 History Gabapentin [Neurontin] 200 mg PO QID 02/01/18 02/01/18 History Hydrocortisone 2.5% Cream 1 applicatio RECTALLY BID 02/01/18 02/01/18 History [Anusol-Hc 2.5% Cream] MULTI-VIT + MINERAL (Opti-gen) 1 tab PO DAILY 02/01/18 02/01/18 History [Vision] Magnesium Oxide [Magox 400] 400 mg PO TID 02/01/18 02/01/18 History Memantine [Namenda] 10 mg PO BID 02/01/18 02/01/18 History Metoprolol Tartrate 100 mg PO BID 02/01/18 02/01/18 History Multivitamin [One Daily] 1 tab PO DAILY 02/01/18 02/01/18 History Neomycin/Polymyxin B/Hydrocort 4 drops RIGHT EAR QID 02/01/18 02/01/18 History [[id number] Ear Susp] Nystatin Oral Liq. [Mycostatin] 5 ml PO TID 02/01/18 02/01/18 History [place]-3 Fatty Acids [Stevenson-3] 1 cap PO DAILY 02/01/18 02/01/18 History Ondansetron HCl 8 mg PO Q8H PRN 02/01/18 02/01/18 History Oxycodone HCl 10 mg PO Q3-4HR PRN 02/01/18 02/01/18 History PEG 3350 17gm PACKET [Miralax] 17 gm PO DAILY 02/01/18 02/01/18 History Pantoprazole Sodium [Protonix] 40 mg PO DAILY 02/01/18 02/01/18 History Potassium Chloride [MICRO-K 10 mEq 10 meq PO BIDWM 02/01/18 02/01/18 History Capsule] Sucralfate [Carafate] 1 gm PO QID 02/01/18 02/01/18 History fentaNYL [Fentanyl] 12 mcg TD UNK 02/01/18 02/01/18 History Is Patient on Beta Juwan?: No - Medical History Respiratory: Reports: Sleep Apnea (no CPAP) Cardiovascular: Reports: Hypertension, Other (mitral valve prolapse) Gastrointestional: Reports: Gastroesophageal Reflux Disease (R/T CA- denies recently) Neuro/Musculoskeletal: Reports: Other (fibromyalgia, RA) Other History: Reports: Chemotherapy, Cancer - Surgical History Respiratory Surgery/Treatments: Reports: Other (lung CA) GI Surgery/Treatments: Reports: Appendectomy, Cholecystectomy, Colonoscopy Musculoskeletal Surgery/Tx: Reports: Other (LLE leg nereida) Reproductive Surgery/Treatment: Reports: Hysterectomy Anesthesia Reactions: None Hx Family Anesthesia Reaction: No History of Motion Sickness: No - Social History Smoking Status: Former smoker (started smoking at age 14) Packs per day: 2 Quit Date: 01/29/18 Substance Use Type: does not use Alcohol Intake Frequency: former alcohol drinker - Pertinent Findings Laboratory: CBC and BMP 02/04/18 04:40 02/04/18 04:40 BMP 02/04/18 04:40 Sodium 139 Potassium 4.9 Chloride 100 Carbon Dioxide 30 BUN 17.0 Creatinine 0.6 L Glucose 92 Calcium 9.4 EKG: Sinus Rhythm, Sinus Tachycardia - Physical Exam Respiratory Exam: Present: lungs clear, bilateral breath sounds equal, other ( severe SOA currently) Cardiovascular Exam: Present: regular rate and rhythm (slightly tachycardic), no murmur - Airway Assessment Mallampati Score: II TMD: 3 Fingerbreadths Neck Extension: good Overall Assessment: no airway concerns - ASA ASA Score: 3 - Plan Anesthesia: General TIVA - Discussion Discussion: Discussed risks/options/alternatives of anesthesia and questions answered. Patient consents. Nursing pain assessment noted. Present for Discussion: family member Attestation Statement: Prior to the delivery of any anesthetic medication, I examined the patient, developed the plan, obtained the patient's consent and discussed the risk and benefits of the procedure with the patient/guardian. - Additional Information Seen by Anesthesia: Yes
[2018-02-04] MEDS ORDERED: FentaNYL 100 MCG/2 ML INJECTION ONE (09:16)
[2018-02-04] MEDS ORDERED: KETAMINE 500 MG/10 ML INJECTION ONE (09:16)
[2018-02-04] MEDS ORDERED: ROCURONIUM 50 MG/5 ML INJECTION IVP ONE (09:17)
[2018-02-04] MEDS ORDERED: PROPOFOL 20 ML ONE (09:17)
[2018-02-04] MEDS ORDERED: SUCCINYLCHOLINE 20mg/mL 10mL INJECTION ONE (09:17)
[2018-02-04] MEDS ORDERED: PROPOFOL 500 MG/50 ML VIAL ONE (09:19)
[2018-02-04] MEDS ORDERED: ONDANSETRON 4 MG/2 ML INJECTION IVP PRN (09:58)
[2018-02-04] MEDS ORDERED: DiphenhydrAMINE 50 MG/ML INJECTION IVP PRN (09:58)
[2018-02-04] MEDS: HYDROMORPHONE 2 MG/ML INJECTION IVP PRN ×2 (10:03→10:16)
--- NOTE | 2018-02-04 10:07 | Anesthesia Postoperative Note ---
- Date and Time Date: 02/04/18 Time: 10:07 - Status Patient Participated in Evaluation: Patient Participated in Person Vital Signs: Temperature 98.4 F 02/04/18 08:25 Pulse Rate 115 H 02/04/18 09:06 Respiratory Rate 22 02/04/18 10:03 Blood Pressure 130/77 02/04/18 09:06 Pulse Oximetry 94 02/04/18 09:06 Respiratory Function: Airway Patent, Shortness of Air (baseline) Cardiovascular Function: Regular Pulse (tachycardic) EKG: Sinus Tachycardia Mental Status: Alert and Oriented Pain Intensity: 5 Hydration: IV Infusing Complications During Recover: None Apparent - Follow-Up Instructions Instructions: Per Surgeon
--- NOTE | 2018-02-04 10:30 | Procedure Note ---
Date of procedure: 02/04/18 Pre-op diagnosis: lung mass Post-op diagnosis: same Procedure: bronchoscopy Patient underwent GETA. The scope was passed via the ETT. main francis normal RUL extrinsically compressed to a pinpoint. mucosal abnormalities noted in the RUL consistent with carcinoma. bronchus intermedius, RML, RLL normal. No mucus secretions present Left main normal GREGORY, LLL normal. BAL RUL performed and sent for appropriate studies Endobronchial brushings RUL sent for cytology Anesthesia: GETA Surgeon: Scott Henderson MD Condition: Stable Disposition: floor
--- NOTE | 2018-02-04 12:05 | Progress Note ---
- Date 02/04/18 Subjective: Constanza had her bronchoscopy this morning, which reportedly went well. She is having some mild hemoptysis following bronchoscopy. She denies shortness of breath, but her pain is out of control, rating it 10/10. She isn't getting her pain meds at her usual dosing times, and this morning she couldn't have any oral meds b/c she was NPO. IV Dilaudid this am was helpful. She rested well last night but feels exhausted currently. She's able to drink fluids since the procedure - no nausea. Objective Vital signs: Temperature 96.2 F L 02/04/18 10:56 Pulse Rate 108 H 02/04/18 11:39 Respiratory Rate 22 02/04/18 11:54 Blood Pressure 134/92 H 02/04/18 11:39 Pulse Oximetry 92 02/04/18 11:39 Height/Weight/BMI: Height 1.68 m Weight 54.4 kg Body Mass Index 18.6 - Constitutional Present: no acute distress, thin - Routine HEENT Exam Head: Present: normocephalic Eye: Present: PERRL. Absent: conjunctival icterus, scleral injection - Routine Respiratory Exam Present: CTA bilaterally - Routine Cardiovascular Exam Present: RRR, S1, S2 - Routine Abdominal Exam Present: soft, normoactive bowel sounds, non distended, non tender - Routine Extremities Exam Present: no edema - Routine Musculoskeletal Exam Musculoskeletal: Present: moving extremities well - Routine Skin Exam Present: intact, dry, warm - Routine Neurological Exam Present: alert, oriented X3, normal speech - Routine Psychiatric Exam Present: cooperative Results - Labs CBC & Chem 7: 02/04/18 04:40 02/04/18 04:40 Microbiology Results: Microbiology 02/04/18 09:38 Bal, Right Upper Lobe Gram Stain - Final Not performed 02/04/18 09:38 Bal, Right Upper Lobe Bronchial Aspirate Culture - Preliminary Culture Initiated - Results Pending 02/03/18 08:51 Sputum, Expectorated Gram Stain - Final 02/03/18 08:51 Sputum, Expectorated Sputum Culture - Preliminary Early growth 02/01/18 20:22 Peripheral/Iv Start Blood Culture - Preliminary No Growth After 2 Days 02/01/18 20:28 Peripheral/Iv Start Blood Culture - Preliminary No Growth After 2 Days Assessment and Plan (1) Acute respiratory failure with hypoxia Current visit: Yes Status: Acute Assessment and Plan: ASSESSMENT Acute hypoxic respiratory failure secondary to postobstructive cause metastatic non-small cell lung cancer - large mass adjacent to the right hilum which obstructs the right bronchus and causes large right atelectasis in the chest Thrush, POA Leukocytosis - steroid effect Hyponatremia - POA (129) RA MVP Fibromyalgia PLAN s/p bronch - main francis normal RUL extrinsically compressed to a pinpoint. mucosal abnormalities noted in the RUL consistent with carcinoma. bronchus intermedius, RML, RLL normal. No mucus secretions present Left main normal. GREGORY, LLL normal. BAL RUL performed and sent for appropriate studies Endobronchial brushings RUL sent for cytology Hypoxia resolved - on room air. Continue oral dexamethasone, Nebs. Pain control remains an issue - will give another dose of IV Dilaudid. RN to change timing of meds to reflect home schedule. Consider increasing fentanyl patch. LDH with increase from 701 to 768; CRP decreasing, 48 --> 25. CBC, BMP stable. Leukocytosis improving. Briefly d/w Dr. Hines. High risk meds in use. DVT Prophylaxis: SCD's Resuscitation Status: Full Code - Physician Narrative Physician: Susi Hines MD Narrative: Date: 02/04/18 Time: 2044 I have independently evaluated and examined this patient. I reviewed the chart, the patient's history, and the EDUCATION ASSOCIATE/PA's documented findings as above. We discussed and formulated the assessment and plan as above with additions as below: Constanza complained of mid and lower back pain in addition to hemoptysis following bronchoscopy shortly after returning from procedure. When seen later in the day she was much more comfortable and looking forward to possible discharge tomorrow. NAD, slightly confused when seen postprocedure Respirations nonlabored, good airflow, breath sounds clear anteriorly Regular rhythm, low-grade tachycardia Persistent leukocytosis consistent with current steroid use. No secretions suggestive of infectious process reported by Dr. Henderson. Radiation therapy initiated to chest per verbal report Dr. Rosen-plan discharge after XRT tomorrow. Discussed with Dr. Rosen and Dr. Henderson. Hospital Course Summary Disclaimer: The visit summary below is not to be considered part of the above Progress Note. Hospital Course: 02/01 Admit, inpatient status O2 to maintain sats - currently on 15L. Routine DuoNebs, steroids. Consult Dr. Rosen. Ativan PRN anxiety/air hunger. Labs from [place]: WBC 22, CEA 307, hgb 11.6, plt 298, BUN 13, cr 0.6, Na 129 , K 4.5, CO2 26, AP 120, ESR/CRP both elevated, TSH 1.25, T4 free 0.98 Outside records reviewed. Home meds not reconciled at time of H&P. Lovenox for VTE PPX. 02/02 O2 requirements decreasing; currently on 5L per NC. Continue oral dexamethasone , Nebs. Dr. Henderson consulted ?bronch. WBC 20.5 (yesterday 22), most likely from dexamethasone initiated in outpatient setting. Trend LDH, CRP. LDH 701 and CRP 48 this am. Na 137. 02/03 Hypoxia continues to improve, down to 1.5L of oxygen. Continue oral dexamethasone, Nebs. Dr. Henderson planning bronch tomorrow am. Lovenox on hold; NPO at midnight. Pain continues to be an issue - increase oxycodone to 15 mg; consider increasing fentanyl patch to 37.5 mcg. 02/04 s/p bronch - main francis normal RUL extrinsically compressed to a pinpoint. mucosal abnormalities noted in the RUL consistent with carcinoma. bronchus intermedius, RML, RLL normal. No mucus secretions present Left main normal. GREGORY, LLL normal. BAL RUL performed and sent for appropriate studies Endobronchial brushings RUL sent for cytology Hypoxia resolved - on room air. Continue oral dexamethasone, Nebs. Pain control remains an issue - will give another dose of IV Dilaudid. RN to change timing of meds to reflect home schedule. Consider increasing fentanyl patch. LDH with increase from 701 to 768; CRP decreasing, 48 --> 25. CBC, BMP stable. Leukocytosis improving.
[2018-02-04] MEDS ORDERED: HYDROMORPHONE 2 MG/ML INJECTION IVP PRN (12:22)
--- NOTE | 2018-02-04 14:13 | Progress Note ---
<Meredith Munroe L - Last Filed: 02/04/18 16:02> Oncology Subjective Friend at bedside. Reports increasing back pain today, awaiting pain injection. Had bronchoscopy earlier today, feels fatigued/tired with. Denies new concerns. Continues with shortness of air intermittently, cough. Single episode of streaky hemoptysis post bronchoscopy. No nausea or vomiting. No diarrhea or constipation. General: No fever, no night sweats Eyes: No redness, no pain, no diplopia ENT: No mouth sores, no trouble swallowing Cardiac: No chest pain no palpitations Pulmonary: + cough, + shortness of breath w/ exertion, no wheezing Abdomen: No pain, no nausea vomiting, no diarrhea or constipation : No urgency, frequency, dysuria, or hematuria Musculoskeletal: chronic back pain Neurological: No headaches, no focal weakness Skin: No rash, no sores Exam Vital signs: Temperature 96.2 F L 02/04/18 10:56 Pulse Rate 106 H 02/04/18 12:39 Respiratory Rate 20 02/04/18 12:56 Blood Pressure 136/94 H 02/04/18 12:39 Pulse Oximetry 92 02/04/18 11:39 Narrative: Generic Name Dose Route Start Last Admin Trade Name Freq PRN Reason Stop Dose Admin Acetaminophen 325 mg 02/02/18 06:36 Tylenol PO Q4-6HR PRN Pain Acetaminophen/Diphenhydramine HCl 2 tab 02/01/18 21:00 02/03/18 20:10 Tylenol Pm PO 2 tab HS [place] Administration Albuterol/Ipratropium 3 ml 02/01/18 19:00 02/04/18 15:03 Duoneb AEROSOL 3 ml RTQID [place] Administration Albuterol/Ipratropium 3 ml 02/01/18 18:07 Duoneb AEROSOL RTQID PRN Amlodipine Besylate 5 mg 02/02/18 09:00 02/04/18 12:08 Norvasc PO 5 mg DAILY [place] Administration Atorvastatin Calcium 40 mg 02/02/18 21:00 02/03/18 20:10 Lipitor PO 40 mg HS [place] Administration Budesonide 0.5 mg 02/02/18 07:00 02/04/18 08:02 Pulmicort Inhalation AEROSOL 0.5 mg RTBID [place] Administration Cyanocobalamin 2,500 mcg 02/02/18 09:00 02/03/18 08:13 Vit. B-12 PO 2,500 mcg DAILY [place] Administration Dexamethasone 12 mg 02/02/18 09:00 02/04/18 12:07 Decadron PO 12 mg DAILY [place] Administration Diclofenac Sodium 25 mg 02/02/18 08:00 02/04/18 12:06 Voltaren PO 25 mg BIDWM [place] Administration Diphenhydramine HCl 12.5 - 25 mg 02/04/18 09:58 Benadryl IVP O PRN Nausea &/or vomiting Fentanyl 25 mcg 02/01/18 19:45 02/01/18 20:51 Duragesic Patch TD 25 mcg Q3D [place] Administration Fentanyl 50 mcg 02/04/18 08:56 02/04/18 08:59 Fentanyl IVP 50 mcg Q1HR PRN Administration Fentanyl Citrate 1 removal 02/04/18 19:45 Duragesic Patch Removal TD Q3D@1945 [place] Folic Acid 1 mg 02/02/18 09:00 02/04/18 12:08 Folate PO 1 mg DAILY [place] Administration Gabapentin 200 mg 02/01/18 21:00 02/04/18 12:03 Neurontin PO 200 mg QID [place] Administration Hydrocortisone 1 applic 02/01/18 21:00 02/04/18 12:03 Anusol-Hc 2.5% Cream RECTALLY Not Given BID [facility] Hydromorphone HCl 0 mg 02/04/18 09:58 02/04/18 10:16 Dilaudid IVP 0.5 mg Q10M PRN Administration Hydromorphone HCl 1 mg 02/04/18 12:22 02/04/18 12:56 Dilaudid IVP 1 mg ONE TIME PRN Administration Pain Lactated Ringer's 1,000 mls @ 50 mls/hr 02/04/18 08:30 02/04/18 10:47 Lactated Ringers IV 50 mls/hr .Q20H [place] Infusion Lorazepam 0.5 mg 02/01/18 18:05 Ativan Inj IVP Q6H PRN Magnesium Oxide 400 mg 02/01/18 21:00 02/04/18 12:05 Magox PO 400 mg TID [place] Administration Memantine 10 mg 02/01/18 21:00 02/04/18 12:05 Namenda PO 10 mg BID [place] Administration Metoprolol Tartrate 100 mg 02/01/18 21:00 02/04/18 12:08 Lopressor PO 100 mg BID [place] Administration Multivitamins/Minerals 1 tab 02/02/18 09:00 02/04/18 12:06 Vision PO 1 tab DAILY [place] Administration --Pom--Otezla Tablet 30 mg 02/03/18 09:00 02/03/18 20:13 30 Mg PO 30 mg BID [place] Administration Nystatin 5 ml 02/01/18 21:00 02/04/18 12:05 Mycostatin PO 5 ml TID [place] Administration Ondansetron HCl 4 mg 02/01/18 18:00 Zofran IVP Q6H PRN Nausea &/or vomiting Ondansetron HCl 4 mg 02/04/18 09:58 Zofran IVP O PRN Nausea &/or vomiting Oxycodone HCl 5 - 15 mg 02/03/18 12:13 02/04/18 11:54 Roxicodone *Ir* PO 15 mg Q4H PRN Administration Pain Pantoprazole Sodium 40 mg 02/02/18 06:30 02/04/18 05:34 Protonix Tab PO Not Given ACB [place] Polyethylene Glycol 17 gm 02/02/18 09:00 02/04/18 12:09 Miralax PO 17 gm DAILY [place] Administration Polyethylene Glycol 17 gm 02/02/18 09:00 02/03/18 08:16 Miralax PO Not Given DAILY [place] Potassium Chloride 10 meq 02/02/18 08:00 02/04/18 12:08 Micro-K 10 Meq Capsule PO 10 meq BIDWM [place] Administration Senna/Docusate Sodium 1 tab 02/01/18 18:00 Senna Plus Tablet PO BID PRN Constipation Sucralfate 1 gm 02/01/18 21:00 02/04/18 12:04 Carafate PO 1 gm QID [place] Administration Discontinued Medications Generic Name Dose Route Start Last Admin Trade Name Freq PRN Reason Stop Dose Admin Dexamethasone 12 mg 02/01/18 19:43 02/01/18 20:53 Decadron PO 12 mg DAILY [place] Administration Enoxaparin Sodium 40 mg 02/02/18 09:00 02/03/18 08:10 Lovenox SQ 40 mg DAILY [place] Administration Hydromorphone HCl 1 mg 02/01/18 16:51 02/01/18 16:56 Dilaudid IVP 02/01/18 16:52 1 mg O ONE Administration Hydromorphone HCl 0.5 mg 02/01/18 18:00 02/02/18 05:44 Dilaudid IVP 0.5 mg Q2H PRN Administration Pain Hydromorphone HCl 1 mg 02/04/18 07:46 02/04/18 07:52 Dilaudid IVP 02/04/18 07:47 1 mg ONE TIME ONE Administration Non-Formulary Medication 650 mg 02/01/18 20:49 Acetaminophen [Acetaminophen] PO Q4-6HPRN PRN Pain --Pom--(Apremilast [ 30 mg 02/01/18 21:00 Otezla] 30 Mg) PO BID [place] Non-Formulary Medication 75 mg 02/01/18 21:00 Diclofenac Sodium [Diclofenac Sodium] PO BID [place] Non-Formulary Medication 80 mg 02/02/18 09:00 Atorvastatin Calcium [Atorvastatin Calcium] PO DAILY [place] Oxycodone HCl 10 mg 02/01/18 16:52 02/01/18 16:55 Oxycontin PO 02/01/18 16:53 10 mg O ONE Administration Oxycodone HCl 5 - 10 mg 02/01/18 19:38 02/03/18 11:15 Roxicodone *Ir* PO 10 mg Q4H PRN Administration Pain - Constitutional mild distress, well nourished, well developed, cooperative - Routine HEENT Exam Head: Present: normocephalic Eye: Present: EOMI ENT: Present: mucous membranes dry - Routine Neck Exam Present: supple. Absent: lymphadenopathy - Routine Respiratory Exam Present: decreased breath sounds (Rt.> Left). Absent: wheezes, crackles - Routine Cardiovascular Exam Present: RRR. Absent: no murmur - Routine Abdominal Exam Present: soft, non tender. Absent: mass - Routine Extremities Exam Present: no edema, full ROM - Routine Back/Spine/Pelvis Exam Back/Spine: Present: vertebral tenderness - Routine Skin Exam Present: intact, dry, ecchymosis (zeferino.forearms) - Routine Neurological Exam Present: alert, oriented X3, moving all extremities - Routine Psychiatric Exam Present: normal affect, cooperative Oncology Results - Labs CBC & Chem 7: 02/04/18 04:40 02/04/18 04:40 Labs: Short CBC 02/04/18 Range/Units 04:40 WBC 17.3 H (4.5-11.0) T/MM3 Hgb 11.4 L (12-16) GM/DL Hct 34.0 L (36-46) % Plt Count 284 (130-400) T/MM3 BMP 02/04/18 04:40 Sodium 139 Potassium 4.9 Chloride 100 Carbon Dioxide 30 BUN 17.0 Creatinine 0.6 L Glucose 92 Calcium 9.4 Assessment and Plan Assessment and Plan: 1. Metastatic non-small cell lung cancer, with extensive bone metastasis, brain metastasis, status post radiation therapy to brain/spine. Received one cycle Keytruda, given 12/16/17, status post 1 cycle carboplatin, given 01/27/18. Now with acute hypoxia, dyspnea, air hunger and near complete collapse of the right upper lobe with significant endobronchial debris, fluid and possibly soft tissue in the bronchus intermedius and right lower lobe bronchi on recent CT. Seen by pulmonology and radiation oncology. 2. Leukocytosis; likely steroid effect. WBC on 02/02/18 was 20.5. WBC today, is 17.3. Continue to follow. Plan Continue supportive care/pain management. Bronchoscopy performed today by Dr. Henderson. Endobronchial brushings RUL sent for cytology. Tolerated procedure well. Await pathology results Continue emergent radiation until dismissal per Dr. OSEGUERA. - Time Spent With Patient Total time spent is greater than 50% in coordination of care (as documented) at patient's floor/unit and/or counseling patient: less than 15 minutes <Oscar Rosen - Last Filed: 02/05/18 17:45> Exam Vital signs: Temperature 96.4 F L 02/05/18 08:00 Pulse Rate 89 02/05/18 12:00 Respiratory Rate 18 02/05/18 13:03 Blood Pressure 110/74 02/05/18 12:00 Pulse Oximetry 91 02/05/18 12:00 Oncology Results - Labs CBC & Chem 7: 02/04/18 04:40 02/04/18 04:40 Assessment and Plan Assessment and Plan: Late entry. Patient seen in radiation therapy. Tolerating therapy well. Breathing better. Now on room air. Will continue supportive care and plan on dismissal on Thursday. Agree with Documentation of Nikki Munroe. Await bronch results. I participated in the development of the plan of care of this patient. - Time Spent With Patient Total time spent is greater than 50% in coordination of care (as documented) at patient's floor/unit and/or counseling patient:
[2018-02-04] MEDS: APAP/DIPHENHYDRAMINE 500 MG/25 MG TABLET PO SCH (20:19)
[2018-02-04] MEDS: ATORVASTATIN 40 MG TABLET PO SCH (20:20)
[2018-02-05] MEDS: Oxycodone *IR* 5 MG TABLET PO PRN ×4 (01:35→14:38)
[2018-02-05] MEDS: PANTOPRAZOLE 40 MG TABLET PO SCH (05:35)
[2018-02-05] MEDS: BUDESONIDE INH.SOLN 0.5mg/2ml NEB AEROSOL SCH (06:38)
[2018-02-05] MEDS: ALBUTEROL/IPRATROPIUM 2.5mg-0.5mg/3ml NEB AEROSOL SCH ×2 (06:38→10:10)
[2018-02-05] MEDS: GABAPENTIN 100 MG CAPSULE PO SCH ×3 (07:34→13:06)
[2018-02-05] MEDS: MAGNESIUM OXIDE 400 MG TABLET PO SCH ×3 (07:35→15:10)
[2018-02-05] MEDS: NYSTATIN 500,000 units/5 ml ORAL LIQUID PO SCH ×3 (07:36→15:10)
[2018-02-05] MEDS: DICLOFENAC SODIUM DR 25 MG TABLET PO SCH (07:36)
[2018-02-05] MEDS: SUCRALFATE 1 GM TABLET PO SCH ×3 (07:36→13:06)
[2018-02-05] MEDS: POLYETHYL GLYCOL 3350 17gm PACKET PO SCH ×2 (07:36→10:04)
[2018-02-05] MEDS: DEXAMETHASONE 4 MG TABLET PO SCH ×2 (07:36→10:01)
[2018-02-05] MEDS: MEMANTINE 10 MG TABLET PO SCH ×2 (07:37→10:02)
[2018-02-05] MEDS: AMLODIPINE 5 MG TABLET PO SCH ×2 (07:37→10:01)
[2018-02-05] MEDS: FOLIC ACID 1 MG TABLET PO SCH ×2 (07:38→10:02)
[2018-02-05] MEDS: CYANOCOBALAMIN (B-12) 500mcg TABLET PO SCH ×2 (07:38→10:01)
[2018-02-05] MEDS: MULTI-VIT + MINERAL (Opti-gen) TABLET PO SCH ×2 (07:38→10:02)
[2018-02-05] MEDS: OTEZLA 30 MG PO SCH ×2 (07:40→10:01)
[2018-02-05 08:33] VITALS: TEMP 96.4
[2018-02-05] MEDS: HYDROMORPHONE 2 MG/ML INJECTION IVP PRN ×2 (08:39→10:48)
[2018-02-05 09:27] VITALS: RESP 18
[2018-02-05] MEDS: APREMILAST 30 MG PO SCH (10:00)
[2018-02-05] MEDS: HYDROCORTISONE 2.5% CREAM 30gm RECTALLY SCH (10:02)
--- NOTE | 2018-02-05 10:11 | Pulmonology Progress Note ---
Subjective Interval history: Pt resting in bed, wakes to voice. states she is doing good, no real cough or sputum at this time. Waiting to go home. Exam Vital signs: Temperature 96.4 F L 02/05/18 08:00 Pulse Rate 116 H 02/05/18 08:00 Respiratory Rate 18 02/05/18 10:04 Blood Pressure 142/92 H 02/05/18 08:00 Pulse Oximetry 94 02/05/18 08:00 Inpatient Medications: Generic Name Dose Route Start Last Admin Trade Name Freq PRN Reason Stop Dose Admin Acetaminophen 325 mg 02/02/18 06:36 Tylenol PO Q4-6HR PRN Pain Acetaminophen/Diphenhydramine HCl 2 tab 02/01/18 21:00 02/04/18 20:19 Tylenol Pm PO 2 tab HS [place] Administration Albuterol/Ipratropium 3 ml 02/01/18 19:00 02/05/18 06:38 Duoneb AEROSOL 3 ml RTQID [place] Administration Albuterol/Ipratropium 3 ml 02/01/18 18:07 Duoneb AEROSOL RTQID PRN Amlodipine Besylate 5 mg 02/02/18 09:00 02/05/18 10:01 Norvasc PO Not Given DAILY [facility] Atorvastatin Calcium 40 mg 02/02/18 21:00 02/04/18 20:20 Lipitor PO 40 mg HS [place] Administration Budesonide 0.5 mg 02/02/18 07:00 02/05/18 06:38 Pulmicort Inhalation AEROSOL 0.5 mg RTBID [place] Administration Cyanocobalamin 2,500 mcg 02/02/18 09:00 02/05/18 10:01 Vit. B-12 PO Not Given DAILY [facility] Dexamethasone 12 mg 02/02/18 09:00 02/05/18 10:01 Decadron PO Not Given DAILY [facility] Diclofenac Sodium 25 mg 02/02/18 08:00 02/05/18 07:36 Voltaren PO 25 mg BIDWM [place] Administration Diphenhydramine HCl 12.5 - 25 mg 02/04/18 09:58 Benadryl IVP O PRN Nausea &/or vomiting Fentanyl 25 mcg 02/01/18 19:45 02/04/18 20:20 Duragesic Patch TD 25 mcg Q3D [place] Administration Fentanyl 50 mcg 02/04/18 08:56 02/04/18 08:59 Fentanyl IVP 50 mcg Q1HR PRN Administration Fentanyl Citrate 1 removal 02/04/18 19:45 02/04/18 20:20 Duragesic Patch Removal TD 1 removal Q3D@1945 [place] Administration Folic Acid 1 mg 02/02/18 09:00 02/05/18 10:02 Folate PO Not Given DAILY [facility] Gabapentin 200 mg 02/01/18 21:00 02/05/18 10:02 Neurontin PO Not Given QID [facility] Hydrocortisone 1 applic 02/01/18 21:00 02/05/18 10:02 Anusol-Hc 2.5% Cream RECTALLY Not Given BID [facility] Hydromorphone HCl 0 mg 02/04/18 09:58 02/05/18 08:39 Dilaudid IVP 1 mg Q10M PRN Administration Hydromorphone HCl 1 mg 02/04/18 12:22 02/04/18 12:56 Dilaudid IVP 1 mg ONE TIME PRN Administration Pain Lorazepam 0.5 mg 02/01/18 18:05 Ativan Inj IVP Q6H PRN Magnesium Oxide 400 mg 02/01/18 21:00 02/05/18 10:02 Magox PO Not Given TID [facility] Memantine 10 mg 02/01/18 21:00 02/05/18 10:02 Namenda PO Not Given BID [facility] Metoprolol Tartrate 100 mg 02/01/18 21:00 02/05/18 10:02 Lopressor PO Not Given BID [facility] Multivitamins/Minerals 1 tab 02/02/18 09:00 02/05/18 10:02 Vision PO Not Given DAILY [facility] --Pom--Otezla Tablet 30 mg 02/03/18 09:00 02/05/18 10:01 30 Mg PO Not Given BID [facility] Nystatin 5 ml 02/01/18 21:00 02/05/18 10:03 Mycostatin PO Not Given TID [facility] Ondansetron HCl 4 mg 02/01/18 18:00 Zofran IVP Q6H PRN Nausea &/or vomiting Ondansetron HCl 4 mg 02/04/18 09:58 Zofran IVP O PRN Nausea &/or vomiting Oxycodone HCl 5 - 15 mg 02/03/18 12:13 02/05/18 09:26 Roxicodone *Ir* PO 15 mg Q4H PRN Administration Pain Pantoprazole Sodium 40 mg 02/02/18 06:30 02/05/18 05:35 Protonix Tab PO 40 mg ACB [place] Administration Polyethylene Glycol 17 gm 02/02/18 09:00 02/05/18 07:36 Miralax PO 17 gm DAILY [place] Administration Polyethylene Glycol 17 gm 02/02/18 09:00 02/05/18 10:04 Miralax PO Not Given DAILY [place] Potassium Chloride 10 meq 02/02/18 08:00 02/05/18 07:34 Micro-K 10 Meq Capsule PO 10 meq BIDWM [place] Administration Senna/Docusate Sodium 1 tab 02/01/18 18:00 02/05/18 07:33 Senna Plus Tablet PO 1 tab BID PRN Administration Constipation Sucralfate 1 gm 02/01/18 21:00 02/05/18 10:04 Carafate PO Not Given QID [place] Discontinued Medications Generic Name Dose Route Start Last Admin Trade Name Freq PRN Reason Stop Dose Admin Dexamethasone 12 mg 02/01/18 19:43 02/01/18 20:53 Decadron PO 12 mg DAILY [place] Administration Enoxaparin Sodium 40 mg 02/02/18 09:00 02/03/18 08:10 Lovenox SQ 40 mg DAILY [place] Administration Hydromorphone HCl 1 mg 02/01/18 16:51 02/01/18 16:56 Dilaudid IVP 02/01/18 16:52 1 mg O ONE Administration Hydromorphone HCl 0.5 mg 02/01/18 18:00 02/02/18 05:44 Dilaudid IVP 0.5 mg Q2H PRN Administration Pain Hydromorphone HCl 1 mg 02/04/18 07:46 02/04/18 07:52 Dilaudid IVP 02/04/18 07:47 1 mg ONE TIME ONE Administration Lactated Ringer's 1,000 mls @ 50 mls/hr 02/04/18 08:30 02/04/18 18:26 Lactated Ringers IV Infused .Q20H [place] Infusion Non-Formulary Medication 650 mg 02/01/18 20:49 Acetaminophen [Acetaminophen] PO Q4-6HPRN PRN Pain --Pom--(Apremilast [ 30 mg 02/01/18 21:00 02/05/18 10:00 Otezla] 30 Mg) PO Not Given BID [place] Non-Formulary Medication 75 mg 02/01/18 21:00 Diclofenac Sodium [Diclofenac Sodium] PO BID [place] Non-Formulary Medication 80 mg 02/02/18 09:00 Atorvastatin Calcium [Atorvastatin Calcium] PO DAILY [place] Oxycodone HCl 10 mg 02/01/18 16:52 02/01/18 16:55 Oxycontin PO 02/01/18 16:53 10 mg O ONE Administration Oxycodone HCl 5 - 10 mg 02/01/18 19:38 02/03/18 11:15 Roxicodone *Ir* PO 10 mg Q4H PRN Administration Pain - Constitutional no acute distress, average body habitus, cooperative - Routine HEENT Exam Head: Present: normocephalic, atraumatic Eye: Present: EOMI, PERRL - Routine Neck Exam Present: supple, full ROM, trachea midline - Routine Respiratory Exam Present: crackles. Absent: accessory muscle use, patient mechanically ventilated Comments: bibasilar crackles - Routine Cardiovascular Exam Present: RRR, S1, S2, no murmur - Routine Abdominal Exam Present: soft, normoactive bowel sounds - Routine Extremities Exam Present: no edema, non tender, full ROM - Routine Back/Spine/Pelvis Exam Back/Spine: Present: full ROM - Routine Skin Exam Present: intact, dry - Routine Neurological Exam Present: alert, oriented X3, CN II-XII intact - Routine Psychiatric Exam Present: normal affect, normal thought process Results - Laboratory Findings Laboratory: Laboratory Results - last 48 hr 02/04/18 02/04/18 02/04/18 04:40 04:40 09:38 WBC 17.3 H RBC 3.42 L Hgb 11.4 L Hct 34.0 L MCV 99.4 MCH 33.3 MCHC 33.5 RDW Std Deviation 54.1 H Plt Count 284 MPV 9.5 Immature Gran % (Auto) Not performed Neut % (Auto) Not performed Lymph % (Auto) Not performed Kane % (Auto) Not performed Eos % (Auto) Not performed Baso % (Auto) Not performed Neut # (Auto) Not performed Lymph # (Auto) Not performed Kane # (Auto) Not performed Eos # (Auto) Not performed Baso # (Auto) Not performed Abs Immat Gran (auto) Not performed Neutrophils % (Manual) 94.0 H Band Neutrophils % 4.0 Lymphocytes % (Manual) 2.0 L Neutrophils # (Manual) 16.3 H Band Neutrophils # 0.7 Lymphocytes # (Manual) 0.3 L RBC Morph Comment Normal Turbidity < 20 Sodium 139 Potassium 4.9 Chloride 100 Carbon Dioxide 30 Anion Gap 9 BUN 17.0 Creatinine 0.6 L GFR Calculation 103 BUN/Creatinine Ratio 28 H Glucose 92 Calculated Osmolality 270 Calcium 9.4 Icterus Index < 2 Lactate Dehydrogenase 768 H C-Reactive Protein 25.0 H Specimen Hemolysis < 15 Fluid Type Bronchoalveolarlavag BAL Appearance Slightly cloudy BAL Color Colorless BAL RBC 2000 BAL Neutrophils 57 H BAL Lymphocytes 4 BAL Eosinophils 1 BAL Basophils 0 BAL Monocyte/Macrophage 1 BAL Other Cells 37 BAL Total Cell Count 236 Assessment and Plan (1) Acute respiratory failure with hypoxia Status: Acute Current Visit: Yes (2) Non-small cell carcinoma of lung Status: Acute Current Visit: Yes - Assessment and Plan Plan: Pt currently on RA and tolerating well. Preliminary cx from bronch with GPC, cx from sputum GNR . Spoke with hospitalist and will start augmentin x 1 week for coverage. Would encourage to use nebulizer at home to keep airways open. - Time Spent With Patient Total time spent is greater than 50% in coordination of care (as documented) at patient's floor/unit and/or counseling patient: less than 15 minutes
--- NOTE | 2018-02-05 11:52 | Progress Note ---
<Meredith Munroe L - Last Filed: 02/05/18 13:23> Oncology Subjective Alone in room. Sitting in chair; feeling better today. Anxious for dismissal to home. Continues with chronic back pain, some discomfort when takes a deep breath, denies worsening of symptoms. Infrequent cough Plan dismissal to home today. She is eating and drinking. Voiding normally. Large bowel movement today. Gets irritable when I ask her about ability to remain abstinent from smoking when dismissed. " I am not going to smoke again." Congratulated. General: No fever, no night sweats Eyes: No redness, no pain, no diplopia ENT: No mouth sores, no trouble swallowing Cardiac: No chest pain no palpitations Pulmonary: + cough, + shortness of breath w/ exertion Abdomen: No pain, no nausea vomiting, no diarrhea or constipation : No urgency, frequency, dysuria, or hematuria Musculoskeletal: chronic back pain Neurological: No headaches, no focal weakness Skin: No rash, no sores Psychiatric: No anxiety, no depression Exam Vital signs: Temperature 96.4 F L 02/05/18 08:00 Pulse Rate 116 H 02/05/18 08:00 Respiratory Rate 02/05/18 10:48 Blood Pressure 142/92 H 02/05/18 08:00 Pulse Oximetry 100 02/05/18 10:11 Narrative: Generic Name Dose Route Start Last Admin Trade Name Freq PRN Reason Stop Dose Admin Acetaminophen 325 mg 02/02/18 06:36 Tylenol PO Q4-6HR PRN Pain Acetaminophen/Diphenhydramine HCl 2 tab 02/01/18 21:00 02/04/18 20:19 Tylenol Pm PO 2 tab HS [facility] Administration Albuterol/Ipratropium 3 ml 02/01/18 19:00 02/05/18 10:10 Duoneb AEROSOL 3 ml RTQID [facility] Administration Albuterol/Ipratropium 3 ml 02/01/18 18:07 Duoneb AEROSOL RTQID PRN Amlodipine Besylate 5 mg 02/02/18 09:00 02/05/18 10:01 Norvasc PO Not Given DAILY [facility] Atorvastatin Calcium 40 mg 02/02/18 21:00 02/04/18 20:20 Lipitor PO 40 mg HS [facility] Administration Budesonide 0.5 mg 02/02/18 07:00 02/05/18 06:38 Pulmicort Inhalation AEROSOL 0.5 mg RTBID [facility] Administration Cyanocobalamin 2,500 mcg 02/02/18 09:00 02/05/18 10:01 Vit. B-12 PO Not Given DAILY [facility] Dexamethasone 12 mg 02/02/18 09:00 02/05/18 10:01 Decadron PO Not Given DAILY [facility] Diclofenac Sodium 25 mg 02/02/18 08:00 02/05/18 07:36 Voltaren PO 25 mg BIDWM [facility] Administration Diphenhydramine HCl 12.5 - 25 mg 02/04/18 09:58 Benadryl IVP O PRN Nausea &/or vomiting Fentanyl 25 mcg 02/01/18 19:45 02/04/18 20:20 Duragesic Patch TD 25 mcg Q3D [facility] Administration Fentanyl 50 mcg 02/04/18 08:56 02/04/18 08:59 Fentanyl IVP 50 mcg Q1HR PRN Administration Fentanyl Citrate 1 removal 02/04/18 19:45 02/04/18 20:20 Duragesic Patch Removal TD 1 removal Q3D@1945 [facility] Administration Folic Acid 1 mg 02/02/18 09:00 02/05/18 10:02 Folate PO Not Given DAILY [facility] Gabapentin 200 mg 02/01/18 21:00 02/05/18 10:02 Neurontin PO Not Given QID [facility] Hydrocortisone 1 applic 02/01/18 21:00 02/05/18 10:02 Anusol-Hc 2.5% Cream RECTALLY Not Given BID [facility] Hydromorphone HCl 0 mg 02/04/18 09:58 02/05/18 10:48 Dilaudid IVP 1 mg Q10M PRN Administration Hydromorphone HCl 1 mg 02/04/18 12:22 02/04/18 12:56 Dilaudid IVP 1 mg ONE TIME PRN Administration Pain Lorazepam 0.5 mg 02/01/18 18:05 Ativan Inj IVP Q6H PRN Magnesium Oxide 400 mg 02/01/18 21:00 02/05/18 10:02 Magox PO Not Given TID [facility] Memantine 10 mg 02/01/18 21:00 02/05/18 10:02 Namenda PO Not Given BID [facility] Metoprolol Tartrate 100 mg 02/01/18 21:00 02/05/18 10:02 Lopressor PO Not Given BID [facility] Multivitamins/Minerals 1 tab 02/02/18 09:00 02/05/18 10:02 Vision PO Not Given DAILY [facility] --Pom--Otezla Tablet 30 mg 02/03/18 09:00 02/05/18 10:01 30 Mg PO Not Given BID [facility] Nystatin 5 ml 02/01/18 21:00 02/05/18 10:03 Mycostatin PO Not Given TID [facility] Ondansetron HCl 4 mg 02/01/18 18:00 Zofran IVP Q6H PRN Nausea &/or vomiting Ondansetron HCl 4 mg 02/04/18 09:58 Zofran IVP O PRN Nausea &/or vomiting Oxycodone HCl 5 - 15 mg 02/03/18 12:13 02/05/18 09:26 Roxicodone *Ir* PO 15 mg Q4H PRN Administration Pain Pantoprazole Sodium 40 mg 02/02/18 06:30 02/05/18 05:35 Protonix Tab PO 40 mg ACB [facility] Administration Polyethylene Glycol 17 gm 02/02/18 09:00 02/05/18 07:36 Miralax PO 17 gm DAILY [facility] Administration Polyethylene Glycol 17 gm 02/02/18 09:00 02/05/18 10:04 Miralax PO Not Given DAILY [facility] Potassium Chloride 10 meq 02/02/18 08:00 02/05/18 07:34 Micro-K 10 Meq Capsule PO 10 meq BIDWM [facility] Administration Senna/Docusate Sodium 1 tab 02/01/18 18:00 02/05/18 07:33 Senna Plus Tablet PO 1 tab BID PRN Administration Constipation Sucralfate 1 gm 02/01/18 21:00 02/05/18 10:04 Carafate PO Not Given QID [facility] Discontinued Medications Generic Name Dose Route Start Last Admin Trade Name Freq PRN Reason Stop Dose Admin Dexamethasone 12 mg 02/01/18 19:43 02/01/18 20:53 Decadron PO 12 mg DAILY [facility] Administration Enoxaparin Sodium 40 mg 02/02/18 09:00 02/03/18 08:10 Lovenox SQ 40 mg DAILY [facility] Administration Hydromorphone HCl 1 mg 02/01/18 16:51 02/01/18 16:56 Dilaudid IVP 02/01/18 16:52 1 mg O ONE Administration Hydromorphone HCl 0.5 mg 02/01/18 18:00 02/02/18 05:44 Dilaudid IVP 0.5 mg Q2H PRN Administration Pain Hydromorphone HCl 1 mg 02/04/18 07:46 02/04/18 07:52 Dilaudid IVP 02/04/18 07:47 1 mg ONE TIME ONE Administration Lactated Ringer's 1,000 mls @ 50 mls/hr 02/04/18 08:30 02/04/18 18:26 Lactated Ringers IV Infused .Q20H [facility] Infusion Non-Formulary Medication 650 mg 02/01/18 20:49 Acetaminophen [Acetaminophen] PO Q4-6HPRN PRN Pain --Pom--(Apremilast [ 30 mg 02/01/18 21:00 02/05/18 10:00 Otezla] 30 Mg) PO Not Given BID [facility] Non-Formulary Medication 75 mg 02/01/18 21:00 Diclofenac Sodium [Diclofenac Sodium] PO BID [facility] Non-Formulary Medication 80 mg 02/02/18 09:00 Atorvastatin Calcium [Atorvastatin Calcium] PO DAILY [facility] Oxycodone HCl 10 mg 02/01/18 16:52 02/01/18 16:55 Oxycontin PO 02/01/18 16:53 10 mg O ONE Administration Oxycodone HCl 5 - 10 mg 02/01/18 19:38 02/03/18 11:15 Roxicodone *Ir* PO 10 mg Q4H PRN Administration Pain - Constitutional no acute distress, well developed, thin - Routine HEENT Exam Head: Present: normocephalic Eye: Present: EOMI ENT: Present: mucous membranes moist - Routine Neck Exam Present: supple. Absent: lymphadenopathy - Routine Respiratory Exam Present: decreased breath sounds. Absent: wheezes, crackles - Routine Cardiovascular Exam Present: RRR, no murmur - Routine Abdominal Exam Present: soft, non tender. Absent: mass - Routine Extremities Exam Present: no edema, full ROM - Routine Skin Exam Present: intact, dry - Routine Neurological Exam Present: alert, oriented X3, normal speech - Routine Psychiatric Exam Present: normal affect, normal thought process, cooperative Oncology Results - Labs CBC & Chem 7: 02/04/18 04:40 02/04/18 04:40 Assessment and Plan Assessment and Plan: 1. Metastatic non-small cell lung cancer, with extensive bone metastasis, brain metastasis, status post radiation therapy to brain/spine. Received one cycle Keytruda, given 12/16/17, status post 1 cycle carboplatin, given 01/27/18. Admitted with acute hypoxia, dyspnea, air hunger and near complete collapse of the right upper lobe with significant endobronchial debris, fluid and possibly soft tissue in the bronchus intermedius and right lower lobe bronchi on recent CT. Seen by pulmonology and radiation oncology. 2. Leukocytosis; likely steroid effect. WBC on 02/02/18 was 20.5. WBC today, is 17.3. 3. [employer] addiction: Quit 1 week ago and verbalizes intent to stay quit. Plan Symptoms greatly improved, no longer requiring oxygen therapy and subjectively reports feeling better. Oncology okay with dismissal. Will have her RTC to [place] [facility], see Dora Borja PA-C February 10, 2018 with CBC, CMP, magnesium, LDH, and possible chemotherapy. Will see Dr. Lemus, radiation oncologist in [place] February 09, 2018. Discussed with Dr. Ennis, patient does not have a nebulizer at home. Question if pulmonology recommends breathing treatments to continue; he will discuss with pulmonology. - Time Spent With Patient Total time spent is greater than 50% in coordination of care (as documented) at patient's floor/unit and/or counseling patient: less than 15 minutes <Oscar Rosen - Last Filed: 02/05/18 17:41> Exam Vital signs: Temperature 96.4 F L 02/05/18 08:00 Pulse Rate 89 02/05/18 12:00 Respiratory Rate 18 02/05/18 13:03 Blood Pressure 110/74 02/05/18 12:00 Pulse Oximetry 91 02/05/18 12:00 Oncology Results - Labs CBC & Chem 7: 02/04/18 04:40 02/04/18 04:40 Assessment and Plan Assessment and Plan: Patient examine Chart reviewed. Discussed with Dr. Lemus. Will resume XRT onTuesday. Continue weekly chemotherapy. Bronch positive for non small cell lung cancer. CT suggests liver mets. Breathing much better. Coordinated dismissal and follow up. Agree with documentation of Nikki Munroe. I participated in the development of the plan of care of this patient. - Time Spent With Patient Total time spent is greater than 50% in coordination of care (as documented) at patient's floor/unit and/or counseling patient:
[2018-02-05 13:13] VITALS: BP 110/74; PULSE 89; O2SAT 91
--- NOTE | 2018-02-05 13:25 | Progress Note ---
- Date 02/05/18 Subjective: F/U: Acute hypoxic respiratory failure secondary to postobstructive cause, Metastatic non-small cell lung cancer Doing very well. Breathing well-not feeling SOA or pain with breathing. Less cough/congestion. Eating well. No ab pain or nausea. Bowels stable. Ambulating well. Strength improving. Feels ready to go home. Objective Vital signs: Temperature 96.4 F L 02/05/18 08:00 Pulse Rate 89 02/05/18 12:00 Respiratory Rate 18 02/05/18 13:03 Blood Pressure 110/74 02/05/18 12:00 Pulse Oximetry 91 02/05/18 12:00 Height/Weight/BMI: Height 1.68 m Weight 54.4 kg Body Mass Index 18.6 - Constitutional Present: well nourished, well developed, average body habitus, cooperative - Routine HEENT Exam Head: Present: normocephalic, atraumatic Eye: Present: EOMI, PERRL ENT: Present: mucous membranes dry - Routine Respiratory Exam Present: decreased breath sounds. Absent: rales, respiratory distress, wheezes - Routine Cardiovascular Exam Present: RRR, no murmur - Routine Abdominal Exam Present: soft, normoactive bowel sounds, non distended, non tender - Routine Extremities Exam Present: no edema, pulses intact. Absent: cyanosis, clubbing - Routine Musculoskeletal Exam Musculoskeletal: Present: no clubbing or cyanosis, normal strength - Routine Skin Exam Present: dry, warm - Routine Neurological Exam Present: alert, oriented X3, CN II-XII intact, moving all extremities, vision grossly intact, hearing grossly intact, normal speech. Absent: normal reflexes , altered mental status - Routine Psychiatric Exam Present: normal affect, normal thought process, cooperative, good insight Results - Labs CBC & Chem 7: 02/04/18 04:40 02/04/18 04:40 Microbiology Results: Microbiology 02/04/18 09:38 Bal, Right Upper Lobe Gram Stain - Final 02/04/18 09:38 Bal, Right Upper Lobe Bronchial Aspirate Culture - Preliminary Early growth 02/03/18 08:51 Sputum, Expectorated Gram Stain - Final 02/03/18 08:51 Sputum, Expectorated Sputum Culture - Preliminary Gram Negative Hemal Normal Respiratory Mary 02/01/18 20:28 Peripheral/Iv Start Blood Culture - Preliminary No Growth After 3 Days 02/01/18 20:22 Peripheral/Iv Start Blood Culture - Preliminary No Growth After 3 Days Assessment and Plan (1) Acute respiratory failure with hypoxia Current visit: Yes Status: Acute Assessment and Plan: ASSESSMENT Acute hypoxic respiratory failure secondary to postobstructive cause Metastatic non-small cell lung cancer Large mass adjacent to the right hilum which obstructs the right bronchus and causes large right atelectasis in the chest Thrush, POA Leukocytosis - steroid effect Hyponatremia - POA (129) RA MVP Fibromyalgia PLAN Clinically improved. Maintaining saturations well on RA without distress. Eating well. Ambulating well. Will discharge to home in stable condition. Pain medications increased. Duragesic patch 25mcg. Oxycodone 5-15mg prn. Will initiate Augmentin 875 po BID with meals for 1 week for bronchial coverage. Dexamethasone 4mg BID. DuoNeb treatments QID recommended by pulm. F/U with Dr. Lemus, radiation oncologist in [place] February 09, 2018. F/U with [place] [facility], see Dora Borja PA-C February 10, 2018 with CBC, CMP , magnesium, LDH, and possible chemotherapy. F/U with PCP in about 1 week. See orders for details. Case discussed with CM, pulm and onc. Time spent with discharge greater than 30 minutes. Resuscitation Status: Full Code - Physician Narrative Physician: Jarrell Singh MD Narrative: Date: 02/05/18 Time: 1322 Hospital Course Summary Disclaimer: The visit summary below is not to be considered part of the above Progress Note. Hospital Course: 02/01/18 Admit, inpatient status O2 to maintain sats - currently on 15L. Routine DuoNebs, steroids. Consult Dr. Rosen. Ativan PRN anxiety/air hunger. Labs from [place]: WBC 22, CEA 307, hgb 11.6, plt 298, BUN 13, cr 0.6, Na 129 , K 4.5, CO2 26, AP 120, ESR/CRP both elevated, TSH 1.25, T4 free 0.98 Outside records reviewed. Home meds not reconciled at time of H&P. Lovenox for VTE PPX. 02/02/18 O2 requirements decreasing; currently on 5L per NC. Continue oral dexamethasone , Nebs. Dr. Henderson consulted ?bronch. WBC 20.5 (yesterday 22), most likely from dexamethasone initiated in outpatient setting. Trend LDH, CRP. LDH 701 and CRP 48 this am. Na 137. 02/03/18 Hypoxia continues to improve, down to 1.5L of oxygen. Continue oral dexamethasone, Nebs. Dr. Henderson planning bronch tomorrow am. Lovenox on hold; NPO at midnight. Pain continues to be an issue - increase oxycodone to 15 mg; consider increasing fentanyl patch to 37.5 mcg. 02/04/18 s/p bronch - main francis normal RUL extrinsically compressed to a pinpoint. mucosal abnormalities noted in the RUL consistent with carcinoma. bronchus intermedius, RML, RLL normal. No mucus secretions present Left main normal. GREGORY, LLL normal. BAL RUL performed and sent for appropriate studies Endobronchial brushings RUL sent for cytology Hypoxia resolved - on room air. Continue oral dexamethasone, Nebs. Pain control remains an issue - will give another dose of IV Dilaudid. RN to change timing of meds to reflect home schedule. Consider increasing fentanyl patch. LDH with increase from 701 to 768; CRP decreasing, 48 --> 25. CBC, BMP stable. Leukocytosis improving. 02/05/18 Clinically improved. Maintaining saturations well on RA without distress. Eating well. Ambulating well. Will discharge to home in stable condition. Pain medications increased. Duragesic patch 25mcg. Oxycodone 5-15mg prn. Will initiate Augmentin 875 po BID with meals for 1 week for bronchial coverage. Dexamethasone 4mg BID. DuoNeb treatments QID recommended by pulm. F/U with Dr. Lemus, radiation oncologist in [place] February 09, 2018. F/U with [place] [facility], see Dora Borja PA-C February 10, 2018 with CBC, CMP , magnesium, LDH, and possible chemotherapy. F/U with PCP in about 1 week. See orders for details.
--- NOTE | 2018-02-05 14:30 | Discharge Summary ---
Discharge Information Date of admission: 02/01/18 16:20 Anticipated date of discharge: 02/05/18 Attending Physician: Jarrell Singh MD Primary care physician: Fuad Brice MD Consults: Physician Consult: Oscar Rosen Reason For Exam: Nonsmall cell lung ca Physician Consult: Scott Henderson Reason For Exam: acute hypoxia, airway obstruction/lung ca - Discharge Diagnosis (1) Acute respiratory failure with hypoxia Status: Acute Discharge diagnosis Acute hypoxic respiratory failure secondary to postobstructive cause Associated conditions and complications Metastatic non-small cell lung cancer Large mass adjacent to the right hilum which obstructs the right bronchus and causes large right atelectasis in the chest Thrush, POA Leukocytosis - steroid effect Hyponatremia - POA (129) RA MVP Fibromyalgia - Procedures Procedures: Date of procedure: 02/04/18 Procedure: Bronchoscopy Pre-op diagnosis: lung mass Post-op diagnosis: same Patient underwent GETA. The scope was passed via the ETT. Main francis normal RUL extrinsically compressed to a pinpoint. mucosal abnormalities noted in the RUL consistent with carcinoma. bronchus intermedius, RML, RLL normal. No mucus secretions present Left main normal GREGORY, LLL normal. BAL RUL performed and sent for appropriate studies Endobronchial brushings RUL sent for cytology Anesthesia: GETA Surgeon: Scott Henderson MD Condition: Stable Radiation therapy to pulmonary tumor - Laboratory Labs: Admit Lab 02/02/18 05:54 WBC 20.5 H Hgb 11.9 L Hct 35.9 L MCV 99.4 MCH 33.0 Plt Count 259 Neutrophils % (Manual) 94.0 H Band Neutrophils % 4.0 Lymphocytes % (Manual) 2.0 L Admit Lab 02/02/18 05:54 Sodium 137 Potassium 4.8 Chloride 98 Carbon Dioxide 29 Anion Gap 10 BUN 11.0 Creatinine 0.5 L GFR Calculation 127 BUN/Creatinine Ratio 22 Glucose 136 H Calculated Osmolality 265 Calcium 9.6 Magnesium 2.1 Total Bilirubin 0.40 AST 18 ALT 34 Alkaline Phosphatase 129 H Lactate Dehydrogenase 701 H C-Reactive Protein 48.1 H Total Protein 6.6 Albumin 3.6 Globulin 3.0 Albumin/Globulin Ratio 1.2 02/04/18 04:40 02/04/18 04:40 - Microbiology Microbiology 02/04/18 09:38 Bronchial Washing Acid Fast Bacilli Culture & Smear - Preliminary 02/04/18 09:38 Mini-Bal Fungal Culture and Stain - Preliminary 02/04/18 09:38 Bal, Right Upper Lobe Gram Stain - Final 02/04/18 09:38 Bal, Right Upper Lobe Bronchial Aspirate Culture - Preliminary Early growth 02/03/18 08:51 Sputum, Expectorated Gram Stain - Final 02/03/18 08:51 Sputum, Expectorated Sputum Culture - Preliminary Gram Negative Hemal Normal Respiratory Mary 02/01/18 20:28 Peripheral/Iv Start Blood Culture - Preliminary No Growth After 3 Days 02/01/18 20:22 Peripheral/Iv Start Blood Culture - Preliminary No Growth After 3 Days - Radiology Radiology: Date of Exam: 02/02/18 Type of Exam: CT chest wo con Findings: There is near complete collapse of the right upper lobe with a few scattered air bronchograms present. There is irregular debris or soft tissue in the distal right mainstem bronchus with occlusion of the right upper lobe bronchus. There is significant debris seen in the bronchus intermedius extending into the right lower lobe segmental and subsegmental bronchi. Partial consolidation of the right middle lobe with areas of pleural thickening and nodularity. Right lower lobe shows areas of partial atelectasis with pleural thickening, interlobular septal thickening and groundglass opacities. The previously seen necrotic subpleural nodules in the right upper lobe are not discretely seen on this study and may be obscured by the atelectatic lung. No pneumothorax. The left lung shows a few small areas of groundglass opacity in the lingula and lower lobe. Left-sided bronchi are patent. Mild respiratory motion artifact. No axillary adenopathy. Poor definition of the known necrotic right paratracheal node due to the noncontrast technique. This is visible with an area of central calcification measuring 2.4 cm in short axis dimension on axial image #44 causing impression upon the right distal mainstem bronchus and bronchus intermedius area. Heart size is stable. No pericardial effusion. The upper abdomen shows scattered low-attenuation hepatic foci which are difficult to characterize and incompletely evaluated. There is residual high attenuation material seen within the renal collecting systems bilaterally probably representing residual contrast. Bone windows show moderate compression fracture of T8 with 20% height loss. Impression: Near complete collapse of the right upper lobe with significant endobronchial debris, fluid and possibly soft tissue in the bronchus intermedius and right lower lobe bronchi. Somewhat poorly defined right paratracheal adenopathy. Date of Exam: 02/02/18 Type of Exam: XR chest 1V Findings: Volume loss in the right lung with rightward mediastinal shift. This likely relates to the patient's reported history of lung cancer and possibly prior surgery. There is right pleural fluid and apical pleural thickening or scarring. Underlying airspace disease, mass or masses cannot be excluded in the right lung. Left lung appears mildly hyperexpanded but otherwise grossly clear. No pneumothorax. Cardiac silhouette is partially obscured. Left-sided pulmonary vascularity appears normal. Impression: Probable malignancy related changes in the right lung. Superimposed pneumonia or aspiration cannot be excluded on the right side. Left lung is clear. - Pathology Bronchoscopy cytology: Non Small Cell Carcinoma History of Present Illness HPI: Constanza Hutchins is a 57 y/o woman with a hx of metastatic non-small cell lung cancer, diagnosed in November 2017 and started dexamethasone taper for brain metastasis and on Keytruda in December. She began having SOA even with light exertion on 01/31/18. She quit smoking on 01/29/18. She's had a mildly productive cough with pale yellow sputum. She has chest and back tightness associated with SOA. She feels anxious when she's short of breath. She has felt weak and dizzy. She's on medication for thrush which is improving. She has chronic abdominal pain/tenderness. She denies fever/chills, sinus drainage, sore throat, dysphagia , mental status changes, n/v/d/c, urinary changes. She has petechial/purpuric lesions on her arms secondary to steroids but denies other abnormal rashes/ bleeding. She denies paresthesias, unilateral weakness, vision changes. She presented to the [place] ED on 02/01/18, and was hypoxic saturating 82% on RA and 88% on 2L. D-dimer was elevated and CT chest was done -- this showed marked worsening since last imaging on 11/16/17 with large tumor load in the right chest , large mass adjacent to the right hilum which obstructs the right bronchus and causes large right atelectasis in the chest. There was no PE. Trop was neg. Dr. Rosen was notified and arrangements were made [place] [facility] [place] she required IV fentanyl for pain control. For complete details of the H&P refer to that document. Objective Vital signs: Temperature 96.4 F L 02/05/18 08:00 Pulse Rate 89 02/05/18 12:00 Respiratory Rate 18 02/05/18 13:03 Blood Pressure 110/74 02/05/18 12:00 Pulse Oximetry 91 02/05/18 12:00 Height/Weight/BMI: Height 1.68 m Weight 54.4 kg Body Mass Index 18.6 Hospital Course This is a general summary of the patient's hospital course. For more details refer to the complete medical record. Hospital course: 02/01/18 Admit, inpatient status O2 to maintain sats - currently on 15L. Routine DuoNebs, steroids. Consult Dr. Rosen. Ativan PRN anxiety/air hunger. Labs from [facility] [place]: WBC 22, CEA 307, hgb 11.6, plt 298, BUN 13, cr 0.6, Na 129 , K 4.5, CO2 26, AP 120, ESR/CRP both elevated, TSH 1.25, T4 free 0.98 Outside records reviewed. Home meds not reconciled at time of H&P. Lovenox for VTE PPX. 02/02/18 O2 requirements decreasing; currently on 5L per NC. Continue oral dexamethasone , Nebs. Dr. Henderson consulted ?bronch. WBC 20.5 (yesterday 22), most likely from dexamethasone initiated in outpatient setting. Trend LDH, CRP. LDH 701 and CRP 48 this am. Na 137. 02/03/18 Hypoxia continues to improve, down to 1.5L of oxygen. Continue oral dexamethasone, Nebs. Dr. Henderson planning bronchoscopy tomorrow am. Lovenox on hold; NPO at midnight. Pain continues to be an issue - increase oxycodone to 15 mg; consider increasing fentanyl patch to 37.5 mcg. 02/04/18 S/P Bronchoscopy - main francis normal RUL extrinsically compressed to a pinpoint. mucosal abnormalities noted in the RUL consistent with carcinoma. bronchus intermedius, RML, RLL normal. No mucus secretions present Left main normal. GREGORY, LLL normal. BAL RUL performed and sent for appropriate studies Endobronchial brushings RUL sent for cytology Hypoxia resolved - on room air. Continue oral dexamethasone, Nebs. Pain control remains an issue - will give another dose of IV Dilaudid. RN to change timing of meds to reflect home schedule. Consider increasing fentanyl patch. LDH with increase from 701 to 768; CRP decreasing, 48 --> 25. CBC, BMP stable. Leukocytosis improving. 02/05/18 Clinically improved. Maintaining saturations well on RA without distress. Eating well. Ambulating well. Will discharge to home in stable condition. Pain medications increased. Duragesic patch 25mcg. Oxycodone 5-15mg prn. Will initiate Augmentin 875 po BID with meals for 1 week for bronchial coverage. Dexamethasone 4mg BID. DuoNeb treatments QID recommended by pulm. F/U with Dr. Lemus, radiation oncologist in [place] February 09, 2018. F/U with [place] oncology, see Dora Camarena PA-C February 10, 2018 with CBC, CMP , magnesium, LDH, and possible chemotherapy. F/U with PCP in about 1 week. See orders for details. Time spent with patient: discharge greater than 30 minutes Resuscitation Status: Full Code Discharge Plan - Discharge Disposition Discharge Date: 02/05/18 Disposition: 01 Discharged Home, Self-Care *Condition: Stable Reason For Visit (Visit label in EMR): Acute Hypoxia, Resp failure - Discharge Medications *Discharge Medications: New Albuterol/Ipratropium [Duoneb] 3 ml AEROSOL RTQID #1 box Amox/Clav [Augmentin 875/125] 875 mg PO BIDWM #14 tab Dexamethasone Po [Decadron] 4 mg PO BID #28 tab Diclofenac Sodium [Voltaren] 25 mg PO BIDWM #60 tab FentaNYL PATCH [Duragesic Patch] 25 mcg TD Q3D #10 patch Oxycodone *IR* [Roxicodone *Ir*] 15 mg PO Q4H PRN #40 tab PRN Reason: Pain Continue APAP/Diphenhydramine 500/25 [Tylenol Pm] 2 tab PO HS Leslie-3 Fatty Acids [Leslie-3] 1 cap PO DAILY Beclomethasone Dipropionate [Qvar 80] 1 puff INH BID Potassium Chloride [MICRO-K 10 mEq Capsule] 10 meq PO BIDWM Apremilast [Otezla] 30 mg PO BID Ondansetron HCl 8 mg PO Q8H PRN PRN Reason: Nausea Nystatin Oral Liq. [Mycostatin] 5 ml PO TID MULTI-VIT + MINERAL (Opti-gen) [Vision] 1 tab PO DAILY PEG 3350 17gm PACKET [Miralax] 17 gm PO DAILY Metoprolol Tartrate 100 mg PO BID Memantine [Namenda] 10 mg PO BID Magnesium Oxide [Magox 400] 400 mg PO TID Gabapentin [Neurontin] 200 mg PO QID Folic Acid [Folate] 1 tab PO DAILY Atorvastatin Calcium 80 mg PO DAILY Hydrocortisone 2.5% Cream [Anusol-Hc 2.5% Cream] 1 applicatio RECTALLY BID Amlodipine [Norvasc] 5 mg PO DAILY Cyanocobalamin (Vitamin B-12) [Vitamin B12] 2,500 mcg PO DAILY Acetaminophen 650 mg PO Q4-6HPRN PRN PRN Reason: Pain Multivitamin [One Daily] 1 tab PO DAILY Pantoprazole Sodium [Protonix] 40 mg PO DAILY Neomycin/Polymyxin B/Hydrocort [Hcrwhgxs-Blaapnmsa-Ly Ear Susp] 4 drops RIGHT EAR QID Sucralfate [Carafate] 1 gm PO QID Discontinued Oxycodone HCl 10 mg PO Q3-4HR PRN PRN Reason: Pain fentaNYL [Fentanyl] 12 mcg TD UNK Diclofenac Sodium 75 mg PO BID - Discharge Packet/Instructions *Diet: Regular *Activity: As tolerated *Pain Management/Treatment: Duragesic patch increased to 25mcg. Oxycodone increased to 15mg. Diclofenac decreased to 25mg. *Wound Care: n/a Additional Instructions: RTC to [place] oncology, see Dora Camarena PA-C February 10, 2018 with CBC, CMP, magnesium, LDH, and possible chemotherapy. Will see Dr. Lemus, radiation oncologist in [place] February 09, 2018. *Expected Signs/Symptoms: Improvement of breathing. *Notify Physician if: Temp >100.4. Increasing difficulty breathing. *During Business Hours Contact: Fuad Brice *After Business Hours Contact: Contact your provider in the manner you did prior to admission. *Pending Lab/Results: No Pending Lab - Referrals/Follow Up *Referrals/Follow Up: DORA CAMARENA PA [Physician [employer]] - (Apt on February 10, 2018) Fuad Brice MD [Primary Care Provider] - 1 Week ([facility] follow up) - Patient Handouts Patient Handouts: Hypoxia (GEN) - Dismissal Complete Discharge Instructions are:: Complete Physician Narrative - Narrative Physician: Jarrell Singh MD Attestation Narrative: Date: 02/05/18 Time: 2271 I have independently interviewed and examined patient prior to discharge. See my progress note for details. Medically stable for discharge to home.
== END 2018-02-05 15:15 | disposition home or self-care (01) | DRG 166 ==
LOC: SUATTDRO 16:20 → MED 16:20
PROVIDERS: ADMIT Internal Medicine; ATTEND Hospitalist